=== PATIENT | male | born 1950 | race Caucasian/White ===

== ENCOUNTER 2016-04-13 12:59 | Inpatient (IN) | payer MEDICARE, BC ==
[~2016-04-13] VITALS: Ht 180.3 cm; Wt 82.1 kg
[~2016-04-13 12:59] MED LIST: ALLO300T2 PO; AUGM875T PO; CARV12.5 PO; COLC1TAB7 PO; LACT PO; LISI20 PO; NIFE20CA PO; THIA100T PO
[2016-04-13 13:04] VITALS: BP 141/97; PULSE 120; RESP 20; TEMP 99.1; O2SAT 93
[2016-04-13 13:09] VITALS: BP 141/97; PULSE 120; RESP 20; TEMP 99.1; O2SAT 93
--- NOTE | 2016-04-13 13:26 | PD ---
HPI Chief Complaint: Musculoskeletal Complaint Time Seen by Provider: 13:12 Travel History International Travel<30 days: No Contact w/Intl Traveler<30days: No Traveled to known affect area: No History of Present Illness HPI The patient is a 65-year-old male who presents to the emergency department via EMS for bilateral hip and leg pain and generalized weakness. The patient states he has a 1-2 week history of bilateral hip pain with weakness when standing, also feels like his legs are going to "give out ". The patient is had this happen several times in the past and actually has a wheelchair at home for when he has weakness. He also complains of intermittent tremors, but denies any alcohol withdrawal. He does have a history of daily alcohol use, but states he is currently not in alcohol withdrawal. The pain is located over the bilateral hips, occasional radiates into the legs, is present at rest and with activity. He denies any known fever, does complain of myalgias and generalized weakness. Symptoms are moderate without any known alleviating or exacerbating factors. PFSH Past Medical History Arthritis: Yes Cardiovascular Problems: Yes (htn) High Cholesterol: Yes Chemotherapy: No Endocrine: No Gout: Yes Headaches: Yes Hypertension: Yes Musculoskeletal: Yes Neurologic: Yes Psychiatric: No Reproductive: No Respiratory: No Radiation Therapy: No Tetanus Vaccination: Unknown Influenza Vaccination: No ?: Not Past Surgical History Surgical History: No Previous Surgery Ear Surgery: Yes Tonsillectomy: Yes Other Surgery: Yes (FINGER REMOVED) Social History Alcohol Use: Yes (daily) Tobacco Use: No Substance Use: No Allergies-Medications (Allergen,Severity, Reaction): Coded Allergies: No Known Allergies (Unverified , 11/21/15) Reported Meds & Prescriptions Reported Meds & Active Scripts Active Chlordiazepoxide (Chlordiazepoxide HCl) 25 Mg Cap 25 Mg PO QID PRN [id number] M1 875 Mg Tab 875 Mg PO BID 7 Days Thiamine HCl 100 Mg Tab 100 Mg PO DAILY 30 Days Prinivil 20 mg (Lisinopril) 20 Mg Tab 20 Mg PO DAILY 30 Days Acidophilu1 1 Tab Tab 1 Tab PO TID 30 Days Coreg 12.5 mg (Carvedilol) 12.5 Mg Tab 12.5 Mg PO Q8H 30 Days Reported Colcrys (Colchicine) 0.6 Mg Tab 0.6 Mg PO PRN Allopurinol 300 Mg Tab 300 Mg PO DAILY Nifedipine 20 Mg Cap 60 Mg PO DAILY Review of Systems Except as stated in HPI: all other systems reviewed are Neg General / Constitutional: No: Fever HENT: No: Lightheadedness Cardiovascular: No: Chest Pain or Discomfort Respiratory: No: Shortness of Breath Gastrointestinal: No: Nausea, Vomiting, Abdominal Pain Musculoskeletal: Positive: Myalgias, Weakness, Pain Skin: No Rash Neurologic: No: Paresthesia, Sensory Disturbance Physical Exam Narrative GENERAL: Awake, alert, pleasant 65-year-old male appears his stated age is in no acute respiratory distress. The patient is mildly tremulous. SKIN: Warm and dry. HEAD: Atraumatic. Normocephalic. EYES: No injection or drainage. ENT: No nasal bleeding or discharge. Slightly dry mucous membranes. NECK: Trachea midline. No JVD. CARDIOVASCULAR: Regular, tachycardic with a heart rate of 110. RESPIRATORY: No accessory muscle use. Clear to auscultation. Breath sounds equal bilaterally. GASTROINTESTINAL: Abdomen soft, non-tender, nondistended. No rebound tenderness. MUSCULOSKELETAL: Patient has mild tenderness of the hips bilateral, but there is no deformity. The patient is able flex the hips and knees bilaterally, strength with extension is 4+/5 bilateral. Plantar flexion is 5/5. Positive distal pulses. Back: No tenderness over the thoracic vertebrae. Minimal tenderness of the sacroiliac bilateral but no obvious bony deformity. NEUROLOGICAL: Awake and alert. No obvious cranial nerve deficits. Motor grossly within normal limits. Normal speech. PSYCHIATRIC: Appropriate mood and affect; insight and judgment normal. Data Data Last Documented VS Vital Signs Date Time Temp Pulse Resp B/P Pulse Ox O2 Delivery O2 Flow Rate FiO2 04/13/16 15:07 118 04/13/16 13:09 99.1 20 141/97 93 Room Air Orders Complete Blood Count With Diff (04/13/16 13:19) Creatine Kinase (Cpk) (04/13/16 13:19) Urinalysis - C+S If Indicated (04/13/16 13:19) Sodium Chlor 0.9% 1000 Ml Inj (Ns 1000 M (04/13/16 13:30) Ondansetron Inj (Zofran Inj) (04/13/16 13:30) Morphine Inj (Morphine Inj) (04/13/16 13:30) Lorazepam (Ativan) (1/6/17 13:30) Comprehensive Metabolic Panel (04/13/16 13:20) Alcohol (Ethanol) (04/13/16 13:20) Magnesium (Mg) (04/13/16 13:20) Chest, Single Ap (04/13/16 ) Influenzae A/B Antigen (04/13/16 13:21) Pelvis, Ap Only (Routine) (04/13/16 ) Lactic Acid (04/13/16 14:08) Sodium Chlor 0.9% 1000 Ml Inj (Ns 1000 M (04/13/16 14:45) Lorazepam Inj (Ativan Inj) (04/13/16 15:15) Sodium Chlor 0.9% 1000 Ml Inj (Ns 1000 M (04/13/16 15:15) Labs Laboratory Tests Test 04/13/16 04/13/16 13:30 14:16 White Blood Count 9.6 TH/MM3 Red Blood Count 4.71 MIL/MM3 Hemoglobin 14.7 GM/DL Hematocrit 43.3 % Mean Corpuscular Volume 91.9 FL Mean Corpuscular Hemoglobin 31.2 PG Mean Corpuscular Hemoglobin 33.9 % Concent Red Cell Distribution Width 14.1 % Platelet Count 108 TH/MM3 Mean Platelet Volume 7.4 FL Neutrophils (%) (Auto) 84.0 % Lymphocytes (%) (Auto) 8.8 % Monocytes (%) (Auto) 5.8 % Eosinophils (%) (Auto) 0.4 % Basophils (%) (Auto) 1.0 % Neutrophils # (Auto) 8.1 TH/MM3 Lymphocytes # (Auto) 0.8 TH/MM3 Monocytes # (Auto) 0.6 TH/MM3 Eosinophils # (Auto) 0.0 TH/MM3 Basophils # (Auto) 0.1 TH/MM3 CBC Comment DIFF FINAL Differential Comment Sodium Level 137 MEQ/L Potassium Level 3.8 MEQ/L Chloride Level 98 MEQ/L Carbon Dioxide Level 25.7 MEQ/L Anion Gap 13 MEQ/L Blood Urea Nitrogen 11 MG/DL Creatinine 1.05 MG/DL Estimat Glomerular Filtration 71 ML/MIN Rate Random Glucose 195 MG/DL Calcium Level 9.1 MG/DL Magnesium Level 0.7 MG/DL Total Bilirubin 1.7 MG/DL Aspartate Amino Transf 58 U/L (AST/SGOT) Alanine Aminotransferase 30 U/L (ALT/SGPT) Alkaline Phosphatase 183 U/L Total Creatine Kinase 32 U/L Total Protein 8.6 GM/DL Albumin 3.5 GM/DL Ethyl Alcohol Level LESS THAN 3 MG/DL Lactic Acid Level 2.8 mmol/L [facility] Medical Decision Making Medical Screen Exam Complete: Yes Emergency Medical Condition: Yes Medical Record Reviewed: Yes Interpretation(s) Laboratory Tests Test 04/13/16 04/13/16 13:30 14:16 White Blood Count 9.6 TH/MM3 Red Blood Count 4.71 MIL/MM3 Hemoglobin 14.7 GM/DL Hematocrit 43.3 % Mean Corpuscular Volume 91.9 FL Mean Corpuscular Hemoglobin 31.2 PG Mean Corpuscular Hemoglobin 33.9 % Concent Red Cell Distribution Width 14.1 % Platelet Count 108 TH/MM3 Mean Platelet Volume 7.4 FL Neutrophils (%) (Auto) 84.0 % Lymphocytes (%) (Auto) 8.8 % Monocytes (%) (Auto) 5.8 % Eosinophils (%) (Auto) 0.4 % Basophils (%) (Auto) 1.0 % Neutrophils # (Auto) 8.1 TH/MM3 Lymphocytes # (Auto) 0.8 TH/MM3 Monocytes # (Auto) 0.6 TH/MM3 Eosinophils # (Auto) 0.0 TH/MM3 Basophils # (Auto) 0.1 TH/MM3 CBC Comment DIFF FINAL Differential Comment Sodium Level 137 MEQ/L Potassium Level 3.8 MEQ/L Chloride Level 98 MEQ/L Carbon Dioxide Level 25.7 MEQ/L Anion Gap 13 MEQ/L Blood Urea Nitrogen 11 MG/DL Creatinine 1.05 MG/DL Estimat Glomerular Filtration 71 ML/MIN Rate Random Glucose 195 MG/DL Calcium Level 9.1 MG/DL Magnesium Level 0.7 MG/DL Total Bilirubin 1.7 MG/DL Aspartate Amino Transf 58 U/L (AST/SGOT) Alanine Aminotransferase 30 U/L (ALT/SGPT) Alkaline Phosphatase 183 U/L Total Creatine Kinase 32 U/L Total Protein 8.6 GM/DL Albumin 3.5 GM/DL Ethyl Alcohol Level LESS THAN 3 MG/DL Lactic Acid Level 2.8 mmol/L Differential Diagnosis Differential diagnoses includes myositis, her mental myositis, myalgias, rhabdomyolysis, acute renal failure, hypokalemia, hypocalcemia, muscle spasms, alcohol withdrawal, dehydration Narrative Course IV was established, labs are drawn and sent, and the patient was placed on cardiac telemetry monitoring and continuous pulse ox imaging monitoring. CPK, CBC, CMP were sent to lab. Chest x-ray and pelvis x-ray were ordered. Chest x- ray and pelvis x-ray are unremarkable. The patient's CPK is unremarkable and kidney function is unremarkable. Lactic acid is 2.8. The patient was reevaluated after 1 L fluid his heart rate came down 118, therefore, the patient was administered 2 more liters of IV fluids. The patient's HMO sent tachycardic, I reviewed the EMR, he is several visits for alcohol withdrawal. His last alcohol intake was yesterday. The patient has no obvious evidence of myositis or acute fractures, however, his symptoms appear to possibly be related alcohol withdrawal. Therefore, patient was administered Ativan intravenously. The patient be discharged home on Librium. Case management will be consult to help the patient find a ride home as he states he is unable to get up the stairs into his house where he is in a wheelchair normally, states the taxi cab would not help. The patient was unable to ambulate at bedside, was unable to bear weight. The patient states she's had this happen several times and his symptoms will improve after 2-3 days. I had a discussion with the patient and stated I cannot send him home if he is unable to ambulate and came within his household his wheelchair. Therefore, patient will be 23 hour observation. I did advise the patient if his symptoms do not improve he may need permanent placement. Therefore, the on-call medical service was paged as the patient does not have a primary physician. Physician Communication Physician Communication The on-call medical service was paged for 23 hour observation. Diagnosis Primary Impression: Myalgia Additional Impressions: Generalized weakness Alcohol abuse Inability to ambulate due to multiple joints Patient Instructions: General Instructions Additional Instructions: Medications as directed. Follow-up with her primary physician. Return if symptoms worsen or progress. Med/Other Pt SpecificInfo: Prescription(s) given Scripts Chlordiazepoxide 25 Mg Cap25 Mg PO QID PRN (Anxiety) #20 CAP Ref 0 Prov:Julian South MD 04/13/16 Disposition: DISCHARGE HOME Condition: Stable Julian South MD Apr 13, 2016 13:26
[2016-04-13] MEDS ORDERED: LORazepam 1 MG TAB PO ONE (13:30)
[2016-04-13] MEDS ORDERED: SODIUM CHLOR 0.9% 1000 ML INJ 1,000 ML IV ONE ×3 (13:30→15:15)
[2016-04-13] MEDS ORDERED: MORPHINE SULFATE 4 MG/ML INJ IV PUSH ONE (13:30)
[2016-04-13] MEDS ORDERED: ONDANSETRON HCL 4 MG/2 ML VIAL IV PUSH ONE (13:30)
[2016-04-13 13:58] LABS: AUTOMATED NEUTROPHIL # 8.1 TH/MM3 (1.8-7.7); BASOPHIL # 0.1 TH/MM3 (0-0.2); EOSINOPHIL % 0.4 % (0.0-4.0); HEMATOCRIT 43.3 % (39.0-51.0); HEMO FLAGS DIFF FINAL; LYMPH % 8.8 % (9.0-44.0); LYMPHOCYTE # 0.8 TH/MM3 (1.0-4.8); MEAN CELL VOLUME 91.9 FL (80.0-100.0); MEAN CORPUSCULAR HEMOGLOBIN 31.2 PG (27.0-34.0); MEAN CORPUSCULAR HGB CONC 33.9 % (32.0-36.0); MONO % 5.8 % (0.0-8.0); PLATELET COUNT 108 TH/MM3 (150-450); RED BLOOD COUNT 4.71 MIL/MM3 (4.50-5.90); RED CELL DISTRIBUTION WIDTH 14.1 % (11.6-17.2); WHITE BLOOD COUNT 9.6 TH/MM3 (4.0-11.0)
--- NOTE | 2016-04-13 14:02 | RADRPT ---
EXAM DATE/TIME: 04/13/2016 13:43 [facility] COMPARISON: CHEST SINGLE AP, April 13, 2016, 13:41. INDICATIONS : Bilateral hip pain. No injury. MEDICAL HISTORY : None. SURGICAL HISTORY : None. ENCOUNTER: Initial ACUITY: 1 day PAIN SCORE: 7/10 LOCATION: Bilateral hips. FINDINGS: The osseous structures of the pelvis are intact. There are mild degenerative changes in the hips bila terally. No acute fracture or destructive lesion is identified.CONCLUSION: 1. Mild degenerative changes in the hips. No acute fracture identified. Ashwin Coffey MD on April 13, 2016 at 14:00 Board Certified Radiologist. This report was verified electronically.
--- NOTE | 2016-04-13 14:04 | RADRPT ---
EXAM DATE/TIME: 04/13/2016 13:41 [facility] COMPARISON: CHEST SINGLE AP, November 27, 2015, 9:02. INDICATIONS : Shortness of breath. MEDICAL HISTORY : None. SURGICAL HISTORY : None. ENCOUNTER: Initial ACUITY: 1 day PAIN SCORE: 0/10 LOCATION: Bilateral chest FINDINGS: The heart is at the upper limits of normal in size. The lungs demonstrate mild chronic interstitial c hanges but are otherwise clear. The visualized bony structures are grossly intact. CONCLUSION: 1. No acute cardiopulmonary findings identified. Ashwin Coffey MD on April 13, 2016 at 14:02 Board Certified Radiologist. This report was verified electronically.
[2016-04-13 14:28] LABS: ANION GAP 13 MEQ/L (5-15)
[2016-04-13 14:31] LABS: ALKALINE PHOSPHATASE 183 U/L (45-117); ALT (GPT) 30 U/L (12-78); AST (GOT) 58 U/L (15-37); BICARBONATE 25.7 MEQ/L (21.0-32.0); BLOOD UREA NITROGEN 11 MG/DL (7-18); CHLORIDE 98 MEQ/L (98-107); GLOMERULAR FILTRATION RATE 71 ML/MIN (>89); MAGNESIUM 0.7 MG/DL (1.5-2.5); POTASSIUM 3.8 MEQ/L (3.5-5.1); SODIUM (NA) 137 MEQ/L (136-145); TOTAL BILIRUBIN ADULT 1.7 MG/DL (0.2-1.0)
[2016-04-13 15:07] VITALS: PULSE 118
[2016-04-13] MEDS ORDERED: LORazepam 2 MG/ML VIAL IV PUSH ONE (15:15)
[2016-04-13] MEDS ORDERED: CHLO25CA2 PO (15:15)
[2016-04-13] MEDS ORDERED: NALOXONE HCL 0.4 MG/ML AMP IV PRN (16:45)
[2016-04-13] MEDS ORDERED: SODIUM CHLORIDE 0.9% FLUSH 5 ML FLUSH FLUSH PRN (16:45)
--- NOTE | 2016-04-13 16:50 | HHI.HP ---
[facility] Unknown Admission Diagnosis myalgias, inability to ambulate, alcohol abuse, lactic acidosis Diagnoses: Chief Complaint: Spasms, weakness Travel History International Travel<30 Days: No Contact w/Intl Traveler <30 Da: No Traveled to Known Affected Are: No History of Present Illness The patient is a 65-year-old male with a past medical history of alcohol abuse who is presenting to the hospital with spasms in his lower extremities and weakness. The patient said that his symptoms started today and involves a sensation of his tailbone popping and having pain in his hips and knees. He says he sometimes gets these sensations when he is drinking a lot. He says this is the third episode this has occurred this year. The patient says that it is gotten so bad he can't ambulate or get out of bed or chair. He says when these episodes occur he usually tries to ride it out by watching TV on his couch. The patient also describes a numbing sensation in his left foot that he has had for a long time. He says that he has real bad neuropathy. He says his last drink was yesterday. He believes that his symptoms are slightly improving. He denies any fevers. He says generally he ambulates without a cane or a walker. He says he only has 2 steps at home that he is usually able to climb. 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 He says that he drinks too much. Review of Systems Respiratory: DENIES: Shortness of breath Gastrointestinal: COMPLAINS OF: Constipation Musculoskeletal: COMPLAINS OF: Muscle aches, Neck pain Neurologic: COMPLAINS OF: Abnormal gait, Localized weakness, Paresthesias, Tremor, Poor Balance Past Family Social History Past Medical History Alcohol abuse Gout Hypertension OA Past Surgical History Tonsillectomy Finger amputation Allergies: Coded Allergies: No Known Allergies (Unverified , 11/21/15) Active Ordered Medications Current Medications Medications (Trade) Dose Ordered Sig/Leslie Route Start Time Stop Time Status Last Admin (Zyloprim) 300 mg DAILY PO 04/14/16 09:00 (Coreg) 12.5 mg Q8H PO 04/13/16 16:45 UNV (Prinivil) 20 mg DAILY PO 04/14/16 09:00 (Procardia) 60 mg DAILY PO 04/14/16 09:00 UNV Family History HTN Social History The patient says that he drinks too much. He is vague about the specific amount. He denies smoking or illicit drug use. Physical Exam Vital Signs Vital Signs Date Time Temp Pulse Resp B/P Pulse Ox O2 Delivery O2 Flow Rate FiO2 04/13/16 15:07 118 04/13/16 13:09 99.1 120 20 141/97 93 Room Air 04/13/16 13:04 99.1 120 20 141/97 93 Physical Exam GENERAL: Tremulous male in no apparent distress. SKIN: Warm and dry. HEAD: Atraumatic. Normocephalic. EYES: No injection or drainage. ENT: No nasal bleeding or discharge. Slightly dry mucous membranes. NECK: Trachea midline. No JVD. CARDIOVASCULAR: Regular, tachycardic. RESPIRATORY: No accessory muscle use. Clear to auscultation. Breath sounds equal bilaterally. GASTROINTESTINAL: Abdomen soft, non-tender, nondistended. No rebound tenderness. MUSCULOSKELETAL: Patient has mild tenderness of the hips bilateral, but there is no deformity. No lower extremity edema. Positive distal pulses. NEUROLOGICAL: Awake and alert. No obvious cranial nerve deficits. Motor grossly within normal limits. Normal speech. Cranial nerves grossly intact. The patient is able flex the hips and knees bilaterally, strength with extension is 4+/5 bilaterally. Plantar flexion is 5/5. Upper extremity with 5 out of 5 strength. PSYCHIATRIC: Appropriate mood and affect; insight and judgment normal. Laboratory Laboratory Tests Test 04/13/16 04/13/16 13:30 14:16 White Blood Count 9.6 Red Blood Count 4.71 Hemoglobin 14.7 Hematocrit 43.3 Mean Corpuscular Volume 91.9 Mean Corpuscular Hemoglobin 31.2 Mean Corpuscular Hemoglobin 33.9 Concent Red Cell Distribution Width 14.1 Platelet Count 108 Mean Platelet Volume 7.4 Neutrophils (%) (Auto) 84.0 Lymphocytes (%) (Auto) 8.8 Monocytes (%) (Auto) 5.8 Eosinophils (%) (Auto) 0.4 Basophils (%) (Auto) 1.0 Neutrophils # (Auto) 8.1 Lymphocytes # (Auto) 0.8 Monocytes # (Auto) 0.6 Eosinophils # (Auto) 0.0 Basophils # (Auto) 0.1 CBC Comment DIFF FINAL Differential Comment Sodium Level 137 Potassium Level 3.8 Chloride Level 98 Carbon Dioxide Level 25.7 Anion Gap 13 Blood Urea Nitrogen 11 Creatinine 1.05 Estimat Glomerular Filtration 71 Rate Random Glucose 195 Calcium Level 9.1 Magnesium Level 0.7 Total Bilirubin 1.7 Aspartate Amino Transf 58 (AST/SGOT) Alanine Aminotransferase 30 (ALT/SGPT) Alkaline Phosphatase 183 Total Creatine Kinase 32 Total Protein 8.6 Albumin 3.5 Ethyl Alcohol Level LESS THAN 3 Lactic Acid Level 2.8 Date/Time Procedure Status Source Growth 04/13/16 14:30 Influenza Types A,B Antigen (TERRI) - Final Complete Nasal Aspirate NEGATIVE FOR FLU A AND B ANTIGEN.... Result Diagram: 04/13/16 1330 04/13/16 1330 Imaging Last Impressions Pelvis X-Ray 04/13/16 0000 Signed Impressions: Service Date/Time: Wednesday, April 13, 2016 13:43 - CONCLUSION: 1. Mild degenerative changes in the hips. No acute fracture identified. Ashwin Coffey MD Chest X-Ray 04/13/16 0000 Signed Impressions: Service Date/Time: Wednesday, April 13, 2016 13:41 - CONCLUSION: 1. No acute cardiopulmonary findings identified. Ashwin Coffey MD Assessment and Plan Assessment and Plan Alcohol withdrawal The patient is tachycardic, tremulous, weak and has muscle cramping in the lower extremities. He says this happens several times a year. - IV fluids. - CIWA protocol. - Monitor electrolytes and replete as needed. - Monitor on telemetry. - Multivitamin, folate and thiamine. - cessation instruction. Weakness/ spasms/ hypomagnesemia Likely secondary to alcohol abuse. - Treatment as above. - Physical therapy and case management evaluations. - mg sulfate IV x 4 bags. Repeat mag level this evening. - check phos levels. - replete potassium. HTN Exacerbated by withdrawal. - continue home meds. - clonidine as needed. Thrombocytopenia Likely secondary to chronic alcohol abuse. - Follow CBC. PPx: Lovenox. Code Status Full. Discussed Condition With Dr. South, pt. Physician Certification 2 Midnight Certification Type: Admission for Inpatient Services Order for Inpatient Services The services are ordered in accordance with Medicare regulations or non- Medicare payer requirements, as applicable. In the case of services not specified as inpatient-only, they are appropriately provided as inpatient services in accordance with the 2-midnight benchmark. Estimated LOS (days): 2 days is the estimated time the patient will need to remain in the hospital, assuming treatment plan goals are met and no additional complications. Post-Hospital Plan: Not yet determined Anmol Murray DO Apr 13, 2016 16:50
[2016-04-13] MEDS ORDERED: LORazepam 2 MG TAB PO PRN (17:00)
[2016-04-13] MEDS ORDERED: LORazepam 2 MG/ML VIAL IV PUSH PRN ×3 (17:00)
[2016-04-13] MEDS ORDERED: SENNOSIDES 8.6 MG TAB PO PRN (17:00)
[2016-04-13] MEDS ORDERED: ACETAMINOPHEN 325 MG TAB PO PRN (17:00)
[2016-04-13] MEDS ORDERED: FLUMAZENIL 1 MG/10 ML VIAL IV PUSH PRN (17:00)
[2016-04-13] MEDS ORDERED: ONDANSETRON HCL 4 MG/2 ML VIAL IVP PRN (18:00)
[2016-04-13] MEDS ORDERED: ENOXAPARIN SODIUM 40 MG/0.4 ML SYRINGE SQ SCH (18:00)
[2016-04-13] MEDS ORDERED: POTASSIUM CHLORIDE 25 MEQ EFFERVESCENT TAB PO ONE (18:00)
[2016-04-13] MEDS ORDERED: cloNIDine HCL 0.1 MG TAB PO PRN (18:00)
[2016-04-13 18:10] VITALS: BP 140/73; PULSE 78; RESP 18; TEMP 98.1; O2SAT 98
[2016-04-13] MEDS: SODIUM CHLOR 0.9% 1000 ML INJ 1,000 ML IV SCH (18:13)
[2016-04-13] MEDS: CARVEDILOL 12.5 MG TAB PO SCH (18:13)
[2016-04-13] MEDS: DOCUSATE SODIUM 100 MG CAP PO SCH (18:13)
[2016-04-13] MEDS: MAGNESIUM SULFATE 1 GM PREMIX 100 ML IV SCH (18:14)
[2016-04-13 18:55] LABS: BLOOD, URINE TRACE (NEG); COMMENT (UR) CULT NOT INDICATED; CULTURE IF INDICATED CULT NOT INDICATED; GLUCOSE,URINE NEG (NEG); HYALINE CAST, URINE 4 /lpf (RARE); KETONE, URINE TRACE mg/dL (NEG); MUCUS URINE FEW /lpf (OCC); NITRITE,URINE NEG (NEG); PH, URINE 6.5 (5.0-8.5); URINE COLOR YELLOW (YELLW/STRAW)
[2016-04-13 19:01] VITALS: BP 151/91; PULSE 116; RESP 20; TEMP 97.4; O2SAT 92
[2016-04-13] MEDS: SODIUM CHLORIDE 0.9% FLUSH 5 ML FLUSH FLUSH SCH (20:57)
[2016-04-13] MEDS: ACETAMINOPHEN 325 MG TAB PO PRN (20:57)
[2016-04-13 23:37] LABS: MAGNESIUM 0.9 MG/DL (1.5-2.5)
[2016-04-14] VITALS (9 sets, daily range): BP systolic 106–138; BP diastolic 66–78; PULSE 70–93; RESP 16–18; TEMP 95.9–98.1; O2SAT 93–97
[2016-04-14] MEDS: CARVEDILOL 12.5 MG TAB PO SCH ×3 (01:55→18:03)
[2016-04-14] MEDS: MAGNESIUM SULFATE 1 GM PREMIX 100 ML IV SCH ×3 (03:26→06:12)
[2016-04-14 05:26] LABS: AUTOMATED NEUTROPHIL # 4.8 TH/MM3 (1.8-7.7); BASOPHIL # 0.1 TH/MM3 (0-0.2); BASOPHIL % 0.8 % (0.0-2.0); EOSINOPHIL # 0.2 TH/MM3 (0-0.4); EOSINOPHIL % 2.2 % (0.0-4.0); HEMATOCRIT 38.9 % (39.0-51.0); LYMPH % 20.3 % (9.0-44.0); LYMPHOCYTE # 1.4 TH/MM3 (1.0-4.8); MEAN CELL VOLUME 92.6 FL (80.0-100.0); MEAN CORPUSCULAR HEMOGLOBIN 31.6 PG (27.0-34.0); MEAN CORPUSCULAR HGB CONC 34.2 % (32.0-36.0); MONO % 8.9 % (0.0-8.0); NEUT % 67.8 % (16.0-70.0); PLATELET COUNT 89 TH/MM3 (150-450); RED CELL DISTRIBUTION WIDTH 14.3 % (11.6-17.2); WHITE BLOOD COUNT 7.1 TH/MM3 (4.0-11.0)
[2016-04-14 05:33] LABS: HEMO FLAGS AUTO DIFF
[2016-04-14] MEDS: SODIUM CHLOR 0.9% 1000 ML INJ 1,000 ML IV SCH ×2 (06:00→13:00)
[2016-04-14 06:09] LABS: ALKALINE PHOSPHATASE 138 U/L (45-117); ALT (GPT) 21 U/L (12-78); ANION GAP 11 MEQ/L (5-15); AST (GOT) 39 U/L (15-37); BICARBONATE 25.6 MEQ/L (21.0-32.0); BLOOD UREA NITROGEN 11 MG/DL (7-18); CHLORIDE 101 MEQ/L (98-107); GLOMERULAR FILTRATION RATE 124 ML/MIN (>89); MAGNESIUM 1.6 MG/DL (1.5-2.5); POTASSIUM 3.4 MEQ/L (3.5-5.1); SODIUM (NA) 138 MEQ/L (136-145); TOTAL BILIRUBIN ADULT 1.2 MG/DL (0.2-1.0)
[2016-04-14] MEDS: DOCUSATE SODIUM 100 MG CAP PO SCH ×2 (06:12→17:57)
[2016-04-14] MEDS: THIAMINE HCL 100 MG TAB PO SCH (08:09)
[2016-04-14] MEDS: ALLOPURINOL 300 MG TAB PO SCH (08:09)
[2016-04-14] MEDS: FOLIC ACID 1 MG TAB PO SCH (08:09)
[2016-04-14] MEDS: MULTIVITAMIN TAB PO SCH (08:09)
[2016-04-14] MEDS: NIFEdipine 20 MG CAP PO SCH (08:10)
[2016-04-14] MEDS: LISINOPRIL 20 MG TAB PO SCH (08:10)
[2016-04-14] MEDS: SODIUM CHLORIDE 0.9% FLUSH 5 ML FLUSH FLUSH SCH (08:10)
[2016-04-14] MEDS ORDERED: POTASSIUM PHOSPHATE INJ 30 MMOL in SODIUM CHLOR 0.9% 250 ML INJ 250 ML IV ONE (09:15)
[2016-04-14] MEDS ORDERED: POTASSIUM CHLORIDE 25 MEQ EFFERVESCENT TAB PO ONE (09:15)
[2016-04-14] MEDS ORDERED: MAGNESIUM SULFATE 1 GM PREMIX 100 ML IV SCH (09:15)
--- NOTE | 2016-04-14 09:30 | HHI.PR ---
Subjective Remarks The patient said that he felt much better. He said that he was still overall weak. He said that he had a lot of chronic back pain. He says this was the first time he was eating anything in 2 days. He had no acute complaints. Objective Vitals Vital Signs Date Time Temp Pulse Resp B/P Pulse Ox O2 Delivery O2 Flow Rate FiO2 04/14/16 07:56 90 04/14/16 07:32 Room Air 04/14/16 04:01 97.9 85 17 106/66 95 04/14/16 00:00 97.2 93 16 132/78 94 04/13/16 19:01 97.4 116 20 151/91 92 04/13/16 18:10 98.1 78 18 140/73 98 Room Air 04/13/16 15:07 118 04/13/16 13:09 99.1 120 20 141/97 93 Room Air 04/13/16 13:04 99.1 120 20 141/97 93 I/O 04/13/16 04/13/16 04/13/16 04/14/16 04/14/16 04/14/16 07:00 15:00 23:00 07:00 15:00 23:00 Intake Total 461 ml 1169 ml Output Total 250 ml 200 ml Balance 211 ml 969 ml Intake Oral 240 ml 240 ml IV Total 221 ml 929 ml Output Urine Total 250 ml 200 ml Result Diagram: 04/14/16 0453 04/14/16 0453 Imaging Last Impressions Pelvis X-Ray 04/13/16 0000 Signed Impressions: Service Date/Time: Wednesday, April 13, 2016 13:43 - CONCLUSION: 1. Mild degenerative changes in the hips. No acute fracture identified. Ashwin Coffey MD Chest X-Ray 04/13/16 0000 Signed Impressions: Service Date/Time: Wednesday, April 13, 2016 13:41 - CONCLUSION: 1. No acute cardiopulmonary findings identified. Ashwin Coffey MD Objective Remarks GENERAL: Resting comfortably, in no apparent distress. SKIN: Warm and dry. HEAD: Atraumatic. Normocephalic. EYES: No injection or drainage. ENT: No nasal bleeding or discharge. Slightly dry mucous membranes. NECK: Trachea midline. No JVD. CARDIOVASCULAR: Regular, tachycardic. RESPIRATORY: No accessory muscle use. Clear to auscultation. Breath sounds equal bilaterally. GASTROINTESTINAL: Abdomen soft, non-tender, nondistended. No rebound tenderness. MUSCULOSKELETAL: No lower extremity edema. Positive distal pulses. NEUROLOGICAL: Awake and alert. No obvious cranial nerve deficits. Motor grossly within normal limits. Normal speech. Cranial nerves grossly intact. Lower extremity strength is 3/5 bilaterally. Upper extremity with 5 out of 5 strength. PSYCHIATRIC: Appropriate mood and affect; insight and judgment normal. Medications and IVs Current Medications Medications (Trade) Dose Ordered Sig/Leslie Route Start Time Stop Time Status Last Admin (Zyloprim) 300 mg DAILY PO 04/14/16 09:00 04/14/16 08:09 (Coreg) 12.5 mg Q8H PO 04/13/16 18:00 04/14/16 01:55 (Prinivil) 20 mg DAILY PO 04/14/16 09:00 Nifedipine 60 mg 60 mg DAILY PO 04/14/16 09:00 (NS 1000 ml Inj) 1,000 ml @ 100 mls/hr Q10H IV 04/13/16 17:00 04/14/16 06:00 (NS Flush) 2 ml UNSCH PRN FLUSH 04/13/16 16:45 (NS Flush) 2 ml BID FLUSH 04/13/16 21:00 (Tylenol) 650 mg Q4H PRN PO 04/13/16 17:00 04/13/16 20:57 (Zofran Inj) 4 mg Q6H PRN IVP 04/13/16 18:00 (Colace) 100 mg Q12H PO 04/13/16 18:00 04/14/16 06:12 (Senokot) 17.2 mg Q12H PRN PO 04/13/16 17:00 (Tylenol) 650 mg Q6H PRN PO 04/13/16 17:00 (Roxicodone) 5 mg Q4H PRN PO 04/13/16 16:45 (Narcan Inj) 0.4 mg UNSCH PRN IV 04/13/16 16:45 (Ativan) 1 mg Q4H PRN PO 04/13/16 17:00 (Ativan Inj) 1 mg Q4H PRN IV PUSH 04/13/16 17:00 (Ativan) 2 mg Q2H PRN PO 04/13/16 17:00 (Ativan Inj) 2 mg Q2H PRN IV PUSH 04/13/16 17:00 (Ativan Inj) 2 mg Q1H PRN IV PUSH 04/13/16 17:00 (Ativan Inj) 2 mg Q15M PRN IV PUSH 04/13/16 17:00 (Vitamin B1) 100 mg DAILY PO 04/14/16 09:00 04/14/16 08:09 (Catapres) 0.1 mg Q6H PRN PO 04/13/16 18:00 (Folate) 1 mg DAILY PO 04/14/16 09:00 04/14/16 08:09 Multivitamins 1 tab 1 tab DAILY PO 04/14/16 09:00 04/14/16 08:09 Magnesium Sulfate/ Dextrose 100 ml @ 100 mls/hr Q1H IV 04/14/16 09:15 04/14/16 10:14 (Potassium Phosphate Inj/NS 250 ml Inj) 260 ml @ 43.333 mls/ hr ONCE ONCE IV 04/14/16 09:15 04/14/16 15:14 A/P Assessment and Plan Alcohol withdrawal The patient was tachycardic, tremulous, weak and had muscle cramping in the lower extremities. He says this happens several times a year. Magnesium and phosphorous levels were very low. - IV fluids. - CIWA protocol. - Monitor electrolytes and replete as needed. - Monitor on telemetry. - Multivitamin, folate and thiamine. - cessation instruction. Weakness/ spasms/ hypomagnesemia/ hypophosphatemia/ hypokalemia Likely secondary to alcohol abuse and decreased PO intake. - Treatment as above. - Physical therapy and case management evaluations. - mg sulfate, K phos and KCl repletion. - encourage PO intake. HTN Exacerbated by withdrawal. Stable 04/14. - continue home meds. - clonidine as needed. Thrombocytopenia Likely secondary to chronic alcohol abuse. - Follow CBC. - d/c Lovenox. PPx: SCDs. Discharge Planning Awaiting clinical improvement. Anmol Murray DO Apr 14, 2016 09:30
[2016-04-14 09:58] LABS: PLATELET ESTIMATE SMEAR LOW (NORMAL); PLATELET MORPHOLOGY NORMAL (NORMAL); SCAN/DIFF AUTO DIFF CONFIRMED
[2016-04-14 16:24] LABS: BICARBONATE 24.4 MEQ/L (21.0-32.0); POTASSIUM 4.1 MEQ/L (3.5-5.1)
[2016-04-14] MEDS: LORazepam 1 MG TAB PO PRN (23:04)
[2016-04-15] VITALS (9 sets, daily range): BP systolic 97–144; BP diastolic 59–84; PULSE 78–94; RESP 16–18; TEMP 95.6–97.9; O2SAT 94–97
[2016-04-15] MEDS: LORazepam 1 MG TAB PO PRN ×2 (03:37→09:11)
[2016-04-15] MEDS: CARVEDILOL 12.5 MG TAB PO SCH ×3 (03:37→18:00)
[2016-04-15] MEDS: DOCUSATE SODIUM 100 MG CAP PO SCH ×2 (03:37→18:00)
[2016-04-15 06:23] LABS: BICARBONATE 22.2 MEQ/L (21.0-32.0); MAGNESIUM 1.6 MG/DL (1.5-2.5); POTASSIUM 3.8 MEQ/L (3.5-5.1)
[2016-04-15] MEDS: SODIUM CHLOR 0.9% 1000 ML INJ 1,000 ML IV SCH ×2 (09:00→19:00)
[2016-04-15] MEDS: SODIUM CHLORIDE 0.9% FLUSH 5 ML FLUSH FLUSH SCH ×2 (09:00→21:00)
[2016-04-15] MEDS: ALLOPURINOL 300 MG TAB PO SCH (09:10)
[2016-04-15] MEDS: LISINOPRIL 20 MG TAB PO SCH (09:10)
[2016-04-15] MEDS: FOLIC ACID 1 MG TAB PO SCH (09:10)
[2016-04-15] MEDS: THIAMINE HCL 100 MG TAB PO SCH (09:10)
[2016-04-15] MEDS: NIFEdipine 20 MG CAP PO SCH (09:10)
[2016-04-15] MEDS: MULTIVITAMIN TAB PO SCH (09:11)
[2016-04-15] MEDS ORDERED: POTASSIUM CHLORIDE 25 MEQ EFFERVESCENT TAB PO ONE (15:30)
[2016-04-15] MEDS ORDERED: MAGNESIUM SULFATE 1 GM PREMIX 100 ML IV ONE (15:30)
--- NOTE | 2016-04-15 15:39 | HHI.PR ---
Subjective Remarks The patient was very confused. He was trying to climb out of bed. He did not know where he was. He did know that I was a doctor. Discussed with nursing. Objective Vitals Vital Signs Date Time Temp Pulse Resp B/P Pulse Ox O2 Delivery O2 Flow Rate FiO2 04/15/16 12:00 95.9 88 18 97/59 97 04/15/16 08:00 95.8 90 18 144/84 94 04/15/16 04:00 97.9 94 16 143/80 94 04/15/16 00:00 97.4 86 18 131/83 95 04/14/16 20:37 84 04/14/16 20:00 98.1 70 18 138/77 97 04/14/16 15:48 96.2 86 18 124/68 95 I/O 04/14/16 04/14/16 04/14/16 04/15/16 04/15/16 04/15/16 07:00 15:00 23:00 07:00 15:00 23:00 Intake Total 1169 ml 1236 ml 480 ml 480 ml Output Total 200 ml 800 ml 400 ml 850 ml Balance 969 ml 436 ml 80 ml -370 ml Intake Oral 240 ml 600 ml 480 ml 480 ml IV Total 929 ml 636 ml Output Urine Total 200 ml 800 ml 400 ml 850 ml # Bowel Movements 1 Result Diagram: 04/14/16 0453 04/15/16 0439 Imaging Current Medications Medications (Trade) Dose Ordered Sig/Leslie Route Start Time Stop Time Status Last Admin (Zyloprim) 300 mg DAILY PO 04/14/16 09:00 04/15/16 09:10 (Coreg) 12.5 mg Q8H PO 04/13/16 18:00 04/15/16 09:10 (Prinivil) 20 mg DAILY PO 04/14/16 09:00 04/15/16 09:10 Nifedipine 60 mg 60 mg DAILY PO 04/14/16 09:00 04/15/16 09:10 (NS 1000 ml Inj) 1,000 ml @ 100 mls/hr Q10H IV 04/13/16 17:00 04/14/16 06:00 (NS Flush) 2 ml UNSCH PRN FLUSH 04/13/16 16:45 (NS Flush) 2 ml BID FLUSH 04/13/16 21:00 04/15/16 09:00 (Tylenol) 650 mg Q4H PRN PO 04/13/16 17:00 04/13/16 20:57 (Zofran Inj) 4 mg Q6H PRN IVP 04/13/16 18:00 (Colace) 100 mg Q12H PO 04/13/16 18:00 04/15/16 03:37 (Senokot) 17.2 mg Q12H PRN PO 04/13/16 17:00 (Tylenol) 650 mg Q6H PRN PO 04/13/16 17:00 (Roxicodone) 5 mg Q4H PRN PO 04/13/16 16:45 (Narcan Inj) 0.4 mg UNSCH PRN IV 04/13/16 16:45 (Ativan) 1 mg Q4H PRN PO 04/13/16 17:00 04/15/16 09:11 (Ativan Inj) 1 mg Q4H PRN IV PUSH 04/13/16 17:00 (Ativan) 2 mg Q2H PRN PO 04/13/16 17:00 (Ativan Inj) 2 mg Q2H PRN IV PUSH 04/13/16 17:00 04/15/16 15:05 (Ativan Inj) 2 mg Q1H PRN IV PUSH 04/13/16 17:00 (Ativan Inj) 2 mg Q15M PRN IV PUSH 04/13/16 17:00 (Vitamin B1) 100 mg DAILY PO 04/14/16 09:00 04/15/16 09:10 (Catapres) 0.1 mg Q6H PRN PO 04/13/16 18:00 (Folate) 1 mg DAILY PO 04/14/16 09:00 04/15/16 09:10 Multivitamins 1 tab 1 tab DAILY PO 04/14/16 09:00 04/15/16 09:11 Magnesium Sulfate/ Dextrose 100 ml @ 100 mls/hr ONCE ONCE IV 04/15/16 15:30 04/15/16 16:29 (Potassium Phosphate Inj/NS Inj) 155 ml @ 38.75 mls/ hr ONCE ONCE IV 04/15/16 17:00 04/15/16 20:59 Objective Remarks GENERAL: Anxious, trying to climb out of bed. SKIN: Warm and dry. HEAD: Atraumatic. Normocephalic. EYES: No injection or drainage. ENT: No nasal bleeding or discharge. Slightly dry mucous membranes. NECK: Trachea midline. No JVD. CARDIOVASCULAR: Regular, tachycardic. RESPIRATORY: No accessory muscle use. Clear to auscultation. Breath sounds equal bilaterally. GASTROINTESTINAL: Abdomen soft, non-tender, nondistended. No rebound tenderness. MUSCULOSKELETAL: No lower extremity edema. Positive distal pulses. NEUROLOGICAL: Awake and alert. Anxious. No obvious cranial nerve deficits. Motor grossly within normal limits. Normal speech. Cranial nerves grossly intact. Lower extremity strength is 3/5 bilaterally. Upper extremity with 5 out of 5 strength. PSYCHIATRIC: Anxious/ agitated. Medications and IVs Current Medications Medications (Trade) Dose Ordered Sig/Leslie Route Start Time Stop Time Status Last Admin (Zyloprim) 300 mg DAILY PO 04/14/16 09:00 04/15/16 09:10 (Coreg) 12.5 mg Q8H PO 04/13/16 18:00 04/15/16 09:10 (Prinivil) 20 mg DAILY PO 04/14/16 09:00 04/15/16 09:10 Nifedipine 60 mg 60 mg DAILY PO 04/14/16 09:00 04/15/16 09:10 (NS 1000 ml Inj) 1,000 ml @ 100 mls/hr Q10H IV 04/13/16 17:00 04/14/16 06:00 (NS Flush) 2 ml UNSCH PRN FLUSH 04/13/16 16:45 (NS Flush) 2 ml BID FLUSH 04/13/16 21:00 04/15/16 09:00 (Tylenol) 650 mg Q4H PRN PO 04/13/16 17:00 04/13/16 20:57 (Zofran Inj) 4 mg Q6H PRN IVP 04/13/16 18:00 (Colace) 100 mg Q12H PO 04/13/16 18:00 04/15/16 03:37 (Senokot) 17.2 mg Q12H PRN PO 04/13/16 17:00 (Tylenol) 650 mg Q6H PRN PO 04/13/16 17:00 (Roxicodone) 5 mg Q4H PRN PO 04/13/16 16:45 (Narcan Inj) 0.4 mg UNSCH PRN IV 04/13/16 16:45 (Ativan) 1 mg Q4H PRN PO 04/13/16 17:00 04/15/16 09:11 (Ativan Inj) 1 mg Q4H PRN IV PUSH 04/13/16 17:00 (Ativan) 2 mg Q2H PRN PO 04/13/16 17:00 (Ativan Inj) 2 mg Q2H PRN IV PUSH 04/13/16 17:00 04/15/16 15:05 (Ativan Inj) 2 mg Q1H PRN IV PUSH 04/13/16 17:00 (Ativan Inj) 2 mg Q15M PRN IV PUSH 04/13/16 17:00 (Vitamin B1) 100 mg DAILY PO 04/14/16 09:00 04/15/16 09:10 (Catapres) 0.1 mg Q6H PRN PO 04/13/16 18:00 (Folate) 1 mg DAILY PO 04/14/16 09:00 04/15/16 09:10 Multivitamins 1 tab 1 tab DAILY PO 04/14/16 09:00 04/15/16 09:11 Magnesium Sulfate/ Dextrose 100 ml @ 100 mls/hr ONCE ONCE IV 04/15/16 15:30 04/15/16 16:29 (Potassium Phosphate Inj/NS Inj) 155 ml @ 38.75 mls/ hr ONCE ONCE IV 04/15/16 17:00 04/15/16 20:59 A/P Assessment and Plan Alcohol withdrawal The patient was tachycardic, tremulous, weak and had muscle cramping in the lower extremities. He says this happens several times a year. Magnesium and phosphorous levels were very low. Withdrawal worse 04/15. CIWA score has been up to 14 per nursing. - IV fluids. - CIWA protocol. - Monitor electrolytes and replete as needed. - Monitor on telemetry. - Multivitamin, folate and thiamine. - cessation instruction. - transfer to ICU if CIWA score escalates. Weakness/ spasms/ hypomagnesemia/ hypophosphatemia/ hypokalemia Likely secondary to alcohol abuse and decreased PO intake. - Treatment as above. - Physical therapy and case management evaluations. Will d/c to SNF when stable. - mg sulfate, K phos and KCl repletion. - encourage PO intake. HTN Exacerbated by withdrawal. Stable 04/15. - continue home meds. - clonidine as needed. Thrombocytopenia Likely secondary to chronic alcohol abuse. - Follow CBC. - d/c Lovenox. PPx: SCDs. Discharge Planning Awaiting clinical improvement. Anmol Murray DO Apr 15, 2016 15:39
[2016-04-15] MEDS: LORazepam 2 MG/ML VIAL IV PUSH PRN ×3 (16:41→21:55)
[2016-04-15] MEDS ORDERED: POTASSIUM PHOSPHATE INJ 15 MMOL in SODIUM CHLORIDE 0.9% INJ 150 ML IV ONE (17:00)
[2016-04-15] MEDS: THIAMINE INJ 100 MG in SODIUM CHLORIDE 0.9% INJ 100 ML IV SCH (18:07)
--- NOTE | 2016-04-15 22:34 | PD.CONS ---
[facility] Service Critical Care Medicine Consult Requested By Dr. Murray Reason for Consult Delirium tremens Primary Care Physician Unknown History of Present Illness Date of admission 04/13/16 Date of consult 04/15/16 65-year-old white male with past medical history of alcohol abuse and alcohol withdrawal seizures, gout, hypertension, osteoarthritis who presented to [facility] on 04/13/16 with a complaint of generalized weakness, bilateral hip pain, muscle cramps, sensation of his "tailbone popping" and difficulty ambulating. He appeared to be in mild alcohol withdrawal in the emergency department and was given IVF and ativan. ED workup revealed negative x-ray pelvis, normal CPK. Social work became involved in preparing patient for discharge with librium and a cab ride, however he was unable to ambulate adequately so decision was made to admit him. He was admitted to hospitalist service and was determined to have multiple electrolyte abnormalities including hypomagnesemia, hypokalemia, hypophosphatemia which have been addressed. He was placed on CIWA protocol and withdrawal symptoms began the evening of 04/14 and he began receiving ativan po. Symptoms progressively worsened throughout the course of the day on 04/15. Over the last 5 hours he has received about 8 mg of ativan. CIWA score was >20 at 18:36 which prompted transfer to ICU and dental nurse consult. Past Family Social History Allergies: Coded Allergies: No Known Allergies (Unverified , 11/21/15) Past Medical History Gout Hypertension Alcohol abuse Osteoarthritis Past Surgical History Tonsillectomy Reported Medications Lisinopril 20 mg by mouth daily Allopurinol 300 mg by mouth daily Colchicine 0.6 mg when necessary gout Librium 25 mg by mouth 4 times a day Coreg 12.5 mg by mouth every 8 hours Nifedipine 60 mg by mouth daily Thiamine 100 g by mouth daily Family History Unable to obtain from patient due to clinical condition Social History Unable to obtain from patient due to disorientation. Review of EMR indicates that he has no history of tobacco abuse or illicit drug use. Reportedly he drinks alcohol daily but has never provided an exact quantity. Physical Exam Vital Signs Vital Signs Date Time Temp Pulse Resp B/P Pulse Ox O2 Delivery O2 Flow Rate FiO2 04/15/16 19:39 78 04/15/16 18:23 97 21 04/15/16 16:00 95.6 86 18 102/63 94 04/15/16 12:00 95.9 88 18 97/59 97 04/15/16 08:00 95.8 90 18 144/84 94 04/15/16 04:00 97.9 94 16 143/80 94 04/15/16 00:00 97.4 86 18 131/83 95 Physical Exam Afebrile Pulse 91 respirations 18 blood pressure 130/72 sats 95% on room air GENERAL: Disheveled male who is restless in bed, in vest and four point soft restraints. SKIN: Warm and dry. No diaphoresis. HEAD: Atraumatic. Normocephalic. EYES: Pupils equal and round. No scleral icterus. ENT: No nasal bleeding or discharge. Mucous membranes pink and moist. NECK: Trachea midline. No JVD. CARDIOVASCULAR: Regular rate and rhythm, sinus rhythm on the monitor. No murmurs rubs or gallops. RESPIRATORY: Tachypneic, No accessory muscle use. Clear to auscultation. Breath sounds equal bilaterally. On RA. GASTROINTESTINAL: Abdomen soft, non-tender, nondistended. Bowel sounds present MUSCULOSKELETAL: Extremities without clubbing, cyanosis, or edema. No obvious deformities. To tenderness at MTP bilaterally. No joint swelling/erythema/ tenderness. NEUROLOGICAL: Agitated, restless in bed, moving all extremities. Follows commands by squeezing hands and moving feet bilaterally. Oriented to self. Not oriented to year or place. Experiencing hallucinations and delusions. + tremor Laboratory Laboratory Tests Test 04/15/16 04:39 Sodium Level 136 Potassium Level 3.8 Chloride Level 103 Carbon Dioxide Level 22.2 Anion Gap 11 Blood Urea Nitrogen 8 Creatinine 0.62 Estimat Glomerular Filtration 131 Rate Random Glucose 117 Calcium Level 8.3 Phosphorus Level 2.3 Magnesium Level 1.6 Date/Time Procedure Status Source Growth 04/13/16 14:30 Influenza Types A,B Antigen (TERRI) - Final Complete Nasal Aspirate NEGATIVE FOR FLU A AND B ANTIGEN.... Result Diagram: 04/14/16 0453 04/15/16 0439 Assessment and Plan Assessment and Plan NEURO: Delirium tremens Alcohol dependence Difficulty ambulating Patient described muscle cramping on admission, may be secondary to electrolyte abnormalities which are being addressed. Moving all extremities . PT to see. Obtain CT brain - negative for acute abnormalities. Chronic white matter changes. Ativan 1-2 mg IV up to q15 min per CIWA scale symptom triggers. Continue thiamine 100 mg IV daily, folic acid, multivitamin. MSK: Gout Continue allopurinol 100 mg by mouth daily. Patient currently has no evidence of acute gout flare. RESP: Patient is currently protecting his airway and is on room air. He will need additional Ativan to control his current alcohol withdrawal symptoms which could result in loss of airway protection. CV: HTN Currently normotensive. On Coreg 12.5 mg by mouth every 8 hours, nifedipine 60 mg by mouth daily, lisinopril 20 g by mouth daily. If he is not alert enough to take his po meds tomorrow morning, will need to adjust his regimen. GI: GERD Protonix 40 mg IV daily FEN/RENAL: Mild hyponatremia (resolved Acute Hypomagnesemia Acute Hypophosphatemia Acute Hypokalemia Has received electrolyte replacement with K-Phos and magnesium earlier. Will recheck BMP, magnesium, phosphorus in the morning. Voiding. Will place Perla if needed for e/o obstruction or if requires sedative drip for DTs. ID: Monitor for evidence of infection HEME: Chronic thrombocytopenia, secondary to chronic alcohol abuse ENDO: Euglycemic PROPH: Lovenox has been held by hospitalist due to platelet count less than 100. SCDs for DVT prophylaxis. Protonix 40 mg IV daily for stress ulcer prophylaxis and history of GERD ACCESS: Peripheral IV providing adequate access at this time Check vitals every 4 hours. Continuous pulse oximetry. There are no ICU beds available at this time, however based on my triage, this patient appears can be managed on the floor right now. I am monitoring closely overnight with multiple bedside reassessments on the floor. Level 3 Kelly Perez MD Apr 15, 2016 22:34
[2016-04-16] VITALS (9 sets, daily range): BP systolic 104–138; BP diastolic 62–82; PULSE 86–95; RESP 17–20; TEMP 96.1–98; O2SAT 93–96
[2016-04-16] MEDS ORDERED: MAGNESIUM SULFATE 1 GM PREMIX 100 ML IV ONE (02:30)
[2016-04-16] MEDS: DOCUSATE SODIUM 100 MG CAP PO SCH ×2 (02:43→18:27)
[2016-04-16] MEDS: CARVEDILOL 12.5 MG TAB PO SCH ×3 (02:43→18:27)
--- NOTE | 2016-04-16 03:41 | RADRPT ---
EXAM DATE/TIME: 04/16/2016 03:21 [facility] COMPARISON: No previous studies available for comparison. INDICATIONS : Altered mental status. RADIATION DOSE: 41.54 CTDIvol (mGy) MEDICAL HISTORY : Hypertension. SURGICAL HISTORY : None. ENCOUNTER: Initial ACUITY: 1 day PAIN SCALE: 0/10 LOCATION: cranial TECHNIQUE: Multiple contiguous axial images were obtained of the head. Using automated exposure control and adj ustment of the mA and/or kV according to patient size, radiation dose was kept as low as reasonably a chievable to obtain optimal diagnostic quality images. FINDINGS: CEREBRUM: Periventricular areas of low attenuation. The ventricles are normal for age. No evidence of midline shift, mass lesion, hemorrhage or acute infarction. No extra-axial fluid collections are seen. POSTERIOR FOSSA: The cerebellum and brainstem are intact. The 4th ventricle is midline. The cerebellopontine angle i s unremarkable. EXTRACRANIAL: The visualized portion of the orbits is intact. SKULL: The calvaria is intact. No evidence of skull fracture. CONCLUSION: Minimal nonspecific white matter changes. No acute intracranial abnormality. Ra Velasquez MD on April 16, 2016 at 3:39 Board Certified Radiologist. This report was verified electronically.
[2016-04-16] MEDS: SODIUM CHLOR 0.9% 1000 ML INJ 1,000 ML IV SCH ×3 (05:00→21:30)
[2016-04-16 06:18] LABS: HEMATOCRIT 41.7 % (39.0-51.0); MEAN CORPUSCULAR HGB CONC 34.7 % (32.0-36.0); PLATELET COUNT 80 TH/MM3 (150-450); RED BLOOD COUNT 4.53 MIL/MM3 (4.50-5.90); RED CELL DISTRIBUTION WIDTH 13.9 % (11.6-17.2); WHITE BLOOD COUNT 9.9 TH/MM3 (4.0-11.0)
[2016-04-16 06:40] LABS: BICARBONATE 22.6 MEQ/L (21.0-32.0); MAGNESIUM 1.3 MG/DL (1.5-2.5); POTASSIUM 3.9 MEQ/L (3.5-5.1)
[2016-04-16 06:46] LABS: REVIEW FLAG FINAL
[2016-04-16] MEDS: LISINOPRIL 20 MG TAB PO SCH (10:01)
[2016-04-16] MEDS: NIFEdipine 20 MG CAP PO SCH (10:01)
[2016-04-16] MEDS: FOLIC ACID 1 MG TAB PO SCH (10:01)
[2016-04-16] MEDS: ALLOPURINOL 300 MG TAB PO SCH (10:02)
[2016-04-16] MEDS: MULTIVITAMIN TAB PO SCH (10:02)
[2016-04-16] MEDS: SODIUM CHLORIDE 0.9% FLUSH 5 ML FLUSH FLUSH SCH ×2 (10:03→21:00)
[2016-04-16] MEDS: THIAMINE INJ 100 MG in SODIUM CHLORIDE 0.9% INJ 100 ML IV SCH (10:38)
[2016-04-16] MEDS: MAGNESIUM SULFATE 1 GM PREMIX 100 ML IV SCH ×3 (14:04→16:23)
--- NOTE | 2016-04-16 14:21 | HHI.PR ---
Subjective Remarks The pt was alert and oriented. Nursing was at the bedside. The pt said he ate breakfast. He has not been out of bed yet today. Objective Vitals Vital Signs Date Time Temp Pulse Resp B/P Pulse Ox O2 Delivery O2 Flow Rate FiO2 04/16/16 12:00 96.1 88 18 104/64 93 04/16/16 09:29 94 21 04/16/16 08:02 88 04/16/16 08:00 96.5 91 18 138/82 96 04/16/16 04:21 97.3 88 20 127/82 94 04/16/16 01:00 97.1 95 18 130/62 95 04/15/16 23:13 93 04/15/16 20:45 91 18 130/72 95 04/15/16 19:39 78 04/15/16 18:23 97 21 04/15/16 16:00 95.6 86 18 102/63 94 I/O 04/15/16 04/15/16 04/15/16 04/16/16 04/16/16 04/16/16 07:00 15:00 23:00 07:00 15:00 23:00 Intake Total 480 ml 600 ml 120 ml 830 ml 932 ml Output Total 850 ml Balance -370 ml 600 ml 120 ml 830 ml 932 ml Intake Oral 480 ml 600 ml 120 ml 120 ml IV Total 710 ml 932 ml Output Urine Total 850 ml # Voids 4 1 3 # Bowel Movements 1 1 0 Result Diagram: 04/16/16 0602 04/16/16 0602 Imaging Last Impressions Head CT 04/16/16 0000 Signed Impressions: Service Date/Time: Saturday, April 16, 2016 03:21 - CONCLUSION: Minimal nonspecific white matter changes. No acute intracranial abnormality. Ra Velasquez MD Pelvis X-Ray 04/13/16 0000 Signed Impressions: Service Date/Time: Wednesday, April 13, 2016 13:43 - CONCLUSION: 1. Mild degenerative changes in the hips. No acute fracture identified. Ashwin Coffey MD Chest X-Ray 04/13/16 0000 Signed Impressions: Service Date/Time: Wednesday, April 13, 2016 13:41 - CONCLUSION: 1. No acute cardiopulmonary findings identified. Ashwin Coffey MD Objective Remarks GENERAL: No apparent distress. SKIN: Warm and dry. HEAD: Atraumatic. Normocephalic. EYES: No injection or drainage. ENT: No nasal bleeding or discharge. Slightly dry mucous membranes. NECK: Trachea midline. No JVD. CARDIOVASCULAR: Regular, tachycardic. RESPIRATORY: No accessory muscle use. Clear to auscultation. Breath sounds equal bilaterally. GASTROINTESTINAL: Abdomen soft, non-tender, nondistended. No rebound tenderness. MUSCULOSKELETAL: No lower extremity edema. Positive distal pulses. NEUROLOGICAL: Awake and alert. Confused. No obvious cranial nerve deficits. Motor grossly within normal limits. Normal speech. Cranial nerves grossly intact. Lower extremity strength is 3/5 bilaterally. Upper extremity with 5 out of 5 strength. PSYCHIATRIC: Anxious. Medications and IVs Current Medications Medications (Trade) Dose Ordered Sig/Leslie Route Start Time Stop Time Status Last Admin (Zyloprim) 300 mg DAILY PO 04/14/16 09:00 04/16/16 10:02 (Coreg) 12.5 mg Q8H PO 04/13/16 18:00 04/16/16 10:02 (Prinivil) 20 mg DAILY PO 04/14/16 09:00 04/16/16 10:01 Nifedipine 60 mg 60 mg DAILY PO 04/14/16 09:00 04/16/16 10:01 (NS 1000 ml Inj) 1,000 ml @ 100 mls/hr Q10H IV 04/13/16 17:00 04/16/16 05:00 (NS Flush) 2 ml UNSCH PRN FLUSH 04/13/16 16:45 04/15/16 16:40 (NS Flush) 2 ml BID FLUSH 04/13/16 21:00 04/16/16 10:03 (Tylenol) 650 mg Q4H PRN PO 04/13/16 17:00 04/13/16 20:57 (Zofran Inj) 4 mg Q6H PRN IVP 04/13/16 18:00 04/15/16 16:55 (Colace) 100 mg Q12H PO 04/13/16 18:00 04/16/16 02:43 (Senokot) 17.2 mg Q12H PRN PO 04/13/16 17:00 (Tylenol) 650 mg Q6H PRN PO 04/13/16 17:00 (Roxicodone) 5 mg Q4H PRN PO 04/13/16 16:45 (Narcan Inj) 0.4 mg UNSCH PRN IV 04/13/16 16:45 (Ativan) 1 mg Q4H PRN PO 04/13/16 17:00 04/15/16 09:11 (Ativan Inj) 1 mg Q4H PRN IV PUSH 04/13/16 17:00 (Ativan) 2 mg Q2H PRN PO 04/13/16 17:00 (Ativan Inj) 2 mg Q2H PRN IV PUSH 04/13/16 17:00 04/15/16 15:05 (Ativan Inj) 2 mg Q1H PRN IV PUSH 04/13/16 17:00 04/15/16 21:55 (Ativan Inj) 2 mg Q15M PRN IV PUSH 04/13/16 17:00 04/15/16 18:36 (Catapres) 0.1 mg Q6H PRN PO 04/13/16 18:00 (Folate) 1 mg DAILY PO 04/14/16 09:00 04/16/16 10:01 Multivitamins 1 tab 1 tab DAILY PO 04/14/16 09:00 04/16/16 10:02 Thiamine HCl 100 mg/Sodium Chloride 101 ml @ 101 mls/hr DAILY IV 04/15/16 17:00 04/16/16 10:38 (Magnesium Sulfate 1 Gm Premix) 100 ml @ 100 mls/hr Q1H IV 04/16/16 13:00 04/16/16 15:59 04/16/16 14:04 A/P Assessment and Plan Alcohol withdrawal The patient was tachycardic, tremulous, weak and had muscle cramping in the lower extremities. He says this happens several times a year. Magnesium and phosphorous levels were very low. Withdrawal worse 04/15. CIWA score went over 20. Pt was to be transferred to ICU but no beds available. [employer] Techn[employer] consult appreciated. Withdrawal improved 04/16. - stable to remain on floor. - CIWA protocol. - Monitor electrolytes and replete as needed. - Monitor on telemetry. - Multivitamin, folate and thiamine. - cessation instruction. Weakness/ spasms/ hypomagnesemia/ hypophosphatemia/ hypokalemia Likely secondary to alcohol abuse and decreased PO intake. - Treatment as above. - Physical therapy and case management evaluations. Will d/c to SNF when stable. Add OT 04/16. - mg sulfate, K phos and KCl repletion. - encourage PO intake. HTN Not hypertensive at this time. - continue home meds. - clonidine as needed. Thrombocytopenia Likely secondary to chronic alcohol abuse. - Follow CBC. - d/c Lovenox. PPx: SCDs. Discharge Planning Awaiting clinical improvement. Anmol Murray DO Apr 16, 2016 14:21
[2016-04-17] VITALS (9 sets, daily range): BP systolic 111–142; BP diastolic 68–88; PULSE 82–90; RESP 16–18; TEMP 96.1–98.7; O2SAT 91–94
[2016-04-17] MEDS: CARVEDILOL 12.5 MG TAB PO SCH ×3 (01:24→18:36)
[2016-04-17] MEDS ORDERED: POTASSIUM CHLORIDE 25 MEQ EFFERVESCENT TAB PO ONE (01:30)
[2016-04-17] MEDS: DOCUSATE SODIUM 100 MG CAP PO SCH ×2 (06:09→18:36)
[2016-04-17 06:31] LABS: BICARBONATE 22.4 MEQ/L (21.0-32.0); POTASSIUM 5.1 MEQ/L (3.5-5.1)
[2016-04-17] MEDS: SODIUM CHLORIDE 0.9% FLUSH 5 ML FLUSH FLUSH SCH ×2 (10:04→21:00)
[2016-04-17] MEDS: NIFEdipine 20 MG CAP PO SCH (10:05)
[2016-04-17] MEDS: LISINOPRIL 20 MG TAB PO SCH (10:05)
[2016-04-17] MEDS: FOLIC ACID 1 MG TAB PO SCH (10:05)
[2016-04-17] MEDS: MULTIVITAMIN TAB PO SCH (10:05)
[2016-04-17] MEDS: ALLOPURINOL 300 MG TAB PO SCH (10:05)
[2016-04-17] MEDS: SODIUM CHLOR 0.9% 1000 ML INJ 1,000 ML IV SCH ×2 (10:06→21:00)
[2016-04-17] MEDS: THIAMINE INJ 100 MG in SODIUM CHLORIDE 0.9% INJ 100 ML IV SCH (10:10)
--- NOTE | 2016-04-17 13:41 | HHI.PR ---
Subjective Remarks In the chair. Says he has LE weakness, he is unsteady and also c/o left knee pain. No fever or chills. No tremors. Objective Vitals Vital Signs Date Time Temp Pulse Resp B/P Pulse Ox O2 Delivery O2 Flow Rate FiO2 04/17/16 12:03 91 21 04/17/16 12:00 96.1 84 18 111/69 93 04/17/16 11:18 84 04/17/16 08:03 82 04/17/16 08:00 98.2 88 18 142/88 94 04/17/16 04:00 97.1 90 17 133/79 93 04/17/16 00:00 97.6 90 16 124/74 93 04/16/16 21:29 91 04/16/16 20:00 98.0 90 17 108/65 94 04/16/16 16:00 96.2 86 18 104/66 94 I/O 04/16/16 04/16/16 04/16/16 04/17/16 04/17/16 04/17/16 07:00 15:00 23:00 07:00 15:00 23:00 Intake Total 830 ml 1892 ml 970 ml 969 ml Output Total 300 ml Balance 830 ml 1892 ml 970 ml 669 ml Intake Oral 120 ml 960 ml 240 ml 240 ml IV Total 710 ml 932 ml 730 ml 729 ml Output Urine Total 300 ml # Voids 3 2 1 1 # Bowel Movements 0 0 0 1 Result Diagram: 04/16/16 0602 04/17/16 0532 Imaging Last Impressions Head CT 04/16/16 0000 Signed Impressions: Service Date/Time: Saturday, April 16, 2016 03:21 - CONCLUSION: Minimal nonspecific white matter changes. No acute intracranial abnormality. Ra Velasquez MD Pelvis X-Ray 04/13/16 0000 Signed Impressions: Service Date/Time: Wednesday, April 13, 2016 13:43 - CONCLUSION: 1. Mild degenerative changes in the hips. No acute fracture identified. Ashwin Coffey MD Chest X-Ray 04/13/16 0000 Signed Impressions: Service Date/Time: Wednesday, April 13, 2016 13:41 - CONCLUSION: 1. No acute cardiopulmonary findings identified. Ashwin Coffey MD Objective Remarks GENERAL: No apparent distress. SKIN: Warm and dry. HEAD: Atraumatic. Normocephalic. EYES: No injection or drainage. ENT: No nasal bleeding or discharge. Slightly dry mucous membranes. NECK: Trachea midline. No JVD. CARDIOVASCULAR: Regular, tachycardic. RESPIRATORY: No accessory muscle use. Clear to auscultation. Breath sounds equal bilaterally. GASTROINTESTINAL: Abdomen soft, non-tender, nondistended. No rebound tenderness. MUSCULOSKELETAL: No lower extremity edema. Positive distal pulses. NEUROLOGICAL: Awake and alert. Confused. No obvious cranial nerve deficits. Motor grossly within normal limits. Normal speech. Cranial nerves grossly intact. Lower extremity strength is 3/5 bilaterally. Upper extremity with 5 out of 5 strength. PSYCHIATRIC: Anxious. A/P Assessment and Plan Alcohol withdrawal The patient was tachycardic, tremulous, weak and had muscle cramping in the lower extremities. He says this happens several times a year. Magnesium and phosphorous levels were very low. Withdrawal worse 04/15. CIWA score went over 20. Pt was to be transferred to ICU but no beds available. Mass Spec consult appreciated. Withdrawal improved 04/16. - stable to remain on floor. - CIWA protocol. - Monitor electrolytes and replete as needed. - Monitor on telemetry. - Multivitamin, folate and thiamine. - cessation instruction. Weakness/ spasms/ hypomagnesemia/ hypophosphatemia/ hypokalemia Likely secondary to alcohol abuse and decreased PO intake. - Treatment as above. - Physical therapy and case management evaluations. Will d/c to SNF when stable. Add OT 04/16. - mg sulfate, K phos and KCl repletion. - encourage PO intake. - Check B12 and Vit D Left knee pain. Knee X ray. Pain meds as need HTN Not hypertensive at this time. - continue home meds. - clonidine as needed. Thrombocytopenia Likely secondary to chronic alcohol abuse. - Follow CBC. - d/c Lovenox. PPx: SCDs. Discharge Planning Awaiting clinical improvement. Jayshree Green MD Apr 17, 2016 13:41
--- NOTE | 2016-04-17 15:24 | RADRPT ---
EXAM DATE/TIME: 04/17/2016 14:21 [facility] COMPARISON: No previous studies available for comparison. INDICATIONS : Left knee pain with no known injury. MEDICAL HISTORY : None. SURGICAL HISTORY : None. ENCOUNTER: Initial ACUITY: >1 year PAIN SCORE: 6/10 LOCATION: Left knee. FINDINGS: Two view examination of the left knee demonstrates no evidence of fracture or dislocation. No signifi cant arthropathy is noted. Bony mineralization is normal. Minimal density is identified in the supra patellar region suggesting small effusion.. CONCLUSION: Small joint effusion Otherwise normal appearing left knee without evidence of acute fracture or significant arthropathy. Fernando Moctezuma MD on April 17, 2016 at 15:22 Board Certified Radiologist. This report was verified electronically.
--- NOTE | 2016-04-17 15:48 | RADRPT ---
EXAM DATE/TIME: 04/17/2016 14:27 [facility] COMPARISON: No previous studies available for comparison. INDICATIONS : Right knee pain with no known injury. MEDICAL HISTORY : None. SURGICAL HISTORY : None. ENCOUNTER: Initial ACUITY: >1 year PAIN SCORE: 6/10 LOCATION: Right knee. FINDINGS: Two view examination of the right knee demonstrates no evidence of fracture or dislocation. There is no evidence of significant arthropathy Bony mineralization is normal. Increased density is identified in the suprapatellar bursa. CONCLUSION: No evidence of acute process or significant arthropathy. Possible small joint effusion. Fernando Moctezuma MD on April 17, 2016 at 15:46 Board Certified Radiologist. This report was verified electronically.
[2016-04-17] MEDS: ACETAMINOPHEN 325 MG TAB PO PRN (22:54)
[2016-04-18] VITALS: BP 127/69; PULSE 91; RESP 16; TEMP 98.4; O2SAT 93
[2016-04-18] MEDS: CARVEDILOL 12.5 MG TAB PO SCH ×3 (02:29→17:17)
[2016-04-18 04:00] VITALS: BP 117/69; PULSE 84; RESP 16; TEMP 97.3; O2SAT 93
[2016-04-18] MEDS: SODIUM CHLOR 0.9% 1000 ML INJ 1,000 ML IV SCH ×2 (05:53→17:15)
[2016-04-18] MEDS: DOCUSATE SODIUM 100 MG CAP PO SCH ×2 (05:53→17:17)
[2016-04-18 06:54] LABS: BICARBONATE 21.3 MEQ/L (21.0-32.0); POTASSIUM 3.8 MEQ/L (3.5-5.1)
[2016-04-18 08:00] VITALS: BP 126/75; PULSE 85; RESP 17; TEMP 96.9; O2SAT 96
[2016-04-18] MEDS: SODIUM CHLORIDE 0.9% FLUSH 5 ML FLUSH FLUSH SCH ×2 (09:00→20:57)
[2016-04-18] MEDS: FOLIC ACID 1 MG TAB PO SCH (09:18)
[2016-04-18] MEDS: MULTIVITAMIN TAB PO SCH (09:18)
[2016-04-18] MEDS: ALLOPURINOL 300 MG TAB PO SCH (09:18)
[2016-04-18] MEDS: LISINOPRIL 20 MG TAB PO SCH (09:18)
[2016-04-18] MEDS: THIAMINE INJ 100 MG in SODIUM CHLORIDE 0.9% INJ 100 ML IV SCH (09:19)
[2016-04-18] MEDS: NIFEdipine 20 MG CAP PO SCH (09:19)
--- NOTE | 2016-04-18 10:39 | PD.ORT.PN ---
Subjective Subjective Remarks Patient is examined bedside. Was admitted due to muscle myalgia and magnesium levels. He has a history of alcohol abuse and also pain and decreased range of motion of bilateral knees the right being worse than the left and also some hip pain. Lab's are continuing to improve that he has difficulty putting weight on his right knee. It hurts him more when he is turning and makes a twisting motion to the knee. He denies any new injuries or falls. He denies any numbness or tingling distally on the right lower extremity. He has no upper extremity complaints Objective Vitals Vital Signs Date Time Temp Pulse Resp B/P Pulse Ox O2 Delivery O2 Flow Rate FiO2 04/18/16 08:00 96.9 85 17 126/75 96 04/18/16 04:00 97.3 84 16 117/69 93 04/18/16 00:00 98.4 91 16 127/69 93 04/17/16 20:00 98.7 89 16 124/71 93 04/17/16 16:00 96.6 87 18 115/68 94 04/17/16 12:03 91 21 04/17/16 12:00 96.1 84 18 111/69 93 04/17/16 11:18 84 I/O 04/17/16 04/17/16 04/17/16 04/18/16 04/18/16 04/18/16 07:00 15:00 23:00 07:00 15:00 23:00 Intake Total 969 ml 1200 ml 240 ml 240 ml Output Total 300 ml 400 ml 500 ml Balance 669 ml 1200 ml -160 ml -260 ml Intake Oral 240 ml 1200 ml 240 ml 240 ml IV Total 729 ml Output Urine Total 300 ml 400 ml 500 ml # Voids 1 1 # Bowel Movements 1 2 0 0 Result Diagram: 04/16/16 0602 04/18/16 0509 Imaging Last 72 hours Impressions Knee X-Ray 04/17/16 0000 Signed Impressions: Service Date/Time: Sunday, April 17, 2016 14:27 - CONCLUSION: No evidence of acute process or significant arthropathy. Possible small joint effusion. Fernando Moctezuma MD Knee X-Ray 04/17/16 0000 Signed Impressions: Service Date/Time: Sunday, April 17, 2016 14:21 - CONCLUSION: Small joint effusion Otherwise normal appearing left knee without evidence of acute fracture or significant arthropathy. Fernando Moctezuma MD Head CT 04/16/16 0000 Signed Impressions: Service Date/Time: Saturday, April 16, 2016 03:21 - CONCLUSION: Minimal nonspecific white matter changes. No acute intracranial abnormality. Ra Velasquez MD Objective Remarks Bilateral upper extremities: Full range of motion neurovascularly intact Left lower extremity: Mild tenderness with hip range of motion. Knee range of motion is from 0 to 120. Distally he has intact sensation with good capillary refills. He has strong dorsiflexion plantar flexion of the foot. Right lower extremity: Mild tenderness with hip range of motion. Examination of the knee reveals tenderness to the lateral collateral ligament and mild tenderness over the medial collateral ligament. He is stable to varus and valgus stresses but varus stress does create issues with pain over the lateral collateral ligament. He has negative anterior and posterior drawer sign. Knee range of motion is from 5 to 60. Majority of his pain is on the lateral portion of the knee. Distally he has slightly decreased sensation over the plantar surface the foot. He has intact sensation on the dorsal surface. He has strong dorsiflexion plantar flexion of foot. Assessment & Plan Assessment and Plan Lateral collateral ligament strain of right knee We'll order a hinged knee brace to help ambulate. He will be weightbearing as tolerated using a walker. Due to the arthritis that he has in his knee steroid injection may be performed but would prefer to do this in an outpatient setting. Physical therapy will continue to work with range of motion as well as gait. If continuing to have gait instability rehabilitation options may be necessary patient's x-rays and plan will be reviewed with Dr. Wilson. GILBERT FLANNERY PA-C Apr 18, 2016 10:39
--- NOTE | 2016-04-18 11:01 | HHI.PR ---
Subjective Remarks With knee pain. He is also very unsteady. X ray shows effusions, ortho consulted. Patient denies fever or chills. No cp, sob, palpitations. Objective Vitals Vital Signs Date Time Temp Pulse Resp B/P Pulse Ox O2 Delivery O2 Flow Rate FiO2 04/18/16 08:00 96.9 85 17 126/75 96 04/18/16 04:00 97.3 84 16 117/69 93 04/18/16 00:00 98.4 91 16 127/69 93 04/17/16 20:00 98.7 89 16 124/71 93 04/17/16 16:00 96.6 87 18 115/68 94 04/17/16 12:03 91 21 04/17/16 12:00 96.1 84 18 111/69 93 04/17/16 11:18 84 I/O 04/17/16 04/17/16 04/17/16 04/18/16 04/18/16 04/18/16 07:00 15:00 23:00 07:00 15:00 23:00 Intake Total 969 ml 1200 ml 240 ml 240 ml Output Total 300 ml 400 ml 500 ml Balance 669 ml 1200 ml -160 ml -260 ml Intake Oral 240 ml 1200 ml 240 ml 240 ml IV Total 729 ml Output Urine Total 300 ml 400 ml 500 ml # Voids 1 1 # Bowel Movements 1 2 0 0 Result Diagram: 04/16/16 0602 04/18/16 0509 Imaging Last Impressions Knee X-Ray 04/17/16 0000 Signed Impressions: Service Date/Time: Sunday, April 17, 2016 14:27 - CONCLUSION: No evidence of acute process or significant arthropathy. Possible small joint effusion. Fernando Moctezuma MD Head CT 04/16/16 0000 Signed Impressions: Service Date/Time: Saturday, April 16, 2016 03:21 - CONCLUSION: Minimal nonspecific white matter changes. No acute intracranial abnormality. Ra Velasquez MD Pelvis X-Ray 04/13/16 0000 Signed Impressions: Service Date/Time: Wednesday, April 13, 2016 13:43 - CONCLUSION: 1. Mild degenerative changes in the hips. No acute fracture identified. Ashwin Coffey MD Chest X-Ray 04/13/16 0000 Signed Impressions: Service Date/Time: Wednesday, April 13, 2016 13:41 - CONCLUSION: 1. No acute cardiopulmonary findings identified. Ashwin Coffey MD Objective Remarks GENERAL: No apparent distress. SKIN: Warm and dry. HEAD: Atraumatic. Normocephalic. EYES: No injection or drainage. ENT: No nasal bleeding or discharge. Slightly dry mucous membranes. NECK: Trachea midline. No JVD. CARDIOVASCULAR: Regular, tachycardic. RESPIRATORY: No accessory muscle use. Clear to auscultation. Breath sounds equal bilaterally. GASTROINTESTINAL: Abdomen soft, non-tender, nondistended. No rebound tenderness. MUSCULOSKELETAL: No lower extremity edema. Positive distal pulses. NEUROLOGICAL: Awake and alert. Confused. No obvious cranial nerve deficits. Motor grossly within normal limits. Normal speech. Cranial nerves grossly intact. Lower extremity strength is 3/5 bilaterally. Upper extremity with 5 out of 5 strength. PSYCHIATRIC: Anxious. A/P Assessment and Plan Alcohol withdrawal The patient was tachycardic, tremulous, weak and had muscle cramping in the lower extremities. He says this happens several times a year. Magnesium and phosphorous levels were very low. Withdrawal worse 04/15. CIWA score went over 20. Pt was to be transferred to ICU but no beds available. Tile Roofer consult appreciated. Withdrawal improved 04/16. - CIWA protocol. - Monitor electrolytes and replete as needed. - Monitor on telemetry. - Multivitamin, folate and thiamine. - cessation instruction. Weakness/ spasms/ hypomagnesemia/ hypophosphatemia/ hypokalemia Likely secondary to alcohol abuse and decreased PO intake. - Treatment as above. - Physical therapy and case management evaluations. Will d/c to SNF when stable. Add OT 04/16. - mg sulfate, K phos and KCl repletion as need. - encourage PO intake. - Check B12 and Vit D Bilateral knee pain. Knee X ray reviewed with effusions. Consult ortho. Pain meds as need HTN Not hypertensive at this time. - continue home meds. - clonidine as needed. Thrombocytopenia Likely secondary to chronic alcohol abuse. - Follow CBC. - d/c Lovenox. PPx: SCDs. Discharge Planning Awaiting clinical improvement. Jayshree Green MD Apr 18, 2016 11:01
[2016-04-18 13:04] VITALS: BP 96/62; PULSE 89; RESP 16; TEMP 97.7; O2SAT 94
[2016-04-18 16:00] VITALS: BP 113/65; PULSE 87; RESP 16; TEMP 99.1; O2SAT 95
[2016-04-18 20:00] VITALS: BP 108/63; PULSE 88; RESP 17; TEMP 99.1; O2SAT 93
[2016-04-19] VITALS: BP 134/74; PULSE 92; RESP 16; TEMP 98.3; O2SAT 94
[2016-04-19] MEDS: SODIUM CHLOR 0.9% 1000 ML INJ 1,000 ML IV SCH ×2 (03:00→10:07)
[2016-04-19] MEDS: CARVEDILOL 12.5 MG TAB PO SCH ×2 (03:02→10:06)
[2016-04-19] MEDS: DOCUSATE SODIUM 100 MG CAP PO SCH ×2 (03:02→10:06)
[2016-04-19 04:00] VITALS: BP 130/80; PULSE 97; RESP 16; TEMP 97.9; O2SAT 95
[2016-04-19 04:22] VITALS: PULSE 95
--- NOTE | 2016-04-19 06:47 | PD.ORT.PN ---
Subjective Subjective Remarks Resting in bed with hinge brace on knee. Continues to have discomfort with knee motion. Objective Vitals Vital Signs Date Time Temp Pulse Resp B/P Pulse Ox O2 Delivery O2 Flow Rate FiO2 04/19/16 04:22 95 04/19/16 04:00 97.9 97 16 130/80 95 04/19/16 00:00 98.3 92 16 134/74 94 04/18/16 20:00 99.1 88 17 108/63 93 04/18/16 16:00 99.1 87 16 113/65 95 04/18/16 13:04 97.7 89 16 96/62 94 04/18/16 08:00 96.9 85 17 126/75 96 I/O 04/18/16 04/18/16 04/18/16 04/19/16 04/19/16 04/19/16 07:00 15:00 23:00 07:00 15:00 23:00 Intake Total 240 ml 720 ml 240 ml 720 ml Output Total 500 ml 1200 ml 250 ml 1600 ml Balance -260 ml -480 ml -10 ml -880 ml Intake Oral 240 ml 720 ml 240 ml 720 ml Output Urine Total 500 ml 1200 ml 250 ml 1600 ml # Bowel Movements 0 1 0 Result Diagram: 04/16/16 0602 04/18/16 0509 Imaging Last 72 hours Impressions Knee X-Ray 04/17/16 0000 Signed Impressions: Service Date/Time: Sunday, April 17, 2016 14:27 - CONCLUSION: No evidence of acute process or significant arthropathy. Possible small joint effusion. Fernando Moctezuma MD Knee X-Ray 04/17/16 0000 Signed Impressions: Service Date/Time: Sunday, April 17, 2016 14:21 - CONCLUSION: Small joint effusion Otherwise normal appearing left knee without evidence of acute fracture or significant arthropathy. Fernando Moctezuma MD Head CT 04/16/16 0000 Signed Impressions: Service Date/Time: Saturday, April 16, 2016 03:21 - CONCLUSION: Minimal nonspecific white matter changes. No acute intracranial abnormality. Ra Velasquez MD Objective Remarks Bilateral upper extremities: Full range of motion neurovascularly intact Left lower extremity: Mild tenderness with hip range of motion. Knee range of motion is from 0 to 120. Distally he has intact sensation with good capillary refills. He has strong dorsiflexion plantar flexion of the foot. Right lower extremity: Mild tenderness with hip range of motion. Examination of the knee reveals tenderness to the lateral collateral ligament and mild tenderness over the medial collateral ligament. He is stable to varus and valgus stresses but varus stress does create issues with pain over the lateral collateral ligament. He has negative anterior and posterior drawer sign. Knee range of motion is from 5 to 60. Majority of his pain is on the lateral portion of the knee. Distally he has slightly decreased sensation over the plantar surface the foot. He has intact sensation on the dorsal surface. He has strong dorsiflexion plantar flexion of foot. Assessment & Plan Assessment and Plan Lateral collateral ligament strain of right knee, and osteoarthritis of knee PT weightbearing as tolerated with a hinged brace when standing. Otherwise hinged knee brace when necessary Discharge planning when stable and safe No surgical intervention at this time. We'll follow up in office and consider steroid injections at that time due to arthritis GILBERT FLANNERY PA-C Apr 19, 2016 06:47
--- NOTE | 2016-04-19 07:42 | HHI.DS ---
Discharge Summary Admission Date Apr 13, 2016 at 16:15 Discharge Date: Apr 19, 2016 Admitting Diagnosis myalgias, inability to ambulate, alcohol abuse, lactic acidosis (1) Rhabdomyolysis ICD Code: M62.82 Diagnosis: Principal (2) Leukocytosis ICD Code: D72.829 Diagnosis: Principal (3) Alcohol withdrawal delirium ICD Code: F10.231 Diagnosis: Principal (4) Renal insufficiency ICD Code: N28.9 Diagnosis: Principal (5) HTN,ETO Diagnosis: Secondary (6) Myalgia ICD Code: M79.1 Diagnosis: Principal (7) Alcohol abuse ICD Code: F10.10 Diagnosis: Secondary (8) Generalized weakness ICD Code: R53.1 Diagnosis: Secondary (9) Inability to ambulate due to multiple joints ICD Code: R26.2 Diagnosis: Principal (10) Osteoarthritis ICD Code: M19.90 Diagnosis: Principal Procedures none Brief History - From Admission The patient is a 65-year-old male with a past medical history of alcohol abuse who is presenting to the hospital with spasms in his lower extremities and weakness. The patient said that his symptoms started today and involves a sensation of his tailbone popping and having pain in his hips and knees. He says he sometimes gets these sensations when he is drinking a lot. He says this is the third episode this has occurred this year. The patient says that it is gotten so bad he can't ambulate or get out of bed or chair. He says when these episodes occur he usually tries to ride it out by watching TV on his couch. The patient also describes a numbing sensation in his left foot that he has had for a long time. He says that he has real bad neuropathy. He says his last drink was yesterday. He believes that his symptoms are slightly improving. He denies any fevers. He says generally he ambulates without a cane or a walker. He says he only has 2 steps at home that he is usually able to climb. 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 He says that he drinks too much. CBC/BMP: 04/16/16 0602 04/18/16 0509 Significant Findings Laboratory Tests Test 04/17/16 04/18/16 05:32 05:09 Sodium Level 134 MEQ/L 135 MEQ/L (136-145) (136-145) Estimat Glomerular Filtration 83 ML/MIN (>89) Rate Random Glucose 152 MG/DL 115 MG/DL (74-106) (74-106) Calcium Level 8.4 MG/DL 8.2 MG/DL (8.5-10.1) (8.5-10.1) Phosphorus Level 2.0 MG/DL (2.5-4.9) 25-Hydroxy Vitamin D Total 12.9 ng/ML (30-100) Imaging Last Impressions Knee X-Ray 04/17/16 0000 Signed Impressions: Service Date/Time: Sunday, April 17, 2016 14:27 - CONCLUSION: No evidence of acute process or significant arthropathy. Possible small joint effusion. Fernando Moctezuma MD Head CT 04/16/16 0000 Signed Impressions: Service Date/Time: Saturday, April 16, 2016 03:21 - CONCLUSION: Minimal nonspecific white matter changes. No acute intracranial abnormality. Ra Velasquez MD Pelvis X-Ray 04/13/16 0000 Signed Impressions: Service Date/Time: Wednesday, April 13, 2016 13:43 - CONCLUSION: 1. Mild degenerative changes in the hips. No acute fracture identified. Ashwin Coffey MD Chest X-Ray 04/13/16 0000 Signed Impressions: Service Date/Time: Wednesday, April 13, 2016 13:41 - CONCLUSION: 1. No acute cardiopulmonary findings identified. Ashwin Coffey MD PE at Discharge GENERAL: No apparent distress. SKIN: Warm and dry. HEAD: Atraumatic. Normocephalic. EYES: No injection or drainage. ENT: No nasal bleeding or discharge. Slightly dry mucous membranes. NECK: Trachea midline. No JVD. CARDIOVASCULAR: Regular, tachycardic. RESPIRATORY: No accessory muscle use. Clear to auscultation. Breath sounds equal bilaterally. GASTROINTESTINAL: Abdomen soft, non-tender, nondistended. No rebound tenderness. MUSCULOSKELETAL: No lower extremity edema. Positive distal pulses. NEUROLOGICAL: Awake and alert. Confused. No obvious cranial nerve deficits. Motor grossly within normal limits. Normal speech. Cranial nerves grossly intact. Lower extremity strength is 3/5 bilaterally. Upper extremity with 5 out of 5 strength. PSYCHIATRIC: Anxious. Pt update on day of discharge Improving with PT. Brace on. Less pain. No tremors. No fever or chills. Hospital Course Alcohol withdrawal The patient was tachycardic, tremulous, weak and had muscle cramping in the lower extremities. He says this happens several times a year. Magnesium and phosphorous levels were very low. Withdrawal worse 04/15. CIWA score went over 20 however improved. Withdrawal improved 04/16 and no tremors. - CIWA protocol. - Monitor electrolytes and replete as needed. - Monitor on telemetry. - Multivitamin, folate and thiamine. - cessation instruction. Weakness/ spasms/ hypomagnesemia/ hypophosphatemia/ hypokalemia Likely secondary to alcohol abuse and decreased PO intake. - Treatment as above. - Physical therapy and case management evaluations. Will d/c to SNF when stable. Add OT 04/16. - mg sulfate, K phos and KCl repletion as need. - encourage PO intake. - Check B12 and Vit D normal Bilateral knee pain. Knee X ray reviewed with effusions. Consult ortho. Pain meds as need. Lateral collateral ligament strain of right knee, and osteoarthritis of knee PT weightbearing as tolerated with a hinged brace when standing. Otherwise hinged knee brace when necessary No surgical intervention at this time. Follow up in office with ortho and consider steroid injections at that time due to arthritis per ortho. Improved with brace. HTN Not hypertensive at this time. - continue home meds. - clonidine as needed. Thrombocytopenia Likely secondary to chronic alcohol abuse. - Follow CBC. Improved, discharged to SNF to follow up with PCP and consultants as OP. Pt Condition on Discharge: Fair Discharge Disposition: Discharge to SNF Discharge Time: > 30 minutes Discharge Instructions DIET: Follow Instructions for: Heart Healthy Diet Activities you can perform: Regular-No Restrictions Follow up Referrals: Orthopedics - 2 Weeks PCP Follow-up - 3-5 Days Continued Medications: () 1 Tab Tab 1 TAB PO TID diarrhea Days 30 TAB Allopurinol (Allopurinol) 300 Mg Tab 300 MG PO DAILY TAB () 875 Mg Tab 875 MG PO BID pneumonia Days 7 TAB Carvedilol 12.5 mg (Coreg 12.5 mg) 12.5 Mg Tab 12.5 MG PO Q8H HTN Days 30 TAB Chlordiazepoxide (Chlordiazepoxide) 25 Mg Cap 25 MG PO QID PRN Anxiety #20 Ref 0 CAP Colchicine (Colcrys) 0.6 Mg Tab 0.6 MG PO PRN TAB Lisinopril 20 mg (Prinivil 20 mg) 20 Mg Tab 20 MG PO DAILY HTN Days 30 TAB Nifedipine (Nifedipine) 20 Mg Cap 60 MG PO DAILY CAP Thiamine HCl (Thiamine HCl) 100 Mg Tab 100 MG PO DAILY supplement Days 30 TAB Jayshree Green MD Apr 19, 2016 07:42
--- NOTE | 2016-04-19 07:42 | HHI.DCPOC ---
Discharge Care Plan Goals to Promote Your Health * To prevent worsening of your condition and complications * To maintain your health at the optimal level Directions to Meet Your Goals Take your medications as prescribed Follow your dietary instruction Follow activity as directed Keep your appointments as scheduled Take your immunizations and boosters as scheduled If your symptoms worsen call your PCP, if no PCP go to Urgent Care Center or Emergency Room Smoking is Dangerous to Your Health. Avoid second hand smoke Call the 24-hour hour crisis hotline for domestic abuse at Jayshree Green MD Apr 19, 2016 07:42
[2016-04-19 08:00] VITALS: BP 125/72; PULSE 85; RESP 17; TEMP 98.7; O2SAT 93
[2016-04-19] MEDS: NIFEdipine 20 MG CAP PO SCH (10:05)
[2016-04-19] MEDS: FOLIC ACID 1 MG TAB PO SCH (10:05)
[2016-04-19] MEDS: SODIUM CHLORIDE 0.9% FLUSH 5 ML FLUSH FLUSH SCH (10:06)
[2016-04-19] MEDS: MULTIVITAMIN TAB PO SCH (10:06)
[2016-04-19] MEDS: ALLOPURINOL 300 MG TAB PO SCH (10:06)
[2016-04-19] MEDS: LISINOPRIL 20 MG TAB PO SCH (10:06)
[2016-04-19] MEDS: THIAMINE INJ 100 MG in SODIUM CHLORIDE 0.9% INJ 100 ML IV SCH (10:07)
--- NOTE | 2016-04-19 10:48 | MB ---
cc: CLAYTON GUERRA MD, TODD DATE OF CONSULTATION 04/18/2016 REASON FOR CONSULTATION Bilateral knee effusions ADMISSION DIAGNOSIS Myalgias, inability to ambulate, alcohol abuse and lactic acidosis. HISTORY OF PRESENT ILLNESS Silverio is a 65-year-old male with a past history of alcohol abuse, has been admitted to the hospital due to lactic acidosis, myalgias, alcohol withdrawal and hypomagnesemia. He has had issues over the past several years with pain in bilateral knees. He states that he has had injections of steroids to his right knee twice in the past. He denies any falls or any trauma to his knees. Typically he does not ambulate with a cane or walker, periodically does have issues with pain in his right hip and bilateral knees. 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 He is examined at the bedside with pain on motion of his right knee. REVIEW OF SYSTEMS He denies any blurred vision, double vision, difficulty swallowing, shortness of breath, chest pain, cough, constipation, dysuria, chronic rashes, heat or cold intolerances, easy bruising or blood clots, depression or anxiety. He does complain of right knee pain. PAST MEDICAL HISTORY 1. Alcohol abuse 2. Gout 3. Hypertension 4. Osteoarthritis PAST SURGICAL HISTORY 1. Tonsillectomy 2. Finger amputation ALLERGIES No known allergies. CURRENT MEDICATIONS 1. Procardia 2. Prinivil 3. Coreg 4. Zyloprim FAMILY HISTORY History of hypertension. SOCIAL HISTORY Excessive alcohol intake. He denies smoking or illicit drug use. PHYSICAL EXAMINATION VITAL SIGNS: 99.1 temperature oral, pulse of 88, respiration rate 17, blood pressure is 108/63, pulse oximetry 93 to room air. GENERAL: This is a 65-year-old male who is in no apparent distress and is alert and oriented to person, place and time. SKIN: Warm and dry. HEAD: Atraumatic, normocephalic. EYES: Pupils are equal and reactive to light and accommodation with no extraocular movements. ENT: No nasal bleeding or discharge. NECK: Trachea is midline with no lymphadenopathy. CARDIOVASCULAR: Regular breathing with palpable pulses in all four extremities. RESPIRATORY: No accessory muscle use. No wheezing. MUSCULOSKELETAL: Examination of bilateral upper extremities revealed no decreased range of motion or pain with motion of the shoulder, elbow or wrist. He has intact sensation over the radial, ulnar and median nerve distributions with good capillary refills. He is able to extend his fingers and make a fist. Examination of the left lower extremity reveals no tenderness to palpation or movement of left hip. He has mild tenderness to range of motion of the knee with minimal joint effusion. Distally, he has intact sensation with good capillary refills. Strong dorsiflexion and plantar flexion of the foot. He has intact sensation distally. Examination of the right lower extremity reveals mild tenderness with forward flexion, internal, and external rotation of the hip. Examination of the knee shows mild swelling of the knee with tenderness over the lateral collateral ligament and mild tenderness over the medial collateral ligament. He has no tenderness with patella apprehension. He is stable to varus and valgus stresses. With varus stress, he does have some tenderness over the lateral collateral ligament. He has a negative anterior-posterior drawer sign. Distally, he has intact sensation with good capillary refills. He has strong dorsiflexion and plantar flexion of the foot. Range of motion of the knee is from 5 degrees short of extension to 60 degrees with pain at the end range of motion. SKIN: The skin is intact over the knee and has minimal warmth and no erythema. PSYCHIATRIC: Appropriate mood and affect. LABORATORY RESULTS Taken on 04/16/16 with a white blood cell count of 9.9 and hemoglobin of 14.5, and a hematocrit of 41.7, platelet count was 80. IMAGING STUDIES X-rays are reviewed both the right and left knee, AP and lateral views which reveal no acute fractures. He does have moderate osteoarthritis of the right knee and has worsening arthritis of the left knee especially at the patellofemoral joint. Mild joint effusion is noted. ASSESSMENT Lactic acidosis with muscle myalgias. He has strain to lateral collateral ligament of the right knee and arthritis of bilateral knees. PLAN At this point, he will continue to be weightbearing as tolerated. He will wear a hinged knee brace when ambulating to help offload weight from his lateral collateral ligament of his right knee. He will follow up in the office for possible steroid injections to help with inflammation. He will take anti-inflammatories when medically deemed safe to help with inflammation. The patient's x-rays, plan and symptoms are reviewed with Dr. Dolan and Dr. Dolan agrees with the above plan and sees the patient on 04/19/2016. Thank you for this consultation. Dictated Anmol Parsons PA-C Patient was seen and examined by the undersigned. I also reviewed the history , physical exam, radiographs, and assessment and plan. Agree with conservative nonoperative treatment. All questions were answered. A mid-level provider in my office (nurse practitioner or physician delinquent tax collection assistant) may see this patient on follow-up visits and continue to implement the objectives of this plan including: Starting or adjusting medications, injections , cast application, orthotics, brace application, physical therapy, radiological studies (including x-ray, MRI, CT, ultrasound, bone scan), vascular studies, neurologic studies, specialist consultation, and proceeding with surgical management, as appropriate. MD CELESTINA Casas/JEFF /9:12 AM /10:41 AM MTDRose
[2016-04-19 12:00] VITALS: BP 140/76; PULSE 89; RESP 18; TEMP 97.9; O2SAT 94
== END 2016-04-19 15:00 | DRG 897 ==
LOC: NEDAMB 12:59 → NEDA 16:15 → OBSVTOIN 16:15 → N06A 18:50
PROVIDERS: ADMIT Hospitalist; ATTEND Hospitalist
DX: F10.231 Alcohol dependence with withdrawal delirium (principal); E87.2 Acidosis; M62.82 Rhabdomyolysis; D69.59 Other secondary thrombocytopenia; E83.42 Hypomagnesemia; E87.1 Hypo-osmolality and hyponatremia; E83.39 Other disorders of phosphorus metabolism; I10 Essential (primary) hypertension; M10.9 Gout, unspecified; K21.9 Gastro-esophageal reflux disease without esophagitis; E87.6 Hypokalemia; G62.9 Polyneuropathy, unspecified; M17.0 Bilateral primary osteoarthritis of knee; S83.421A Sprain of lateral collateral ligament of right knee, initial encounter; G89.29 Other chronic pain; M54.9 Dorsalgia, unspecified; N28.9 Disorder of kidney and ureter, unspecified; D72.829 Elevated white blood cell count, unspecified
CPT/HCPCS: 70450; 71010; 72170; 73560; 80048; 80053; 80320; 81001; 82140; 82306; 82550; 82607; 82948; 83605; 83735; 84100; 85025; 85027; 87804; 96361; 96374; 96375; G8987-GP; G8988-GP; J1650; J2060; J2270; J2405; J3411; J3475; J7030; J7050; L1810

== ENCOUNTER 2016-05-21 17:19 | Inpatient (IN) | payer MEDICARE, BC ==
[~2016-05-21] VITALS: Ht 180.3 cm; Wt 77.3 kg
[~2016-05-21 17:19] MED LIST changes: +CHLO25CA2 PO
[2016-05-21 17:20] VITALS: BP 143/65; PULSE 108; PULSE 110; RESP 20; RESP 22; TEMP 98.8; O2SAT 95
[2016-05-21] MEDS ORDERED: LORazepam 2 MG/ML VIAL IM ONE (17:30)
[2016-05-21] MEDS ORDERED: SODIUM CHLOR 0.9% 1000 ML INJ 1,000 ML IV ONE (17:32)
--- NOTE | 2016-05-21 17:36 | PD ---
HPI Chief Complaint: Alcohol/Drug Intoxication Time Seen by Provider: 17:35 Travel History International Travel<30 days: No Contact w/Intl Traveler<30days: No Traveled to known affect area: No History of Present Illness HPI 65-year-old male in by EMS with inability to ambulate and shakes. Patient states one week history of increasing lower extremity pain, weakness, and myalgias. Patient is visibly uncontrollably shaking. He states he does drink daily but hasn't drank in 2 days. Review of his past medical history shows similar presentation approximately one month ago with the patient was admitted for alcohol withdrawal and inability to ambulate. Patient denies fever , chills, urinary symptoms, nausea, vomiting, or diarrhea. No drug allergies. PFSH Past Medical History Arthritis: Yes Cardiovascular Problems: Yes (HTN) High Cholesterol: Yes Chemotherapy: No Endocrine: No Gout: Yes Genitourinary: No Headaches: Yes Hypertension: Yes Musculoskeletal: Yes Neurologic: No Psychiatric: No Reproductive: No Respiratory: No Radiation Therapy: No Tetanus Vaccination: > 5 Years Influenza Vaccination: Yes Past Surgical History Ear Surgery: Yes Tonsillectomy: Yes Other Surgery: Yes (GOUT REMOVED FROM FINGER) Social History Alcohol Use: Yes ("2 DRINKS DAILY") Tobacco Use: No Substance Use: No Allergies-Medications (Allergen,Severity, Reaction): Coded Allergies: No Known Allergies (Unverified , 05/21/16) Reported Meds & Prescriptions Reported Meds & Active Scripts Active Chlordiazepoxide (Chlordiazepoxide HCl) 25 Mg Cap 25 Mg PO QID PRN Reported Coreg (Carvedilol) 12.5 Mg Tab 12.5 Mg PO BID Nifedipine ER 24 HR (Nifedipine) 60 Mg Tab 60 Mg PO DAILY Allopurinol 300 Mg Tab 300 Mg PO DAILY Review of Systems Except as stated in HPI: all other systems reviewed are Neg General / Constitutional: No: Fever, Chills Eyes: No: Visual changes HENT: No: Headaches Cardiovascular: No: Chest Pain or Discomfort Respiratory: No: Cough, Shortness of Breath, Wheezing Gastrointestinal: No: Nausea, Vomiting, Abdominal Pain Genitourinary: No: Dysuria Musculoskeletal: Positive: Myalgias, Arthralgias, Pain, No: Limited ROM Skin: No Rash Neurologic: No: Weakness Psychiatric: No: Depression, Suicidal Ideations, Homicidal Ideation Endocrine: No: Polydipsia Hematologic/Lymphatic: No: Easy Bruising Physical Exam Narrative GENERAL: Patient is in mild to moderate distress. Patient is visibly tremulous. SKIN: Warm and moderate diaphoresis. Normal color. Normal turgor. HEAD: Atraumatic. Normocephalic. Nontender EYES: Pupils equal and round. No scleral icterus. No injection or drainage. ENT: No nasal bleeding or discharge. Mucous membranes pink and moist. Pharynx is clear. Airway is patent. NECK: Trachea midline. No JVD. Supple and nontender. CARDIOVASCULAR: Regular rate and rhythm. Patient is tachycardic with a rate of 114. RESPIRATORY: No accessory muscle use. Clear to auscultation. Breath sounds equal bilaterally. GASTROINTESTINAL: Abdomen soft, non-tender, nondistended. Hepatic and splenic margins not palpable. MUSCULOSKELETAL: Extremities without clubbing, cyanosis, or edema. No obvious deformities. Patient has generalized muscle tenderness in the soft tissues throughout. NEUROLOGICAL: Awake and alert. No obvious cranial nerve deficits. Motor grossly within normal limits. Five out of 5 muscle strength in the arms and legs. Normal speech. PSYCHIATRIC: Appropriate mood and affect; insight and judgment normal. Data Data Last Documented VS Vital Signs Date Time Temp Pulse Resp B/P Pulse Ox O2 Delivery O2 Flow Rate FiO2 05/21/16 18:15 99 18 126/71 95 Nasal Cannula 2 05/21/16 17:20 98.8 Orders Lorazepam Inj (Ativan Inj) (05/21/16 17:30) Electrocardiogram (05/21/16 17:32) Complete Blood Count With Diff (05/21/16 17:32) Comprehensive Metabolic Panel (05/21/16 17:32) Prothrombin Time / Inr (Pt) (05/21/16 17:32) Act Partial Throm Time (Ptt) (05/21/16 17:32) Urinalysis - C+S If Indicated (05/21/16 17:32) Iv Access Insert/Monitor (05/21/16 17:32) Ecg Monitoring (05/21/16 17:32) Oximetry (05/21/16 17:32) Sodium Chloride 0.9% Flush (Ns Flush) (05/21/16 17:45) Sodium Chlor 0.9% 1000 Ml Inj (Ns 1000 M (05/21/16 17:32) Drug Screen, Random Urine (2/13/17 17:32) Alcohol (Ethanol) (05/21/16 17:32) Magnesium (Mg) (05/21/16 17:32) Phosphorus (Po4) (05/21/16 17:32) Ckmb (Isoenzyme) Profile (05/21/16 17:32) Lorazepam Inj (Ativan Inj) (05/21/16 18:15) Chest, Single Ap (05/21/16 ) Magnesium Sulfate 1 Gm Premix (Magnesium (05/21/16 19:15) Potassium Phosphate Inj (Potassium Phosp (05/21/16 19:15) Labs Laboratory Tests Test 05/21/16 17:45 White Blood Count 10.8 TH/MM3 Red Blood Count 3.98 MIL/MM3 Hemoglobin 12.1 GM/DL Hematocrit 36.2 % Mean Corpuscular Volume 90.9 FL Mean Corpuscular Hemoglobin 30.3 PG Mean Corpuscular Hemoglobin 33.4 % Concent Red Cell Distribution Width 15.9 % Platelet Count 128 TH/MM3 Mean Platelet Volume 8.0 FL Neutrophils (%) (Auto) 75.3 % Lymphocytes (%) (Auto) 13.4 % Monocytes (%) (Auto) 9.4 % Eosinophils (%) (Auto) 1.5 % Basophils (%) (Auto) 0.4 % Neutrophils # (Auto) 8.1 TH/MM3 Lymphocytes # (Auto) 1.4 TH/MM3 Monocytes # (Auto) 1.0 TH/MM3 Eosinophils # (Auto) 0.2 TH/MM3 Basophils # (Auto) 0.0 TH/MM3 CBC Comment DIFF FINAL Differential Comment Prothrombin Time 12.0 SEC Prothromb Time International 1.1 RATIO Ratio Activated Partial 27.2 SEC Thromboplast Time Sodium Level 133 MEQ/L Potassium Level 3.8 MEQ/L Chloride Level 97 MEQ/L Carbon Dioxide Level 22.3 MEQ/L Anion Gap 14 MEQ/L Blood Urea Nitrogen 15 MG/DL Creatinine 1.03 MG/DL Estimat Glomerular Filtration 73 ML/MIN Rate Random Glucose 154 MG/DL Calcium Level 9.5 MG/DL Phosphorus Level 2.3 MG/DL Magnesium Level 1.1 MG/DL Total Bilirubin 1.2 MG/DL Aspartate Amino Transf 28 U/L (AST/SGOT) Alanine Aminotransferase 14 U/L (ALT/SGPT) Alkaline Phosphatase 178 U/L Total Creatine Kinase 46 U/L Total Protein 7.6 GM/DL Albumin 3.1 GM/DL Ethyl Alcohol Level LESS THAN 3 MG/DL MDM Medical Decision Making Medical Screen Exam Complete: Yes Emergency Medical Condition: Yes Differential Diagnosis Myalgias. Inability to ambulate. Electrolyte imbalance. EtOH withdrawal. Narrative Course Patient is felt to be medically stable at time of exam. Patient is given 2 mg lorazepam IM. Labs ordered including CBC, CMP, urinalysis, PT PTT and INR, EtOH, magnesium and phosphorus as well. EKG was ordered but unable to be obtained due to the patient's tremulous muscles. IV was obtained patient was given 1 mg of lorazepam IM. Patient was given 1 liter normal saline IV bolus as well. CBC shows mild anemia with hemoglobin of 12.1. CMP shows a sodium 133, chloride of 97, phosphorus of 2.3, magnesium is 1.1 glucose is slightly elevated 154. Coags show PT of 12.0 otherwise normal. Serum alcohol is less than 3. Patient is discussed with Dr. Merida who sees the patient as well. It is felt the patient should be admitted as he is unable to ambulate, and qualifies under the [facility] protocol. Patient was started on magnesium sulfate 1 g IV, as well as potassium phosphate 15 mM IV. Call was placed to the hospitalist. Patient was discussed with Dr. Young, who agreed to admit the patient. Diagnosis Primary Impression: Myalgia Additional Impressions: Alcohol abuse Inability to ambulate due to multiple joints Admitting Information Admitting Physician Requests: Observation Condition: Stable Kam Cote May 21, 2016 17:36
[2016-05-21] MEDS ORDERED: SODIUM CHLORIDE 0.9% FLUSH 5 ML FLUSH IVF PRN (17:45)
[2016-05-21] MEDS ORDERED: CARV12.5 PO (17:48)
[2016-05-21] MEDS ORDERED: ALLO300T2 PO (17:48)
[2016-05-21] MEDS ORDERED: NIFE60TA58 PO (17:48)
[2016-05-21 18:11] LABS: AUTOMATED NEUTROPHIL # 8.1 TH/MM3 (1.8-7.7); BASOPHIL % 0.4 % (0.0-2.0); EOSINOPHIL # 0.2 TH/MM3 (0-0.4); EOSINOPHIL % 1.5 % (0.0-4.0); HEMATOCRIT 36.2 % (39.0-51.0); HEMO FLAGS DIFF FINAL; LYMPH % 13.4 % (9.0-44.0); LYMPHOCYTE # 1.4 TH/MM3 (1.0-4.8); MEAN CELL VOLUME 90.9 FL (80.0-100.0); MEAN CORPUSCULAR HEMOGLOBIN 30.3 PG (27.0-34.0); MEAN CORPUSCULAR HGB CONC 33.4 % (32.0-36.0); MONO % 9.4 % (0.0-8.0); NEUT % 75.3 % (16.0-70.0); PLATELET COUNT 128 TH/MM3 (150-450); RED BLOOD COUNT 3.98 MIL/MM3 (4.50-5.90); RED CELL DISTRIBUTION WIDTH 15.9 % (11.6-17.2); WHITE BLOOD COUNT 10.8 TH/MM3 (4.0-11.0)
[2016-05-21 18:15] VITALS: BP 126/71; PULSE 99; RESP 18; O2SAT 95
[2016-05-21] MEDS ORDERED: LORazepam 2 MG/ML VIAL IV PUSH ONE (18:15)
[2016-05-21 18:22] LABS: APTT (PATIENT) 27.2 SEC (24.3-30.1); INTERNATIONAL NORMALIZED RATIO 1.1 RATIO
[2016-05-21 18:38] LABS: ANION GAP 14 MEQ/L (5-15); AST (GOT) 28 U/L (15-37); BICARBONATE 22.3 MEQ/L (21.0-32.0); BLOOD UREA NITROGEN 15 MG/DL (7-18); CHLORIDE 97 MEQ/L (98-107); GLOMERULAR FILTRATION RATE 73 ML/MIN (>89); MAGNESIUM 1.1 MG/DL (1.5-2.5); POTASSIUM 3.8 MEQ/L (3.5-5.1); SODIUM (NA) 133 MEQ/L (136-145)
[2016-05-21 18:40] LABS: ALKALINE PHOSPHATASE 178 U/L (45-117); ALT (GPT) 14 U/L (12-78); TOTAL BILIRUBIN ADULT 1.2 MG/DL (0.2-1.0)
[2016-05-21 18:54] LABS: CREATINE KINASE 46 U/L (39-308)
[2016-05-21] MEDS ORDERED: MAGNESIUM SULFATE 1 GM PREMIX 100 ML IV ONE (19:15)
[2016-05-21] MEDS ORDERED: POTASSIUM PHOSPHATE INJ 15 MMOL in SODIUM CHLORIDE 0.9% INJ 150 ML IV ONE (19:15)
[2016-05-21 19:33] VITALS: BP 122/69; PULSE 85; RESP 22; O2SAT 98
[2016-05-21] MEDS ORDERED: SODIUM CHLORIDE 0.9% FLUSH 5 ML FLUSH FLUSH PRN (19:45)
[2016-05-21] MEDS ORDERED: LORazepam 2 MG/ML VIAL IV PUSH PRN (19:45)
[2016-05-21] MEDS ORDERED: NALOXONE HCL 0.4 MG/ML AMP IV PRN (19:45)
--- NOTE | 2016-05-21 19:56 | RADRPT ---
EXAM DATE/TIME: 05/21/2016 19:25 [place] COMPARISON: CHEST SINGLE AP, April 13, 2016, 13:41. INDICATIONS : Shortness of breath. MEDICAL HISTORY : None. SURGICAL HISTORY : None. ENCOUNTER: Initial ACUITY: 1 day PAIN SCORE: 0/10 LOCATION: Bilateral chest FINDINGS: A single view of the chest demonstrates the lungs to be symmetrically aerated without evidence of mas s, infiltrate or effusion. The cardiomediastinal contours are unremarkable. Osseous structures are intact. CONCLUSION: No acute disease. Roque Morris MD on May 21, 2016 at 19:54 Board Certified Radiologist. This report was verified electronically.
[2016-05-21] MEDS ORDERED: THIAMINE INJ 100 MG in SODIUM CHLORIDE 0.9% INJ 100 ML IV ONE (21:00)
[2016-05-21] MEDS: SODIUM CHLORIDE 0.9% FLUSH 5 ML FLUSH FLUSH SCH (21:00)
--- NOTE | 2016-05-21 21:08 | HHI.HP ---
[facility] Service [facility] Hospitalists Primary Care Physician Unknown Admission Diagnosis ETOH withdrawl/unable to ambulate Diagnoses: Chief Complaint: inability to ambulate, weakness Travel History International Travel<30 Days: No Contact w/Intl Traveler <30 Da: No Traveled to Known Affected Are: No History of Present Illness History taken from patient Patient states his feet became week, cold and stiff and it slowly increased up his calfs and then into his hips. The pain is causing him to have increase weakness and inability to walk. He states this is much worse than his last admission. He denies any dizziness, fever, sob or syncopal episodes. He does complain of palpitations at times. Patient states he drinks 2-3 drinks a day, and states last drink was 2 days ago. He denies any alcohol withdrawals at anytime. He denies any blue coloring in legs or fingers when it is cold outside. Last admission was Apr, 2016: He is suppose to follow up with Dr. Dolan for outpatient steroid injections and possible MRI. He states he has not follow up yet. Review of Systems Constitutional: DENIES: Fever, Chills, Dizziness Respiratory: DENIES: Cough, Sputum production, Shortness of breath Cardiovascular: COMPLAINS OF: Palpitations, DENIES: Chest pain, Lower Extremity Edema Gastrointestinal: DENIES: Diarrhea, Nausea, Vomiting Genitourinary: DENIES: Hematuria, Dysuria Musculoskeletal: COMPLAINS OF: Muscle aches, Stiffness, Back pain, DENIES: Neck pain Integumentary: DENIES: Rash Hematologic/lymphatic: DENIES: Lymphadenopathy Immunologic/allergic: DENIES: Urticaria Neurologic: COMPLAINS OF: Localized weakness, Tremor, DENIES: Headache Past Family Social History Past Medical History HTN Past Surgical History Tonsillectomy Finger amputation Reported Medications Reported Meds & Active Scripts Active Chlordiazepoxide (Chlordiazepoxide HCl) 25 Mg Cap 25 Mg PO QID PRN Reported Coreg (Carvedilol) 12.5 Mg Tab 12.5 Mg PO BID Nifedipine ER 24 HR (Nifedipine) 60 Mg Tab 60 Mg PO DAILY Allopurinol 300 Mg Tab 300 Mg PO DAILY Allergies: Coded Allergies: No Known Allergies (Unverified , 05/21/16) Active Ordered Medications Current Medications Medications (Trade) Dose Ordered Sig/Leslie Route Start Time Stop Time Status Last Admin IV Flush 2 ml 2 ml UNSCH PRN IVF 05/21/16 17:45 (Potassium Phosphate Inj/NS Inj) 155 ml @ 38.75 mls/ hr ONCE ONCE IV 05/21/16 19:15 05/21/16 23:14 05/21/16 20:49 (NS Flush) 2 ml UNSCH PRN FLUSH 05/21/16 19:45 (NS Flush) 2 ml BID FLUSH 05/21/16 21:00 Naloxone HCl 0.4 mg 0.4 mg UNSCH PRN IV 05/21/16 19:45 (Thiamine Inj/NS Inj) 101 ml @ 101 mls/hr ONCE ONCE IV 05/21/16 21:00 05/21/16 21:59 (Vitamin B1) 100 mg DAILY PO 05/22/16 09:00 (Ativan Inj) 1 mg Q2H PRN IV PUSH 05/21/16 19:45 (Librium) 25 mg TID PO 05/22/16 09:00 Family History Family history significant for HTN. Brother: colon, throat, and stomach cancer Social History Tobacco use: denies Alcohol use: 2-3 drinks a day Illcit drugs: denies Physical Exam Vital Signs Vital Signs Date Time Temp Pulse Resp B/P Pulse Ox O2 Delivery O2 Flow Rate FiO2 05/21/16 19:33 85 22 122/69 98 Nasal Cannula 2 05/21/16 18:15 99 18 126/71 95 Nasal Cannula 2 05/21/16 17:30 96 Nasal Cannula 2 05/21/16 17:20 98.8 110 22 143/65 95 05/21/16 17:20 108 20 95 Room Air 05/21/16 17:20 108 20 143/65 95 Room Air Physical Exam GENERAL: This is a well-nourished, well-developed patient, in no apparent distress. SKIN: No rashes, ecchymoses or lesions. Cool and dry. HEAD: Atraumatic. Normocephalic. EYES: Pupils equal round and reactive. Extraocular motions intact. ENT: Nose without bleeding, purulent drainage or septal hematoma. Airway patent. NECK: Trachea midline. No JVD CARDIOVASCULAR: Regular rate and rhythm without murmurs, gallops, or rubs. RESPIRATORY: Clear to auscultation. Breath sounds equal bilaterally. No wheezes , rales, or rhonchi. GASTROINTESTINAL: Abdomen soft, non-tender, nondistended. No guarding. MUSCULOSKELETAL: Extremities without clubbing, cyanosis, or edema. Bilateral lower extremity pain and weakness. No calf tenderness. NEUROLOGICAL: Awake and alert. Motor and sensory grossly within normal limits. Normal speech. Laboratory Laboratory Tests Test 05/21/16 17:45 White Blood Count 10.8 Red Blood Count 3.98 Hemoglobin 12.1 Hematocrit 36.2 Mean Corpuscular Volume 90.9 Mean Corpuscular Hemoglobin 30.3 Mean Corpuscular Hemoglobin 33.4 Concent Red Cell Distribution Width 15.9 Platelet Count 128 Mean Platelet Volume 8.0 Neutrophils (%) (Auto) 75.3 Lymphocytes (%) (Auto) 13.4 Monocytes (%) (Auto) 9.4 Eosinophils (%) (Auto) 1.5 Basophils (%) (Auto) 0.4 Neutrophils # (Auto) 8.1 Lymphocytes # (Auto) 1.4 Monocytes # (Auto) 1.0 Eosinophils # (Auto) 0.2 Basophils # (Auto) 0.0 CBC Comment DIFF FINAL Differential Comment Prothrombin Time 12.0 Prothromb Time International 1.1 Ratio Activated Partial 27.2 Thromboplast Time Sodium Level 133 Potassium Level 3.8 Chloride Level 97 Carbon Dioxide Level 22.3 Anion Gap 14 Blood Urea Nitrogen 15 Creatinine 1.03 Estimat Glomerular Filtration 73 Rate Random Glucose 154 Calcium Level 9.5 Phosphorus Level 2.3 Magnesium Level 1.1 Total Bilirubin 1.2 Aspartate Amino Transf 28 (AST/SGOT) Alanine Aminotransferase 14 (ALT/SGPT) Alkaline Phosphatase 178 Total Creatine Kinase 46 Total Protein 7.6 Albumin 3.1 Ethyl Alcohol Level LESS THAN 3 Result Diagram: 05/21/16 1745 05/21/16 1745 Imaging Last Impressions Chest X-Ray 05/21/16 0000 Signed Impressions: Service Date/Time: Saturday, May 21, 2016 19:25 - CONCLUSION: No acute disease. Roque Morris MD Assessment and Plan Problem List: (1) Inability to ambulate due to multiple joints ICD Code: R26.2 Status: Acute (2) Hypomagnesemia ICD Code: E83.42 Status: Acute (3) Hypophosphatemia ICD Code: E83.39 Status: Acute (4) HTN (hypertension) ICD Code: I10 Status: Acute (5) Alcohol abuse ICD Code: F10.10 Status: Chronic Assessment and Plan 65 y/o male with a history of HTN presented with: Inability to ambulate in multiple joints -PT eval, then evaluate for orthopedic consult Hypomagnesemia/hypophosphatemia Labs: mg 1.1, phos 2.3 -1 gm of mag given in ED -Potassium phospate 15mmol given -Mg and phos lab in AM HTN, chronic -Reorder home medications -Monitor vitals Alcohol abuse per records. However doubt that patient is abusing. He states he only drinks about 1 or 2 drinks a day. -Encouraged to quit -Thiamine, Ativan PRN mainly for anxiety. I do believe the patient's tremors are mostly from anxiety and pain. DVT prophylaxis: SCDs Written by Selene ROSALES, acting as scribe for Dr. Young on 05/21/16 at 2134. The documentation accurately reflects the work performed [id number] and decisions made by me and the physician Dr Young on 05/21/16. The documentation accurately reflects the work performed [id number] by me on at 2134 Additional documentation at 0541 on 05/22/16 Repeat labs: Mg 1.4, K 3.3 -1 gm Mg IV given, and K 20meq PO x 1 Addendum 7:38 AM. Give another KCl 40 mEq by mouth one dose now. Start on magnesium oxide 40 mEq by mouth every 12 hours. Discussed Condition With Patient and ED Physician Physician Certification 2 Midnight Certification Type: Admission for Inpatient Services Order for Inpatient Services The services are ordered in accordance with Medicare regulations or non- Medicare payer requirements, as applicable. In the case of services not specified as inpatient-only, they are appropriately provided as inpatient services in accordance with the 2-midnight benchmark. Estimated LOS (days): 3 days is the estimated time the patient will need to remain in the hospital, assuming treatment plan goals are met and no additional complications. Post-Hospital Plan: Not yet determined Selene Quezada May 21, 2016 21:08 Lisa Young MD May 22, 2016 07:39
[2016-05-21 22:00] LABS: BLOOD, URINE NEG (NEG); GLUCOSE,URINE NEG (NEG); KETONE, URINE NEG (NEG); NITRITE,URINE NEG (NEG); PH, URINE 7.5 (5.0-8.5); URINE COLOR LIGHT-YELLOW (YELLW/STRAW)
[2016-05-21 22:01] LABS: COMMENT (UR) CULT NOT INDICATED; CULTURE IF INDICATED CULT NOT INDICATED
[2016-05-21 22:07] LABS: AMPHETAMINE, URINE NEG (NEG); BARBITURATES, URINE NEG (NEG); COCAINE, URINE NEG (NEG)
[2016-05-21 23:27] VITALS: BP 117/67; PULSE 78; RESP 20
[2016-05-22] VITALS (7 sets, daily range): BP systolic 120–128; BP diastolic 67–75; PULSE 85–105; RESP 17–21; TEMP 97.1–98.6; O2SAT 95–98
[2016-05-22] MEDS ORDERED: LORazepam 2 MG/ML VIAL IV PUSH PRN
[2016-05-22 04:25] LABS: AUTOMATED NEUTROPHIL # 5.6 TH/MM3 (1.8-7.7); BASOPHIL # 0.1 TH/MM3 (0-0.2); BASOPHIL % 0.9 % (0.0-2.0); EOSINOPHIL # 0.3 TH/MM3 (0-0.4); EOSINOPHIL % 3.2 % (0.0-4.0); HEMATOCRIT 34.7 % (39.0-51.0); HEMO FLAGS DIFF FINAL; LYMPH % 17.4 % (9.0-44.0); LYMPHOCYTE # 1.4 TH/MM3 (1.0-4.8); MEAN CELL VOLUME 89.8 FL (80.0-100.0); MEAN CORPUSCULAR HEMOGLOBIN 31.2 PG (27.0-34.0); MEAN CORPUSCULAR HGB CONC 34.7 % (32.0-36.0); MONO % 11.1 % (0.0-8.0); NEUT % 67.4 % (16.0-70.0); PLATELET COUNT 109 TH/MM3 (150-450); RED BLOOD COUNT 3.86 MIL/MM3 (4.50-5.90); WHITE BLOOD COUNT 8.2 TH/MM3 (4.0-11.0)
[2016-05-22 04:48] LABS: ALT (GPT) 15 U/L (12-78); ANION GAP 10 MEQ/L (5-15); AST (GOT) 25 U/L (15-37); BICARBONATE 25.7 MEQ/L (21.0-32.0); BLOOD UREA NITROGEN 11 MG/DL (7-18); CHLORIDE 102 MEQ/L (98-107); GLOMERULAR FILTRATION RATE 131 ML/MIN (>89); MAGNESIUM 1.4 MG/DL (1.5-2.5); POTASSIUM 3.3 MEQ/L (3.5-5.1); SODIUM (NA) 138 MEQ/L (136-145)
[2016-05-22 04:51] LABS: ALKALINE PHOSPHATASE 165 U/L (45-117); TOTAL BILIRUBIN ADULT 1.1 MG/DL (0.2-1.0)
[2016-05-22] MEDS ORDERED: MAGNESIUM SULFATE 1 GM PREMIX 100 ML IV ONE (05:45)
[2016-05-22] MEDS ORDERED: POTASSIUM CHLORIDE 20 MEQ CONTROLLED RELEASE TAB PO ONE ×3 (05:45→12:15)
[2016-05-22] MEDS ORDERED: chlordiazePOXIDE 25 MG CAP PO SCH (09:00)
[2016-05-22] MEDS: SODIUM CHLORIDE 0.9% FLUSH 5 ML FLUSH FLUSH SCH ×2 (09:00→21:07)
[2016-05-22] MEDS: THIAMINE HCL 100 MG TAB PO SCH (09:50)
[2016-05-22] MEDS: MAGNESIUM OXIDE 400 MG TAB PO SCH ×2 (09:50→21:06)
--- NOTE | 2016-05-22 12:08 | HHI.PR ---
Subjective Remarks resting comfortably with no distress. has some weakness of both lower extremities. no other complaints. Objective Vitals Vital Signs Date Time Temp Pulse Resp B/P Pulse Ox O2 Delivery O2 Flow Rate FiO2 05/22/16 11:27 98.0 92 17 122/67 96 05/22/16 07:39 97 05/22/16 07:37 97.1 100 18 120/68 95 05/22/16 01:59 85 18 128/73 97 05/21/16 23:27 78 20 117/67 05/21/16 23:27 97 Nasal Cannula 2 05/21/16 19:33 85 22 122/69 98 Nasal Cannula 2 05/21/16 18:15 99 18 126/71 95 Nasal Cannula 2 05/21/16 17:30 96 Nasal Cannula 2 05/21/16 17:20 98.8 110 22 143/65 95 05/21/16 17:20 108 20 95 Room Air 05/21/16 17:20 108 20 143/65 95 Room Air Result Diagram: 05/22/16 0410 05/22/16 0410 Imaging Last Impressions Chest X-Ray 05/21/16 0000 Signed Impressions: Service Date/Time: Saturday, May 21, 2016 19:25 - CONCLUSION: No acute disease. Roque Morris MD Objective Remarks GENERAL: This is a well-nourished, well-developed patient, in no apparent distress. CARDIOVASCULAR: Regular rate and regular rhythm without murmurs, gallops, or rubs. RESPIRATORY: Clear to auscultation. Breath sounds equal bilaterally. No wheezes , rales, or rhonchi. GASTROINTESTINAL: Abdomen soft, non-tender, nondistended. Normal, active bowel sounds MUSCULOSKELETAL: Extremities without clubbing, cyanosis, or edema. NEURO: Alert & Oriented x4 to person, place, time, situation. Moves all ext x4 Procedures none Medications and IVs Current Medications Lorazepam (Ativan Inj) 2 mg ONCE ONCE IM Last administered on 05/21/16t 17:46 ; Start 05/21/16 at 17:30; Stop 05/21/16 at 17:31; Status DC IV Flush 2 ml 2 ml UNSCH PRN IVF FLUSH AFTER USING IV ACCESS; Start 05/21/16 at 17:45; Stop 05/21/16 at 23:19; Status DC Sodium Chloride (NS 1000 ml Inj) 1,000 ml @ 1,000 mls/hr Q1H ONCE IV Last administered on 05/21/16 17:46; Start 05/21/16 at 17:32; Stop 05/21/16 at 18:31 ; Status DC Lorazepam 1 mg 1 mg ONCE ONCE IV PUSH Last administered on 05/21/16 18:14; Start 05/21/16 at 18:15; Stop 05/21/16 at 18:16; Status DC Magnesium Sulfate/ Dextrose 100 ml @ 100 mls/hr ONCE ONCE IV Last administered on 05/21/16 19:30; Start 05/21/16 at 19:15; Stop 05/21/16 at 20:14 ; Status DC Potassium Phosphate/Sodium Chloride (Potassium Phosphate Inj/NS Inj) 155 ml @ 38.75 mls/ hr ONCE ONCE IV Last administered on 05/21/16 20:49; Start at 19:15; Stop 05/21/16 at 23:14; Status DC IV Flush (NS Flush) 2 ml UNSCH PRN FLUSH FLUSH AFTER USING IV ACCESS; Start at 19:45 IV Flush (NS Flush) 2 ml BID FLUSH ; Start 05/21/16 at 21:00 Naloxone HCl 0.4 mg 0.4 mg UNSCH PRN IV SEE LABEL COMMENTS; Start 05/21/16 at 19:45 Thiamine HCl/ Sodium Chloride (Thiamine Inj/NS Inj) 101 ml @ 101 mls/hr ONCE ONCE IV Last administered on 05/22/16 01:29; Start 05/21/16 at 21:00; Stop at 21:59; Status DC Thiamine HCl (Vitamin B1) 100 mg DAILY PO Last administered on 05/22/16 09:50 ; Start 05/22/16 at 09:00 Lorazepam (Ativan Inj) 1 mg Q2H PRN IV PUSH withdrawal symptoms; Start at 19:45; Stop 05/21/16 at 23:14; Status DC Chlordiazepoxide (Librium) 25 mg TID PO ; Start 05/22/16 at 09:00; Stop at 09:00; Status DC Lorazepam 1 mg 1 mg Q4HR PRN IV PUSH tremors/ anxiety; Start 05/22/16 at 00:00 Magnesium Sulfate/ Dextrose (Magnesium Sulfate 1 Gm Premix) 100 ml @ 100 mls/ hr ONCE ONCE IV Last administered on 05/22/16 06:02; Start 05/22/16 at 05:45 ; Stop 05/22/16 at 06:44; Status DC Potassium Chloride (KCl) 20 meq ONCE ONCE PO Last administered on 05/22/16 06 :02; Start 05/22/16 at 05:45; Stop 05/22/16 at 05:46; Status DC Potassium Chloride (KCl) 40 meq ONCE ONCE PO Last administered on 05/22/16 09 :50; Start 05/22/16 at 07:45; Stop 05/22/16 at 08:13; Status DC Magnesium Oxide (Mag-Ox) 400 mg Q12HR PO Last administered on 05/22/16 09:50; Start 05/22/16 at 09:00 A/P Assessment and Plan A/P Inability to ambulate in multiple joints -consult PT Hypomagnesemia/hypophosphatemia- replaced HTN, chronic -Resume home medications . -Monitor vitals Alcohol abuse per records. However doubt that patient is abusing. He states he only drinks about 1 or 2 drinks a day. -Encouraged to quit -Thiamine, Ativan PRN mainly for anxiety. DVT prophylaxis: Garcia Nguyễn MD May 22, 2016 12:08
[2016-05-22] MEDS: CARVEDILOL 12.5 MG TAB PO SCH (21:06)
[2016-05-23] VITALS (8 sets, daily range): BP systolic 112–137; BP diastolic 62–79; PULSE 87–101; RESP 17–20; TEMP 97.6–98; O2SAT 92–98
[2016-05-23] MEDS: ALLOPURINOL 300 MG TAB PO SCH (09:39)
[2016-05-23] MEDS: CARVEDILOL 12.5 MG TAB PO SCH ×2 (09:39→21:19)
[2016-05-23] MEDS: THIAMINE HCL 100 MG TAB PO SCH (09:39)
[2016-05-23] MEDS: MAGNESIUM OXIDE 400 MG TAB PO SCH ×2 (09:39→21:19)
[2016-05-23] MEDS: SODIUM CHLORIDE 0.9% FLUSH 5 ML FLUSH FLUSH SCH ×2 (09:39→21:00)
--- NOTE | 2016-05-23 12:42 | HHI.PR ---
Subjective Remarks resting comfortably with no distress. denies pain. no other new complaints. Objective Vitals Vital Signs Date Time Temp Pulse Resp B/P Pulse Ox O2 Delivery O2 Flow Rate FiO2 05/23/16 11:27 97.6 88 17 112/73 96 05/23/16 08:38 96 21 05/23/16 07:39 97.7 101 18 126/76 98 05/23/16 05:23 96 05/23/16 00:00 97.9 87 18 121/62 97 05/22/16 20:01 97.8 104 21 127/74 98 05/22/16 15:26 98.6 105 19 120/75 95 05/22/16 14:48 98 I/O 05/22/16 05/22/16 05/22/16 05/23/16 05/23/16 05/23/16 07:00 15:00 23:00 07:00 15:00 23:00 Intake Total 240 ml Output Total 320 ml Balance -320 ml 240 ml Intake Oral 240 ml Output Urine Total 320 ml # Voids 2 1 2 # Bowel Movements 1 1 3 Result Diagram: 05/22/16 0410 05/22/16 0410 Imaging Last Impressions Chest X-Ray 05/21/16 0000 Signed Impressions: Service Date/Time: Saturday, May 21, 2016 19:25 - CONCLUSION: No acute disease. Roque Morris MD Objective Remarks GENERAL: This is a well-nourished, well-developed patient, in no apparent distress. CARDIOVASCULAR: Regular rate and regular rhythm without murmurs, gallops, or rubs. RESPIRATORY: Clear to auscultation. Breath sounds equal bilaterally. No wheezes , rales, or rhonchi. GASTROINTESTINAL: Abdomen soft, non-tender, nondistended. Normal, active bowel sounds MUSCULOSKELETAL: Extremities without clubbing, cyanosis, or edema. NEURO: Alert & Oriented x4 to person, place, time, situation. Moves all ext x4 Procedures none Medications and IVs Current Medications Lorazepam (Ativan Inj) 2 mg ONCE ONCE IM Last administered on 05/21/16t 17:46 ; Start 05/21/16 at 17:30; Stop 05/21/16 at 17:31; Status DC IV Flush 2 ml 2 ml UNSCH PRN IVF FLUSH AFTER USING IV ACCESS; Start 05/21/16 at 17:45; Stop 05/21/16 at 23:19; Status DC Sodium Chloride (NS 1000 ml Inj) 1,000 ml @ 1,000 mls/hr Q1H ONCE IV Last administered on 05/21/16 17:46; Start 05/21/16 at 17:32; Stop 05/21/16 at 18:31 ; Status DC Lorazepam 1 mg 1 mg ONCE ONCE IV PUSH Last administered on 05/21/16 18:14; Start 05/21/16 at 18:15; Stop 05/21/16 at 18:16; Status DC Magnesium Sulfate/ Dextrose 100 ml @ 100 mls/hr ONCE ONCE IV Last administered on 05/21/16 19:30; Start 05/21/16 at 19:15; Stop 05/21/16 at 20:14 ; Status DC Potassium Phosphate/Sodium Chloride (Potassium Phosphate Inj/NS Inj) 155 ml @ 38.75 mls/ hr ONCE ONCE IV Last administered on 05/21/16 20:49; Start at 19:15; Stop 05/21/16 at 23:14; Status DC IV Flush (NS Flush) 2 ml UNSCH PRN FLUSH FLUSH AFTER USING IV ACCESS; Start at 19:45 IV Flush (NS Flush) 2 ml BID FLUSH Last administered on 05/23/16 09:39; Start 05/21/16 at 21:00 Naloxone HCl 0.4 mg 0.4 mg UNSCH PRN IV SEE LABEL COMMENTS; Start 05/21/16 at 19:45 Thiamine HCl/ Sodium Chloride (Thiamine Inj/NS Inj) 101 ml @ 101 mls/hr ONCE ONCE IV Last administered on 05/22/16 01:29; Start 05/21/16 at 21:00; Stop at 21:59; Status DC Thiamine HCl (Vitamin B1) 100 mg DAILY PO Last administered on 05/23/16 09:39 ; Start 05/22/16 at 09:00 Lorazepam (Ativan Inj) 1 mg Q2H PRN IV PUSH withdrawal symptoms; Start at 19:45; Stop 05/21/16 at 23:14; Status DC Chlordiazepoxide (Librium) 25 mg TID PO ; Start 05/22/16 at 09:00; Stop at 09:00; Status DC Lorazepam 1 mg 1 mg Q4HR PRN IV PUSH tremors/ anxiety; Start 05/22/16 at 00:00 Magnesium Sulfate/ Dextrose (Magnesium Sulfate 1 Gm Premix) 100 ml @ 100 mls/ hr ONCE ONCE IV Last administered on 05/22/16 06:02; Start 05/22/16 at 05:45 ; Stop 05/22/16 at 06:44; Status DC Potassium Chloride (KCl) 20 meq ONCE ONCE PO Last administered on 05/22/16 06 :02; Start 05/22/16 at 05:45; Stop 05/22/16 at 05:46; Status DC Potassium Chloride (KCl) 40 meq ONCE ONCE PO Last administered on 05/22/16 09 :50; Start 05/22/16 at 07:45; Stop 05/22/16 at 08:13; Status DC Magnesium Oxide (Mag-Ox) 400 mg Q12HR PO Last administered on 05/23/16 09:39; Start 05/22/16 at 09:00 Potassium Chloride (KCl) 20 meq ONCE ONCE PO Last administered on 05/22/16 13 :21; Start 05/22/16 at 12:15; Stop 05/22/16 at 12:27; Status DC Allopurinol (Zyloprim) 300 mg DAILY PO Last administered on 05/23/16 09:39; Start 05/23/16 at 09:00 Carvedilol (Coreg) 12.5 mg BID PO Last administered on 05/23/16 09:39; Start 05/22/16 at 21:00 A/P Assessment and Plan A/P Inability to ambulate in multiple joints -consulted PT Hypomagnesemia/hypophosphatemia- replaced HTN, chronic -Resume home medications . -Monitor vitals Alcohol abuse per records. However doubt that patient is abusing. He states he only drinks about 1 or 2 drinks a day. -Encouraged to quit -Thiamine, Ativan PRN mainly for anxiety. DVT prophylaxis: SCDs Discharge Planning will consult case management for dc planning to rehab. f/u with pcp upon discharge. d/w the patient. Garcia Baker MD May 23, 2016 12:42
--- NOTE | 2016-05-23 12:45 | HHI.DCPOC ---
Discharge Care Plan Diagnosis: (1) Generalized weakness Your Health Problems Are: Difficulty with ADL Goals to Promote Your Health * To prevent worsening of your condition and complications * To maintain your health at the optimal level Directions to Meet Your Goals Take your medications as prescribed Follow your dietary instruction Follow activity as directed Keep your appointments as scheduled Take your immunizations and boosters as scheduled If your symptoms worsen call your PCP, if no PCP go to Urgent Care Center or Emergency Room Smoking is Dangerous to Your Health. Avoid second hand smoke Call the 24-hour hour crisis hotline for domestic abuse at Garcia Baker MD May 23, 2016 12:45
--- NOTE | 2016-05-23 12:46 | HHI.DS ---
Discharge Summary Admission Date May 21, 2016 at 19:28 Discharge Date: May 23, 2016 Admitting Diagnosis ETOH withdrawl/unable to ambulate (1) Hypomagnesemia ICD Code: E83.42 Diagnosis: Secondary (2) Hypophosphatemia ICD Code: E83.39 Diagnosis: Secondary (3) HTN (hypertension) ICD Code: I10 Diagnosis: Secondary (4) Alcohol abuse ICD Code: F10.10 Diagnosis: Secondary (5) Generalized weakness ICD Code: R53.1 Diagnosis: Principal Procedures none Brief History - From Admission History taken from patient Patient states his feet became week, cold and stiff and it slowly increased up his calfs and then into his hips. The pain is causing him to have increase weakness and inability to walk. He states this is much worse than his last admission. He denies any dizziness, fever, sob or syncopal episodes. He does complain of palpitations at times. Patient states he drinks 2-3 drinks a day, and states last drink was 2 days ago. He denies any alcohol withdrawals at anytime. He denies any blue coloring in legs or fingers when it is cold outside. Last admission was Apr, 2016: He is suppose to follow up with Dr. Dolan for outpatient steroid injections and possible MRI. He states he has not follow up yet. CBC/BMP: 05/22/16 0410 05/22/16 0410 Significant Findings Laboratory Tests Test 05/21/16 05/21/16 05/22/16 17:45 21:20 04:10 Red Blood Count 3.98 MIL/MM3 3.86 MIL/MM3 (4.50-5.90) (4.50-5.90) Hemoglobin 12.1 GM/DL 12.0 GM/DL (13.0-17.0) (13.0-17.0) Hematocrit 36.2 % 34.7 % (39.0-51.0) (39.0-51.0) Platelet Count 128 TH/MM3 109 TH/MM3 (150-450) (150-450) Neutrophils (%) (Auto) 75.3 % (16.0-70.0) Monocytes (%) (Auto) 9.4 % (0.0-8.0) 11.1 % (0.0-8.0) Neutrophils # (Auto) 8.1 TH/MM3 (1.8-7.7) Monocytes # (Auto) 1.0 TH/MM3 (0-0.9) Prothrombin Time 12.0 SEC (9.8-11.6) Sodium Level 133 MEQ/L (136-145) Chloride Level 97 MEQ/L (98-107) Estimat Glomerular Filtration 73 ML/MIN (>89) Rate Random Glucose 154 MG/DL 113 MG/DL (74-106) (74-106) Phosphorus Level 2.3 MG/DL (2.5-4.9) Magnesium Level 1.1 MG/DL 1.4 MG/DL (1.5-2.5) (1.5-2.5) Total Bilirubin 1.2 MG/DL 1.1 MG/DL (0.2-1.0) (0.2-1.0) Alkaline Phosphatase 178 U/L 165 U/L (45-117) (45-117) Albumin 3.1 GM/DL 2.8 GM/DL (3.4-5.0) (3.4-5.0) Urine Benzodiazepines Screen POS (NEG) Potassium Level 3.3 MEQ/L (3.5-5.1) PE at Discharge GENERAL: This is a well-nourished, well-developed patient, in no apparent distress. CARDIOVASCULAR: Regular rate and regular rhythm without murmurs, gallops, or rubs. RESPIRATORY: Clear to auscultation. Breath sounds equal bilaterally. No wheezes , rales, or rhonchi. GASTROINTESTINAL: Abdomen soft, non-tender, nondistended. Normal, active bowel sounds MUSCULOSKELETAL: Extremities without clubbing, cyanosis, or edema. NEURO: Alert & Oriented x4 to person, place, time, situation. Moves all ext x4 Hospital Course Inability to ambulate in multiple joints -consulted PT Hypomagnesemia/hypophosphatemia- replaced HTN, chronic -Resume home medications . -Monitor vitals Alcohol abuse per records. However doubt that patient is abusing. He states he only drinks about 1 or 2 drinks a day. -Encouraged to quit -Thiamine, Ativan PRN mainly for anxiety. DVT prophylaxis: SCDs Pt Condition on Discharge: Fair Discharge Disposition: Discharge to SNF Discharge Time: <= 30 minutes Discharge Instructions DIET: Follow Instructions for: Heart Healthy Diet Activities you can perform: Regular-No Restrictions Follow up Referrals: PCP Follow-up Continued Medications: Allopurinol (Allopurinol) 300 Mg Tab 300 MG PO DAILY Gout #30 Ref 0 TAB Carvedilol (Coreg) 12.5 Mg Tab 12.5 MG PO BID #60 Ref 0 TAB Discontinued Medications: Chlordiazepoxide (Chlordiazepoxide) 25 Mg Cap 25 MG PO QID PRN Anxiety #20 Ref 0 CAP Nifedipine ER 24 HR (Nifedipine ER 24 HR) 60 Mg Tab 60 MG PO DAILY #30 Ref 0 TAB Garcia Baker MD May 23, 2016 12:46
[2016-05-24 00:10] VITALS: BP 131/72; PULSE 91; RESP 20; TEMP 98.5; O2SAT 95
[2016-05-24 04:10] VITALS: BP 131/77; PULSE 91; RESP 20; TEMP 97.6; O2SAT 97
[2016-05-24 04:29] VITALS: PULSE 88
[2016-05-24 07:28] VITALS: BP 155/88; PULSE 89; RESP 16; TEMP 97.9; O2SAT 94
[2016-05-24 07:43] VITALS: PULSE 88
--- NOTE | 2016-05-24 08:05 | HHI.PR ---
Subjective Remarks overall feeling fine. no new complaints. Objective Vitals Vital Signs Date Time Temp Pulse Resp B/P Pulse Ox O2 Delivery O2 Flow Rate FiO2 05/24/16 07:43 88 05/24/16 07:28 97.9 89 16 155/88 94 05/24/16 04:29 88 05/24/16 04:10 97.6 91 20 131/77 97 05/24/16 00:10 98.5 91 20 131/72 95 05/23/16 20:25 98.0 99 20 137/79 95 05/23/16 18:30 99 05/23/16 16:16 97.6 97 18 118/72 92 05/23/16 11:27 97.6 88 17 112/73 96 05/23/16 08:38 96 21 I/O 05/23/16 05/23/16 05/23/16 05/24/16 05/24/16 05/24/16 07:00 15:00 23:00 07:00 15:00 23:00 Intake Total 240 ml Output Total 500 ml Balance 240 ml -500 ml Intake Oral 240 ml Output Urine Total 500 ml # Voids 2 # Bowel Movements 3 Result Diagram: 05/22/16 0410 05/22/16 0410 Imaging Last Impressions Chest X-Ray 05/21/16 0000 Signed Impressions: Service Date/Time: Saturday, May 21, 2016 19:25 - CONCLUSION: No acute disease. Roque Morris MD Objective Remarks GENERAL: This is a well-nourished, well-developed patient, in no apparent distress. CARDIOVASCULAR: Regular rate and regular rhythm without murmurs, gallops, or rubs. RESPIRATORY: Clear to auscultation. Breath sounds equal bilaterally. No wheezes , rales, or rhonchi. GASTROINTESTINAL: Abdomen soft, non-tender, nondistended. Normal, active bowel sounds MUSCULOSKELETAL: Extremities without clubbing, cyanosis, or edema. NEURO: Alert & Oriented x4 to person, place, time, situation. Moves all ext x4 Procedures none Medications and IVs Current Medications Lorazepam (Ativan Inj) 2 mg ONCE ONCE IM Last administered on 05/21/16t 17:46 ; Start 05/21/16 at 17:30; Stop 05/21/16 at 17:31; Status DC IV Flush 2 ml 2 ml UNSCH PRN IVF FLUSH AFTER USING IV ACCESS; Start 05/21/16 at 17:45; Stop 05/21/16 at 23:19; Status DC Sodium Chloride (NS 1000 ml Inj) 1,000 ml @ 1,000 mls/hr Q1H ONCE IV Last administered on 05/21/16 17:46; Start 05/21/16 at 17:32; Stop 05/21/16 at 18:31 ; Status DC Lorazepam 1 mg 1 mg ONCE ONCE IV PUSH Last administered on 05/21/16 18:14; Start 05/21/16 at 18:15; Stop 05/21/16 at 18:16; Status DC Magnesium Sulfate/ Dextrose 100 ml @ 100 mls/hr ONCE ONCE IV Last administered on 05/21/16 19:30; Start 05/21/16 at 19:15; Stop 05/21/16 at 20:14 ; Status DC Potassium Phosphate/Sodium Chloride (Potassium Phosphate Inj/NS Inj) 155 ml @ 38.75 mls/ hr ONCE ONCE IV Last administered on 05/21/16 20:49; Start at 19:15; Stop 05/21/16 at 23:14; Status DC IV Flush (NS Flush) 2 ml UNSCH PRN FLUSH FLUSH AFTER USING IV ACCESS; Start at 19:45 IV Flush (NS Flush) 2 ml BID FLUSH Last administered on 05/23/16 21:00; Start 05/21/16 at 21:00 Naloxone HCl 0.4 mg 0.4 mg UNSCH PRN IV SEE LABEL COMMENTS; Start 05/21/16 at 19:45 Thiamine HCl/ Sodium Chloride (Thiamine Inj/NS Inj) 101 ml @ 101 mls/hr ONCE ONCE IV Last administered on 05/22/16 01:29; Start 05/21/16 at 21:00; Stop at 21:59; Status DC Thiamine HCl (Vitamin B1) 100 mg DAILY PO Last administered on 05/23/16 09:39 ; Start 05/22/16 at 09:00 Lorazepam (Ativan Inj) 1 mg Q2H PRN IV PUSH withdrawal symptoms; Start at 19:45; Stop 05/21/16 at 23:14; Status DC Chlordiazepoxide (Librium) 25 mg TID PO ; Start 05/22/16 at 09:00; Stop at 09:00; Status DC Lorazepam 1 mg 1 mg Q4HR PRN IV PUSH tremors/ anxiety; Start 05/22/16 at 00:00 Magnesium Sulfate/ Dextrose (Magnesium Sulfate 1 Gm Premix) 100 ml @ 100 mls/ hr ONCE ONCE IV Last administered on 05/22/16 06:02; Start 05/22/16 at 05:45 ; Stop 05/22/16 at 06:44; Status DC Potassium Chloride (KCl) 20 meq ONCE ONCE PO Last administered on 05/22/16 06 :02; Start 05/22/16 at 05:45; Stop 05/22/16 at 05:46; Status DC Potassium Chloride (KCl) 40 meq ONCE ONCE PO Last administered on 05/22/16 09 :50; Start 05/22/16 at 07:45; Stop 05/22/16 at 08:13; Status DC Magnesium Oxide (Mag-Ox) 400 mg Q12HR PO Last administered on 05/23/16 21:19; Start 05/22/16 at 09:00 Potassium Chloride (KCl) 20 meq ONCE ONCE PO Last administered on 05/22/16 13 :21; Start 05/22/16 at 12:15; Stop 05/22/16 at 12:27; Status DC Allopurinol (Zyloprim) 300 mg DAILY PO Last administered on 05/23/16 09:39; Start 05/23/16 at 09:00 Carvedilol (Coreg) 12.5 mg BID PO Last administered on 05/23/16 21:19; Start 05/22/16 at 21:00 A/P Assessment and Plan A/P Inability to ambulate in multiple joints -consulted PT Hypomagnesemia/hypophosphatemia- replaced HTN, chronic -Resume home medications . -Monitor vitals Alcohol abuse per records. However doubt that patient is abusing. He states he only drinks about 1 or 2 drinks a day. -Encouraged to quit -Thiamine, Ativan PRN mainly for anxiety. DVT prophylaxis: SCDs Discharge Planning patient is ok for discharge. awaiting case management - for possible dc to rehab vs home with [facility]. d/w the RN and the patient. Garcia Baker MD May 24, 2016 08:05
[2016-05-24] MEDS: MAGNESIUM OXIDE 400 MG TAB PO SCH (08:49)
[2016-05-24] MEDS: SODIUM CHLORIDE 0.9% FLUSH 5 ML FLUSH FLUSH SCH (08:49)
[2016-05-24] MEDS: ALLOPURINOL 300 MG TAB PO SCH (08:49)
[2016-05-24] MEDS: THIAMINE HCL 100 MG TAB PO SCH (08:49)
[2016-05-24] MEDS: CARVEDILOL 12.5 MG TAB PO SCH (08:50)
[2016-05-24 11:28] VITALS: BP 122/75; PULSE 82; RESP 16; TEMP 97.6; O2SAT 94
--- NOTE | 2016-05-24 13:13 | HHI.FF ---
Face to Face Verification Diagnosis: (1) Generalized weakness Physical Therapy Order: Evaluate and Treat I have seen patient Silverio Aguilar on 05/24/16. My clinical findings support the need for the requested home health care services because: Ltd mobility - disease progression I certify that my clinical findings support that this patient is homebound because: Unsteady gait/balance Garcia Baker MD May 24, 2016 13:13
== END 2016-05-24 15:21 | disposition home or self-care (01) | DRG 642 ==
LOC: NEPA 17:19 → OBSVTOIN 19:28 → NEDA 19:28 → NEPFCDU 23:19
PROVIDERS: ADMIT Internal Medicine; ATTEND Internal Medicine
DX: E83.39 Other disorders of phosphorus metabolism (principal); E83.42 Hypomagnesemia; I10 Essential (primary) hypertension; F41.9 Anxiety disorder, unspecified; R53.1 Weakness; M79.606 Pain in leg, unspecified; M10.9 Gout, unspecified; F10.10 Alcohol abuse, uncomplicated; Z89.029 Acquired absence of unspecified finger(s)
CPT/HCPCS: 71010; 80053; 80307; 80320; 81001; 82550; 83735; 84100; 85025; 85610; 85730; 86850; 86900; 86901; 96361; 96372; 96374; J2060; J3411; J3475; J7030

== ENCOUNTER 2016-08-05 08:54 | Inpatient (IN) | payer MEDICARE, BC ==
[~2016-08-05] VITALS: Ht 180.3 cm; Wt 77.7 kg
[2016-08-05] VITALS (9 sets, daily range): BP systolic 149–185; BP diastolic 85–120; PULSE 108–129; RESP 18–22; TEMP 96–98.3; O2SAT 95–98
[~2016-08-05 08:54] MED LIST changes: -AUGM875T PO; -CHLO25CA2 PO; -COLC1TAB7 PO; -LACT PO; -LISI20 PO; -NIFE20CA PO; -THIA100T PO
[2016-08-05] MEDS ORDERED: RLS (09:05)
[2016-08-05] MEDS ORDERED: SODIUM CHLOR 0.9% 1000 ML INJ 1,000 ML IV ONE (09:45)
[2016-08-05] MEDS ORDERED: LORazepam 2 MG/ML VIAL IV PUSH ONE ×2 (09:45→11:30)
[2016-08-05 10:02] LABS: BASOPHIL # 0.1 TH/MM3 (0-0.2); BASOPHIL % 0.7 % (0.0-2.0); EOSINOPHIL # 0.1 TH/MM3 (0-0.4); EOSINOPHIL % 0.9 % (0.0-4.0); HEMATOCRIT 39.2 % (39.0-51.0); HEMO FLAGS DIFF FINAL; LYMPH % 9.2 % (9.0-44.0); MEAN CELL VOLUME 92.4 FL (80.0-100.0); MEAN CORPUSCULAR HEMOGLOBIN 31.7 PG (27.0-34.0); MEAN CORPUSCULAR HGB CONC 34.3 % (32.0-36.0); MONO % 4.4 % (0.0-8.0); NEUT % 84.8 % (16.0-70.0); PLATELET COUNT 155 TH/MM3 (150-450); RED BLOOD COUNT 4.24 MIL/MM3 (4.50-5.90); RED CELL DISTRIBUTION WIDTH 16.3 % (11.6-17.2); WHITE BLOOD COUNT 10.6 TH/MM3 (4.0-11.0)
[2016-08-05 10:11] LABS: APTT (PATIENT) 25.4 SEC (24.3-30.1); PROTHROMBIN TIME - PATIENT 10.7 SEC (9.8-11.6)
[2016-08-05 10:29] LABS: ANION GAP 14 MEQ/L (5-15)
[2016-08-05 10:34] LABS: ALKALINE PHOSPHATASE 197 U/L (45-117); ALT (GPT) 32 U/L (12-78); AST (GOT) 56 U/L (15-37); BICARBONATE 22.6 MEQ/L (21.0-32.0); BLOOD UREA NITROGEN 23 MG/DL (7-18); CHLORIDE 102 MEQ/L (98-107); GLOMERULAR FILTRATION RATE 55 ML/MIN (>89); POTASSIUM 4.2 MEQ/L (3.5-5.1); SODIUM (NA) 139 MEQ/L (136-145); TOTAL BILIRUBIN ADULT 0.8 MG/DL (0.2-1.0)
[2016-08-05 10:39] LABS: CREATINE KINASE 56 U/L (39-308)
--- NOTE | 2016-08-05 11:35 | RADRPT ---
EXAM DATE/TIME: 08/05/2016 10:44 [place] COMPARISON: No previous studies available for comparison. INDICATIONS : Chest pain. MEDICAL HISTORY : None. SURGICAL HISTORY : None. ENCOUNTER: Initial ACUITY: 1 week PAIN SCORE: 4/10 LOCATION: Chest, midline. FINDINGS: PA and lateral views of the chest. The lungs are clear. Cardiomediastinal silhouette within normal li mits. No evidence of pleural effusion or pneumothorax. CONCLUSION: No acute cardiopulmonary disease identified. rUban Jett MD on August 05, 2016 at 11:33 Board Certified Radiologist. This report was verified electronically.
--- NOTE | 2016-08-05 12:01 | PD ---
HPI Chief Complaint: General Weakness Time Seen by Provider: 09:24 Travel History International Travel<30 days: No Contact w/Intl Traveler<30days: No Traveled to known affect area: No History of Present Illness HPI Patient is a 65 year old male who comes in complaining of pain all over. He is also experiencing tremors in his extremities. He is a chronic alcoholic and says he has not had a drink in a few days. He has been admitted before for alcohol withdrawal. He denies any headache, fever, chest pain or SOB. PFSH Past Medical History Arthritis: Yes Blood Disorders: No Heart Rhythm Problems: No Cancer: No Cardiovascular Problems: Yes (HTN) High Cholesterol: Yes Chemotherapy: No Chest Pain: No Congestive Heart Failure: No Endocrine: No Gout: Yes Genitourinary: No Headaches: Yes Hypertension: Yes Immune Disorder: No Musculoskeletal: Yes Neurologic: No Psychiatric: No Reproductive: No Respiratory: No Radiation Therapy: No Past Surgical History Ear Surgery: Yes Tonsillectomy: Yes Other Surgery: Yes (GOUT REMOVED FROM FINGER) Social History Alcohol Use: Yes (2-3 a day, sometimes more) Tobacco Use: No Substance Use: No Allergies-Medications (Allergen,Severity, Reaction): Coded Allergies: No Known Allergies (Unverified , 08/05/16) Reported Meds & Prescriptions Reported Meds & Active Scripts Active Reported Nifedipine ER 24 HR (Nifedipine) 60 Mg Tab 60 Mg PO DAILY Coreg (Carvedilol) 12.5 Mg Tab 12.5 Mg PO BID With Meals Allopurinol 300 Mg Tab 300 Mg PO DAILY Review of Systems Except as stated in HPI: all other systems reviewed are Neg General / Constitutional: No: Fever, Chills Eyes: No: Blurred Vision HENT: No: Headaches Cardiovascular: No: Chest Pain or Discomfort Respiratory: No: Shortness of Breath Gastrointestinal: No: Nausea, Vomiting Musculoskeletal: Positive: Myalgias Skin: No Rash, No Change in Pigmentation Neurologic: No: Weakness, Dizziness Physical Exam Narrative GENERAL: Awake and alert, in mild distress. Tremulous SKIN: Focused skin assessment warm/dry. HEAD: Atraumatic. Normocephalic. EYES: Pupils equal and round. No scleral icterus. EOMI ENT: Tongue fasciculations NECK: Trachea midline. No JVD. CARDIOVASCULAR: Tachycardia. No murmur appreciated. RESPIRATORY: No accessory muscle use. Clear to auscultation. Breath sounds equal bilaterally. GASTROINTESTINAL: Abdomen soft, non-tender, nondistended. MUSCULOSKELETAL: No obvious deformities. No clubbing. No cyanosis. No edema. NEUROLOGICAL: Awake and alert. No obvious cranial nerve deficits. Motor grossly within normal limits. Normal speech. PSYCHIATRIC: Appropriate mood and affect; insight and judgment normal. Data Data Last Documented VS Vital Signs Date Time Temp Pulse Resp B/P Pulse Ox O2 Delivery O2 Flow Rate FiO2 08/05/16 10:23 108 18 151/96 95 Nasal Cannula 2 08/05/16 09:05 98.3 Orders Complete Blood Count With Diff (08/05/16 09:36) Comprehensive Metabolic Panel (08/05/16 09:36) Alcohol (Ethanol) (08/05/16 09:36) Troponin I (08/05/16 09:36) Creatine Kinase (Cpk) (08/05/16 09:36) Act Partial Throm Time (Ptt) (08/05/16 09:36) Prothrombin Time / Inr (Pt) (08/05/16 09:36) Chest, Pa & Lat (08/05/16 ) Sodium Chlor 0.9% 1000 Ml Inj (Ns 1000 M (08/05/16 09:45) Lorazepam Inj (Ativan Inj) (08/05/16 09:45) Lorazepam Inj (Ativan Inj) (08/05/16 11:30) Admit Order (Ed Use Only) (08/05/16 ) Labs Laboratory Tests Test 08/05/16 09:42 White Blood Count 10.6 TH/MM3 Red Blood Count 4.24 MIL/MM3 Hemoglobin 13.4 GM/DL Hematocrit 39.2 % Mean Corpuscular Volume 92.4 FL Mean Corpuscular Hemoglobin 31.7 PG Mean Corpuscular Hemoglobin 34.3 % Concent Red Cell Distribution Width 16.3 % Platelet Count 155 TH/MM3 Mean Platelet Volume 8.2 FL Neutrophils (%) (Auto) 84.8 % Lymphocytes (%) (Auto) 9.2 % Monocytes (%) (Auto) 4.4 % Eosinophils (%) (Auto) 0.9 % Basophils (%) (Auto) 0.7 % Neutrophils # (Auto) 9.0 TH/MM3 Lymphocytes # (Auto) 1.0 TH/MM3 Monocytes # (Auto) 0.5 TH/MM3 Eosinophils # (Auto) 0.1 TH/MM3 Basophils # (Auto) 0.1 TH/MM3 CBC Comment DIFF FINAL Differential Comment Prothrombin Time 10.7 SEC Prothromb Time International 1.0 RATIO Ratio Activated Partial 25.4 SEC Thromboplast Time Sodium Level 139 MEQ/L Potassium Level 4.2 MEQ/L Chloride Level 102 MEQ/L Carbon Dioxide Level 22.6 MEQ/L Anion Gap 14 MEQ/L Blood Urea Nitrogen 23 MG/DL Creatinine 1.31 MG/DL Estimat Glomerular Filtration 55 ML/MIN Rate Random Glucose 185 MG/DL Calcium Level 9.3 MG/DL Phosphorus Level 3.3 MG/DL Magnesium Level 1.4 MG/DL Total Bilirubin 0.8 MG/DL Aspartate Amino Transf 56 U/L (AST/SGOT) Alanine Aminotransferase 32 U/L (ALT/SGPT) Alkaline Phosphatase 197 U/L Total Creatine Kinase 56 U/L Troponin I LESS THAN 0.02 NG/ML Total Protein 8.5 GM/DL Albumin 3.7 GM/DL Lipase 168 U/L Ethyl Alcohol Level LESS THAN 3 MG/DL MDM Medical Decision Making Medical Screen Exam Complete: Yes Emergency Medical Condition: Yes Medical Record Reviewed: Yes Differential Diagnosis alcohol withdrawal vs electrolyte abnormalities vs dehydration Narrative Course Patient is a 65 year old male who comes in complaining of pain all over and tremors. Exam shows patient to be tremulous and tachycardic. IV established, labs sent. Connected to the dry kiln feeder. Labs show alcohol level is negative. Patient given IVF and Ativan. He originally received 2mg Ativan by EMS. He received 4 more mg Ativan here. Labs show no acute findings. Admitted for alcohol withdrawal. Diagnosis Primary Impression: Alcohol withdrawal Qualified Code: F10.230 - Alcohol withdrawal, uncomplicated Admitting Information Admitting Physician Requests: Admit Condition: Stable Marialuisa Singleton MD Aug 05, 2016 12:01
[2016-08-05] MEDS: THIAMINE HCL 100 MG TAB PO SCH (12:15)
[2016-08-05] MEDS ORDERED: SODIUM CHLORIDE 0.9% FLUSH 10 ML FLUSH IV FLUSH PRN (12:15)
[2016-08-05] MEDS ORDERED: LORazepam 2 MG TAB PO PRN (12:15)
[2016-08-05] MEDS: FOLIC ACID 1 MG TAB PO SCH (12:15)
[2016-08-05] MEDS: MULTIVITAMINS/MINERALS THERAPEUTIC TAB PO SCH (12:15)
[2016-08-05] MEDS ORDERED: LORazepam 2 MG/ML VIAL IV PUSH PRN ×2 (12:15)
[2016-08-05] MEDS ORDERED: HALOPERIDOL LACTATE 5 MG/ML AMP IM PRN (12:15)
[2016-08-05] MEDS ORDERED: ONDANSETRON HCL 4 MG/2 ML VIAL IV PRN (12:15)
[2016-08-05] MEDS ORDERED: FLUMAZENIL 0.5 MG/5 ML VIAL IV PUSH PRN (12:15)
[2016-08-05] MEDS ORDERED: cloNIDine HCL 0.1 MG TAB PO PRN (12:15)
--- NOTE | 2016-08-05 12:21 | HHI.HP ---
[facility] Service Family Medicine Primary Care Physician No Primary Care Physician Admission Diagnosis Alcohol withdrawal Diagnoses: International Travel<30 Days: No Contact w/Intl Traveler<30days: No Known Affected Area: No History of Present Illness Patient is a 65 year old male with a history of HTN, EtOH abuse, gout, who presents to ED via EVAC due to inability to ambulate. He states his legs were numb and he couldn't get then to move. He also notes a chest pain between his nipples, occurring when he was lying down last night, frequency "every now and then", resolved at this time. He endorses shortness of breath with ambulation. He denies coughing but does "a lot of sneezing." No fevers or chills at home. He endorses tremulousness, onset was last night. Endorses diaphoresis. Drinks alcohol regularly, vodka twice daily, 2 oz daily. Drinks beer occassional. He has history of EtOH abuse, last use 2 days ago. Quits alcohol use "all the time." No rehab history per report. Last self- attempt to quit one month ago, was off for 30 days. (Meli Alcantar MD R1) Review of Systems Constitutional: DENIES: Fever, Weight loss, Chills, Change in appetite Eyes: DENIES: Blurred vision, Diplopia, Vision loss Ears, nose, mouth, throat: DENIES: Tinnitus, Hearing loss, Vertigo, Running Nose Respiratory: COMPLAINS OF: Cough (occasional), DENIES: Wheezing, Hemoptysis, Shortness of breath Cardiovascular: COMPLAINS OF: Chest pain, DENIES: Palpitations, Syncope Gastrointestinal: DENIES: Abdominal pain, Black stools, Bloody stools, Constipation, Diarrhea, Nausea, Vomiting, Difficulty Swallowing Genitourinary: DENIES: Urgency, Hematuria, Dysuria Musculoskeletal: DENIES: Joint pain, Back pain, Neck pain Integumentary: DENIES: Pruritus, Rash Hematologic/lymphatic: COMPLAINS OF: Bruising (arm) Neurologic: COMPLAINS OF: Paresthesias (end), Tremor, DENIES: Headache, Localized weakness, Seizures Psychiatric: DENIES: Anxiety, Mood changes, Depression, Suicidal Ideation, Homicidal Ideation (Meli Alcantar MD R1) Past Family Social History Past Medical History HTN Gout Past Surgical History Tonsillectomy Finger sx - table saw Reported Medications Reported Meds & Active Scripts Active Reported [Rls] Coreg (Carvedilol) 12.5 Mg Tab 12.5 Mg PO DAILY Allopurinol 300 Mg Tab 300 Mg PO DAILY (Meli Alcantar MD R1) Allergies: Coded Allergies: No Known Allergies (Unverified , 08/05/16) Family History Mother: heart failure, age 70s Father: lots of medical problems, 80s Siblings: GI cancer in brother, age 70s Children: no children Social History Alcohol: vodka, avg 2oz daily Cigarette: quit 1989 Illicit: denies Lives: [place], lives alone (Meli Alcantar MD R1) Physical Exam Vital Signs Vital Signs Date Time Temp Pulse Resp B/P Pulse Ox O2 Delivery O2 Flow Rate FiO2 08/05/16 12:05 119 18 176/85 97 Nasal Cannula 2 08/05/16 10:23 108 18 151/96 95 Nasal Cannula 2 08/05/16 09:05 98.3 129 22 149/85 95 Physical Exam GENERAL: This is a well-nourished, well-developed male, tremulous and not keeping still SKIN: No rashes, ecchymoses or lesions. Cool and dry. HEAD: Atraumatic. Normocephalic. No temporal or scalp tenderness. EYES: Pupils equal round and reactive. Extraocular motions intact. No scleral icterus. No injection or drainage. ENT: Nose without bleeding or purulent drainage. Throat without erythema, tonsillar hypertrophy or exudate. Uvula midline. Airway patent. NECK: Trachea midline. No JVD or lymphadenopathy. Supple, nontender, no meningeal signs. CARDIOVASCULAR: Tachycardic. Regular rate and rhythm without murmurs, gallops, or rubs. RESPIRATORY: Clear to auscultation. Breath sounds equal bilaterally. No wheezes , rales, or rhonchi. GASTROINTESTINAL: Abdomen soft, non-tender, nondistended. No hepato-splenomegaly , or palpable masses. No guarding. MUSCULOSKELETAL: Extremities without clubbing, cyanosis, or edema. No joint tenderness, effusion, or edema noted. No calf tenderness. Negative Homans sign bilaterally. NEUROLOGICAL: Tremors in all 4 extremities. Awake and alert. Cranial nerves II through XII intact. Motor and sensory grossly within normal limits. Four out of 5 muscle strength in all muscle groups. Normal speech. Laboratory Laboratory Tests Test 08/05/16 09:42 White Blood Count 10.6 Red Blood Count 4.24 Hemoglobin 13.4 Hematocrit 39.2 Mean Corpuscular Volume 92.4 Mean Corpuscular Hemoglobin 31.7 Mean Corpuscular Hemoglobin 34.3 Concent Red Cell Distribution Width 16.3 Platelet Count 155 Mean Platelet Volume 8.2 Neutrophils (%) (Auto) 84.8 Lymphocytes (%) (Auto) 9.2 Monocytes (%) (Auto) 4.4 Eosinophils (%) (Auto) 0.9 Basophils (%) (Auto) 0.7 Neutrophils # (Auto) 9.0 Lymphocytes # (Auto) 1.0 Monocytes # (Auto) 0.5 Eosinophils # (Auto) 0.1 Basophils # (Auto) 0.1 CBC Comment DIFF FINAL Differential Comment Prothrombin Time 10.7 Prothromb Time International 1.0 Ratio Activated Partial 25.4 Thromboplast Time Sodium Level 139 Potassium Level 4.2 Chloride Level 102 Carbon Dioxide Level 22.6 Anion Gap 14 Blood Urea Nitrogen 23 Creatinine 1.31 Estimat Glomerular Filtration 55 Rate Random Glucose 185 Calcium Level 9.3 Total Bilirubin 0.8 Aspartate Amino Transf 56 (AST/SGOT) Alanine Aminotransferase 32 (ALT/SGPT) Alkaline Phosphatase 197 Total Creatine Kinase 56 Troponin I LESS THAN 0.02 Total Protein 8.5 Albumin 3.7 Ethyl Alcohol Level LESS THAN 3 (Meli Alcantar MD R1) Result Diagram: 08/05/16 0942 08/05/16 0942 Imaging Last Impressions Chest X-Ray 08/05/16 0000 Signed Impressions: Service Date/Time: Friday, August 05, 2016 10:44 - CONCLUSION: No acute cardiopulmonary disease identified. Urban Jett MD (Meli Alcantar MD R1) Assessment and Plan Assessment and Plan 65 year old male history of hypertension, gout, EtOH abuse who presents in acute alcohol withdrawal. Code Status Full code Discussed Condition With Seen and discussed with Dr. Kovacs (Meli Alcantar MD R1) Attending Attestation Patient seen and examined. Case reviewed and discussed with the resident team. Agree with plan of care as discussed with me and documented in the resident note. pt seen on admission (Ivone Torres MD) Problem List: (1) Alcohol withdrawal Status: Acute Plan: Long history of alcohol abuse. Last reported use two days ago. S/p 6 mg ativan in ED, still tremulous. Admit patient for supervised alcohol withdrawal [facility] Protocol Thiamine, folate Seizure and fall precautions IVF at 100cc/hr Check lipase (2) Chest pain Status: Acute Plan: Patient reports nonspecific chest pain symptoms, waking him up from sleep , does not offer specific timing. Does not sound cardiac in nature. CXR unremarkable. Troponin in ED negative. Will obtain EKG. (3) Alcohol abuse Status: Chronic Plan: Denies interest in quitting EtOH Case mgmt Counseled (4) Hypertension Status: Chronic Plan: Continue home Coreg and Procardia Clonidine when necessary (5) Renal insufficiency Status: Resolved Plan: IV fluids as above, monitor BMP (6) Gout Status: Acute Plan: Continue home dose allopurinol (7) Fluids/Electrolytes/Nutrition/Prophylaxis Status: Acute Plan: Fluids: d5NS @ 100ml/hr due to CHAPIN Electrolytes: monitor and replete as needed Nutrition: heart-healthy diet DVT Prophylaxis: Heparin 5000U subQ q8hr GI Prophylaxis: not indicated (Meli Alcantar MD R1) Problem Qualifiers (1) Alcohol withdrawal: Qualified Code: F10.230 - Alcohol withdrawal, uncomplicated (2) Chest pain: Qualified Code: R07.9 - Chest pain, unspecified type (3) Hypertension: Qualified Code: I10 - Essential hypertension (4) Gout: Qualified Code: M1A.0410 - Chronic gout of right hand, unspecified cause Meli Alcantar MD R1 Aug 05, 2016 12:21 Ivone Torres MD August 06, 2016 12:16
[2016-08-05] MEDS ORDERED: NIFE60TA58 PO (12:23)
[2016-08-05] MEDS: DEXT 5%-NACL 0.9% 1000 ML INJ 1,000 ML IV SCH ×2 (12:45→22:45)
[2016-08-05] MEDS: NIFEdipine 60 MG SUSTAINED RELEASE TAB PO SCH (14:00)
[2016-08-05] MEDS: HEPARIN SODIUM - SQ 10,000 UNITS/ML VIAL SQ SCH ×2 (14:00→21:28)
[2016-08-05 15:31] LABS: MAGNESIUM 1.4 MG/DL (1.5-2.5)
[2016-08-05 15:54] LABS: BLOOD, URINE NEG (NEG); GLUCOSE,URINE NEG (NEG); KETONE, URINE NEG (NEG); NITRITE,URINE NEG (NEG); URINE COLOR LIGHT-YELLOW (YELLW/STRAW)
[2016-08-05 15:55] LABS: COMMENT (UR) CULT NOT INDICATED; CULTURE IF INDICATED CULT NOT INDICATED
[2016-08-05] MEDS: LORazepam 1 MG TAB PO PRN (17:00)
[2016-08-05] MEDS ORDERED: MAGNESIUM CHLORIDE 64 MG TAB PO SCH (18:00)
[2016-08-05] MEDS ORDERED: IBUPROFEN 400 MG TAB PO PRN (18:00)
[2016-08-05] MEDS: MAGNESIUM SULFATE 1 GM PREMIX 100 ML IV SCH ×2 (19:00→21:28)
[2016-08-05] MEDS: ENALAPRILAT 1.25 MG/ML VIAL IV PUSH PRN (19:06)
[2016-08-05] MEDS: SODIUM CHLORIDE 0.9% FLUSH 10 ML FLUSH IV FLUSH SCH (19:58)
[2016-08-05] MEDS: CARVEDILOL 12.5 MG TAB PO SCH (21:27)
[2016-08-06] VITALS (7 sets, daily range): BP systolic 113–132; BP diastolic 68–79; PULSE 80–88; RESP 16–19; TEMP 95.8–97.6; O2SAT 94–98
[2016-08-06] MEDS: HEPARIN SODIUM - SQ 10,000 UNITS/ML VIAL SQ SCH ×3 (06:37→21:41)
[2016-08-06] MEDS: DEXT 5%-NACL 0.9% 1000 ML INJ 1,000 ML IV SCH (06:41)
[2016-08-06 07:34] LABS: AUTOMATED NEUTROPHIL # 7.7 TH/MM3 (1.8-7.7); BASOPHIL # 0.1 TH/MM3 (0-0.2); BASOPHIL % 0.6 % (0.0-2.0); EOSINOPHIL # 0.2 TH/MM3 (0-0.4); EOSINOPHIL % 2.2 % (0.0-4.0); HEMATOCRIT 40.8 % (39.0-51.0); LYMPH % 14.4 % (9.0-44.0); LYMPHOCYTE # 1.5 TH/MM3 (1.0-4.8); MEAN CELL VOLUME 93.1 FL (80.0-100.0); MEAN CORPUSCULAR HEMOGLOBIN 31.4 PG (27.0-34.0); MEAN CORPUSCULAR HGB CONC 33.7 % (32.0-36.0); MONO % 6.6 % (0.0-8.0); NEUT % 76.2 % (16.0-70.0); PLATELET COUNT 132 TH/MM3 (150-450); RED BLOOD COUNT 4.39 MIL/MM3 (4.50-5.90); RED CELL DISTRIBUTION WIDTH 16.3 % (11.6-17.2); WHITE BLOOD COUNT 10.1 TH/MM3 (4.0-11.0)
[2016-08-06 07:40] LABS: PROTHROMBIN TIME - PATIENT 11.4 SEC (9.8-11.6)
[2016-08-06 08:09] LABS: HEMO FLAGS AUTO DIFF
[2016-08-06 08:11] LABS: ALKALINE PHOSPHATASE 161 U/L (45-117); ALT (GPT) 27 U/L (12-78); ANION GAP 14 MEQ/L (5-15); AST (GOT) 44 U/L (15-37); BICARBONATE 24.8 MEQ/L (21.0-32.0); BLOOD UREA NITROGEN 14 MG/DL (7-18); CHLORIDE 98 MEQ/L (98-107); GLOMERULAR FILTRATION RATE 110 ML/MIN (>89); PLATELET ESTIMATE SMEAR LOW (NORMAL); PLATELET MORPHOLOGY NORMAL (NORMAL); SCAN/DIFF AUTO DIFF CONFIRMED; SODIUM (NA) 137 MEQ/L (136-145); TOTAL BILIRUBIN ADULT 1.4 MG/DL (0.2-1.0)
[2016-08-06 08:26] LABS: POTASSIUM 2.9 MEQ/L (3.5-5.1)
[2016-08-06] MEDS: FOLIC ACID 1 MG TAB PO SCH (08:34)
[2016-08-06] MEDS: ALLOPURINOL 300 MG TAB PO SCH (08:35)
[2016-08-06] MEDS: NIFEdipine 60 MG SUSTAINED RELEASE TAB PO SCH (08:35)
[2016-08-06] MEDS: CARVEDILOL 12.5 MG TAB PO SCH ×2 (08:36→21:32)
[2016-08-06] MEDS: MULTIVITAMINS/MINERALS THERAPEUTIC TAB PO SCH (08:36)
[2016-08-06] MEDS ORDERED: POTASSIUM CHLORIDE 20 MEQ CONTROLLED RELEASE TAB PO ONE (08:45)
[2016-08-06] MEDS: THIAMINE HCL 100 MG TAB PO SCH (08:55)
[2016-08-06] MEDS: POTASSIUM CHLORIDE INJ 10 MEQ in DEXT 5%-NACL 0.9% 1000 ML INJ 1,000 ML IV SCH (09:01)
[2016-08-06] MEDS: SODIUM CHLORIDE 0.9% FLUSH 10 ML FLUSH IV FLUSH SCH ×2 (09:01→21:00)
--- NOTE | 2016-08-06 11:34 | HHI.HP ---
[facility] Service Family Medicine Primary Care Physician No Primary Care Physician Admission Diagnosis Alcohol withdrawal Diagnoses: (1) Alcohol withdrawal Diagnosis: Principal (2) Chest pain Diagnosis: Principal (3) Alcohol abuse Diagnosis: Principal (4) Hypertension Diagnosis: Principal (5) Renal insufficiency Diagnosis: Principal (6) Gout Diagnosis: Principal (7) Fluids/Electrolytes/Nutrition/Prophylaxis Diagnosis: Principal International Travel<30 Days: No Contact w/Intl Traveler<30days: No Known Affected Area: No History of Present Illness Mr Aguilar is a 65 year old male with a history of HTN, EtOH abuse, gout, who presented to ED via EVAC due to inability to ambulate. He states his legs were numb and he couldn't get then to move after he went in some cold water and they "cramped up". He also notes a chest pain between his nipples, occurring when he was lying down last night, frequency "every now and then", resolved at this time. He endorses shortness of breath with ambulation. He denies coughing but does "a lot of sneezing." No fevers or chills at home. He endorses tremulousness , onset was last night. Endorses diaphoresis. Drinks alcohol regularly, vodka twice daily, 2 oz daily. Drinks beer occasional. He has history of EtOH abuse, last use 2 days ago. Quits alcohol use "all the time." No rehab history per report. Last self- attempt to quit one month ago, was off for 30 days. Declines any assistance to quit and wishes to control his own alcohol use despite being warned that alcohol is adversely effecting his health. Review of Systems ROS Limitations: Clinical Condition, Poor Historian Other Constitutional: DENIES: Fever, Weight loss, Chills, Change in appetite Eyes: DENIES: Blurred vision, Diplopia, Vision loss Ears, nose, mouth, throat: DENIES: Tinnitus, Hearing loss, Vertigo, Running Nose Respiratory: COMPLAINS OF: Cough (occasional), DENIES: Wheezing, Hemoptysis, Shortness of breath Cardiovascular: COMPLAINS OF: Chest pain, DENIES: Palpitations, Syncope Gastrointestinal: DENIES: Abdominal pain, Black stools, Bloody stools, Constipation, Diarrhea, Nausea, Vomiting, Difficulty Swallowing Genitourinary: DENIES: Urgency, Hematuria, Dysuria Musculoskeletal: DENIES: Joint pain, Back pain, Neck pain Integumentary: DENIES: Pruritus, Rash Hematologic/lymphatic: COMPLAINS OF: Bruising (arm) Neurologic: COMPLAINS OF: Paresthesias (end), Tremor, DENIES: Headache, Localized weakness, Seizures Psychiatric: DENIES: Anxiety, Mood changes, Depression, Suicidal Ideation, Homicidal Ideation Past Family Social History Past Medical History HTN Gout 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 Past Surgical History Tonsillectomy Finger sx - table saw Allergies: Coded Allergies: No Known Allergies (Unverified , 08/05/16) Family History Mother: heart failure, age 70s Father: lots of medical problems, 80s Siblings: GI cancer in brother, age 70s Children: no children Social History Alcohol: vodka, avg 2oz daily Cigarette: quit 1989 Illicit: denies Lives: [place], lives alone Physical Exam Vital Signs Vital Signs Date Time Temp Pulse Resp B/P Pulse Ox O2 Delivery O2 Flow Rate FiO2 08/06/16 08:00 97.5 87 18 132/76 94 08/06/16 04:00 96.8 86 17 129/79 95 08/06/16 00:00 97.1 80 18 122/75 98 08/05/16 20:00 96.0 115 19 166/88 98 08/05/16 17:18 112 18 165/98 96 Room Air 08/05/16 17:01 118 18 180/120 95 Room Air 08/05/16 16:19 112 18 171/93 95 Room Air 08/05/16 14:13 119 154/102 08/05/16 14:09 119 18 185/95 95 Room Air 08/05/16 12:05 119 18 176/85 97 Nasal Cannula 2 Physical Exam GENERAL: This is a well-nourished, well-developed male, tremulous and not keeping still initially but better today with less shaking SKIN: No rashes, ecchymoses or lesions. Cool and dry. HEAD: Atraumatic. Normocephalic. No temporal or scalp tenderness. EYES: Pupils equal round and reactive. Extraocular motions intact. No scleral icterus. No injection or drainage. ENT: Nose without bleeding or purulent drainage. Airway patent. NECK: Trachea midline. No JVD or lymphadenopathy. Supple, nontender, no meningeal signs. CARDIOVASCULAR: Regular rate and rhythm without murmurs, gallops, or rubs. RESPIRATORY: Clear to auscultation. Breath sounds equal bilaterally. No wheezes , rales, or rhonchi. GASTROINTESTINAL: Abdomen soft, non-tender, nondistended. No hepato-splenomegaly , or palpable masses. No guarding. MUSCULOSKELETAL: Extremities without clubbing, cyanosis, or edema. No joint tenderness, effusion, or edema noted. No calf tenderness. Negative Homans sign bilaterally. NEUROLOGICAL: Tremors in all 4 extremities. Awake and alert. Cranial nerves II through XII intact. Motor and sensory grossly within normal limits. Four out of 5 muscle strength in all muscle groups. Normal speech. Laboratory Laboratory Tests Test 08/05/16 08/06/16 15:22 06:15 Urine Color LIGHT-YELLOW Urine Turbidity CLEAR Urine pH 7.0 Urine Specific [place] 1.009 Urine Protein 30 Urine Glucose (UA) NEG Urine Ketones NEG Urine Occult Blood NEG Urine Nitrite NEG Urine Bilirubin NEG Urine Urobilinogen LESS THAN 2.0 Urine Leukocyte Esterase NEG Urine RBC LESS THAN 1 Urine WBC LESS THAN 1 Microscopic Urinalysis Comment CULT NOT INDICATED White Blood Count 10.1 Red Blood Count 4.39 Hemoglobin 13.8 Hematocrit 40.8 Mean Corpuscular Volume 93.1 Mean Corpuscular Hemoglobin 31.4 Mean Corpuscular Hemoglobin 33.7 Concent Red Cell Distribution Width 16.3 Platelet Count 132 Mean Platelet Volume 8.9 Neutrophils (%) (Auto) 76.2 Lymphocytes (%) (Auto) 14.4 Monocytes (%) (Auto) 6.6 Eosinophils (%) (Auto) 2.2 Basophils (%) (Auto) 0.6 Neutrophils # (Auto) 7.7 Lymphocytes # (Auto) 1.5 Monocytes # (Auto) 0.7 Eosinophils # (Auto) 0.2 Basophils # (Auto) 0.1 CBC Comment AUTO DIFF Differential Comment AUTO DIFF CONFIRMED Platelet Estimate LOW Platelet Morphology Comment NORMAL Prothrombin Time 11.4 Prothromb Time International 1.0 Ratio Sodium Level 137 Potassium Level 2.9 Chloride Level 98 Carbon Dioxide Level 24.8 Anion Gap 14 Blood Urea Nitrogen 14 Creatinine 0.72 Estimat Glomerular Filtration 110 Rate Random Glucose 119 Calcium Level 9.2 Magnesium Level 2.0 Total Bilirubin 1.4 Aspartate Amino Transf 44 (AST/SGOT) Alanine Aminotransferase 27 (ALT/SGPT) Alkaline Phosphatase 161 Total Protein 7.9 Albumin 3.4 Result Diagram: 08/06/16 0615 08/06/16 0615 Imaging Last Impressions Chest X-Ray 08/05/16 0000 Signed Impressions: Service Date/Time: Friday, August 05, 2016 10:44 - CONCLUSION: No acute cardiopulmonary disease identified. Urban Jett MD Assessment and Plan Assessment and Plan 65 year old male history of hypertension, gout, EtOH abuse who presented in acute alcohol withdrawal. Problem List: (1) Alcohol withdrawal Status: Acute Plan: Long history of alcohol abuse. Last reported use two days ago. S/p 6 mg ativan in ED, still tremulous. received 2 more mg with good result Admitted patient for supervised alcohol withdrawal [facility] Protocol Thiamine, folate Seizure and fall precautions IVF at 100cc/hr Checked lipase (2) Chest pain Status: Acute Plan: Patient reports nonspecific chest pain symptoms, waking him up from sleep , does not offer specific timing. Does not sound cardiac in nature. CXR unremarkable. Troponin in ED negative. Will obtain EKG repeat as first EKG worthless with artifact from pts excessive tremulousness. he does not have typical angina and can get a better history as he improves (3) Alcohol abuse Status: Chronic Plan: Denies interest in quitting EtOH Case mgmt Counseled (4) Hypertension Status: Chronic Plan: Continue home Coreg and Procardia Clonidine when necessary (5) Renal insufficiency Status: Resolved Plan: IV fluids as above, monitor BMP (6) Gout Status: Acute Plan: Continue home dose allopurinol (7) Fluids/Electrolytes/Nutrition/Prophylaxis Status: Acute Plan: Fluids: d5NS @ 100ml/hr due to CHAPIN, better today Electrolytes: monitor and replete as needed, gave magnesium and now K today Nutrition: heart-healthy diet DVT Prophylaxis: Heparin 5000U subQ q8hr GI Prophylaxis: not indicated platelets a little low, probably from alcohol can see if this improves when pt abstains Problem Qualifiers (1) Alcohol withdrawal: Qualified Code: F10.230 - Alcohol withdrawal, uncomplicated (2) Chest pain: Qualified Code: R07.9 - Chest pain, unspecified type (3) Hypertension: Qualified Code: I10 - Essential hypertension (4) Gout: Qualified Code: M1A.0410 - Chronic gout of right hand, unspecified cause Ivone Torres MD August 06, 2016 11:34
--- NOTE | 2016-08-06 16:29 | EKG ---
Date Performed: 08/06/2016 Time Performed: 13:29:30 PTAGE: 65 years EKG: Sinus rhythm LOW QRS VOLTAGE IN PRECORDIAL LEADS ABNORMAL ECG PREVIOUS TRACING : 08/05/2016 14.04, comparison not possible due to extensive artefact on previ ous tracing. DOCTOR: Brady Carver Interpretating Date/Time 08/06/2016 16:28:53
--- NOTE | 2016-08-06 23:06 | EKG ---
Date Performed: 08/05/2016 Time Performed: 14:04:37 PTAGE: 65 years EKG: Baseline artifact makes the rhythm very difficult to interpret. The rhythm does appear to b e regular. PREVIOUS TRACING : 11/21/2015 11.24 DOCTOR: Tarun Lizama Interpretating Date/Time 08/06/2016 23:05:10
[2016-08-07] VITALS (8 sets, daily range): BP systolic 117–136; BP diastolic 67–82; PULSE 82–95; RESP 16–17; TEMP 95.6–97.1; O2SAT 94–97
[2016-08-07] MEDS: POTASSIUM CHLORIDE INJ 10 MEQ in DEXT 5%-NACL 0.9% 1000 ML INJ 1,000 ML IV SCH (01:12)
[2016-08-07] MEDS: HEPARIN SODIUM - SQ 10,000 UNITS/ML VIAL SQ SCH ×3 (05:12→22:07)
[2016-08-07 07:45] LABS: HEMATOCRIT 39.2 % (39.0-51.0); MEAN CELL VOLUME 94.1 FL (80.0-100.0); MEAN CORPUSCULAR HGB CONC 32.9 % (32.0-36.0); PLATELET COUNT 98 TH/MM3 (150-450); RED BLOOD COUNT 4.16 MIL/MM3 (4.50-5.90); RED CELL DISTRIBUTION WIDTH 15.9 % (11.6-17.2); WHITE BLOOD COUNT 8.4 TH/MM3 (4.0-11.0)
[2016-08-07 07:51] LABS: REVIEW FLAG FINAL
[2016-08-07] MEDS: NIFEdipine 60 MG SUSTAINED RELEASE TAB PO SCH (08:38)
[2016-08-07] MEDS: ALLOPURINOL 300 MG TAB PO SCH (08:38)
[2016-08-07] MEDS: SODIUM CHLORIDE 0.9% FLUSH 10 ML FLUSH IV FLUSH SCH ×2 (08:39→19:45)
[2016-08-07] MEDS: CARVEDILOL 12.5 MG TAB PO SCH ×2 (08:39→19:45)
[2016-08-07] MEDS: MULTIVITAMINS/MINERALS THERAPEUTIC TAB PO SCH (08:39)
[2016-08-07] MEDS: FOLIC ACID 1 MG TAB PO SCH (08:39)
[2016-08-07] MEDS: THIAMINE HCL 100 MG TAB PO SCH (08:39)
[2016-08-07 08:58] LABS: ALKALINE PHOSPHATASE 153 U/L (45-117); ALT (GPT) 29 U/L (12-78); ANION GAP 13 MEQ/L (5-15); AST (GOT) 49 U/L (15-37); BICARBONATE 22.9 MEQ/L (21.0-32.0); BLOOD UREA NITROGEN 17 MG/DL (7-18); CHLORIDE 102 MEQ/L (98-107); GLOMERULAR FILTRATION RATE 93 ML/MIN (>89); MAGNESIUM 1.7 MG/DL (1.5-2.5); POTASSIUM 3.3 MEQ/L (3.5-5.1); SODIUM (NA) 138 MEQ/L (136-145)
--- NOTE | 2016-08-07 09:08 | HHI.FPPN ---
Subjective Remarks Patient seen and examined this morning. Afebrile vital signs stable. Patient reports desire to go home today. Has not required Ativan for over 24 hours. He declines any feelings of shaking or tremors. Discussing going to a rehabilitation facility for increasing his strength and he currently is declining, wishing to go home and do exercises at home. He has no complaints at this time. Endorses: None Denies: Fever, chills, nausea, vomiting, shortness of breath, chest pain, headache, abdominal pain, calf pain (Manish Kovacs MD R2) Objective Vitals Vital Signs Date Time Temp Pulse Resp B/P Pulse Ox O2 Delivery O2 Flow Rate FiO2 08/07/16 07:44 96.2 82 17 133/81 96 08/07/16 04:00 96.5 83 16 118/68 94 08/07/16 01:23 Room Air 08/07/16 00:00 97.1 83 17 117/67 94 08/06/16 23:13 83 08/06/16 22:40 18 08/06/16 20:00 96.0 87 18 113/68 96 08/06/16 16:00 97.6 88 16 118/75 96 08/06/16 12:00 95.8 84 19 132/74 95 I/O 08/06/16 08/06/16 08/06/16 08/07/16 08/07/16 08/07/16 07:00 15:00 23:00 07:00 15:00 23:00 Intake Total 742 ml 720 ml 1031 ml 686 ml Output Total 240 ml 975 ml 200 ml Balance 502 ml -255 ml 1031 ml 486 ml Intake Oral 240 ml 720 ml 360 ml 120 ml IV Total 502 ml 671 ml 566 ml Output Urine Total 240 ml 975 ml 200 ml # Voids 3 4 # Bowel Movements 0 1 0 0 (Manish Kovacs MD R2) Result Diagram: 08/07/1630 08/07/16 0630 Imaging Last Impressions Chest X-Ray 08/05/16 0000 Signed Impressions: Service Date/Time: Friday, August 05, 2016 10:44 - CONCLUSION: No acute cardiopulmonary disease identified. Urban Jett MD Objective Remarks GENERAL: Well-nourished, well-developed patient. No acute distress. No tremors noted SKIN: Warm and dry. No rash. EYES: No scleral icterus. No injection or drainage. PERRLA. EOMI. HENT: Normocephalic. Atraumatic. MMM. NECK: No visible JVD or lymphadenopathy. CARDIOVASCULAR: Regular rate and rhythm RESPIRATORY: Clear to auscultation bilaterally GASTROINTESTINAL: Abdomen nondistended. MUSCULOSKELETAL: Strength grossly WNL. BACK: Without obvious deformity. NEURO/PSYCH: Afocal. Awake, alert, and oriented x3. Medications and IVs Current Medications Medications (Trade) Dose Ordered Sig/Leslie Route Start Time Stop Time Status Last Admin (NS Flush) 2 ml UNSCH PRN IV FLUSH 08/05/16 12:15 (NS Flush) 2 ml BID IV FLUSH 08/05/16 21:00 08/07/16 08:39 (Folate) 1 mg DAILY PO 08/05/16 12:15 08/10/16 12:14 08/07/16 08:39 (Vitamin B1) 100 mg DAILY PO 08/05/16 12:15 08/07/16 08:39 (Theragran M Tab) 1 tab DAILY PO 08/05/16 12:15 08/10/16 12:14 08/07/16 08:39 (Zofran Inj) 4 mg Q6H PRN IV 08/05/16 12:15 (Catapres) 0.1 mg Q6H PRN PO 08/05/16 12:15 08/05/16 17:00 (Romazicon Inj) 0.2 mg Q1M PRN IV PUSH 08/05/16 12:15 (Ativan) 1 mg Q4H PRN PO 08/05/16 12:15 08/05/16 17:00 (Ativan Inj) 1 mg Q4H PRN IV PUSH 08/05/16 12:15 (Ativan) 2 mg Q2H PRN PO 08/05/16 12:15 (Ativan Inj) 2 mg Q2H PRN IV PUSH 08/05/16 12:15 (Ativan Inj) 2 mg Q1H PRN IV PUSH 08/05/16 12:15 (Ativan Inj) 2 mg Q15M PRN IV PUSH 08/05/16 12:15 (Haldol Inj) 2 mg Q15M PRN IM 08/05/16 12:15 (Heparin Inj) 5,000 units Q8HR SQ 08/05/16 14:00 08/07/16 05:12 (Zyloprim) 300 mg DAILY PO 08/06/16 09:00 08/07/16 08:38 (Coreg) 12.5 mg BID PO 08/05/16 21:00 08/07/16 08:39 (Procardia Xl) 60 mg DAILY PO 08/05/16 14:00 08/07/16 08:38 (Motrin) 400 mg Q6H PRN PO 08/05/16 18:00 08/06/16 21:40 Enalaprilat 1.25 mg 1.25 mg Q6H PRN IV PUSH 08/05/16 18:15 08/05/16 19:06 (KCl Inj/D5W-NS 1000 ml Inj) 1,005 ml @ 100 mls/hr Q10H3M IV 08/06/16 09:00 08/07/16 01:12 (Manish Kovacs MD R2) A/P Assessment and Plan 65 year old male history of hypertension, gout, EtOH abuse who presented in acute alcohol withdrawal. Discharge Planning Anticipate discharge home today following PT recommendations (Manish Kovacs MD R2) Attending Attestation Patient seen and examined. Case reviewed and discussed with the resident team. Agree with plan of care as discussed with me and documented in the resident note. (Ivone Torres MD) Problem List: (1) Alcohol withdrawal Status: Acute Plan: Long history of alcohol abuse. Last reported use two days ago. S/p 6 mg ativan in ED, still tremulous. received 2 more mg with good result Admitted patient for supervised alcohol withdrawal [facility] Protocol Rally pack Seizure and fall precautions DC IV fluids today AST/ALT is stable (2) Chest pain Status: Resolved Plan: Patient no longer complaining of chest pain. - Troponin less than 0.02 - EKG within normal limits - Telemetry stable (3) Alcohol abuse Status: Chronic Plan: Denies interest in quitting EtOH Case mgmt Counseled (4) Hypertension Status: Chronic Plan: Continue home Coreg and Procardia Clonidine when necessary (5) Gout Status: Chronic Plan: Continue home dose allopurinol (6) Fluids/Electrolytes/Nutrition/Prophylaxis Status: Acute Plan: Fluids: Plan to DC fluids as he is tolerating by mouth Electrolytes: monitor and replete as needed, gave magnesium and now K Nutrition: heart-healthy diet DVT Prophylaxis: Heparin 5000U subQ q8hr GI Prophylaxis: not indicated platelets a little low, probably from alcohol can see if this improves when pt abstains (Manish Kovacs MD R2) Problem Qualifiers (1) Alcohol withdrawal: Qualified Code: F10.230 - Alcohol withdrawal, uncomplicated (2) Chest pain: Qualified Code: R07.9 - Chest pain, unspecified type (3) Hypertension: Qualified Code: I10 - Essential hypertension (4) Gout: Qualified Code: M1A.0410 - Chronic gout of right hand, unspecified cause Manish Kovacs MD R2 August 07, 2016 09:08 Ivone Torres MD August 10, 2016 13:30
[2016-08-07] MEDS ORDERED: POTASSIUM CHLORIDE 10 MEQ CONTROLLED RELEASE TAB PO ONE (09:15)
--- NOTE | 2016-08-07 09:24 | HHI.DCPOC ---
Discharge Care Plan Diagnosis: (1) Alcohol withdrawal (2) Hypertension (3) Renal insufficiency (4) Gout Goals to Promote Your Health * To prevent worsening of your condition and complications * To maintain your health at the optimal level Do not drink alcohol Directions to Meet Your Goals Take your medications as prescribed Follow your dietary instruction Follow activity as directed Keep your appointments as scheduled Take your immunizations and boosters as scheduled If your symptoms worsen call your PCP, if no PCP go to Urgent Care Center or Emergency Room Smoking is Dangerous to Your Health. Avoid second hand smoke Call the 24-hour hour crisis hotline for domestic abuse at Manish Kovacs MD R2 August 07, 2016 09:24
[2016-08-08 01:15] VITALS: BP 129/65; PULSE 93; RESP 17; TEMP 96.5; O2SAT 95
[2016-08-08] MEDS: LORazepam 2 MG/ML VIAL IV PUSH PRN ×4 (04:35→23:09)
[2016-08-08] MEDS: HEPARIN SODIUM - SQ 10,000 UNITS/ML VIAL SQ SCH (04:36)
[2016-08-08] MEDS: NIFEdipine 60 MG SUSTAINED RELEASE TAB PO SCH (08:09)
[2016-08-08] MEDS: THIAMINE HCL 100 MG TAB PO SCH (08:09)
[2016-08-08] MEDS: FOLIC ACID 1 MG TAB PO SCH (08:09)
[2016-08-08] MEDS: ALLOPURINOL 300 MG TAB PO SCH (08:09)
[2016-08-08] MEDS: MULTIVITAMINS/MINERALS THERAPEUTIC TAB PO SCH (08:09)
[2016-08-08] MEDS: CARVEDILOL 12.5 MG TAB PO SCH ×2 (08:09→21:00)
[2016-08-08] MEDS: SODIUM CHLORIDE 0.9% FLUSH 10 ML FLUSH IV FLUSH SCH ×2 (08:10→21:00)
[2016-08-08 08:20] VITALS: BP 143/81; PULSE 93; RESP 18; TEMP 97.7; O2SAT 97
--- NOTE | 2016-08-08 09:07 | HHI.FPPN ---
Subjective Remarks Patient was seen and examined this morning. Currently, patient is agitated but states he is tired. He denies fevers, chills, nausea, vomiting, palpitations, shortness of breath, chest pain. He is voiding with bedside commode without difficulty and has had 5 bowel movements in the last 24 hours reportedly unremarkable in consistency. He denies having anxiety as well. Eating without difficulty. (Meli Alcantar MD R1) Objective Vitals Vital Signs Date Time Temp Pulse Resp B/P Pulse Ox O2 Delivery O2 Flow Rate FiO2 08/08/16 08:20 97.7 93 18 143/81 97 08/08/16 01:15 96.5 93 17 129/65 95 08/07/16 22:27 84 08/07/16 21:58 Room Air 08/07/16 21:00 96.8 84 17 131/75 97 08/07/16 17:56 95 08/07/16 15:31 95.6 85 17 128/80 94 08/07/16 11:42 96.3 85 17 136/82 95 I/O 08/07/16 08/07/16 08/07/16 08/08/16 08/08/16 08/08/16 07:00 15:00 23:00 07:00 15:00 23:00 Intake Total 686 ml 500 ml 480 ml 240 ml Output Total 200 ml 300 ml 400 ml Balance 486 ml 200 ml 80 ml 240 ml Intake Oral 120 ml 500 ml 480 ml 240 ml IV Total 566 ml Output Urine Total 200 ml 300 ml 400 ml # Voids 1 # Bowel Movements 0 2 2 1 (Meli Alcantar MD R1) Result Diagram: 08/07/16 0630 08/07/16 0630 Imaging Last Impressions Chest X-Ray 08/05/16 0000 Signed Impressions: Service Date/Time: Friday, August 05, 2016 10:44 - CONCLUSION: No acute cardiopulmonary disease identified. Urban Jett MD Objective Remarks GENERAL: Well-nourished, well-developed patient. No acute distress. No tremors noted SKIN: Warm and dry. No rash. EYES: No scleral icterus. No injection or drainage. PERRLA. EOMI. HENT: Normocephalic. Atraumatic. MMM. NECK: No visible JVD or lymphadenopathy. CARDIOVASCULAR: Regular rate and rhythm RESPIRATORY: Clear to auscultation bilaterally GASTROINTESTINAL: Abdomen nondistended. MUSCULOSKELETAL: Strength grossly WNL. BACK: Without obvious deformity. NEURO/PSYCH: Afocal. Awake, alert, and oriented x3. Medications and IVs Inpatient Medications Allopurinol (Zyloprim) 300 mg DAILY PO Last administered on 08/08/16 08:09; Start 08/06/16 at 09:00 Carvedilol (Coreg) 12.5 mg BID PO Last administered on 08/08/16 08:09; Start at 21:00 Clonidine (Catapres) 0.1 mg Q6H PRN PO SEE LABEL COMMENTS Last administered on 08/05/16 17:00; Start 08/05/16 at 12:15 Dextrose/Sodium Chloride (D5W-NS 1000 ml Inj) 1,000 ml @ 100 mls/hr Q10H IV Last administered on 08/06/16 06:41; Start 08/05/16 at 12:45; Stop 08/06/16 at 08 :46; Status DC Enalaprilat 1.25 mg 1.25 mg Q6H PRN IV PUSH SBP>180, DBP>100, HR>65 Last administered on 08/05/16 19:06; Start 08/05/16 at 18:15 Flumazenil (Romazicon Inj) 0.2 mg Q1M PRN IV PUSH SEE LABEL COMMENTS; Start at 12:15 Folic Acid (Folate) 1 mg DAILY PO Last administered on 08/08/16 08:09; Start at 12:15; Stop 08/10/16 at 12:14 Haloperidol Lactate (Haldol Inj) 2 mg Q15M PRN IM SEE LABEL COMMENTS; Start at 12:15 Heparin Sodium (Porcine) 5000 units 5,000 units Q8HR SQ Last administered on 04:36; Start 08/05/16 at 14:00 Ibuprofen (Motrin) 400 mg Q6H PRN PO PAIN SCALE 1 TO 10 Last administered on 21:40; Start 08/05/16 at 18:00 Lorazepam (Ativan Inj) 2 mg Q15M PRN IV PUSH CIWA > 20; Start 08/05/16 at 12:15 Lorazepam (Ativan) 2 mg Q2H PRN PO CIWA 11-14; Start 08/05/16 at 12:15 Magnesium Chloride (Slow-Mag Dr) 128 mg DAILY PO ; Start 08/05/16 at 18:00; Stop 08/05/16 at 18:37; Status DC Magnesium Sulfate/ Dextrose 100 ml @ 100 mls/hr Q1H IV Last administered on 21:28; Start 08/05/16 at 19:00; Stop 08/05/16 at 20:59; Status DC Multivitamins/ Minerals Therapeutic (Theragran M Tab) 1 tab DAILY PO Last administered on 08/08/16 08:09; Start 08/05/16 at 12:15; Stop 08/10/16 at 12:14 Nifedipine (Procardia Xl) 60 mg DAILY PO Last administered on 08/08/16 08:09; Start 08/05/16 at 14:00 Ondansetron HCl (Zofran Inj) 4 mg Q6H PRN IV NAUSEA OR VOMITING; Start at 12:15 Potassium Chloride/Dextrose/ Sodium Chloride (KCl Inj/D5W-NS 1000 ml Inj) 1,005 ml @ 100 mls/hr Q10H3M IV Last administered on 08/07/16 01:12; Start 08/06/16 at 09:00; Stop 08/07/16 at 09:05; Status DC Potassium Chloride (KCl) 10 meq ONCE ONCE PO Last administered on 08/07/16 10: 14; Start 08/07/16 at 09:15; Stop 08/07/16 at 09:16; Status DC Sodium Chloride (NS 1000 ml Inj) 1,000 ml @ 999 mls/hr BOLUS ONCE IV Last administered on 08/05/16 09:42; Start 08/05/16 at 09:45; Stop 08/05/16 at 10:45 ; Status DC Sodium Chloride (NS Flush) 2 ml BID IV FLUSH Last administered on 08/08/16 08: 10; Start 08/05/16 at 21:00 Thiamine HCl (Vitamin B1) 100 mg DAILY PO Last administered on 08/08/16 08:09; Start 08/05/16 at 12:15 (Meli Alcantar MD R1) Urinary Catheter: No (Meli Alcantar MD R1) Vascular Central Line Catheter: No (Meli Alcantar MD R1) A/P Assessment and Plan 65 year old male history of hypertension, gout, EtOH abuse who presented in acute alcohol withdrawal. Discharge Planning Anticipate discharge home tomorrow. He will be going to SNF given significant deconditioning and per PT recommendations. He is not stable for discharge today given continues to require Ativan for agitation (Meli Alcantar MD R1) Attending Attestation Patient seen and examined. Case reviewed and discussed with the resident team. Agree with plan of care as discussed with me and documented in the resident note. (Ivone Torres MD) Problem List: (1) Thrombocytopenia Status: Chronic Plan: Patient had a platelet count of 98K/mm3 on 08/07. This has been downtrending. We'll order repeat this morning along with electrolyte studies. (2) Alcohol withdrawal Status: Acute Plan: Continue CIWA protocol to include Ativan and Haldol. Consider Librium taper Hospital course: Long history of alcohol abuse. Last reported use two days prior to admission (). S/p 6-8 mg ativan in ED, still tremulous. Admitted patient for supervised alcohol withdrawal CIWA Protocol Rally pack Seizure and fall precautions DC IV fluids 08/07 AST/ALT is notable for mild elevation of AST, approximately 2/1 ratio, ALP is mildly elevated but all numbers are stable (3) Alcohol abuse Status: Chronic Plan: Denies interest in quitting EtOH but has been counseled Case mgmt consulted (4) Chest pain Status: Resolved Plan: Patient no longer complaining of chest pain. - Troponin less than 0.02 - EKG within normal limits - Telemetry stable (5) Hypertension Status: Chronic Plan: Continue home Coreg and Procardia Clonidine when necessary (6) Gout Status: Chronic Plan: Continue home dose allopurinol (7) Fluids/Electrolytes/Nutrition/Prophylaxis Status: Acute Plan: Fluids: By mouth hydration Electrolytes: monitor and replete as needed Nutrition: heart-healthy diet DVT Prophylaxis: Heparin 5000U subQ q8hr GI Prophylaxis: not indicated (Meli Alcantar MD R1) Problem Qualifiers (1) Alcohol withdrawal: Qualified Code: F10.230 - Alcohol withdrawal, uncomplicated (2) Chest pain: Qualified Code: R07.9 - Chest pain, unspecified type (3) Hypertension: Qualified Code: I10 - Essential hypertension (4) Gout: Qualified Code: M1A.0410 - Chronic gout of right hand, unspecified cause Meli Alcantar MD R1 August 08, 2016 09:07 Ivone Torres MD August 10, 2016 13:30
[2016-08-08] MEDS: LORazepam 1 MG TAB PO PRN (09:18)
[2016-08-08 10:44] LABS: AUTOMATED NEUTROPHIL # 8.4 TH/MM3 (1.8-7.7); BASOPHIL % 0.3 % (0.0-2.0); EOSINOPHIL # 0.3 TH/MM3 (0-0.4); EOSINOPHIL % 2.8 % (0.0-4.0); HEMATOCRIT 41.6 % (39.0-51.0); HEMO FLAGS DIFF FINAL; LYMPH % 12.8 % (9.0-44.0); LYMPHOCYTE # 1.4 TH/MM3 (1.0-4.8); MEAN CELL VOLUME 93.3 FL (80.0-100.0); MEAN CORPUSCULAR HGB CONC 33.2 % (32.0-36.0); MONO % 8.7 % (0.0-8.0); NEUT % 75.4 % (16.0-70.0); PLATELET COUNT 103 TH/MM3 (150-450); RED BLOOD COUNT 4.46 MIL/MM3 (4.50-5.90); RED CELL DISTRIBUTION WIDTH 15.9 % (11.6-17.2); WHITE BLOOD COUNT 11.2 TH/MM3 (4.0-11.0)
[2016-08-08 11:17] LABS: ALKALINE PHOSPHATASE 184 U/L (45-117); ALT (GPT) 46 U/L (12-78); ANION GAP 9 MEQ/L (5-15); AST (GOT) 69 U/L (15-37); BICARBONATE 23.8 MEQ/L (21.0-32.0); BLOOD UREA NITROGEN 11 MG/DL (7-18); CHLORIDE 102 MEQ/L (98-107); GLOMERULAR FILTRATION RATE 90 ML/MIN (>89); MAGNESIUM 1.5 MG/DL (1.5-2.5); SODIUM (NA) 135 MEQ/L (136-145)
[2016-08-08 12:35] VITALS: BP 139/78; PULSE 110; RESP 18; TEMP 97.9; O2SAT 96
[2016-08-08 12:40] LABS: BLOOD, URINE NEG (NEG); GLUCOSE,URINE NEG (NEG); KETONE, URINE NEG (NEG); NITRITE,URINE NEG (NEG); URINE COLOR YELLOW (YELLW/STRAW)
[2016-08-08 12:44] LABS: COMMENT (UR) CULT NOT INDICATED; CULTURE IF INDICATED CULT NOT INDICATED
--- NOTE | 2016-08-08 16:40 | RADRPT ---
EXAM DATE/TIME: 08/08/2016 10:29 [facility] COMPARISON: US KIDNEY/RENAL/BLADDER, November 21, 2015, 15:36. EXTERNAL COMPARISON : [facility], US ABDOMEN COMPLETE, June 07, 2016 INDICATIONS : Abnormal labs. MEDICAL HISTORY : Hypercholesterolemia. Hypertension. ETOH abuse. Tremors. Headaches. Arthritis. Gout. Parestheia. SURGICAL HISTORY : Tonsillectomy. Right hand surgery. ENCOUNTER: Initial ACUITY: 1 day PAIN SCORE: 0/10 LOCATION: Bilateral upper quadrant MEASUREMENTS: LIVER: 14.7 cm length COMMON DUCT: 5 mm RIGHT KIDNEY: 10.9 x 5.2 x 4.9 cm SPLEEN: 13.1 cm length FINDINGS: LIVER: The liver is heterogeneous and is mild lobulation and contour. No mass or ductal dilatation. Hepatope elisha flow within the portal vein. COMMON DUCT: No intraluminal mass or stone visualized. GALLBLADDER: Several small gallstones are seen layering within the gallbladder. No gallbladder wall thickening or pericholecystic fluid. PANCREAS: The visualized portions are within normal limits. RIGHT KIDNEY: There is a hypoechoic structure involving the lateral portion of the upper pole measuring 2.4 x 1.9 x 1.9 cm. This has internal echoes. No significant posterior acoustical enhancement. No hydronephrosis . Left kidney: There is a hypoechoic structure involving the lateral portion of the upper pole measuring 2.0 x 1.7 x 1.6 cm. There are internal echoes. Mild posterior acoustical enhancement. The kidney is otherwise un remarkable. SPLEEN: Splenomegaly. No discrete lesion. CONCLUSION: 1. Changes involving the liver suggesting cirrhosis. Hepatopedal flow within the portal vein. 2. Splenomegaly. 3. Bilateral renal lesions involving the upper poles not consistent with simple cyst. Further anatomi chandler evaluation suggested utilizing MRI with and without gadolinium. 4. Cholelithiasis without sonographic evidence to suggest acute cholecystitis. Og Owens Jr., MD on August 08, 2016 at 15:49 Board Certified Radiologist. This report was verified electronically.
[2016-08-08 17:04] VITALS: BP 158/83; PULSE 110; RESP 20; O2SAT 96
[2016-08-08] MEDS ORDERED: LORazepam 2 MG/ML VIAL IV PUSH ONE (17:45)
[2016-08-08] MEDS ORDERED: HALOPERIDOL LACTATE 5 MG/ML AMP IM ONE (17:45)
--- NOTE | 2016-08-08 19:01 | HHI.FPPN ---
Addendum to progress note ADDENDUM Reason for addendum: Additonal documentation Additional information S: Paged by charge nurse regarding pt's worsening agitation. The nurse states that late this afternoon, pt's mental status deteriorated. He was stable throughout the day and then became more disoriented and fidgety. He scored CIWA scores of 40 twice. Also experiencing hallucinations and disorientation. On arrival, pt in 4 point restraints with mittens. Pt not oriented to person, place or time. He was requesting water and being removed from the restraints. O: Vitals reviewed: HR 110, BP 158/83, RR 20 Gen: Lying in bed, mildly agitated CV: Tachycardic Lungs: CTAB Neuro: Alert, not oriented. A/P: 65 y/o male w/ hx of HTN, alcohol abuse admitted for alcohol withdrawals. Pt with worsening agitation/withdrawals and CIWA score of 40 twice. -Due to deteriorating mental status and increased CIWA score, will transfer to ICU for closer monitoring -Case discussed with Dr. Mcnair, consult placed -Recommended Ativan 4mg up to 3x and Haldol 5mg once -Continue CIWA protocol, may need Precedex -Restraints as needed -Monitor vitals and respiratory status Iván Vega MD R1 August 08, 2016 19:01
--- NOTE | 2016-08-08 19:35 | PD.CONS ---
HPI Service Critical Care Medicine Consult Requested By Primary Care Physician No Primary Care Physician History of Present Illness 65 year old male with a history of HTN, EtOH abuse, gout, who presents to ED via EVAC due to inability to ambulate. He states his legs were numb and he couldn't get them to move. He also complained of a chest pain between his nipples, occurring when he was lying down last night, frequency "every now and then", resolved at this time. He endorses shortness of breath with ambulation. He denies coughing but does "a lot of sneezing." No fevers or chills at home. He endorses tremulousness, onset was last night. Patient was originally admitted to family medicine service for observation however tonight his agitation and confusion significantly worsened highly suspicious of severe alcohol withdrawal and DTs. Patient is transferred to ICU for high level of care. Review of Systems ROS Unable to obtain patient is confused and agitated Past Family Social History Allergies: Coded Allergies: No Known Allergies (Unverified , 08/05/16) Past Medical History Hypertension Alcohol abuse Gout Past Surgical History Unable to obtain Reported Medications Reported Meds & Active Scripts Active Reported Nifedipine ER 24 HR (Nifedipine) 60 Mg Tab 60 Mg PO DAILY Coreg (Carvedilol) 12.5 Mg Tab 12.5 Mg PO BID With Meals Allopurinol 300 Mg Tab 300 Mg PO DAILY Active Ordered Medications Current Medications Medications (Trade) Dose Ordered Sig/Leslie Route PRN Reason Start Time Stop Time Status Last Admin Dose Admin Sodium Chloride (NS Flush) 2 ml UNSCH PRN IV FLUSH FLUSH AFTER USING IV ACCESS 08/05/16 12:15 08/08/16 04:36 Sodium Chloride (NS Flush) 2 ml BID IV FLUSH 08/05/16 21:00 08/08/16 08:10 Folic Acid (Folate) 1 mg DAILY PO 08/05/16 12:15 08/10/16 12:14 08/08/16 08:09 Thiamine HCl (Vitamin B1) 100 mg DAILY PO 08/05/16 12:15 08/08/16 08:09 Multivitamins/ Minerals Therapeutic (Theragran M Tab) 1 tab DAILY PO 08/05/16 12:15 08/10/16 12:14 08/08/16 08:09 Ondansetron HCl (Zofran Inj) 4 mg Q6H PRN IV NAUSEA OR VOMITING 08/05/16 12:15 Clonidine (Catapres) 0.1 mg Q6H PRN PO SEE LABEL COMMENTS 08/05/16 12:15 08/05/16 17:00 Flumazenil (Romazicon Inj) 0.2 mg Q1M PRN IV PUSH SEE LABEL COMMENTS 08/05/16 12:15 Lorazepam (Ativan) 1 mg Q4H PRN PO CIWA 8 - 10 08/05/16 12:15 08/08/16 09:18 Lorazepam (Ativan Inj) 1 mg Q4H PRN IV PUSH CIWA 8 - 10 08/05/16 12:15 08/08/16 15:34 Lorazepam (Ativan) 2 mg Q2H PRN PO CIWA 11-14 08/05/16 12:15 08/08/16 11:33 Lorazepam (Ativan Inj) 2 mg Q2H PRN IV PUSH CIWA 11-14 08/05/16 12:15 08/08/16 06:10 Lorazepam (Ativan Inj) 2 mg Q1H PRN IV PUSH CIWA 15-20 08/05/16 12:15 08/08/16 17:20 Lorazepam (Ativan Inj) 2 mg Q15M PRN IV PUSH CIWA > 20 08/05/16 12:15 Haloperidol Lactate (Haldol Inj) 2 mg Q15M PRN IM SEE LABEL COMMENTS 08/05/16 12:15 Heparin Sodium (Porcine) (Heparin Inj) 5,000 units Q8HR SQ 08/05/16 14:00 Hold 08/08/16 04:36 Allopurinol (Zyloprim) 300 mg DAILY PO 08/06/16 09:00 08/08/16 08:09 Carvedilol (Coreg) 12.5 mg BID PO 08/05/16 21:00 08/08/16 08:09 Nifedipine (Procardia Xl) 60 mg DAILY PO 08/05/16 14:00 08/08/16 08:09 Ibuprofen (Motrin) 400 mg Q6H PRN PO PAIN SCALE 1 TO 10 08/05/16 18:00 08/06/16 21:40 Enalaprilat (Vasotec Inj) 1.25 mg Q6H PRN IV PUSH SBP>180, DBP>100, HR>65 08/05/16 18:15 08/05/16 19:06 Family History Noncontributory Social History Drinks daily mostly vodka Physical Exam Vital Signs Vital Signs Date Time Temp Pulse Resp B/P Pulse Ox O2 Delivery O2 Flow Rate FiO2 08/08/16 17:04 110 20 158/83 96 08/08/16 12:35 97.9 110 18 139/78 96 08/08/16 08:20 97.7 93 18 143/81 97 08/08/16 01:15 96.5 93 17 129/65 95 08/07/16 22:27 84 08/07/16 21:58 Room Air 08/07/16 21:00 96.8 84 17 131/75 97 Physical Exam GENERAL: Well-nourished, well-developed patient. SKIN: Warm and dry. HEAD: Normocephalic. EYES: No scleral icterus. No injection or drainage. NECK: Supple, trachea midline. No JVD or lymphadenopathy. CARDIOVASCULAR: Regular rate and rhythm without murmurs, gallops, or rubs. RESPIRATORY: Breath sounds equal bilaterally. No accessory muscle use. GASTROINTESTINAL: Abdomen soft, non-tender, nondistended. MUSCULOSKELETAL: No cyanosis, or edema. BACK: Nontender without obvious deformity. No CVA tenderness. EXTREMITIES: No clubbing cyanosis or edema Laboratory Laboratory Tests Test 08/08/16 08/08/16 10:30 11:15 White Blood Count 11.2 Red Blood Count 4.46 Hemoglobin 13.8 Hematocrit 41.6 Mean Corpuscular Volume 93.3 Mean Corpuscular Hemoglobin 31.0 Mean Corpuscular Hemoglobin 33.2 Concent Red Cell Distribution Width 15.9 Platelet Count 103 Mean Platelet Volume 8.4 Neutrophils (%) (Auto) 75.4 Lymphocytes (%) (Auto) 12.8 Monocytes (%) (Auto) 8.7 Eosinophils (%) (Auto) 2.8 Basophils (%) (Auto) 0.3 Neutrophils # (Auto) 8.4 Lymphocytes # (Auto) 1.4 Monocytes # (Auto) 1.0 Eosinophils # (Auto) 0.3 Basophils # (Auto) 0.0 CBC Comment DIFF FINAL Differential Comment Sodium Level 135 Potassium Level Chloride Level 102 Carbon Dioxide Level 23.8 Anion Gap 9 Blood Urea Nitrogen 11 Creatinine 0.86 Estimat Glomerular Filtration 90 Rate Random Glucose 130 Calcium Level 9.4 Phosphorus Level 3.7 Magnesium Level 1.5 Total Bilirubin 1.0 Aspartate Amino Transf 69 (AST/SGOT) Alanine Aminotransferase 46 (ALT/SGPT) Alkaline Phosphatase 184 Total Protein 8.3 Albumin 3.3 Urine Color YELLOW Urine Turbidity CLEAR Urine pH 7.0 Urine Specific Terril 1.009 Urine Protein 30 Urine Glucose (UA) NEG Urine Ketones NEG Urine Occult Blood NEG Urine Nitrite NEG Urine Bilirubin NEG Urine Urobilinogen LESS THAN 2.0 Urine Leukocyte Esterase NEG Urine RBC LESS THAN 1 Urine WBC LESS THAN 1 Microscopic Urinalysis Comment CULT NOT INDICATED Result Diagram: 08/08/16 1030 08/08/16 1030 Imaging Last 24 hours Impressions Liver Ultrasound 08/08/16 0000 Signed Impressions: Service Date/Time: Monday, August 08, 2016 10:29 - CONCLUSION: 1. Changes involving the liver suggesting cirrhosis. Hepatopedal flow within the portal vein. 2. Splenomegaly. 3. Bilateral renal lesions involving the upper poles not consistent with simple cyst. Further anatomical evaluation suggested utilizing MRI with and without gadolinium. 4. Cholelithiasis without sonographic evidence to suggest acute cholecystitis. Og Owens Jr., MD Assessment and Plan Assessment and Plan Altered mental status - Alcohol withdrawal - Librium taper - CIWA protocol - Thiamine folate and multivitamins IV Thrombocytopenia - Due to liver cirrhosis - And chronic alcoholism - Monitor trend and for signs of bleeding Hypertension - Continue home Coreg and Procardia - Clonidine when necessary Gout - Continue home dose allopurinol DVT GI prophylaxis - Teds SCDs early aggressive mobilization - Pepcid Critical Care: The total critical care time was 35 minutes. Time to perform other separately billable procedures was not included in the critical care time. Rodri Sy MD August 08, 2016 19:35
[2016-08-08 20:00] VITALS: BP 139/74; PULSE 90; RESP 22; TEMP 98.7; O2SAT 100
[2016-08-08] MEDS ORDERED: chlordiazePOXIDE 25 MG CAP PO SCH (21:00)
[2016-08-08] MEDS: chlordiazePOXIDE 25 MG CAP PO SCH (21:00)
[2016-08-08] MEDS: MULTIVITAMIN INJ 10 ML, THIAMINE INJ 100 MG, FOLIC ACID INJ 1 MG in DEXT 5%-NACL 0.45% ... IV SCH (23:00)
[2016-08-09] VITALS (11 sets, daily range): BP systolic 122–158; BP diastolic 67–86; PULSE 72–100; RESP 18–27; TEMP 96.1–98.6; O2SAT 95–98
[2016-08-09] MEDS: LORazepam 2 MG/ML VIAL IV PUSH PRN (03:00)
[2016-08-09] MEDS: ENALAPRILAT 1.25 MG/ML VIAL IV PUSH PRN (03:30)
[2016-08-09 06:48] LABS: AUTOMATED NEUTROPHIL # 10.4 TH/MM3 (1.8-7.7); BASOPHIL # 0.1 TH/MM3 (0-0.2); BASOPHIL % 0.4 % (0.0-2.0); EOSINOPHIL # 0.3 TH/MM3 (0-0.4); EOSINOPHIL % 2.3 % (0.0-4.0); HEMATOCRIT 41.8 % (39.0-51.0); HEMO FLAGS DIFF FINAL; LYMPH % 10.6 % (9.0-44.0); LYMPHOCYTE # 1.4 TH/MM3 (1.0-4.8); MEAN CELL VOLUME 92.8 FL (80.0-100.0); MEAN CORPUSCULAR HEMOGLOBIN 31.4 PG (27.0-34.0); MEAN CORPUSCULAR HGB CONC 33.8 % (32.0-36.0); MONO % 8.4 % (0.0-8.0); NEUT % 78.3 % (16.0-70.0); PLATELET COUNT 119 TH/MM3 (150-450); WHITE BLOOD COUNT 13.3 TH/MM3 (4.0-11.0)
[2016-08-09 07:25] LABS: ALKALINE PHOSPHATASE 191 U/L (45-117); ALT (GPT) 44 U/L (12-78); ANION GAP 11 MEQ/L (5-15); AST (GOT) 49 U/L (15-37); BICARBONATE 22.5 MEQ/L (21.0-32.0); BLOOD UREA NITROGEN 13 MG/DL (7-18); CHLORIDE 101 MEQ/L (98-107); GLOMERULAR FILTRATION RATE 100 ML/MIN (>89); MAGNESIUM 1.5 MG/DL (1.5-2.5); POTASSIUM 3.4 MEQ/L (3.5-5.1); SODIUM (NA) 134 MEQ/L (136-145); TOTAL BILIRUBIN ADULT 1.2 MG/DL (0.2-1.0)
[2016-08-09] MEDS: ALLOPURINOL 300 MG TAB PO SCH (08:21)
[2016-08-09] MEDS: NIFEdipine 60 MG SUSTAINED RELEASE TAB PO SCH (08:21)
[2016-08-09] MEDS: MULTIVITAMINS/MINERALS THERAPEUTIC TAB PO SCH (08:21)
[2016-08-09] MEDS: CARVEDILOL 12.5 MG TAB PO SCH ×2 (08:21→21:11)
[2016-08-09] MEDS: THIAMINE HCL 100 MG TAB PO SCH (08:21)
[2016-08-09] MEDS: chlordiazePOXIDE 25 MG CAP PO SCH ×3 (08:21→21:11)
[2016-08-09] MEDS: FOLIC ACID 1 MG TAB PO SCH (08:21)
[2016-08-09] MEDS: SODIUM CHLORIDE 0.9% FLUSH 10 ML FLUSH IV FLUSH SCH ×2 (08:22→21:11)
--- NOTE | 2016-08-09 08:23 | HHI.FPPN ---
Subjective Remarks Patient seen and examined this morning. Afebrile vital signs stable. He reports that he is feeling better today and agrees that he was having some serious confusion yesterday. Said that he thought he was getting in an altercation with the [employer]. He reports that he was very sad because he just broke up with his girlfriend. Today he knows his name, close to the date, and is aware where he is. He wishes to be taken off of the restraints and I agreed to this. Endorses: None Denies: Fever, chills, nausea, vomiting, shortness of breath, chest pain, headache, abdominal pain, calf pain (Manish Kovacs MD R2) Objective Vitals Vital Signs Date Time Temp Pulse Resp B/P Pulse Ox O2 Delivery O2 Flow Rate FiO2 08/09/16 04:00 93 18 156/78 98 08/09/16 00:00 98.6 100 27 147/83 97 08/08/16 20:00 98.7 90 22 139/74 100 08/08/16 17:04 110 20 158/83 96 08/08/16 12:35 97.9 110 18 139/78 96 08/08/16 08:20 97.7 93 18 143/81 97 I/O 08/08/16 08/08/16 08/08/16 08/09/16 08/09/16 08/09/16 06:59 14:59 22:59 06:59 14:59 22:59 Intake Total 240 ml 660 ml 0 ml 400 ml Output Total 300 ml 0 ml Balance 240 ml 660 ml -300 ml 400 ml Intake Oral 240 ml 660 ml 0 ml 0 ml IV Total 0 ml 400 ml Output Urine Total 300 ml Stool Total 0 ml 0 ml # Voids 1 2 3 # Bowel Movements 1 1 (Manish Kovacs MD R2) Result Diagram: 08/09/16 0623 08/09/16 0623 Imaging Last Impressions Liver Ultrasound 08/08/16 0000 Signed Impressions: Service Date/Time: Monday, August 08, 2016 10:29 - CONCLUSION: 1. Changes involving the liver suggesting cirrhosis. Hepatopedal flow within the portal vein. 2. Splenomegaly. 3. Bilateral renal lesions involving the upper poles not consistent with simple cyst. Further anatomical evaluation suggested utilizing MRI with and without gadolinium. 4. Cholelithiasis without sonographic evidence to suggest acute cholecystitis. Og Owens Jr., MD Chest X-Ray 08/05/16 0000 Signed Impressions: Service Date/Time: Friday, August 05, 2016 10:44 - CONCLUSION: No acute cardiopulmonary disease identified. Urban Jett MD Objective Remarks GENERAL: Well-nourished, well-developed patient. No acute distress. No tremors noted SKIN: Warm and dry. No rash. EYES: No scleral icterus. No injection or drainage. PERRLA. EOMI. HENT: Normocephalic. Atraumatic. MMM. NECK: No visible JVD or lymphadenopathy. CARDIOVASCULAR: Regular rate and rhythm RESPIRATORY: Clear to auscultation bilaterally GASTROINTESTINAL: Abdomen nondistended. MUSCULOSKELETAL: Strength grossly WNL. BACK: Without obvious deformity. NEURO/PSYCH: Afocal. Awake, alert, and oriented to name and place but not time. Medications and IVs Current Medications Medications (Trade) Dose Ordered Sig/Leslie Route Start Time Stop Time Status Last Admin (NS Flush) 2 ml UNSCH PRN IV FLUSH 08/05/16 12:15 08/08/16 04:36 (NS Flush) 2 ml BID IV FLUSH 08/05/16 21:00 08/08/16 21:00 (Folate) 1 mg DAILY PO 08/05/16 12:15 08/10/16 12:14 08/08/16 08:09 (Vitamin B1) 100 mg DAILY PO 08/05/16 12:15 08/08/16 08:09 (Theragran M Tab) 1 tab DAILY PO 08/05/16 12:15 08/10/16 12:14 08/08/16 08:09 (Zofran Inj) 4 mg Q6H PRN IV 08/05/16 12:15 (Catapres) 0.1 mg Q6H PRN PO 08/05/16 12:15 08/05/16 17:00 (Romazicon Inj) 0.2 mg Q1M PRN IV PUSH 08/05/16 12:15 (Ativan) 1 mg Q4H PRN PO 08/05/16 12:15 08/08/16 09:18 (Ativan Inj) 1 mg Q4H PRN IV PUSH 08/05/16 12:15 08/08/16 15:34 (Ativan) 2 mg Q2H PRN PO 08/05/16 12:15 08/08/16 11:33 (Ativan Inj) 2 mg Q2H PRN IV PUSH 08/05/16 12:15 08/09/16 03:00 (Ativan Inj) 2 mg Q1H PRN IV PUSH 08/05/16 12:15 08/08/16 17:20 (Ativan Inj) 2 mg Q15M PRN IV PUSH 08/05/16 12:15 (Haldol Inj) 2 mg Q15M PRN IM 08/05/16 12:15 (Heparin Inj) 5,000 units Q8HR SQ 08/05/16 14:00 Hold 08/08/16 04:36 (Zyloprim) 300 mg DAILY PO 08/06/16 09:00 08/08/16 08:09 (Coreg) 12.5 mg BID PO 08/05/16 21:00 08/08/16 08:09 (Procardia Xl) 60 mg DAILY PO 08/05/16 14:00 08/08/16 08:09 (Motrin) 400 mg Q6H PRN PO 08/05/16 18:00 08/06/16 21:40 (Vasotec Inj) 1.25 mg Q6H PRN IV PUSH 08/05/16 18:15 08/09/16 03:30 (Librium) 50 mg TID PO 08/08/16 21:00 08/09/16 13:01 Chlordiazepoxide 25 mg 25 mg TID PO 08/09/16 21:00 08/11/16 13:01 (Mvi-12 Inj/ Thiamine Inj/ Folvite Inj/D5W-1/ 2 NS 500 ml Inj) 511.2 ml @ 125 mls/hr Q24H IV 08/08/16 23:00 08/08/16 23:00 (Librium) 10 mg TID PO 08/11/16 21:00 08/13/16 13:01 (Librium) 5 mg TID PO 08/13/16 21:00 08/14/16 13:01 (Librium) 5 mg BID PO 08/14/16 21:00 08/15/16 09:01 (Manish Kovacs MD R2) A/P Assessment and Plan 65 year old male history of hypertension, gout, EtOH abuse who presented in acute alcohol withdrawal. Discharge Planning Worsening alcohol withdrawal postponing discharge at this time. (Manish Kovacs MD R2) Attending Attestation Patient seen and examined. Case reviewed and discussed with the resident team. Agree with plan of care as discussed with me and documented in the resident note. (Ivone Torres MD) Problem List: (1) Thrombocytopenia Status: Chronic Plan: Patient had a platelet count of 98K/mm3 on 08/07. This has been slowly trending up today is 119. (2) Alcohol withdrawal Status: Acute Plan: Worsening alcohol withdrawal, patient was transferred to the ICU last night. -Continue CIWA protocol -Started Librium taper -IV rally pack Hospital course: Long history of alcohol abuse. Last reported use two days prior to admission (). S/p 6-8 mg ativan in ED, still tremulous. Admitted patient for supervised alcohol withdrawal CIWA Protocol Librium taper Rally pack Seizure and fall precautions AST/ALT is notable for mild elevation of AST, approximately 2/1 ratio, ALP is mildly elevated but all numbers are stable (3) Alcohol abuse Status: Chronic Plan: Denies interest in quitting EtOH but has been counseled Case mgmt consulted (4) Chest pain Status: Resolved Plan: Patient no longer complaining of chest pain. - Troponin less than 0.02 - EKG within normal limits - Telemetry stable (5) Hypertension Status: Chronic Plan: Continue home Coreg and Procardia Clonidine when necessary (6) Gout Status: Chronic Plan: Continue home dose allopurinol (7) Fluids/Electrolytes/Nutrition/Prophylaxis Status: Acute Plan: Fluids: D5-NS+KCL at 125 MLS per hour Electrolytes: monitor and replete as needed Nutrition: heart-healthy diet DVT Prophylaxis: Heparin 5000U subQ q8hr GI Prophylaxis: not indicated (Manish Kovacs MD R2) Problem Qualifiers (1) Alcohol withdrawal: Qualified Code: F10.230 - Alcohol withdrawal, uncomplicated (2) Chest pain: Qualified Code: R07.9 - Chest pain, unspecified type (3) Hypertension: Qualified Code: I10 - Essential hypertension (4) Gout: Qualified Code: M1A.0410 - Chronic gout of right hand, unspecified cause Manish Kovacs MD R2 August 09, 2016 08:23 Ivone Torres MD August 10, 2016 13:31
[2016-08-09] MEDS ORDERED: POTASSIUM CHLORIDE INJ 20 MEQ in DEXT 5%-NACL 0.9% 1000 ML INJ 1,000 ML IV SCH (08:30)
--- NOTE | 2016-08-09 09:10 | HHI.CCPN ---
Subjective Remarks/Hospital Course 65 year old male with a history of HTN, EtOH abuse, gout, who presents to ED via EVAC due to inability to ambulate. He states his legs were numb and he couldn't get them to move. He also complained of a chest pain between his nipples, occurring when he was lying down last night, frequency "every now and then", resolved at this time. He endorses shortness of breath with ambulation. He denies coughing but does "a lot of sneezing." No fevers or chills at home. He endorses tremulousness, onset was last night. Patient was originally admitted to family medicine service for observation however tonight his agitation and confusion significantly worsened highly suspicious of severe alcohol withdrawal and DTs. Patient is transferred to ICU for high level of care. 08/09: Calm, oriented X 3, good sense of humor. No confabulation or tremors. Objective Vital Signs Date Time Temp Pulse Resp B/P Pulse Ox O2 Delivery O2 Flow Rate FiO2 08/09/16 04:00 93 18 156/78 98 08/09/16 00:00 98.6 08/07/16 21:58 Room Air 08/05/16 12:05 2 Intake and Output 08/08/16 08/08/16 08/09/16 08:00 16:00 00:00 Intake Total 240 ml 660 ml 0 ml Output Total 300 ml Balance 240 ml 660 ml -300 ml Result Diagram: 08/09/16 0623 08/09/16 0623 Imaging Last 24 hours Impressions Liver Ultrasound 08/08/16 0000 Signed Impressions: Service Date/Time: Monday, August 08, 2016 10:29 - CONCLUSION: 1. Changes involving the liver suggesting cirrhosis. Hepatopedal flow within the portal vein. 2. Splenomegaly. 3. Bilateral renal lesions involving the upper poles not consistent with simple cyst. Further anatomical evaluation suggested utilizing MRI with and without gadolinium. 4. Cholelithiasis without sonographic evidence to suggest acute cholecystitis. Og Owens Jr., MD Objective Remarks GENERAL: Well-nourished, well-developed patient. SKIN: Warm and dry. HEAD: Normocephalic. NECK: Supple, trachea midline. Airway patent. CARDIOVASCULAR: Regular rate and rhythm without murmurs, gallops, or rubs. No JVD. RESPIRATORY: Breath sounds equal bilaterally. No accessory muscle use. GASTROINTESTINAL: Abdomen soft, non-tender, nondistended. BS active. MUSCULOSKELETAL: No cyanosis, or edema. BACK: Nontender without obvious deformity. No CVA tenderness. EXTREMITIES: No clubbing cyanosis or edema, warm, well perfused. NEURO: O X 3, alert. Moves 4 limbs to command. A/P Assessment and Plan Altered mental status - Alcohol withdrawal - Librium taper - CIWA protocol - Thiamine folate and multivitamins IV Thrombocytopenia - Due to liver cirrhosis - And chronic alcoholism - Monitor trend and for signs of bleeding Hypertension - Continue home Coreg and Procardia - Clonidine when necessary Gout - Continue home dose allopurinol DVT GI prophylaxis - Teds SCDs early aggressive mobilization - Pepcid Overall impression: Withdrawal well controlled. Transfer to floor. Romario Haskins MD August 09, 2016 09:10
[2016-08-09] MEDS: D5-NS + KCL 20 MEQ INJ 1,000 ML IV SCH ×3 (09:17→23:05)
[2016-08-09] MEDS: LORazepam 1 MG TAB PO PRN (21:12)
[2016-08-09] MEDS: MULTIVITAMIN INJ 10 ML, THIAMINE INJ 100 MG, FOLIC ACID INJ 1 MG in DEXT 5%-NACL 0.45% ... IV SCH (23:05)
[2016-08-10] VITALS (8 sets, daily range): BP systolic 108–155; BP diastolic 50–82; PULSE 89–93; RESP 16–20; TEMP 96.8–98.8; O2SAT 95–97
[2016-08-10 07:02] LABS: AUTOMATED NEUTROPHIL # 9.8 TH/MM3 (1.8-7.7); BASOPHIL # 0.1 TH/MM3 (0-0.2); BASOPHIL % 0.4 % (0.0-2.0); EOSINOPHIL # 0.3 TH/MM3 (0-0.4); EOSINOPHIL % 2.1 % (0.0-4.0); HEMATOCRIT 40.5 % (39.0-51.0); HEMO FLAGS DIFF FINAL; LYMPH % 8.7 % (9.0-44.0); LYMPHOCYTE # 1.1 TH/MM3 (1.0-4.8); MEAN CELL VOLUME 93.7 FL (80.0-100.0); MEAN CORPUSCULAR HEMOGLOBIN 30.8 PG (27.0-34.0); MEAN CORPUSCULAR HGB CONC 32.9 % (32.0-36.0); MONO % 11.9 % (0.0-8.0); NEUT % 76.9 % (16.0-70.0); PLATELET COUNT 109 TH/MM3 (150-450); RED BLOOD COUNT 4.33 MIL/MM3 (4.50-5.90); RED CELL DISTRIBUTION WIDTH 15.9 % (11.6-17.2); WHITE BLOOD COUNT 12.8 TH/MM3 (4.0-11.0)
[2016-08-10 07:18] LABS: ALT (GPT) 40 U/L (12-78); ANION GAP 8 MEQ/L (5-15); AST (GOT) 44 U/L (15-37); BICARBONATE 23.3 MEQ/L (21.0-32.0); BLOOD UREA NITROGEN 19 MG/DL (7-18); CHLORIDE 104 MEQ/L (98-107); GLOMERULAR FILTRATION RATE 99 ML/MIN (>89); POTASSIUM 3.9 MEQ/L (3.5-5.1); SODIUM (NA) 135 MEQ/L (136-145)
[2016-08-10 07:21] LABS: ALKALINE PHOSPHATASE 164 U/L (45-117); TOTAL BILIRUBIN ADULT 0.9 MG/DL (0.2-1.0)
[2016-08-10] MEDS: SODIUM CHLORIDE 0.9% FLUSH 10 ML FLUSH IV FLUSH SCH ×2 (09:00→19:52)
[2016-08-10] MEDS: FOLIC ACID 1 MG TAB PO SCH (11:30)
[2016-08-10] MEDS: CARVEDILOL 12.5 MG TAB PO SCH ×2 (11:30→19:52)
[2016-08-10] MEDS: THIAMINE HCL 100 MG TAB PO SCH (11:30)
[2016-08-10] MEDS: ALLOPURINOL 300 MG TAB PO SCH (11:30)
[2016-08-10] MEDS: NIFEdipine 60 MG SUSTAINED RELEASE TAB PO SCH (11:30)
[2016-08-10] MEDS: MULTIVITAMINS/MINERALS THERAPEUTIC TAB PO SCH (11:30)
[2016-08-10] MEDS: chlordiazePOXIDE 25 MG CAP PO SCH ×2 (11:31→17:25)
--- NOTE | 2016-08-10 11:31 | HHI.FPPN ---
Subjective Remarks Pt seen and examined this morning. AFVSS. No acute events overnight. A&O x 3. Denies feeling anxious or tremulous. Only complaint is dry cough and runny nose ; states he thinks he is coming down with a cold. Feels ready to be discharged to rehab when placement available. When asked if he is going to stop drinking he states, "I already stopped." (Rossy Solomon MD) Objective Vitals Vital Signs Date Time Temp Pulse Resp B/P Pulse Ox O2 Delivery O2 Flow Rate FiO2 08/10/16 08:01 97.7 90 20 110/68 95 08/10/16 03:09 97.1 89 17 155/80 96 08/09/16 23:38 96.1 90 18 134/71 96 08/09/16 22:30 90 08/09/16 20:40 97.3 94 18 158/80 96 08/09/16 20:00 98.6 90 21 128/67 95 08/09/16 19:00 95 Room Air 08/09/16 16:00 98.4 96 24 122/74 95 08/09/16 15:00 72 08/09/16 12:00 98.1 85 22 128/77 98 I/O 08/09/16 08/09/16 08/09/16 08/10/16 08/10/16 08/10/16 07:00 15:00 23:00 07:00 15:00 23:00 Intake Total 400 ml 400 ml 900 ml 729 ml Output Total 0 ml 800 ml 400 ml Balance 400 ml -400 ml 500 ml 729 ml Intake Oral 0 ml 0 ml 900 ml 240 ml IV Total 400 ml 400 ml 489 ml Output Urine Total 800 ml 400 ml Stool Total 0 ml 0 ml # Voids 3 2 2 1 # Bowel Movements 0 0 (Rossy Solomon MD) Result Diagram: 08/10/1662308/10/16623 Objective Remarks GENERAL: Disheveled appearing male laying comfortably in bed in [facility]. SKIN: Warm and dry without rash. HEENT: Pupils equal and round. No scleral icterus. HEART: RRR no m/r/g. LUNGS: CTAB w/o wheezes or crackles. ABDOMEN: Soft, NT, ND. EXTREMITIES: No LE edema. NEURO: Awake and alert. A&O x 3. (Rossy Solomon MD) A/P Assessment and Plan 65 year old male history of HTN and EtOH abuse admitted on 08/05/16 for alcohol withdrawal. Patient being managed with CIWA protocol and now on Librium. Discharge Planning Alcohol withdrawal under control and patient medically stable for discharge. Case management consulted to assist with D/C needs as PT recommending rehab. ( Rossy Solomon MD) Attending Attestation Patient seen and examined. Case reviewed and discussed with the resident team. Agree with plan of care as discussed with me and documented in the resident note. (Ivone Torres MD) Problem List: (1) Alcohol withdrawal Status: Acute Plan: Symptoms improving and patient out of the unit. - Continue CIWA protocol - Librium taper - Rally pack - PT recommending rehab (2) URI (upper respiratory infection) Status: Acute Plan: White count mildly elevated but patient afebrile and lungs clear on exam. - Supportive care - Robitussin and [place] PRN (3) Thrombocytopenia Status: Chronic Plan: Likely secondary to chronic alcohol abuse. No signs of acute bleeding. Monitor periodically. 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 Counseled on cessation and patient reports " I already stopped drinking." - Librium taper and plans for EtOH withdrawal as above (5) Hypertension Status: Chronic Plan: Stable. Continue home Coreg and Procardia. - Clonidine PRN (6) Gout Status: Chronic Plan: Continue home allopurinol. (7) Fluids/Electrolytes/Nutrition/Prophylaxis Status: Acute Plan: - Fluids: Tolerating PO - Electrolytes: WNL. Monitor and replete as needed - Nutrition: Heart healthy diet - DVT prophylaxis: Heparin 5000 units SQ Q8 dw Dr. Torres and Dr. Svetlana Alcantar (Rossy Solomon MD) Problem Qualifiers (1) Alcohol withdrawal: Qualified Code: F10.230 - Alcohol withdrawal, uncomplicated (2) Hypertension: Qualified Code: I10 - Essential hypertension (3) Gout: Qualified Code: M1A.0410 - Chronic gout of right hand, unspecified cause Rossy Solomon MD August 10, 2016 11:31 Ivone Torres MD August 10, 2016 13:32
[2016-08-10] MEDS: guaiFENesin/DEXTROMETHORPHAN 200 MG/20 MG/10 ML CUP PO PRN ×3 (11:40→23:42)
[2016-08-10] MEDS: MENTHOL LOZENGE BUCCAL PRN ×2 (11:40→23:42)
[2016-08-11 04:15] VITALS: BP 118/63; PULSE 91; RESP 18; TEMP 98.8; O2SAT 94
[2016-08-11 05:59] LABS: BASOPHIL # 0.1 TH/MM3 (0-0.2); BASOPHIL % 0.5 % (0.0-2.0); EOSINOPHIL # 0.4 TH/MM3 (0-0.4); EOSINOPHIL % 3.2 % (0.0-4.0); HEMO FLAGS DIFF FINAL; LYMPH % 15.6 % (9.0-44.0); LYMPHOCYTE # 1.7 TH/MM3 (1.0-4.8); MEAN CELL VOLUME 92.5 FL (80.0-100.0); MEAN CORPUSCULAR HEMOGLOBIN 31.9 PG (27.0-34.0); MEAN CORPUSCULAR HGB CONC 34.5 % (32.0-36.0); MONO % 17.3 % (0.0-8.0); NEUT % 63.4 % (16.0-70.0); PLATELET COUNT 119 TH/MM3 (150-450); RED BLOOD COUNT 3.89 MIL/MM3 (4.50-5.90); RED CELL DISTRIBUTION WIDTH 15.8 % (11.6-17.2)
[2016-08-11 06:09] LABS: BICARBONATE 23.2 MEQ/L (21.0-32.0); POTASSIUM 3.6 MEQ/L (3.5-5.1)
[2016-08-11 08:00] VITALS: BP 125/73; PULSE 87; RESP 18; TEMP 97.3; O2SAT 95
[2016-08-11] MEDS: ALLOPURINOL 300 MG TAB PO SCH (09:27)
[2016-08-11] MEDS: chlordiazePOXIDE 25 MG CAP PO SCH ×2 (09:27→14:03)
[2016-08-11] MEDS: THIAMINE HCL 100 MG TAB PO SCH (09:27)
[2016-08-11] MEDS: NIFEdipine 60 MG SUSTAINED RELEASE TAB PO SCH (09:27)
[2016-08-11] MEDS: SODIUM CHLORIDE 0.9% FLUSH 10 ML FLUSH IV FLUSH SCH ×2 (09:27→21:26)
[2016-08-11] MEDS: CARVEDILOL 12.5 MG TAB PO SCH ×2 (09:27→21:25)
[2016-08-11] MEDS: guaiFENesin/DEXTROMETHORPHAN 200 MG/20 MG/10 ML CUP PO PRN (10:04)
[2016-08-11] MEDS ORDERED: MAGNESIUM HYDROXIDE SUSP 30 ML CUP PO PRN (10:45)
[2016-08-11] MEDS ORDERED: BISACODYL 10 MG SUPP RECTAL PRN (10:45)
--- NOTE | 2016-08-11 10:46 | HHI.FPPN ---
Subjective Remarks Mr Aguilar feels well today and is ready to go to a SNF for rehab. Evidently, he owes one SNF money. Hopefully, he can go to some SNF soon. He is not having active signs of withdrawal. he has been in the hospital for about a week and should be over all withdrawal sxs at this point. He is answering questions appropriately, not restrained and not tremulous or having problems now. He is too weak to go home and is a fall risk. Objective Vitals Vital Signs Date Time Temp Pulse Resp B/P Pulse Ox O2 Delivery O2 Flow Rate FiO2 08/11/16 08:00 97.3 87 18 125/73 95 08/11/16 04:15 98.8 91 18 118/63 94 08/10/16 23:40 98.8 89 17 109/50 95 08/10/16 20:30 93 08/10/16 19:30 98.6 92 18 126/70 95 08/10/16 16:50 96.8 93 16 108/65 97 08/10/16 16:00 97 Room Air 08/10/16 16:00 93 08/10/16 12:10 97.5 92 20 139/82 97 I/O 08/10/16 08/10/16 08/10/16 08/11/16 08/11/16 08/11/16 07:00 15:00 23:00 07:00 15:00 23:00 Intake Total 729 ml 480 ml 120 ml 120 ml Output Total 400 ml 300 ml 350 ml Balance 729 ml 80 ml -180 ml -230 ml Intake Oral 240 ml 480 ml 120 ml 120 ml IV Total 489 ml Output Urine Total 400 ml 300 ml 350 ml # Voids 1 # Bowel Movements 0 0 0 0 Result Diagram: 08/11/1652508/11/16525 Objective Remarks GENERAL: talkative gentleman lying comfortably in bed in NAD. SKIN: Warm and dry without rash. HEENT: Pupils equal and round. No scleral icterus. HEART: RRR no m/r/g. LUNGS: CTAB w/o wheezes or crackles. ABDOMEN: Soft, NT, ND. EXTREMITIES: No LE edema. NEURO: Awake and alert. A&O x 3. no tremulousness Urinary Catheter: No Vascular Central Line Catheter: No A/P Assessment and Plan 65 year old male history of HTN and EtOH abuse admitted on 08/05/16 for alcohol withdrawal. Patient being managed with CIWA protocol and now on Librium. He is doing very well and enough time has passed that he is out of acute withdrawal now. Discharge Planning Alcohol withdrawal under control and patient medically stable for discharge. Case management consulted to assist with D/C needs as PT recommending rehab. Problem List: (1) Alcohol withdrawal Status: Acute Plan: Symptoms improving and patient out of the unit. - Continue CIWA protocol - Librium taper - Rally pack - PT recommending rehab (2) URI (upper respiratory infection) Status: Acute Plan: White count mildly elevated but patient afebrile and lungs clear on exam. - Supportive care - Robitussin and [place] PRN (3) Thrombocytopenia Status: Chronic Plan: Likely secondary to chronic alcohol abuse. No signs of acute bleeding. Monitor periodically. 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 Counseled on cessation and patient reports " I already stopped drinking." - Librium taper and plans for EtOH withdrawal as above (5) Hypertension Status: Chronic Plan: Stable. Continue home Coreg and Procardia. - Clonidine PRN (6) Gout Status: Chronic Plan: Continue home allopurinol. (7) Fluids/Electrolytes/Nutrition/Prophylaxis Status: Acute Plan: - Fluids: Tolerating PO - Electrolytes: WNL. Monitor and replete as needed - Nutrition: Heart healthy diet - DVT prophylaxis: Heparin 5000 units SQ Q8 Problem Qualifiers (1) Alcohol withdrawal: Qualified Code: F10.230 - Alcohol withdrawal, uncomplicated (2) URI (upper respiratory infection): Qualified Code: J06.9 - Viral upper respiratory tract infection (3) Hypertension: Qualified Code: I10 - Essential hypertension (4) Gout: Qualified Code: M1A.0410 - Chronic gout of right hand, unspecified cause Ivone Torres MD August 11, 2016 10:46
[2016-08-11 10:51] VITALS: PULSE 90
[2016-08-11] MEDS ORDERED: MAGNESIUM HYDROXIDE SUSP 30 ML CUP PO ONE (11:00)
[2016-08-11 12:00] VITALS: BP 126/74; PULSE 89; RESP 18; TEMP 96.4; O2SAT 96
[2016-08-11] MEDS ORDERED: ALLO300T2 PO (13:57)
[2016-08-11] MEDS ORDERED: CARV12.5 PO (13:57)
[2016-08-11] MEDS ORDERED: NIFE60TA58 PO (13:57)
[2016-08-11] MEDS ORDERED: HALLLOZ2 BUCCAL (13:57)
[2016-08-11 16:00] VITALS: PULSE 87; TEMP 97.5
[2016-08-11 20:35] VITALS: BP 146/77; PULSE 88; RESP 16; TEMP 97.2; O2SAT 96
[2016-08-12 00:30] VITALS: BP 121/65; PULSE 88; RESP 16; TEMP 99.1; O2SAT 95
[2016-08-12 04:20] VITALS: BP 111/62; PULSE 91; RESP 16; TEMP 98.4; O2SAT 93
[2016-08-12 08:00] VITALS: BP 122/66; PULSE 89; RESP 17; TEMP 97.7; O2SAT 95
[2016-08-12] MEDS: ALLOPURINOL 300 MG TAB PO SCH (08:22)
[2016-08-12] MEDS: CARVEDILOL 12.5 MG TAB PO SCH ×2 (08:22→20:45)
[2016-08-12] MEDS: THIAMINE HCL 100 MG TAB PO SCH (08:22)
[2016-08-12] MEDS: NIFEdipine 60 MG SUSTAINED RELEASE TAB PO SCH (08:22)
[2016-08-12] MEDS: guaiFENesin/DEXTROMETHORPHAN 200 MG/20 MG/10 ML CUP PO PRN (08:23)
[2016-08-12] MEDS: SODIUM CHLORIDE 0.9% FLUSH 10 ML FLUSH IV FLUSH SCH ×2 (08:28→20:46)
--- NOTE | 2016-08-12 10:37 | HHI.FPPN ---
Subjective Remarks Patient seen and examined this morning. Afebrile vital signs stable. He is reporting desire to go home today, explained to him that we do not feel it is safe for him to be at home as he is having extreme difficulty with walking. He has been evaluated by physical therapy with recommendations to go to custodial facility, however he's been unable to be accepted as he owes money to the custodial facility. He reports that his house is well-equipped for him to do his own physical therapy. And he is in touch with his own home health nurse. He is willing to stay in the hospital be evaluated one more time by physical therapy for possible discharged with home health. He declines any hallucinations or altered mental status. He declines any tremors. Endorses: Generalized weakness Denies: Fever, chills, nausea, vomiting, shortness of breath, chest pain, headache, abdominal pain, calf pain (Manish Kovacs MD R2) Objective Vitals Vital Signs Date Time Temp Pulse Resp B/P Pulse Ox O2 Delivery O2 Flow Rate FiO2 08/12/16 08:00 97.7 89 17 122/66 95 08/12/16 04:20 98.4 91 16 111/62 93 08/12/16 00:30 99.1 88 16 121/65 95 08/11/16 20:35 97.2 88 16 146/77 96 08/11/16 16:00 97.5 87 08/11/16 12:00 96.4 89 18 126/74 96 08/11/16 10:51 90 I/O 08/11/16 08/11/16 08/11/16 08/12/16 08/12/16 08/12/16 07:00 15:00 23:00 07:00 15:00 23:00 Intake Total 120 ml 960 ml 480 ml 480 ml Output Total 350 ml 250 ml 300 ml 400 ml Balance -230 ml 710 ml 180 ml 80 ml Intake Oral 120 ml 960 ml 480 ml 480 ml Output Urine Total 350 ml 250 ml 300 ml 400 ml # Voids 4 # Bowel Movements 0 2 0 0 (Manish Kovacs MD R2) Result Diagram: 08/11/16 0526 08/11/16 0526 Imaging Last Impressions Liver Ultrasound 08/08/16 0000 Signed Impressions: Service Date/Time: Monday, August 08, 2016 10:29 - CONCLUSION: 1. Changes involving the liver suggesting cirrhosis. Hepatopedal flow within the portal vein. 2. Splenomegaly. 3. Bilateral renal lesions involving the upper poles not consistent with simple cyst. Further anatomical evaluation suggested utilizing MRI with and without gadolinium. 4. Cholelithiasis without sonographic evidence to suggest acute cholecystitis. Og Owens Jr., MD Chest X-Ray 08/05/16 0000 Signed Impressions: Service Date/Time: Friday, August 05, 2016 10:44 - CONCLUSION: No acute cardiopulmonary disease identified. Urban Jett MD Objective Remarks GENERAL: talkative gentleman lying comfortably in bed in NAD. SKIN: Warm and dry without rash. HEENT: Pupils equal and round. No scleral icterus. HEART: RRR no m/r/g. LUNGS: CTAB w/o wheezes or crackles. ABDOMEN: Soft, NT, ND. EXTREMITIES: No LE edema. NEURO: Awake and alert. A&O x 3. no tremulousness Medications and IVs Current Medications Medications (Trade) Dose Ordered Sig/Leslie Route Start Time Stop Time Status Last Admin (NS Flush) 2 ml UNSCH PRN IV FLUSH 08/05/16 12:15 08/08/16 04:36 (NS Flush) 2 ml BID IV FLUSH 08/05/16 21:00 08/11/16 21:26 (Vitamin B1) 100 mg DAILY PO 08/05/16 12:15 08/12/16 08:22 (Zofran Inj) 4 mg Q6H PRN IV 08/05/16 12:15 (Catapres) 0.1 mg Q6H PRN PO 08/05/16 12:15 08/05/16 17:00 (Romazicon Inj) 0.2 mg Q1M PRN IV PUSH 08/05/16 12:15 (Ativan) 1 mg Q4H PRN PO 08/05/16 12:15 08/09/16 21:12 (Ativan Inj) 1 mg Q4H PRN IV PUSH 08/05/16 12:15 08/08/16 15:34 (Ativan) 2 mg Q2H PRN PO 08/05/16 12:15 08/08/16 11:33 (Ativan Inj) 2 mg Q2H PRN IV PUSH 08/05/16 12:15 08/09/16 03:00 (Ativan Inj) 2 mg Q1H PRN IV PUSH 08/05/16 12:15 08/08/16 17:20 (Ativan Inj) 2 mg Q15M PRN IV PUSH 08/05/16 12:15 (Haldol Inj) 2 mg Q15M PRN IM 08/05/16 12:15 (Heparin Inj) 5,000 units Q8HR SQ 08/05/16 14:00 Hold 08/08/16 04:36 (Zyloprim) 300 mg DAILY PO 08/06/16 09:00 08/12/16 08:22 (Coreg) 12.5 mg BID PO 08/05/16 21:00 08/12/16 08:22 (Procardia Xl) 60 mg DAILY PO 08/05/16 14:00 08/12/16 08:22 (Motrin) 400 mg Q6H PRN PO 08/05/16 18:00 08/06/16 21:40 (Vasotec Inj) 1.25 mg Q6H PRN IV PUSH 08/05/16 18:15 08/09/16 03:30 (Librium) 10 mg TID PO 08/11/16 21:00 08/13/16 13:01 08/12/16 08:22 (Librium) 5 mg TID PO 08/13/16 21:00 08/14/16 13:01 (Librium) 5 mg BID PO 08/14/16 21:00 08/15/16 09:01 ([place] Ari) 1 lozenge UNSCH PRN BUCCAL 08/10/16 11:30 08/10/16 23:42 (Robitussin Dm 200-20 Mg/10 ml Liq) 10 ml Q6H PRN PO 08/10/16 11:30 08/12/16 08:23 (Dulcolax Supp) 10 mg DAILY PRN RECTAL 08/11/16 10:45 (Milk Of Magnesia Liq) 30 ml Q6H PRN PO 08/11/16 10:45 (Manish Kovacs MD R2) A/P Assessment and Plan 65 year old male history of HTN and EtOH abuse admitted on 08/05/16 for alcohol withdrawal. Patient being managed with CIWA protocol and now on Librium. He is doing very well and enough time has passed that he is out of acute withdrawal now. Discharge Planning Alcohol withdrawal under control and patient medically stable for discharge. Case management consulted to assist with D/C needs as PT recommending rehab. ( Manish Kovacs MD R2) Attending Attestation Patient seen and examined. Case reviewed and discussed with the resident team. Agree with plan of care as discussed with me and documented in the resident note. (Ivone Torres MD) Problem List: (1) Alcohol withdrawal Status: Acute Plan: Symptoms improving and patient out of the unit. - Continue CIWA protocol - Librium taper - Rally pack - PT recommending rehab (2) URI (upper respiratory infection) Status: Acute Plan: White count mildly elevated but patient afebrile and lungs clear on exam. - Supportive care - Robitussin and [place] PRN (3) Thrombocytopenia Status: Chronic Plan: Likely secondary to chronic alcohol abuse. No signs of acute bleeding. Monitor periodically. 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 Counseled on cessation and patient reports " I already stopped drinking." - Librium taper and plans for EtOH withdrawal as above (5) Hypertension Status: Chronic Plan: Stable. Continue home Coreg and Procardia. - Clonidine PRN (6) Gout Status: Chronic Plan: Continue home allopurinol. (7) Fluids/Electrolytes/Nutrition/Prophylaxis Status: Acute Plan: - Fluids: Tolerating PO - Electrolytes: WNL. Monitor and replete as needed - Nutrition: Heart healthy diet - DVT prophylaxis: Heparin 5000 units SQ Q8 (Manish Kovacs MD R2) Problem Qualifiers (1) Alcohol withdrawal: Qualified Code: F10.230 - Alcohol withdrawal, uncomplicated (2) URI (upper respiratory infection): Qualified Code: J06.9 - Viral upper respiratory tract infection (3) Hypertension: Qualified Code: I10 - Essential hypertension (4) Gout: Qualified Code: M1A.0410 - Chronic gout of right hand, unspecified cause Manish Kovacs MD R2 August 12, 2016 10:37 Ivone Torres MD August 14, 2016 12:44
[2016-08-12 12:00] VITALS: BP 118/63; PULSE 89; RESP 18; TEMP 96.1; O2SAT 95
[2016-08-12 16:00] VITALS: BP 119/69; PULSE 86; RESP 16; TEMP 99.4; O2SAT 96
[2016-08-12 20:15] VITALS: BP 128/65; PULSE 84; RESP 17; TEMP 96.7; O2SAT 96
[2016-08-13 00:15] VITALS: BP 108/59; PULSE 85; RESP 17; TEMP 98.1; O2SAT 93
[2016-08-13 05:47] LABS: MEAN CELL VOLUME 91.3 FL (80.0-100.0); PLATELET COUNT 174 TH/MM3 (150-450); RED BLOOD COUNT 3.94 MIL/MM3 (4.50-5.90); RED CELL DISTRIBUTION WIDTH 15.4 % (11.6-17.2); REVIEW FLAG FINAL; WHITE BLOOD COUNT 11.5 TH/MM3 (4.0-11.0)
[2016-08-13 06:20] LABS: POTASSIUM 3.9 MEQ/L (3.5-5.1)
[2016-08-13 08:00] VITALS: BP 107/64; PULSE 87; RESP 18; TEMP 96.8; O2SAT 96
[2016-08-13] MEDS: NIFEdipine 60 MG SUSTAINED RELEASE TAB PO SCH (08:12)
[2016-08-13] MEDS: CARVEDILOL 12.5 MG TAB PO SCH (08:13)
[2016-08-13] MEDS: ALLOPURINOL 300 MG TAB PO SCH (08:13)
[2016-08-13] MEDS: SODIUM CHLORIDE 0.9% FLUSH 10 ML FLUSH IV FLUSH SCH (08:14)
[2016-08-13] MEDS: THIAMINE HCL 100 MG TAB PO SCH (08:14)
--- NOTE | 2016-08-13 08:47 | HHI.FPPN ---
Subjective Remarks Patient was seen and examined this morning. He states he wants to go home today , stating that home health could come in. He notes his lower extremities are weak because of pain only. He understands that PT has recommended rehabilitation due to him not being safe for discharge. He has no complaints otherwise. He is voiding without difficulty. (Meli Alcantar MD R1) Objective Vitals Vital Signs Date Time Temp Pulse Resp B/P Pulse Ox O2 Delivery O2 Flow Rate FiO2 08/13/16 08:00 96.8 87 18 107/64 96 08/13/16 00:15 98.1 85 17 108/59 93 08/12/16 20:15 96.7 84 17 128/65 96 08/12/16 16:00 99.4 86 16 119/69 96 08/12/16 12:00 96.1 89 18 118/63 95 I/O 08/12/16 08/12/16 08/12/16 08/13/16 08/13/16 08/13/16 07:00 15:00 23:00 07:00 15:00 23:00 Intake Total 480 ml 240 ml 840 ml 240 ml Output Total 400 ml 250 ml 500 ml Balance 80 ml -10 ml 840 ml -260 ml Intake Oral 480 ml 240 ml 840 ml 240 ml Output Urine Total 400 ml 250 ml 500 ml # Voids 1 3 # Bowel Movements 0 1 0 0 (Meli Alcantar MD R1) Result Diagram: 08/13/16 0532 08/13/16 0532 Imaging Last Impressions Liver Ultrasound 08/08/16 0000 Signed Impressions: Service Date/Time: Monday, August 08, 2016 10:29 - CONCLUSION: 1. Changes involving the liver suggesting cirrhosis. Hepatopedal flow within the portal vein. 2. Splenomegaly. 3. Bilateral renal lesions involving the upper poles not consistent with simple cyst. Further anatomical evaluation suggested utilizing MRI with and without gadolinium. 4. Cholelithiasis without sonographic evidence to suggest acute cholecystitis. Og Owens Jr., MD Chest X-Ray 08/05/16 0000 Signed Impressions: Service Date/Time: Friday, August 05, 2016 10:44 - CONCLUSION: No acute cardiopulmonary disease identified. Urban Jett MD Objective Remarks GENERAL: Patient is a white male, sitting in a wheelchair scooting around without difficulty. SKIN: Warm and dry. No rash. HEAD: Atraumatic. Normocephalic. EYES: Pupils equal and round. No scleral icterus. No injection or drainage. ENT: No nasal bleeding or discharge. Mucous membranes pink and moist. NECK: Trachea midline. No JVD. CARDIOVASCULAR: Regular rate and rhythm. No murmurs. RESPIRATORY: No accessory muscle use. Clear to auscultation. Breath sounds equal bilaterally. GASTROINTESTINAL: Abdomen soft, non-tender, nondistended. Hepatic and splenic margins not palpable. MUSCULOSKELETAL: Extremities without clubbing, cyanosis, or edema. No obvious deformities. NEUROLOGICAL: Awake and alert. No obvious cranial nerve deficits. He stands from wheelchair and is very weak but not dizzy. No tremulousness. Normal speech. PSYCHIATRIC: Appropriate mood and affect; insight and judgment normal. Medications and IVs Inpatient Medications Allopurinol (Zyloprim) 300 mg DAILY PO Last administered on 08/13/16 08:13; Start 08/06/16 at 09:00 Bisacodyl (Dulcolax Supp) 10 mg DAILY PRN RECTAL CONSTIPATION; Start 08/11/16 at 10:45 Carvedilol (Coreg) 12.5 mg BID PO Last administered on 08/12/16 20:45; Start at 21:00 Chlordiazepoxide (Librium) 5 mg TID PO ; Start 08/13/16 at 21:00; Stop 08/14/16 at 13:01 Chlordiazepoxide 5 mg 5 mg BID PO ; Start 08/14/16 at 21:00; Stop 08/15/16 at 09: 01 Chlordiazepoxide 25 mg 25 mg TID PO Last administered on 08/11/16 14:03; Start 08/09/16 at 21:00; Stop 08/11/16 at 13:01; Status DC Clonidine (Catapres) 0.1 mg Q6H PRN PO SEE LABEL COMMENTS Last administered on 08/05/16 17:00; Start 08/05/16 at 12:15 Dextrose/Sodium Chloride (D5W-NS 1000 ml Inj) 1,000 ml @ 100 mls/hr Q10H IV Last administered on 08/06/16 06:41; Start 08/05/16 at 12:45; Stop 08/06/16 at 08 :46; Status DC Enalaprilat 1.25 mg 1.25 mg Q6H PRN IV PUSH SBP>180, DBP>100, HR>65 Last administered on 08/09/16 03:30; Start 08/05/16 at 18:15 Flumazenil (Romazicon Inj) 0.2 mg Q1M PRN IV PUSH SEE LABEL COMMENTS; Start at 12:15 Folic Acid (Folate) 1 mg DAILY PO Last administered on 08/10/16 11:30; Start at 12:15; Stop 08/10/16 at 12:14; Status DC Guaifenesin/ Dextromethorphan (Robitussin Dm 200-20 Mg/10 ml Liq) 10 ml Q6H PRN PO COUGH Last administered on 08/12/16 08:23; Start 08/10/16 at 11:30 Haloperidol Lactate (Haldol Inj) 5 mg ONCE ONCE IM Last administered on 19:01; Start 08/08/16 at 17:45; Stop 08/08/16 at 17:58; Status DC Heparin Sodium (Porcine) 5000 units 5,000 units Q8HR SQ Last administered on 04:36; Start 08/05/16 at 14:00; Status Hold Ibuprofen (Motrin) 400 mg Q6H PRN PO PAIN SCALE 1 TO 10 Last administered on 21:40; Start 08/05/16 at 18:00 Lorazepam (Ativan Inj) 2 mg ONCE ONCE IV PUSH ; Start 08/08/16 at 17:45; Stop at 17:58; Status DC Lorazepam (Ativan) 2 mg Q2H PRN PO WA 11-14 Last administered on 08/08/16 11: 33; Start 08/05/16 at 12:15 Magnesium Hydroxide (Milk Of Magnesia Liq) 30 ml Q6H PRN PO CONSTIPATION; Start 08/11/16 at 10:45 Magnesium Chloride (Slow-Mag Dr) 128 mg DAILY PO ; Start 08/05/16 at 18:00; Stop 08/05/16 at 18:37; Status DC Magnesium Sulfate/ Dextrose 100 ml @ 100 mls/hr Q1H IV Last administered on 21:28; Start 08/05/16 at 19:00; Stop 08/05/16 at 20:59; Status DC Menthol ([place] Ari) 1 lozenge UNSCH PRN BUCCAL COUGH/SORE THROAT Last administered on 08/10/16 23:42; Start 08/10/16 at 11:30 Multivitamins/ Minerals Therapeutic (Theragran M Tab) 1 tab DAILY PO Last administered on 08/10/16 11:30; Start 08/05/16 at 12:15; Stop 08/10/16 at 12:14; Status DC Multivitamins/ Thiamine HCl/ Folic Acid/ Dextrose/Sodium Chloride (Mvi-12 Inj/ Thiamine Inj/ Folvite Inj/D5W-1/ 2 NS 500 ml Inj) 511.2 ml @ 125 mls/hr Q24H IV Last administered on 08/09/16 23:05; Start 08/08/16 at 23:00; Stop 08/10/16 at 11:16; Status DC Nifedipine (Procardia Xl) 60 mg DAILY PO Last administered on 08/12/16 08:22; Start 08/05/16 at 14:00 Ondansetron HCl (Zofran Inj) 4 mg Q6H PRN IV NAUSEA OR VOMITING; Start at 12:15 Potassium Chloride 20 meq/ Dextrose/Sodium Chloride 1,010 ml @ 125 mls/hr Q8H5M IV ; Start 08/09/16 at 08:30; Stop 08/09/16 at 08:39; Status DC Potassium Chloride/Dextrose/ Sod Cl (D5-NS + KCl 20 Meq Inj) 1,000 ml @ 125 mls /hr Q8H IV Last administered on 08/09/16 23:05; Start 08/09/16 at 08:39; Stop at 11:17; Status DC Potassium Chloride/Dextrose/ Sodium Chloride (KCl Inj/D5W-NS 1000 ml Inj) 1,005 ml @ 100 mls/hr Q10H3M IV Last administered on 08/07/16 01:12; Start 08/06/16 at 09:00; Stop 08/07/16 at 09:05; Status DC Potassium Chloride (KCl) 10 meq ONCE ONCE PO Last administered on 08/07/16 10: 14; Start 08/07/16 at 09:15; Stop 08/07/16 at 09:16; Status DC Sodium Chloride (NS 1000 ml Inj) 1,000 ml @ 999 mls/hr BOLUS ONCE IV Last administered on 08/05/16 09:42; Start 08/05/16 at 09:45; Stop 08/05/16 at 10:45 ; Status DC Sodium Chloride (NS Flush) 2 ml BID IV FLUSH Last administered on 08/11/16 21: 26; Start 08/05/16 at 21:00 Thiamine HCl (Vitamin B1) 100 mg DAILY PO Last administered on 08/13/16 08:14; Start 08/05/16 at 12:15 (Meli Alcantar MD R1) Urinary Catheter: No (Meli Alcantar MD R1) Vascular Central Line Catheter: No (Meli Alcantar MD R1) A/P Assessment and Plan 65 year old male history of HTN and EtOH abuse admitted on 08/05/16 for alcohol withdrawal. Patient being managed with CIWA protocol and now on Librium. He is doing very well and enough time has passed that he is out of acute withdrawal now. Discharge Planning Patient is to be discharged to SNF. Case management is consulted to assist with D/C needs as PT recommending rehab. Alcohol withdrawal under control and patient medically stable for discharge. (Meli Alcantar MD R1) Attending Attestation Patient seen and examined. Case reviewed and discussed with the resident team. Agree with plan of care as discussed with me and documented in the resident note. spoke at length with pt and explained that he could fall and break a bone or injure himself seriously at home. he has answers for everything. "I will get a lifeline.My neighbor will check on me. I have 3 wheelchairs and grab bars. I have been weaker than this in the past when I went home." He was observed transferring himself from bed to wheelchair and toilet and back. He has the capacity to decide for himself what he wants to do and is choosing what his physicians do not recommend but is able to make choices for himself at this time. (Ivone Torres MD) Problem List: (1) Alcohol withdrawal Status: Acute Plan: Symptoms improving. He is currently on Librium 10 mg in the morning and 5 mg at night. - Continue CIWA protocol - Librium taper - Rally pack - PT recommending rehab (2) URI (upper respiratory infection) Status: Acute Plan: White count stable, mildly elevated but patient afebrile and lungs clear on exam. - Supportive care - Robitussin and [place] PRN (3) Thrombocytopenia Status: Chronic Plan: Likely secondary to chronic alcohol abuse. No signs of acute bleeding. Monitor periodically. 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 Counseled on cessation and patient reports " I already stopped drinking." - Librium taper and plans for EtOH withdrawal as above (5) Hypertension Status: Chronic Plan: Stable. Patient is hypotensive but asymptomatic this morning. Holding home meds today, spoke with RN Continue home Coreg and Procardia. - Clonidine PRN (6) Gout Status: Chronic Plan: Continue home allopurinol. (7) Fluids/Electrolytes/Nutrition/Prophylaxis Status: Acute Plan: - Fluids: Tolerating PO - Electrolytes: WNL. Monitor and replete as needed - Nutrition: Heart healthy diet - DVT prophylaxis: Heparin 5000 units SQ Q8 (Meli Alcantar MD R1) Problem Qualifiers (1) Alcohol withdrawal: Qualified Code: F10.230 - Alcohol withdrawal, uncomplicated (2) URI (upper respiratory infection): Qualified Code: J06.9 - Viral upper respiratory tract infection (3) Hypertension: Qualified Code: I10 - Essential hypertension (4) Gout: Qualified Code: M1A.0410 - Chronic gout of right hand, unspecified cause Meli Alcantar MD R1 August 13, 2016 08:47 Ivone Torres MD August 14, 2016 12:45
[2016-08-13] MEDS ORDERED: CHLO5CAP3 PO (09:45)
--- NOTE | 2016-08-13 11:27 | PD.AMA ---
Against Medical Advice Note Discharge Disposition: Against Medical Advice Pt Condition on Discharge: Stable AMA Statement Patient Silverio Aguilar has decided to leave the hospital against medical advice. This patient has the capacity to refuse care and understands the risks of leaving, including permanent disability and/or , and has had an opportunity to ask questions about his condition. The patient has been informed that he may return for care at any time, and follow up has been arranged/ advised. However, the patient will not be taken back on Family Medicine service in the event of re-admission. Meli Alcantar MD R1 August 13, 2016 11:27
--- NOTE | 2016-08-13 11:33 | HHI.DS ---
Discharge Summary Admission Date Aug 05, 2016 at 12:01 Discharge Date: August 13, 2016 Admitting Diagnosis Alcohol withdrawal (1) Alcohol withdrawal Diagnosis: Principal Plan: Symptoms improving. He is currently on Librium 10 mg in the morning and 5 mg at night. - Continue CIWA protocol - Librium taper - Rally pack - PT recommending rehab (2) URI (upper respiratory infection) Diagnosis: Secondary Plan: White count stable, mildly elevated but patient afebrile and lungs clear on exam. - Supportive care - Robitussin and [place] PRN (3) Thrombocytopenia Diagnosis: Secondary Plan: Likely secondary to chronic alcohol abuse. No signs of acute bleeding. Monitor periodically. (4) Alcohol abuse Diagnosis: Secondary Plan: Patient with elevated AST, thrombocytopenia, and liver U/S suggestive of cirrhosis from chronic alcoholism. Counseled on cessation and patient reports " I already stopped drinking." - Librium taper and plans for EtOH withdrawal as above (5) Hypertension Diagnosis: Secondary Plan: Stable. Patient is hypotensive but asymptomatic this morning. Holding home meds today, spoke with RN Continue home Coreg and Procardia. - Clonidine PRN (6) Gout Diagnosis: Secondary Plan: Continue home allopurinol. Consultants Critical care Brief History Mr Aguilar is a 65 year old male with a history of HTN, EtOH abuse, gout, who presented to ED via [facility] due to inability to ambulate. He states his legs were numb and he couldn't get then to move after he went in some cold water and they "cramped up". He also notes a chest pain between his nipples, occurring when he was lying down last night, frequency "every now and then", resolved at this time. He endorses shortness of breath with ambulation. He denies coughing but does "a lot of sneezing." No fevers or chills at home. He endorses tremulousness , onset was last night. Endorses diaphoresis. Drinks alcohol regularly, vodka twice daily, 2 oz daily. Drinks beer occasional. He has history of EtOH abuse, last use 2 days ago. Quits alcohol use "all the time." No rehab history per report. Last self- attempt to quit one month ago, was off for 30 days. Declines any assistance to quit and wishes to control his own alcohol use despite being warned that alcohol is adversely effecting his health. CBC/BMP: 08/13/16 0532 08/13/16 0532 Significant Findings Laboratory Tests Test 08/11/16 08/13/16 05:26 05:32 Red Blood Count 3.89 MIL/MM3 3.94 MIL/MM3 (4.50-5.90) (4.50-5.90) Hemoglobin 12.4 GM/DL 12.6 GM/DL (13.0-17.0) (13.0-17.0) Hematocrit 36.0 % 36.0 % (39.0-51.0) (39.0-51.0) Platelet Count 119 TH/MM3 (150-450) Monocytes (%) (Auto) 17.3 % (0.0-8.0) Monocytes # (Auto) 1.9 TH/MM3 (0-0.9) Sodium Level 133 MEQ/L 134 MEQ/L (136-145) (136-145) Blood Urea Nitrogen 22 MG/DL (7-18) 24 MG/DL (7-18) Random Glucose 111 MG/DL 118 MG/DL (74-106) (74-106) White Blood Count 11.5 TH/MM3 (4.0-11.0) PE at Discharge GENERAL: Patient is a white male, sitting in a wheelchair scooting around without difficulty. SKIN: Warm and dry. No rash. HEAD: Atraumatic. Normocephalic. EYES: Pupils equal and round. No scleral icterus. No injection or drainage. ENT: No nasal bleeding or discharge. Mucous membranes pink and moist. NECK: Trachea midline. No JVD. CARDIOVASCULAR: Regular rate and rhythm. No murmurs. RESPIRATORY: No accessory muscle use. Clear to auscultation. Breath sounds equal bilaterally. GASTROINTESTINAL: Abdomen soft, non-tender, nondistended. Hepatic and splenic margins not palpable. MUSCULOSKELETAL: Extremities without clubbing, cyanosis, or edema. No obvious deformities. NEUROLOGICAL: Awake and alert. No obvious cranial nerve deficits. He stands from wheelchair and is very weak but not dizzy. No tremulousness. Normal speech. PSYCHIATRIC: Appropriate mood and affect; insight and judgment normal. Hospital Course Patient was admitted for acute alcohol withdrawal. He was started on CIWA protocol with multivitamins at admission. Due to severity of withdrawal symptoms , he was admitted to [facility] [place] [facility] and critical care was consulted. On day 3 of stay, Librium was initiated due to persistent withdrawal symptoms not well managed on Ativan and Haldol. The symptoms included delirium and possible hallucinations. It was determined the patient would be best suited for SNF by PT and clinical assessment due to debility and weakness likely related to chronic alcohol abuse. He became progressively more stable during his hospital stay and was determined to be medically stable for discharge on oxygen at day 6 of stay. However, patient was not able to be sent to a receiving SNF due to outstanding fees at SNF where he was admitted previously. Patient is initially agreeable to SNF placement, however, on day 8 of stay he decided he wanted to go home, possibly with home health. While case management and medical team or coordinating discharge plans for patient, he decided he wanted to leave AMA and did this on the morning of 08/13. He was discharged in stable condition. Pt Condition on Discharge: Stable Discharge Disposition: Discharge to SNF Discharge Instructions DIET: Follow Instructions for: Heart Healthy Diet Activities you can perform: Regular-No Restrictions Other Activity Instructions: PT evaluation and treatment per SNF Meli Alcantar MD R1 August 13, 2016 11:33
== END 2016-08-13 10:33 | disposition left against medical advice (07) | DRG 894 ==
LOC: NEPE 08:54 → NEDA 12:01 → N06A 17:41 → N03A 08-08 18:48 → N06B 08-09 21:33
PROVIDERS: ADMIT Family Medicine; ATTEND Family Medicine
DX: F10.230 Alcohol dependence with withdrawal, uncomplicated (principal); F10.231 Alcohol dependence with withdrawal delirium; D69.59 Other secondary thrombocytopenia; R53.1 Weakness; I10 Essential (primary) hypertension; R07.9 Chest pain, unspecified; J06.9 Acute upper respiratory infection, unspecified; K70.30 Alcoholic cirrhosis of liver without ascites; M1A.9XX1 Chronic gout, unspecified, with tophus (tophi); Z87.891 Personal history of nicotine dependence
CPT/HCPCS: 71020; 76705; 80048; 80053; 80307; 81001; 82140; 82550; 82948; 83690; 83735; 84100; 84132; 84484; 85025; 85027; 85610; 85730; 93005; 96374; 96376; J1630; J1644; J2060; J3411; J3475; J3480; J7030; J7042

== ENCOUNTER 2016-09-29 12:42 | Inpatient (IN) | payer MEDICARE, BC ==
[2016-09-29] VITALS (10 sets, daily range): BP systolic 102–134; BP diastolic 57–76; PULSE 84–100; RESP 18–22; TEMP 98.2–98.3; O2SAT 92–96
[~2016-09-29] VITALS: Ht 177.8 cm; Wt 81.9 kg
[~2016-09-29 12:42] MED LIST changes: +HALLLOZ2 BUCCAL; +NIFE60TA58 PO
[2016-09-29] MEDS ORDERED: SODIUM CHLOR 0.9% 1000 ML INJ 1,000 ML IV SCH (12:59)
[2016-09-29] MEDS ORDERED: SODIUM CHLOR 0.9% 1000 ML INJ 1,000 ML IV ONE ×2 (13:00→15:00)
[2016-09-29] MEDS ORDERED: HYDROmorphone HCL PF 1 MG/ML VIAL IVS ONE (13:00)
[2016-09-29] MEDS ORDERED: ONDANSETRON HCL 4 MG/2 ML VIAL IVP ONE (13:00)
[2016-09-29] MEDS ORDERED: SODIUM CHLORIDE 0.9% FLUSH 10 ML FLUSH IV FLUSH PRN ×2 (13:00→15:00)
[2016-09-29] MEDS ORDERED: LORazepam 2 MG/ML VIAL IV PUSH ONE (13:00)
--- NOTE | 2016-09-29 13:15 | PD ---
HPI Chief Complaint: Pain: Acute or Chronic Time Seen by Provider: 12:44 Travel History International Travel<30 days: No Contact w/Intl Traveler<30days: No Traveled to known affect area: No History of Present Illness HPI Patient 65 years old. He arrives by EMS due to chronic severe back and knee pain. He states that if he, for example, leaves the fan on at night and the breeze blows upon is exposed knees spasming results on it becomes painful. Last night he left the fan on precipitating episode of leg pain. He took Aleve at 2 AM, about 10 hours prior to ER arrival which did allow him several hours of sleep and some pain relief. Evidently his pain was so severe he couldn't walk and he therefore called EMS to bring him to the ER were he offered the history is noted. Similar episodes have occurred previously. Pain is in the knees and the low back and he notes MR studies have been performed diagnosing arthritis and tendinosis. He's had no traumatic injury. No fever. No anesthesia of the perineal perianal discretion. No overflow urinary incontinence. No fecal incontinence. PFSH Past Medical History Arthritis: Yes Blood Disorders: No Heart Rhythm Problems: No Cancer: No Cardiovascular Problems: Yes (HTN) High Cholesterol: Yes Chemotherapy: No Chest Pain: No Congestive Heart Failure: No Endocrine: No Gastrointestinal Disorders: No Gout: Yes Genitourinary: No Headaches: Yes Hypertension: Yes Immune Disorder: No Implanted Vascular Access Dvce: No Musculoskeletal: Yes Neurologic: No Psychiatric: No Reproductive: No Respiratory: No Radiation Therapy: No ?: Not Past Surgical History Ear Surgery: Yes Tonsillectomy: Yes Other Surgery: Yes (GOUT REMOVED FROM FINGER) Social History Alcohol Use: Yes (2-3 a day, sometimes more) Tobacco Use: No Substance Use: No Allergies-Medications (Allergen,Severity, Reaction): Coded Allergies: No Known Allergies (Unverified , 09/29/16) Reported Meds & Prescriptions Reported Meds & Active Scripts Active [place] Cough Drops Sugar F (Menthol (Mouth-Throat)) 5.8 Mg Ari 1 Lozenge BUCCAL UNSCH PRN Nifedipine ER 24 HR (Nifedipine) 60 Mg Tab 60 Mg PO DAILY Coreg (Carvedilol) 12.5 Mg Tab 12.5 Mg PO BID With Meals Allopurinol 300 Mg Tab 300 Mg PO DAILY Review of Systems Except as stated in HPI: all other systems reviewed are Neg Physical Exam Narrative GENERAL: 65 yo M, WNWD, speaking full sentences SKIN: Warm and dry. Minimal diaphoresis. HEAD: Atraumatic. Normocephalic. EYES: Pupils equal and round. No scleral icterus. No injection or drainage. ENT: No nasal bleeding or discharge. Mucous membranes pink and moist. NECK: Trachea midline. No JVD. CARDIOVASCULAR: Regular rate and rhythm. RESPIRATORY: No accessory muscle use. Clear to auscultation. Breath sounds equal bilaterally. GASTROINTESTINAL: Abdomen soft, non-tender, nondistended. Hepatic and splenic margins not palpable. MUSCULOSKELETAL: The patient is flexing and extending the knees bilaterally. He is flexing and extending at the hips bilaterally. There is no focal tenderness about the knees or midline back. There is no focal spinal tenderness. NEUROLOGICAL: Awake and alert. No obvious cranial nerve deficits. Motor grossly within normal limits. Five out of 5 muscle strength in the arms and legs. Normal speech. PSYCHIATRIC: Appropriate mood and affect; insight and judgment normal. Data Data Last Documented VS Vital Signs Date Time Temp Pulse Resp B/P Pulse Ox O2 Delivery O2 Flow Rate FiO2 09/29/16 14:31 88 20 102/60 94 09/29/16 13:48 Room Air 09/29/16 13:02 98.2 Vital signs reviewed Orders Iv Access Insert/Monitor (09/29/16 12:59) Ecg Monitoring (09/29/16 12:59) Oximetry (09/29/16 12:59) Ondansetron Inj (Zofran Inj) (09/29/16 13:00) Sodium Chlor 0.9% 1000 Ml Inj (Ns 1000 M (09/29/16 12:59) Sodium Chloride 0.9% Flush (Ns Flush) (09/29/16 13:00) Hydromorphone Pf Inj (Dilaudid Pf Inj) (09/29/16 13:00) Lorazepam Inj (Ativan Inj) (09/29/16 13:00) Complete Blood Count With Diff (09/29/16 12:59) Comprehensive Metabolic Panel (09/29/16 12:59) Drug Screen, Random Urine (09/29/16 12:59) Alcohol (Ethanol) (09/29/16 12:59) Sodium Chlor 0.9% 1000 Ml Inj (Ns 1000 M (09/29/16 13:00) Urinalysis - C+S If Indicated (09/29/16 14:33) Chest, Single Ap (09/29/16 ) Allopurinol (Zyloprim) (09/30/16 09:00) Carvedilol (Coreg) (09/29/16 21:00) Nifedipine Sr (Procardia Xl) (09/30/16 09:00) Creatine Kinase (Cpk) (09/29/16 14:53) Sodium Chlor 0.9% 1000 Ml Inj (Ns 1000 M (09/29/16 15:00) Place In Observation (09/29/16 ) Vital Signs (Adult) Q4H (09/29/16 14:52) Activity Oob Ad Kelli (09/29/16 14:52) Compensation And Benefits Manager / Telemetry .CONTINUOUS (09/29/16 14:52) Intake + Output SAMINA.QSHIFT (09/29/16 14:52) Notify Dr: Other (09/29/16 14:52) Diet Heart Healthy (09/29/16 Dinner) Sodium Chlor 0.9% 1000 Ml Inj (Ns 1000 M (09/29/16 14:52) Sodium Chloride 0.9% Flush (Ns Flush) (09/29/16 15:00) Sodium Chloride 0.9% Flush (Ns Flush) (09/29/16 21:00) Acetaminophen (Tylenol) (09/29/16 15:00) Ondansetron Inj (Zofran Inj) (09/29/16 15:00) Complete Blood Count With Diff (09/30/16 06:00) Troponin I (09/29/16 14:52) Troponin I (09/29/16 20:52) Hepatic Functional Panel (09/30/16 15:05) Pt Request For Service (09/29/16 14:52) Case Management Consult (09/29/16 14:52) Heparin Inj (Heparin Inj) (09/29/16 15:00) Naloxone Inj (Narcan Inj) (09/29/16 15:00) Docusate Sodium-Senna (Sasha-Colace) (09/29/16 21:00) Magnesium Hydroxide Liq (Milk Of Magnesi (09/29/16 15:00) Sennosides (Senokot) (09/29/16 15:00) Bisacodyl Supp (Dulcolax Supp) (09/29/16 15:00) Lactulose Liq (Lactulose Liq) (09/29/16 15:00) Lipase (09/29/16 15:05) Prothrombin Time / Inr (Pt) (09/29/16 15:05) Admit Order (Ed Use Only) (09/29/16 15:09) Labs Laboratory Tests Test 09/29/16 09/29/16 09/29/16 13:10 13:45 14:45 White Blood Count 16.3 TH/MM3 Red Blood Count 4.43 MIL/MM3 Hemoglobin 13.8 GM/DL Hematocrit 40.1 % Mean Corpuscular Volume 90.6 FL Mean Corpuscular Hemoglobin 31.1 PG Mean Corpuscular Hemoglobin 34.4 % Concent Red Cell Distribution Width 14.8 % Platelet Count 157 TH/MM3 Mean Platelet Volume 8.2 FL Neutrophils (%) (Auto) 81.5 % Lymphocytes (%) (Auto) 9.8 % Monocytes (%) (Auto) 6.8 % Eosinophils (%) (Auto) 1.3 % Basophils (%) (Auto) 0.6 % Neutrophils # (Auto) 13.3 TH/MM3 Lymphocytes # (Auto) 1.6 TH/MM3 Monocytes # (Auto) 1.1 TH/MM3 Eosinophils # (Auto) 0.2 TH/MM3 Basophils # (Auto) 0.1 TH/MM3 CBC Comment DIFF FINAL Differential Comment Sodium Level 136 MEQ/L Potassium Level 3.5 MEQ/L Chloride Level 96 MEQ/L Carbon Dioxide Level 27.5 MEQ/L Anion Gap 13 MEQ/L Blood Urea Nitrogen 33 MG/DL Creatinine 1.72 MG/DL Estimat Glomerular Filtration 40 ML/MIN Rate Random Glucose 162 MG/DL Calcium Level 9.3 MG/DL Total Bilirubin 2.2 MG/DL Aspartate Amino Transf 44 U/L (AST/SGOT) Alanine Aminotransferase 28 U/L (ALT/SGPT) Alkaline Phosphatase 219 U/L Total Protein 8.1 GM/DL Albumin 3.5 GM/DL Ethyl Alcohol Level LESS THAN 3 MG/DL Urine Opiates Screen NEG Urine Barbiturates Screen NEG Urine Amphetamines Screen NEG Urine Benzodiazepines Screen POS Urine Cocaine Screen NEG Urine Cannabinoids Screen NEG Urine Color DARK-BROWN Urine Turbidity CLEAR Urine pH 6.0 Urine Specific [place] 1.025 Urine Protein 300 mg/dL Urine Glucose (UA) NEG mg/dL Urine Ketones NEG mg/dL Urine Occult Blood NEG Urine Nitrite NEG Urine Bilirubin NEG Urine Urobilinogen 4.0 MG/DL Urine Leukocyte Esterase NEG Urine RBC 1 /hpf Urine WBC 2 /hpf Urine Hyaline Casts 1 /lpf Urine Mucus FEW /lpf Microscopic Urinalysis Comment CULT NOT INDICATED MDM Medical Decision Making Medical Screen Exam Complete: Yes Emergency Medical Condition: Yes Medical Record Reviewed: Yes Differential Diagnosis Chronic pain and acute on chronic pain alcohol withdrawal syndrome, alcoholism Narrative Course CBC & BMP Diagram 09/29/16 13:10 T bili 2.2 AST 44 U drug negative EtOH < 3 UA: No UTI CXR: NACPD Pt has CHAPIN. Admission for IVF and repeat bloodwork. 2L NS added. CPK ordered. d/ w Dr Mercado for [facility]. Diagnosis Primary Impression: CHAPIN (acute kidney injury) Additional Impressions: Acute exacerbation of chronic low back pain Leg pain Qualified Code: M79.604 - Pain in both lower extremities Inability to ambulate due to multiple joints Admitting Information Admitting Physician Requests: Admit Ashwin Smith MD Sep 29, 2016 13:15
[2016-09-29 13:41] LABS: AUTOMATED NEUTROPHIL # 13.3 TH/MM3 (1.8-7.7); BASOPHIL # 0.1 TH/MM3 (0-0.2); BASOPHIL % 0.6 % (0.0-2.0); EOSINOPHIL # 0.2 TH/MM3 (0-0.4); EOSINOPHIL % 1.3 % (0.0-4.0); HEMATOCRIT 40.1 % (39.0-51.0); HEMO FLAGS DIFF FINAL; LYMPH % 9.8 % (9.0-44.0); LYMPHOCYTE # 1.6 TH/MM3 (1.0-4.8); MEAN CELL VOLUME 90.6 FL (80.0-100.0); MEAN CORPUSCULAR HEMOGLOBIN 31.1 PG (27.0-34.0); MEAN CORPUSCULAR HGB CONC 34.4 % (32.0-36.0); MONO % 6.8 % (0.0-8.0); NEUT % 81.5 % (16.0-70.0); PLATELET COUNT 157 TH/MM3 (150-450); RED BLOOD COUNT 4.43 MIL/MM3 (4.50-5.90); RED CELL DISTRIBUTION WIDTH 14.8 % (11.6-17.2); WHITE BLOOD COUNT 16.3 TH/MM3 (4.0-11.0)
[2016-09-29 14:00] LABS: ALT (GPT) 28 U/L (12-78); ANION GAP 13 MEQ/L (5-15); AST (GOT) 44 U/L (15-37); BICARBONATE 27.5 MEQ/L (21.0-32.0); BLOOD UREA NITROGEN 33 MG/DL (7-18); CHLORIDE 96 MEQ/L (98-107); GLOMERULAR FILTRATION RATE 40 ML/MIN (>89); POTASSIUM 3.5 MEQ/L (3.5-5.1); SODIUM (NA) 136 MEQ/L (136-145)
[2016-09-29 14:03] LABS: ALKALINE PHOSPHATASE 219 U/L (45-117); TOTAL BILIRUBIN ADULT 2.2 MG/DL (0.2-1.0)
[2016-09-29 14:11] LABS: AMPHETAMINE, URINE NEG (NEG); BARBITURATES, URINE NEG (NEG); COCAINE, URINE NEG (NEG)
--- NOTE | 2016-09-29 14:59 | HHI.HP ---
bilateral hip pain and not able to walk. HPI Service [facility] Primary Care Physician No Primary Care Physician Admission Diagnosis Diagnoses: Chief Complaint: Bilateral hip pain and not able to walk Travel History International Travel<30 Days: No Contact w/Intl Traveler <30 Da: No Traveled to Known Affected Are: No History of Present Illness Patient 65 years old. He arrives by EMS due to chronic severe back and knee pain. He states that if he, for example, leaves the fan on at night and the breeze blows upon is exposed knees spasming results on it becomes painful. Last night he left the fan on precipitating episode of leg pain. He took Aleve at 2 AM, about 10 hours prior to ER arrival which did allow him several hours of sleep and some pain relief. Evidently his pain was so severe he couldn't walk and he therefore called EMS to bring him to the ER were he offered the history is noted. Similar episodes have occurred previously. Pain is in the knees and the low back and he notes MR studies have been performed diagnosing arthritis and tendinosis. He's had no traumatic injury. No fever. No anesthesia of the perineal perianal discretion. No overflow urinary incontinence. No fecal incontinence. seen in Emergency room, stable has tremors. facial erythema. Review of Systems Musculoskeletal: COMPLAINS OF: Joint pain Neurologic: COMPLAINS OF: Tremor Psychiatric: COMPLAINS OF: Anxiety, Agitation Except as stated in HPI: all other systems reviewed are Neg Past Family Social History Past Medical History OA Hypertension Hyperlipidemia Gout Past Surgical History No Surgical Procedures Reported Medications Reported Meds & Active Scripts Active [place] Cough Drops Sugar F (Menthol (Mouth-Throat)) 5.8 Mg Ari 1 Lozenge BUCCAL UNSCH PRN Nifedipine ER 24 HR (Nifedipine) 60 Mg Tab 60 Mg PO DAILY Coreg (Carvedilol) 12.5 Mg Tab 12.5 Mg PO BID With Meals Allopurinol 300 Mg Tab 300 Mg PO DAILY Allergies: Coded Allergies: No Known Allergies (Unverified , 09/29/16) Active Ordered Medications Current Medications Medications (Trade) Dose Ordered Sig/Leslie Route Start Time Stop Time Status Last Admin (NS Flush) 2 ml UNSCH PRN IV FLUSH 09/29/16 13:00 Family History Brother with Cancer but he does not know which one. Social History Lives alone and has Daily alcohol abuse. Physical Exam Vital Signs Vital Signs Date Time Temp Pulse Resp B/P Pulse Ox O2 Delivery O2 Flow Rate FiO2 09/29/16 14:31 88 20 102/60 94 09/29/16 13:48 88 20 102/57 96 Room Air 09/29/16 13:39 87 22 106/60 09/29/16 13:25 92 113/61 09/29/16 13:02 98.2 100 20 117/67 96 Room Air 09/29/16 13:02 98.2 100 20 117/67 96 Room Air 09/29/16 13:02 100 20 09/29/16 12:57 98.2 100 20 117/67 96 Physical Exam GENERAL: Mild distress secondary to probable alcohol withdrawal. SKIN: Warm and dry. Minimal diaphoresis. HEAD: Atraumatic. Normocephalic. EYES: Pupils equal and round. No scleral icterus. No injection or drainage. ENT: No nasal bleeding or discharge. Mucous membranes pink and moist. NECK: Trachea midline. No JVD. CARDIOVASCULAR: Regular rate and rhythm. RESPIRATORY: No accessory muscle use. Clear to auscultation. Breath sounds equal bilaterally. GASTROINTESTINAL: Abdomen soft, non-tender, nondistended. Hepatic and splenic margins not palpable. MUSCULOSKELETAL: The patient is flexing and extending the knees bilaterally. He is flexing and extending at the hips bilaterally. There is no focal tenderness about the knees or midline back. There is no focal spinal tenderness. NEUROLOGICAL: Awake and alert. No obvious cranial nerve deficits. Motor grossly within normal limits. Five out of 5 muscle strength in the arms and legs. Normal speech. PSYCHIATRIC: Appropriate mood and affect; insight and judgment normal. Laboratory Laboratory Tests Test 09/29/16 09/29/16 13:10 13:45 White Blood Count 16.3 Red Blood Count 4.43 Hemoglobin 13.8 Hematocrit 40.1 Mean Corpuscular Volume 90.6 Mean Corpuscular Hemoglobin 31.1 Mean Corpuscular Hemoglobin 34.4 Concent Red Cell Distribution Width 14.8 Platelet Count 157 Mean Platelet Volume 8.2 Neutrophils (%) (Auto) 81.5 Lymphocytes (%) (Auto) 9.8 Monocytes (%) (Auto) 6.8 Eosinophils (%) (Auto) 1.3 Basophils (%) (Auto) 0.6 Neutrophils # (Auto) 13.3 Lymphocytes # (Auto) 1.6 Monocytes # (Auto) 1.1 Eosinophils # (Auto) 0.2 Basophils # (Auto) 0.1 CBC Comment DIFF FINAL Differential Comment Sodium Level 136 Potassium Level 3.5 Chloride Level 96 Carbon Dioxide Level 27.5 Anion Gap 13 Blood Urea Nitrogen 33 Creatinine 1.72 Estimat Glomerular Filtration 40 Rate Random Glucose 162 Calcium Level 9.3 Total Bilirubin 2.2 Aspartate Amino Transf 44 (AST/SGOT) Alanine Aminotransferase 28 (ALT/SGPT) Alkaline Phosphatase 219 Total Protein 8.1 Albumin 3.5 Ethyl Alcohol Level LESS THAN 3 Urine Opiates Screen NEG Urine Barbiturates Screen NEG Urine Amphetamines Screen NEG Urine Benzodiazepines Screen POS Urine Cocaine Screen NEG Urine Cannabinoids Screen NEG Result Diagram: 09/29/16 1310 09/29/16 1310 Imaging Last Impressions Chest X-Ray 09/29/16 0000 Signed Impressions: Service Date/Time: Saturday, September 29, 2016 14:54 - CONCLUSION: No acute disease. Roque Morris MD Assessment and Plan Assessment and Plan 1. Alcohol withdrawal, giving him CIWA protocol, asked for ammonia level, Librium, if develops Encephalopathy may need to go to Intensive Care to continue his management at this time stable 2. OA by history 3. Hypertension to continue Home medicines and follow 4. Hyperlipidemia by history 5. Gout by history on hold Allopurinol due to acute Kidney Injury 6. Acute Kidney Injury given IV fluids and following electrolytes DVT prophylaxis with Heparin. Discussed with ER specialist Doctor Ashwin Smith. Code Status Full code. Dave Hollingsworth MD Sep 29, 2016 14:59
[2016-09-29] MEDS ORDERED: ONDANSETRON HCL 4 MG/2 ML VIAL IVP PRN (15:00)
[2016-09-29] MEDS ORDERED: NALOXONE HCL 0.4 MG/ML AMP IV PRN (15:00)
[2016-09-29] MEDS ORDERED: LACTULOSE SYRUP 20 GM/30 ML CUP PO PRN (15:00)
[2016-09-29] MEDS ORDERED: MAGNESIUM HYDROXIDE SUSP 30 ML CUP PO PRN (15:00)
[2016-09-29] MEDS ORDERED: BISACODYL 10 MG SUPP RECTAL PRN (15:00)
[2016-09-29] MEDS ORDERED: ACETAMINOPHEN 325 MG TAB PO PRN (15:00)
[2016-09-29] MEDS ORDERED: SENNOSIDES 8.6 MG TAB PO PRN (15:00)
[2016-09-29 15:15] LABS: BLOOD, URINE NEG (NEG); GLUCOSE,URINE NEG (NEG); HYALINE CAST, URINE 1 /lpf (RARE); KETONE, URINE NEG (NEG); MUCUS URINE FEW /lpf (OCC); NITRITE,URINE NEG (NEG)
[2016-09-29 15:18] LABS: URINE COLOR DARK-BROWN (YELLW/STRAW)
--- NOTE | 2016-09-29 15:19 | RADRPT ---
EXAM DATE/TIME: 09/29/2016 14:54 [facility] COMPARISON: CHEST SINGLE AP, May 21, 2016, 19:25. INDICATIONS : Fever. MEDICAL HISTORY : None. SURGICAL HISTORY : None. ENCOUNTER: Initial ACUITY: 1 day PAIN SCORE: 0/10 LOCATION: chest FINDINGS: A single view of the chest demonstrates the lungs to be symmetrically aerated without evidence of mas s, infiltrate or effusion. The cardiomediastinal contours are unremarkable. Osseous structures are intact. CONCLUSION: No acute disease. Roque Morris MD on September 29, 2016 at 15:17 Board Certified Radiologist. This report was verified electronically.
[2016-09-29 15:20] LABS: COMMENT (UR) CULT NOT INDICATED; CULTURE IF INDICATED CULT NOT INDICATED
[2016-09-29 16:15] LABS: CREATINE KINASE 101 U/L (39-308)
[2016-09-29] MEDS: HEPARIN SODIUM - SQ 10,000 UNITS/ML VIAL SQ SCH (16:29)
[2016-09-29] MEDS: SODIUM CHLOR 0.9% 1000 ML INJ 1,000 ML IV SCH ×2 (16:30→23:28)
[2016-09-29 16:39] LABS: INTERNATIONAL NORMALIZED RATIO 1.1 RATIO
[2016-09-29] MEDS ORDERED: LORazepam 1 MG TAB PO PRN (16:45)
[2016-09-29] MEDS ORDERED: LORazepam 2 MG/ML VIAL IV PUSH PRN ×3 (16:45)
[2016-09-29] MEDS ORDERED: FLUMAZENIL 0.5 MG/5 ML VIAL IV PUSH PRN (16:45)
[2016-09-29] MEDS ORDERED: chlordiazePOXIDE 25 MG CAP PO PRN (18:00)
[2016-09-29] MEDS: THIAMINE INJ 100 MG in SODIUM CHLORIDE 0.9% INJ 100 ML IV SCH (18:00)
[2016-09-29] MEDS: LACTULOSE SYRUP 20 GM/30 ML CUP PO SCH (18:00)
--- NOTE | 2016-09-29 18:49 | RADRPT ---
EXAM DATE/TIME: 09/29/2016 18:21 [facility] COMPARISON: No previous studies available for comparison. INDICATIONS : Left hip pain. No prior trauma. MEDICAL HISTORY : None. SURGICAL HISTORY : None. ENCOUNTER: Initial ACUITY: 2 weeks PAIN SCORE: 5/10 LOCATION: Left hip. FINDINGS: Mild degenerative changes are noted involving the hip joints bilaterally. There is no acute fracture or dislocation of the left hip. CONCLUSION: 1. Mild degenerative changes involving the hip joints bilaterally. 2. No acute fracture or dislocation. Skyler Gonzalez MD on September 29, 2016 at 18:37 Board Certified Radiologist. This report was verified electronically.
[2016-09-29] MEDS: MULTIVITAMIN INJ 10 ML, FOLIC ACID INJ 1 MG in SODIUM CHLORID 0.9% 500 ML INJ 500 ML IV SCH (20:35)
[2016-09-29] MEDS: DOCUSATE SODIUM 50 MG/SENNA 8.6 MG TAB PO SCH (20:36)
[2016-09-29] MEDS: CARVEDILOL 12.5 MG TAB PO SCH (20:36)
[2016-09-29] MEDS: SODIUM CHLORIDE 0.9% FLUSH 10 ML FLUSH IV FLUSH SCH (20:37)
[2016-09-29] MEDS: PANTOPRAZOLE SOD 40 MG DELAYED RELEASE TAB PO SCH (20:48)
[2016-09-30] VITALS (8 sets, daily range): BP systolic 117–143; BP diastolic 60–90; PULSE 67–111; RESP 18–20; TEMP 97.6–98.8; O2SAT 92–99
[2016-09-30] MEDS: HEPARIN SODIUM - SQ 10,000 UNITS/ML VIAL SQ SCH ×2 (03:17→15:50)
[2016-09-30] MEDS: SODIUM CHLOR 0.9% 1000 ML INJ 1,000 ML IV SCH ×3 (04:51→19:22)
[2016-09-30 07:50] LABS: BASOPHIL # 0.1 TH/MM3 (0-0.2); BASOPHIL % 0.8 % (0.0-2.0); EOSINOPHIL # 0.3 TH/MM3 (0-0.4); EOSINOPHIL % 2.7 % (0.0-4.0); HEMATOCRIT 37.2 % (39.0-51.0); HEMO FLAGS DIFF FINAL; LYMPHOCYTE # 1.8 TH/MM3 (1.0-4.8); MEAN CELL VOLUME 91.4 FL (80.0-100.0); MEAN CORPUSCULAR HEMOGLOBIN 31.5 PG (27.0-34.0); MEAN CORPUSCULAR HGB CONC 34.5 % (32.0-36.0); MONO % 7.8 % (0.0-8.0); NEUT % 72.7 % (16.0-70.0); PLATELET COUNT 108 TH/MM3 (150-450); RED BLOOD COUNT 4.07 MIL/MM3 (4.50-5.90); RED CELL DISTRIBUTION WIDTH 14.6 % (11.6-17.2); WHITE BLOOD COUNT 11.1 TH/MM3 (4.0-11.0)
[2016-09-30] MEDS: SODIUM CHLORIDE 0.9% FLUSH 10 ML FLUSH IV FLUSH SCH ×2 (09:00→20:35)
[2016-09-30] MEDS: DOCUSATE SODIUM 50 MG/SENNA 8.6 MG TAB PO SCH ×2 (09:55→20:35)
[2016-09-30] MEDS: CARVEDILOL 12.5 MG TAB PO SCH ×2 (09:56→20:30)
[2016-09-30] MEDS: ALLOPURINOL 300 MG TAB PO SCH (09:56)
[2016-09-30] MEDS: LACTULOSE SYRUP 20 GM/30 ML CUP PO SCH ×3 (09:56→17:58)
[2016-09-30] MEDS: PANTOPRAZOLE SOD 40 MG DELAYED RELEASE TAB PO SCH (09:56)
[2016-09-30] MEDS: NIFEdipine 60 MG SUSTAINED RELEASE TAB PO SCH (09:56)
[2016-09-30] MEDS ORDERED: INFLUENZA VIRUS VACCINE (QUADRIVALENT) 0.5 ML SYR IM ONE (10:00)
[2016-09-30] MEDS ORDERED: PNEUMOCOCCAL POLYVALENT INJ 25 MCG/0.5 ML SYR IM ONE (10:00)
[2016-09-30] MEDS ORDERED: GLUCAGON 1 MG/ML VIAL OTHER PRN (11:45)
[2016-09-30] MEDS ORDERED: DEXTROSE 50% IN WATER 50 ML VIAL(D50) IV PRN (11:45)
--- NOTE | 2016-09-30 11:46 | HHI.PR ---
Subjective Remarks Follow up for alcohol withdrawal, knee pain, low back pain. The patient reports continue knee and low back pain, consistent with his chronic pain. He also complains of left hip pain. He is currently awake, alert, oriented to person, place, and time. Denies any tremors. He is tolerating oral intake. Discussed discharge today, PT recommending rehab, patient is agreeable to rehab. Objective Vitals Vital Signs Date Time Temp Pulse Resp B/P Pulse Ox O2 Delivery O2 Flow Rate FiO2 09/30/16 08:13 98.8 92 18 138/90 96 09/30/16 03:42 98.2 90 18 127/67 92 09/29/16 23:33 98.2 91 19 118/61 93 09/29/16 22:07 84 09/29/16 19:55 98.3 99 19 134/76 94 09/29/16 18:17 93 18 125/75 Nasal Cannula 2 09/29/16 14:31 88 20 102/60 94 09/29/16 13:48 88 20 102/57 96 Room Air 09/29/16 13:39 87 22 106/60 09/29/16 13:25 92 113/61 09/29/16 13:02 98.2 100 20 117/67 96 Room Air 09/29/16 13:02 98.2 100 20 117/67 96 Room Air 09/29/16 13:02 100 20 09/29/16 12:57 98.2 100 20 117/67 96 I/O 09/29/16 09/29/16 09/29/16 09/30/16 09/30/16 09/30/16 07:00 15:00 23:00 07:00 15:00 23:00 Intake Total 980 ml Output Total 550 ml 2050 ml Balance 430 ml -2050 ml Intake Oral 480 ml IV Total 500 ml Output Urine Total 550 ml 2050 ml # Voids 1 Result Diagram: 09/30/16 0735 09/29/16 1310 Imaging Last Impressions Hip and Pelvis X-Ray 09/29/16 0000 Signed Impressions: Service Date/Time: Thursday, September 29, 2016 18:21 - CONCLUSION: 1. Mild degenerative changes involving the hip joints bilaterally. 2. No acute fracture or dislocation. Skyler Gonzalez MD Chest X-Ray 09/29/16 0000 Signed Impressions: Service Date/Time: Thursday, September 29, 2016 14:54 - CONCLUSION: No acute disease. Roque Morris MD Objective Remarks GENERAL: Well-nourished, well-developed male patient in NAD. SKIN: Warm and dry. No rash. HEENT: Normocephalic. Atraumatic.Pupils equal and round.Mucous membranes pink and moist. NECK: Supple. Trachea midline. CARDIOVASCULAR: Regular rate and rhythm. S1, S2 noted. No murmur appreciated. RESPIRATORY: No accessory muscle use. Clear to auscultation. Breath sounds equal bilaterally. GASTROINTESTINAL: Abdomen soft, non-tender, nondistended. Normoactive bowel sounds x4. MUSCULOSKELETAL: No obvious deformities. Extremities without clubbing, cyanosis , or edema. NEUROLOGICAL: Awake and alert. No obvious cranial nerve deficits. Motor grossly within normal limits. 5/5 muscle strength in bilateral upper and lower extremities. Normal speech. No tremor. PSYCHIATRIC: Appropriate mood and affect; insight and judgment normal. Medications and IVs Current Medications Medications (Trade) Dose Ordered Sig/Leslie Route Start Time Stop Time Status Last Admin (Zyloprim) 300 mg DAILY PO 09/30/16 09:00 09/30/16 09:56 (Coreg) 12.5 mg BID PO 09/29/16 21:00 09/30/16 09:56 Nifedipine 60 mg 60 mg DAILY PO 09/30/16 09:00 09/30/16 09:56 (NS 1000 ml Inj) 1,000 ml @ 150 mls/hr Q6H40M IV 09/29/16 14:52 09/30/16 04:51 (NS Flush) 2 ml UNSCH PRN IV FLUSH 09/29/16 15:00 (NS Flush) 2 ml BID IV FLUSH 09/29/16 21:00 09/29/16 20:37 (Tylenol) 650 mg Q4H PRN PO 09/29/16 15:00 (Zofran Inj) 4 mg Q6H PRN IVP 09/29/16 15:00 (Heparin Inj) 5,000 units Q12H SQ 09/29/16 15:00 09/30/16 03:17 (Narcan Inj) 0.4 mg UNSCH PRN IV 09/29/16 15:00 (Sasha-Colace) 1 tab BID PO 09/29/16 21:00 09/30/16 09:55 (Milk Of Magnesia Liq) 30 ml Q12H PRN PO 09/29/16 15:00 (Senokot) 17.2 mg Q12H PRN PO 09/29/16 15:00 (Dulcolax Supp) 10 mg DAILY PRN RECTAL 09/29/16 15:00 Lactulose 30 ml 30 ml DAILY PRN PO 09/29/16 15:00 Multivitamins 10 ml/Folic Acid 1 mg/Sodium Chloride 510.2 ml @ 125 mls/hr Q24H IV 09/29/16 20:00 10/04/16 19:59 09/29/16 20:35 (Thiamine Inj/NS Inj) 101 ml @ 100 mls/hr Q24H IV 09/29/16 18:00 10/02/16 17:59 09/29/16 18:00 (Vitamin B1) 100 mg DAILY PO 10/03/16 09:00 (Protonix) 40 mg DAILY PO 09/29/16 16:45 09/30/16 09:56 (Romazicon Inj) 0.2 mg Q1M PRN IV PUSH 09/29/16 16:45 (Ativan) 1 mg Q4H PRN PO 09/29/16 16:45 09/30/16 09:56 (Ativan Inj) 1 mg Q4H PRN IV PUSH 09/29/16 16:45 (Ativan) 2 mg Q2H PRN PO 09/29/16 16:45 (Ativan Inj) 2 mg Q2H PRN IV PUSH 09/29/16 16:45 (Ativan Inj) 2 mg Q1H PRN IV PUSH 09/29/16 16:45 (Ativan Inj) 2 mg Q15M PRN IV PUSH 09/29/16 16:45 ([place]andler 7.5-325 Mg) 1 tab Q4H PRN PO 09/29/16 16:45 (Lactulose Liq) 30 ml TID PO 09/29/16 18:00 09/30/16 09:56 (Librium) 25 mg TID PRN PO 09/29/16 18:00 A/P Assessment and Plan 65-year-old male with history of osteoarthritis, chronic pain, hypertension, hyperlipidemia, gout, and alcohol abuse, presents with generalized pain and weakness. Alcohol withdrawal: Patient initially admitted for alcohol withdrawal, tremors, and disorientation. Started on CIWA protocol, thiamine/folate/multivitamin. Seizure precautions. The patient is now AAOx4. No tremor. Resolved. Generalized pain and weakness: Suspect multifactorial secondary to dehydration, chronic deconditioning and osteoarthritis. Patient complains of knee, hip, and low back pain. Hip/pelvis x-ray shows mild degenerative changes involving bilateral hips, and no acute fracture. No recent fall or injury. Chandler prn pain. Physical therapy consulted, recommending rehabilitation. Patient was supposed to go to rehab on previous hospitalization however went home instead, failed outpatient treatment. Consult case management for SNF placement. Hypertension: chronic, continue patient's Coreg and Nifedipine. Monitor BP, adjust antihypertensives as needed. CHAPIN: Cr 1.72, previously 0.82 on 08/13/16. Suspect secondary to dehydration, patient admits to recent poor oral intake. Give IVF. Repeat BMP pending. Elevated Blood Glucose: random glucose consistently elevated on all previous admissions. Currently BG 162. Suspect type 2 DM. Check HgbA1c. Monitor Accu- cheks and cover with low dose SSI for now pending HgbA1c. Leukocytosis: suspect secondary to dehydration, no clear source of infection, patient is afebrile. CXR images reviewed, no acute findings. UA negative. Given IVF. CBC improving with WBC 11.1K today. Resolved. Elevated LFTs with hx of Cirrhosis: Liver U/S 08/08/16 showed cirrhosis, splenomegaly, cholelithiasis without acute cholecystitis. No abdominal complaints. Avoid hepatotoxins. DVT Prophylaxis: heparin Discharge Planning Await BMP. Can likely medically clear once CHAPIN improves. Patient needs placement. Case management consulted. Swati Hampton PA-C Sep 30, 2016 11:46 am
[2016-09-30 13:44] LABS: HEMOGLOBIN A1a 1.2 %; HEMOGLOBIN A1b 0.8 %; HEMOGLOBIN Ao 84.9 %; HEMOGLOBIN P3 3.7 %
[2016-09-30] MEDS: INSULIN ASPART SUPPLEMENTAL SCALE SQ SCH ×2 (16:00→21:00)
[2016-09-30 16:14] LABS: ALKALINE PHOSPHATASE 215 U/L (45-117); ALT (GPT) 22 U/L (12-78); ANION GAP 10 MEQ/L (5-15); AST (GOT) 35 U/L (15-37); BICARBONATE 25.3 MEQ/L (21.0-32.0); BLOOD UREA NITROGEN 16 MG/DL (7-18); CHLORIDE 102 MEQ/L (98-107); GLOMERULAR FILTRATION RATE 86 ML/MIN (>89); POTASSIUM 3.2 MEQ/L (3.5-5.1); SODIUM (NA) 137 MEQ/L (136-145); TOTAL BILIRUBIN ADULT 1.7 MG/DL (0.2-1.0)
[2016-09-30] MEDS: THIAMINE INJ 100 MG in SODIUM CHLORIDE 0.9% INJ 100 ML IV SCH (17:57)
[2016-09-30] MEDS: LORazepam 2 MG TAB PO PRN ×2 (18:27→20:30)
[2016-09-30] MEDS ORDERED: POTASSIUM CHLORIDE 20 MEQ CONTROLLED RELEASE TAB PO ONE (18:45)
[2016-09-30] MEDS: MULTIVITAMIN INJ 10 ML, FOLIC ACID INJ 1 MG in SODIUM CHLORID 0.9% 500 ML INJ 500 ML IV SCH (20:30)
[2016-09-30] MEDS: LORazepam 2 MG/ML VIAL IV PUSH PRN (23:18)
[2016-10-01] VITALS (8 sets, daily range): BP systolic 117–149; BP diastolic 58–88; PULSE 66–89; RESP 18–21; TEMP 96–97.6; O2SAT 95–98
[2016-10-01] MEDS: SODIUM CHLOR 0.9% 1000 ML INJ 1,000 ML IV SCH ×3 (01:16→12:25)
[2016-10-01] MEDS: LORazepam 2 MG/ML VIAL IV PUSH PRN ×6 (01:38→16:44)
[2016-10-01] MEDS: HEPARIN SODIUM - SQ 10,000 UNITS/ML VIAL SQ SCH ×2 (03:00→16:06)
[2016-10-01] MEDS: INSULIN ASPART SUPPLEMENTAL SCALE SQ SCH ×4 (06:35→20:40)
[2016-10-01 07:42] LABS: AUTOMATED NEUTROPHIL # 8.3 TH/MM3 (1.8-7.7); BASOPHIL # 0.1 TH/MM3 (0-0.2); BASOPHIL % 0.7 % (0.0-2.0); EOSINOPHIL # 0.2 TH/MM3 (0-0.4); EOSINOPHIL % 1.4 % (0.0-4.0); HEMATOCRIT 37.7 % (39.0-51.0); HEMO FLAGS DIFF FINAL; LYMPH % 12.7 % (9.0-44.0); LYMPHOCYTE # 1.4 TH/MM3 (1.0-4.8); MEAN CELL VOLUME 93.5 FL (80.0-100.0); MEAN CORPUSCULAR HGB CONC 34.2 % (32.0-36.0); NEUT % 77.2 % (16.0-70.0); PLATELET COUNT 114 TH/MM3 (150-450); RED BLOOD COUNT 4.03 MIL/MM3 (4.50-5.90); RED CELL DISTRIBUTION WIDTH 14.8 % (11.6-17.2); WHITE BLOOD COUNT 10.8 TH/MM3 (4.0-11.0)
[2016-10-01 08:07] LABS: BICARBONATE 18.5 MEQ/L (21.0-32.0); POTASSIUM 3.5 MEQ/L (3.5-5.1)
[2016-10-01] MEDS: SODIUM CHLORIDE 0.9% FLUSH 10 ML FLUSH IV FLUSH SCH ×2 (09:00→20:39)
[2016-10-01] MEDS: DOCUSATE SODIUM 50 MG/SENNA 8.6 MG TAB PO SCH ×2 (09:00→20:38)
[2016-10-01] MEDS: LACTULOSE SYRUP 20 GM/30 ML CUP PO SCH ×3 (09:00→18:00)
[2016-10-01] MEDS: ALLOPURINOL 300 MG TAB PO SCH (09:09)
[2016-10-01] MEDS: PANTOPRAZOLE SOD 40 MG DELAYED RELEASE TAB PO SCH (09:09)
[2016-10-01] MEDS: NIFEdipine 60 MG SUSTAINED RELEASE TAB PO SCH (09:09)
[2016-10-01] MEDS: CARVEDILOL 12.5 MG TAB PO SCH ×2 (09:09→20:38)
[2016-10-01] MEDS ORDERED: cloNIDine HCL 0.1 MG TAB PO PRN (10:00)
--- NOTE | 2016-10-01 10:13 | HHI.PR ---
Subjective Remarks Follow-up for alcohol withdrawal. Discussed with RN, she reports the patient decompensated yesterday evening and began being increasingly confused, disoriented, and having hallucinations. He was placed in 2-point restraints overnight due to this. Currently the patient is awake and alert, but remains confused. He states that he is currently in [place]. He is oriented to self. He states he drinks as much alcohol as possible. He denies any hallucinations, but states he has been hearing 3 different voices. He is not really able to provide any other history currently. The patient had no acute complaints or concerns at this time. Objective Vitals Vital Signs Date Time Temp Pulse Resp B/P Pulse Ox O2 Delivery O2 Flow Rate FiO2 10/01/16 07:25 97.5 86 20 130/65 98 10/01/16 05:15 96.0 85 20 121/67 95 10/01/16 00:07 66 09/30/16 23:12 98.1 96 20 126/76 99 09/30/16 20:37 97.6 09/30/16 19:13 111 20 143/76 96 09/30/16 16:18 98.6 68 20 119/63 96 09/30/16 12:08 97.8 67 20 142/80 96 09/30/16 12:05 81 I/O 09/30/16 09/30/16 09/30/16 10/01/16 10/01/16 10/01/16 07:00 15:00 23:00 07:00 15:00 23:00 Intake Total 1000 ml 1400 ml Output Total 2050 ml 200 ml 1 ml Balance -2050 ml 800 ml 1399 ml IV Total 1000 ml 1400 ml Output Urine Total 2050 ml 200 ml Stool Total 1 ml # Voids 1 1 # Bowel Movements 1 4 Result Diagram: 10/01/16 0642 10/01/16 0642 Imaging Last Impressions Hip and Pelvis X-Ray 09/29/16 0000 Signed Impressions: Service Date/Time: Thursday, September 29, 2016 18:21 - CONCLUSION: 1. Mild degenerative changes involving the hip joints bilaterally. 2. No acute fracture or dislocation. Skyler Gonzalez MD Chest X-Ray 09/29/16 0000 Signed Impressions: Service Date/Time: Thursday, September 29, 2016 14:54 - CONCLUSION: No acute disease. Roque Morris MD Objective Remarks GENERAL: Well-developed well-nourished. In no acute distress. Confused in 2- point restraints. Oriented to self. SKIN: Warm and dry. No lesions noted. HEENT: Normocephalic. Pupils equal and round. Mucous membranes pink and moist. CARDIOVASCULAR: Regular rate and rhythm. No murmur appreciated. RESPIRATORY: No accessory muscle use. Clear to auscultation. Breath sounds equal bilaterally. GASTROINTESTINAL: Abdomen soft, non-tender, nondistended. Bowel sounds x4. MUSCULOSKELETAL: No obvious deformities. No clubbing or cyanosis. No edema. NEUROLOGICAL: Awake and alert. No focal neurological deficits. Moves upper and lower extremities spontaneously. Normal speech. PSYCHIATRIC: Confused mood and affect; insight and judgment impaired. Reports auditory hallucinations. A/P Assessment and Plan 65-year-old male with history of osteoarthritis, chronic pain, hypertension, hyperlipidemia, gout, and alcohol abuse, presents with generalized pain and weakness. Alcohol withdrawal with delirium tremens: Patient initially admitted for alcohol withdrawal, tremors, and disorientation. Continue on CIWA protocol, thiamine/folate/multivitamin. Seizure precautions. The patient is currently confused with auditory hallucinations. Continue restraints for now with disorientation. Monitor. Generalized pain and weakness: Suspect multifactorial secondary to dehydration, chronic deconditioning and osteoarthritis. Patient complains of knee, hip, and low back pain. Hip/pelvis x-ray shows mild degenerative changes involving bilateral hips, and no acute fracture. No recent fall or injury. [place] prn pain. Physical therapy consulted, recommending rehabilitation. Patient was supposed to go to rehab on previous hospitalization however went home instead, failed outpatient treatment. Consulted case management for SNF placement. Hypertension: chronic, continue patient's Coreg and Nifedipine. Clonidine as needed. Monitor BP, adjust antihypertensives as needed. CHAPIN: Cr 1.72, previously 0.82 on 08/13/16. Suspect secondary to dehydration, patient admits to recent poor oral intake. Given IVF. Creatinine improved to normal limits. Resolved. Elevated Blood Glucose: Hemoglobin A1c 6.0. Likely borderline DM. Diabetic diet education when patient is more alert. Monitor Accu-cheks and cover with low dose SSI. Leukocytosis: suspect secondary to dehydration, no clear source of infection, patient is afebrile. CXR with no acute findings. UA negative. Given IVF. WBCs trended down to normal limits. Resolved. Elevated LFTs with hx of Cirrhosis: Liver U/S 08/08/16 showed cirrhosis, splenomegaly, cholelithiasis without acute cholecystitis. No abdominal complaints. Avoid hepatotoxins. Severe hypomagnesemia: Magnesium level 1. Replace by IV. Follow-up and labs. DVT Prophylaxis: heparin Discharge Planning Admit to inpatient with DTs. Will likely need SNF at [place]. Continue PT. Emmanuel Jeong Oct 01, 2016 10:13
[2016-10-01] MEDS: MAGNESIUM SULFATE 1 GM PREMIX 100 ML IV SCH ×4 (14:15→17:51)
[2016-10-01] MEDS: THIAMINE INJ 100 MG in SODIUM CHLORIDE 0.9% INJ 100 ML IV SCH (19:25)
[2016-10-01] MEDS: MULTIVITAMIN INJ 10 ML, FOLIC ACID INJ 1 MG in SODIUM CHLORID 0.9% 500 ML INJ 500 ML IV SCH (20:35)
[2016-10-02] VITALS: BP 104/60; PULSE 81; RESP 20; TEMP 97; O2SAT 96
[2016-10-02] MEDS: SODIUM CHLOR 0.9% 1000 ML INJ 1,000 ML IV SCH ×2 (01:57→17:16)
[2016-10-02] MEDS: INSULIN ASPART SUPPLEMENTAL SCALE SQ SCH ×4 (01:58→21:00)
[2016-10-02] MEDS: HEPARIN SODIUM - SQ 10,000 UNITS/ML VIAL SQ SCH ×2 (01:58→15:13)
[2016-10-02 04:00] VITALS: BP 106/64; PULSE 77; RESP 20; TEMP 97; O2SAT 98
[2016-10-02 08:03] VITALS: BP 126/70; PULSE 80; RESP 20; TEMP 96.3; O2SAT 98
[2016-10-02] MEDS: PANTOPRAZOLE SOD 40 MG DELAYED RELEASE TAB PO SCH (08:49)
[2016-10-02] MEDS: NIFEdipine 60 MG SUSTAINED RELEASE TAB PO SCH (08:50)
[2016-10-02] MEDS: DOCUSATE SODIUM 50 MG/SENNA 8.6 MG TAB PO SCH ×2 (08:50→22:32)
[2016-10-02] MEDS: LACTULOSE SYRUP 20 GM/30 ML CUP PO SCH ×3 (08:51→18:00)
[2016-10-02] MEDS: SODIUM CHLORIDE 0.9% FLUSH 10 ML FLUSH IV FLUSH SCH ×2 (08:51→22:31)
[2016-10-02] MEDS: ALLOPURINOL 300 MG TAB PO SCH (08:51)
[2016-10-02] MEDS: CARVEDILOL 12.5 MG TAB PO SCH ×2 (08:51→22:32)
--- NOTE | 2016-10-02 10:17 | HHI.PR ---
Subjective Remarks Follow-up for alcohol withdrawal. Discussed with RN, the patient remained with auditory hallucinations and confusion last night. The patient has also been lethargic from [facility] protocol. Today the patient is sleeping upon arrival but awakens to loud voice. Today he is oriented to person, place, time, president. Regarding alcohol, he states he does not drink every day. He does report chronic lower extremity weakness, but states that will get better in "2 days" once he is in a "stable environment", regarding SNF placement. He does admit to having auditory hallucinations last night, but none today. Objective Vitals Vital Signs Date Time Temp Pulse Resp B/P Pulse Ox O2 Delivery O2 Flow Rate FiO2 10/02/16 08:03 96.3 80 20 126/70 98 10/02/16 04:00 97.0 77 20 106/64 98 10/02/16 00:00 97.0 81 20 104/60 96 10/01/16 21:30 84 10/01/16 19:46 97.1 84 18 117/58 97 10/01/16 15:44 96.3 87 18 149/67 98 10/01/16 11:37 97.6 89 21 127/88 98 10/01/16 10:53 86 I/O 10/01/16 10/01/16 10/01/16 10/02/16 10/02/16 10/02/16 07:00 15:00 23:00 07:00 15:00 23:00 Intake Total 1400 ml 240 ml 2154 ml Output Total 1 ml Balance 1399 ml 240 ml 2154 ml Intake Oral 240 ml IV Total 1400 ml 2154 ml Stool Total 1 ml # Voids 1 2 0 0 # Bowel Movements 1 0 Result Diagram: 10/01/16 0642 10/01/16 0642 Imaging Last Impressions Hip and Pelvis X-Ray 09/29/16 0000 Signed Impressions: Service Date/Time: Thursday, September 29, 2016 18:21 - CONCLUSION: 1. Mild degenerative changes involving the hip joints bilaterally. 2. No acute fracture or dislocation. Skyler Gonzalez MD Chest X-Ray 09/29/16 0000 Signed Impressions: Service Date/Time: Thursday, September 29, 2016 14:54 - CONCLUSION: No acute disease. Roque Morris MD Objective Remarks GENERAL: Well-developed well-nourished. In no acute distress. Oriented 3. SKIN: Warm and dry. No lesions noted. HEENT: Normocephalic. Pupils equal and round. Mucous membranes pink and moist. CARDIOVASCULAR: Regular rate and rhythm. No murmur appreciated. RESPIRATORY: No accessory muscle use. Clear to auscultation. Breath sounds equal bilaterally. GASTROINTESTINAL: Abdomen soft, non-tender, nondistended. Bowel sounds x4. MUSCULOSKELETAL: No obvious deformities. No clubbing or cyanosis. No edema. NEUROLOGICAL: Somnolent, but awakens to loud voice. Moves upper and lower extremities spontaneously. Normal speech. Strength 4/5 in upper extremities and 3/5 in lower extremities. PSYCHIATRIC: Appropriate mood and affect; insight and judgment impaired. Reports recent auditory hallucinations. A/P Assessment and Plan 65-year-old male with history of osteoarthritis, chronic pain, hypertension, hyperlipidemia, gout, and alcohol abuse, presents with generalized pain and weakness. Alcohol withdrawal with delirium tremens: Patient initially admitted for alcohol withdrawal, tremors, and disorientation. The patient initially improved , but became confused again with auditory hallucinations. Improving. Continue on CIWA protocol, thiamine/folate/multivitamin. Seizure precautions. Discussed with RN, mentation improving, trial of removing restraints. Monitor. Lower extremity weakness: Suspect multifactorial secondary to dehydration, chronic deconditioning and osteoarthritis. Patient complains of knee, hip, and low back pain. Hip/pelvis x-ray shows mild degenerative changes involving bilateral hips, and no acute fracture. No recent fall or injury. [place] prn pain. Physical therapy consulted, recommending rehabilitation. Patient was supposed to go to rehab on previous hospitalization however went home instead, failed outpatient treatment. Consulted case management for SNF placement. Hypertension: chronic, continue patient's Coreg and Nifedipine. Clonidine as needed. Monitor BP, adjust antihypertensives as needed. CHAPIN: Cr 1.72, previously 0.82 on 08/13/16. Suspect secondary to dehydration, patient admits to recent poor oral intake. Given IVF. Creatinine improved to normal limits. Resolved. Elevated Blood Glucose: Hemoglobin A1c 6.0. Likely borderline DM. Diabetic diet education when patient is more alert. Monitor Accu-cheks and cover with low dose SSI. Leukocytosis: suspect secondary to dehydration, no clear source of infection, patient is afebrile. CXR with no acute findings. UA negative. Given IVF. WBCs trended down to normal limits. Resolved. Elevated LFTs with hx of Cirrhosis: Liver U/S 08/08/16 showed cirrhosis, splenomegaly, cholelithiasis without acute cholecystitis. No abdominal complaints. Avoid hepatotoxins. Severe hypomagnesemia: Magnesium level 1. Replaced by IV. Repeat labs pending , replace electrolytes as indicated. DVT Prophylaxis: heparin Discharge Planning Will likely need SNF at [place]. Continue PT. Emmanuel Jeong Oct 02, 2016 10:17
[2016-10-02 11:00] LABS: MAGNESIUM 2.2 MG/DL (1.5-2.5); POTASSIUM 3.2 MEQ/L (3.5-5.1)
[2016-10-02] MEDS ORDERED: POTASSIUM CHLORIDE 10 MEQ CONTROLLED RELEASE TAB PO ONE (11:15)
[2016-10-02 12:13] VITALS: BP 125/70; PULSE 83; RESP 20; TEMP 95.8; O2SAT 99
[2016-10-02] MEDS: ACETAMINOPHEN/HYDROcodone 325 MG/7.5 MG TAB PO PRN (15:19)
[2016-10-02 16:07] VITALS: BP 131/69; PULSE 84; RESP 20; TEMP 96.1; O2SAT 97
[2016-10-02 20:00] VITALS: BP 126/72; PULSE 88; RESP 20; TEMP 98; O2SAT 96
[2016-10-02] MEDS: MULTIVITAMIN INJ 10 ML, FOLIC ACID INJ 1 MG in SODIUM CHLORID 0.9% 500 ML INJ 500 ML IV SCH (22:39)
[2016-10-03] VITALS (8 sets, daily range): BP systolic 124–146; BP diastolic 69–81; PULSE 81–93; RESP 16–20; TEMP 96.9–97.9; O2SAT 94–97
[2016-10-03] MEDS: HEPARIN SODIUM - SQ 10,000 UNITS/ML VIAL SQ SCH ×2 (04:00→17:05)
[2016-10-03] MEDS: INSULIN ASPART SUPPLEMENTAL SCALE SQ SCH ×4 (06:30→20:51)
[2016-10-03] MEDS: SODIUM CHLOR 0.9% 1000 ML INJ 1,000 ML IV SCH ×2 (06:32→19:56)
[2016-10-03] MEDS: LACTULOSE SYRUP 20 GM/30 ML CUP PO SCH ×3 (09:00→17:20)
[2016-10-03] MEDS: DOCUSATE SODIUM 50 MG/SENNA 8.6 MG TAB PO SCH ×2 (09:00→20:48)
[2016-10-03] MEDS: CARVEDILOL 12.5 MG TAB PO SCH ×2 (09:28→20:48)
[2016-10-03] MEDS: PANTOPRAZOLE SOD 40 MG DELAYED RELEASE TAB PO SCH (09:28)
[2016-10-03] MEDS: ALLOPURINOL 300 MG TAB PO SCH (09:29)
[2016-10-03] MEDS: THIAMINE HCL 100 MG TAB PO SCH (09:29)
[2016-10-03] MEDS: SODIUM CHLORIDE 0.9% FLUSH 10 ML FLUSH IV FLUSH SCH ×2 (09:30→20:47)
[2016-10-03] MEDS: NIFEdipine 60 MG SUSTAINED RELEASE TAB PO SCH (09:30)
--- NOTE | 2016-10-03 10:08 | HHI.PR ---
Subjective Remarks Follow up for alcohol withdrawal, weakness. The patient is seen sitting upright in bed, eating breakfast. He complains of right shoulder pain, says he can't move his right arm, although he was currently holding his bowl of cereal in the right hand, lifted up to his face. He further explains that he cannot lift the right arm above shoulder height secondary to "stiffness" and pain. He locates the pain to the right anterior shoulder. He states he's had this pain since he was restrained on previous admission. Otherwise, the patient denies any other medical complaints. He reports his tremors have improved. He denies any auditory or visual hallucinations. He has not yet attempted ambulation today. Objective Vitals Vital Signs Date Time Temp Pulse Resp B/P Pulse Ox O2 Delivery O2 Flow Rate FiO2 10/03/16 08:03 97.3 89 16 146/81 96 10/03/16 04:00 97.0 88 20 124/69 95 10/03/16 00:00 96.9 93 20 139/71 95 10/02/16 20:00 98.0 88 20 126/72 96 10/02/16 16:07 96.1 84 20 131/69 97 10/02/16 12:13 95.8 83 20 125/70 99 I/O 10/02/16 10/02/16 10/02/16 10/03/16 10/03/16 10/03/16 07:00 15:00 23:00 07:00 15:00 23:00 Intake Total 240 ml 1040 ml Output Total 600 ml Balance 240 ml 440 ml Intake Oral 240 ml 240 ml IV Total 800 ml Output Urine Total 600 ml # Voids 0 1 # Bowel Movements 2 Result Diagram: 10/01/16 0642 10/02/16 0900 Imaging Last Impressions Hip and Pelvis X-Ray 09/29/16 0000 Signed Impressions: Service Date/Time: Thursday, September 29, 2016 18:21 - CONCLUSION: 1. Mild degenerative changes involving the hip joints bilaterally. 2. No acute fracture or dislocation. Skyler Gonzalez MD Chest X-Ray 09/29/16 0000 Signed Impressions: Service Date/Time: Thursday, September 29, 2016 14:54 - CONCLUSION: No acute disease. Roque Morris MD Objective Remarks GENERAL: Well-nourished, well-developed male patient in NAD. SKIN: Warm and dry. No rash. HEENT: Normocephalic. Atraumatic.Pupils equal and round.Mucous membranes pink and moist. NECK: Supple. Trachea midline. CARDIOVASCULAR: Regular rate and rhythm. S1, S2 noted. No murmur appreciated. RESPIRATORY: No accessory muscle use. Clear to auscultation. Breath sounds equal bilaterally. GASTROINTESTINAL: Abdomen soft, non-tender, nondistended. Normoactive bowel sounds x4. MUSCULOSKELETAL: No obvious deformities. Extremities without clubbing, cyanosis , or edema. Right anterior shoulder with pinpoint tenderness at the proximal bicep insertion site. Limited active ROM, unable to abduct RUE above shoulder height. Right shoulder pain upon resistance to elbow flexion. NEUROLOGICAL: Awake and alert. No obvious cranial nerve deficits. Motor grossly within normal limits. 5/5 muscle strength in bilateral upper and lower extremities. Normal speech. No tremor. PSYCHIATRIC: Appropriate mood and affect; insight and judgment normal. Medications and IVs Current Medications Medications (Trade) Dose Ordered Sig/[facility] Route Start Time Stop Time Status Last Admin (Zyloprim) 300 mg DAILY PO 09/30/16 09:00 10/03/16 09:29 (Coreg) 12.5 mg BID PO 09/29/16 21:00 10/03/16 09:28 Nifedipine 60 mg 60 mg DAILY PO 09/30/16 09:00 10/03/16 09:30 (NS 1000 ml Inj) 1,000 ml @ 75 mls/hr [id number] IV 09/29/16 14:52 10/03/16 06:32 (NS Flush) 2 ml UNSCH PRN IV FLUSH 09/29/16 15:00 (NS Flush) 2 ml BID IV FLUSH 09/29/16 21:00 10/03/16 09:30 (Tylenol) 650 mg Q4H PRN PO 09/29/16 15:00 (Zofran Inj) 4 mg Q6H PRN IVP 09/29/16 15:00 (Heparin Inj) 5,000 units Q12H SQ 09/29/16 15:00 10/03/16 04:00 (Narcan Inj) 0.4 mg UNSCH PRN IV 09/29/16 15:00 (Sasha-Colace) 1 tab BID PO 09/29/16 21:00 10/02/16 22:32 (Milk Of Magnesia Liq) 30 ml Q12H PRN PO 09/29/16 15:00 (Senokot) 17.2 mg Q12H PRN PO 09/29/16 15:00 (Dulcolax Supp) 10 mg DAILY PRN RECTAL 09/29/16 15:00 Lactulose 30 ml 30 ml DAILY PRN PO 09/29/16 15:00 (Mvi-12 Inj/ Folvite Inj/NS 500 ml Inj) 510.2 ml @ 125 mls/hr Q24H IV 09/29/16 20:00 10/04/16 19:59 10/02/16 22:39 (Vitamin B1) 100 mg DAILY PO 10/03/16 09:00 10/03/16 09:29 (Protonix) 40 mg DAILY PO 09/29/16 16:45 10/03/16 09:28 (Romazicon Inj) 0.2 mg Q1M PRN IV PUSH 09/29/16 16:45 (Ativan) 1 mg Q4H PRN PO 09/29/16 16:45 09/30/16 09:56 (Ativan Inj) 1 mg Q4H PRN IV PUSH 09/29/16 16:45 10/01/16 20:58 (Ativan) 2 mg Q2H PRN PO 09/29/16 16:45 09/30/16 20:30 (Ativan Inj) 2 mg Q2H PRN IV PUSH 09/29/16 16:45 10/01/16 16:44 (Ativan Inj) 2 mg Q1H PRN IV PUSH 09/29/16 16:45 (Ativan Inj) 2 mg Q15M PRN IV PUSH 09/29/16 16:45 ([place] 7.5-325 Mg) 1 tab Q4H PRN PO 09/29/16 16:45 10/02/16 15:19 (Lactulose Liq) 30 ml TID PO 09/29/16 18:00 10/02/16 08:51 (Librium) 25 mg TID PRN PO 09/29/16 18:00 (D50w (Vial) Inj) 50 ml UNSCH PRN IV 09/30/16 11:45 (Glucagon Inj) 1 mg UNSCH PRN OTHER 09/30/16 11:45 (Catapres) 0.1 mg Q6H PRN PO 10/01/16 10:00 A/P Assessment and Plan 65-year-old male with history of osteoarthritis, chronic pain, hypertension, hyperlipidemia, gout, and alcohol abuse, presents with generalized pain and weakness. Alcohol withdrawal with delirium tremens: Patient initially admitted for alcohol withdrawal, tremors, and disorientation. The patient initially improved , but became confused again with auditory hallucinations. Improving. Continue on CIWA protocol, thiamine/folate/multivitamin. Seizure precautions. Discussed with RN, mentation improved, removed restraints. Monitor. Lower extremity weakness: Suspect multifactorial secondary to dehydration, chronic deconditioning and osteoarthritis. Patient complains of knee, hip, and low back pain. Hip/pelvis x-ray shows mild degenerative changes involving bilateral hips, and no acute fracture. No recent fall or injury. [place] prn pain. Physical therapy consulted, recommending rehabilitation. Patient was supposed to go to rehab on previous hospitalization however went home instead, failed outpatient treatment. Consulted case management for SNF placement. Hypertension: chronic, continue patient's Coreg and Nifedipine. Clonidine as needed. Monitor BP, adjust antihypertensives as needed. CHAPIN: Cr 1.72, previously 0.82 on 08/13/16. Suspect secondary to dehydration, patient admits to recent poor oral intake. Given IVF. Creatinine improved to normal limits. Resolved. Elevated Blood Glucose: Hemoglobin A1c 6.0. Likely borderline DM. Diabetic diet education when patient is more alert. Monitor Accu-cheks and cover with low dose SSI. Leukocytosis: suspect secondary to dehydration, no clear source of infection, patient is afebrile. CXR with no acute findings. UA negative. Given IVF. WBCs trended down to normal limits. Resolved. Elevated LFTs with hx of Cirrhosis: Liver U/S 08/08/16 showed cirrhosis, splenomegaly, cholelithiasis without acute cholecystitis. No abdominal complaints. Avoid hepatotoxins. Severe hypomagnesemia and mild hypokalemia: Magnesium level 1, K 3.3. Replaced by IV Mag and po KCl. Repeat labs show improvement with Mag 2.2, replace electrolytes as indicated. Monitor BMP. Right Shoulder Pain: suspect bicep tendonitis vs arthritis of the shoulder joint. Check right shoulder xray. PT. DVT Prophylaxis: heparin Discharge Planning Patient needs placement. Case management assisting. Swati Hampton PA-C Oct 03, 2016 10:08 am
--- NOTE | 2016-10-03 12:58 | RADRPT ---
EXAM DATE/TIME: 10/03/2016 12:38 [place] COMPARISON: No previous studies available for comparison. INDICATIONS : Patient states once released from his restraints his right shoulder started to hurt. MEDICAL HISTORY : None. SURGICAL HISTORY : None. ENCOUNTER: Subsequent ACUITY: 3 days PAIN SCORE: 4/10 LOCATION: Right Shoulder. FINDINGS: Multiple view examination of the right shoulder demonstrates no evidence of fracture or dislocation. The glenohumeral and acromioclavicular joints are maintained. There is normal range of motion betwe en internal and external rotation. Bony mineralization is normal. CONCLUSION: Unremarkable examination of the right shoulder. Roque Durham MD on October 03, 2016 at 12:55 Board Certified Radiologist. This report was verified electronically.
[2016-10-03] MEDS: MULTIVITAMIN INJ 10 ML, FOLIC ACID INJ 1 MG in SODIUM CHLORID 0.9% 500 ML INJ 500 ML IV SCH (20:46)
[2016-10-04 00:52] VITALS: BP_SYST 126; BP_SYST 152; BP_DIAS 71; BP_DIAS 86; PULSE 68; PULSE 90; RESP 16; RESP 18; TEMP 97.3; TEMP 97.9; O2SAT 99
[2016-10-04] MEDS: HEPARIN SODIUM - SQ 10,000 UNITS/ML VIAL SQ SCH ×2 (03:53→15:28)
[2016-10-04] MEDS: ACETAMINOPHEN/HYDROcodone 325 MG/7.5 MG TAB PO PRN (04:05)
[2016-10-04 04:07] VITALS: BP 134/71; PULSE 92; RESP 16; TEMP 97.6; O2SAT 96
[2016-10-04] MEDS: INSULIN ASPART SUPPLEMENTAL SCALE SQ SCH ×3 (06:42→16:00)
[2016-10-04 07:00] VITALS: PULSE 83
[2016-10-04 08:14] VITALS: BP 126/73; PULSE 84; RESP 18; TEMP 97.3; O2SAT 95
[2016-10-04 09:02] LABS: HEMATOCRIT 34.7 % (39.0-51.0); MEAN CELL VOLUME 92.9 FL (80.0-100.0); MEAN CORPUSCULAR HEMOGLOBIN 31.2 PG (27.0-34.0); MEAN CORPUSCULAR HGB CONC 33.6 % (32.0-36.0); PLATELET COUNT 131 TH/MM3 (150-450); RED BLOOD COUNT 3.73 MIL/MM3 (4.50-5.90); RED CELL DISTRIBUTION WIDTH 14.6 % (11.6-17.2); REVIEW FLAG FINAL; WHITE BLOOD COUNT 9.2 TH/MM3 (4.0-11.0)
[2016-10-04 09:17] LABS: BICARBONATE 21.4 MEQ/L (21.0-32.0); POTASSIUM 3.2 MEQ/L (3.5-5.1)
[2016-10-04] MEDS: THIAMINE HCL 100 MG TAB PO SCH (09:20)
[2016-10-04] MEDS: ALLOPURINOL 300 MG TAB PO SCH (09:20)
[2016-10-04] MEDS: NIFEdipine 60 MG SUSTAINED RELEASE TAB PO SCH (09:20)
[2016-10-04] MEDS: PANTOPRAZOLE SOD 40 MG DELAYED RELEASE TAB PO SCH (09:20)
[2016-10-04] MEDS: CARVEDILOL 12.5 MG TAB PO SCH (09:20)
[2016-10-04] MEDS: DOCUSATE SODIUM 50 MG/SENNA 8.6 MG TAB PO SCH (09:21)
[2016-10-04] MEDS: SODIUM CHLORIDE 0.9% FLUSH 10 ML FLUSH IV FLUSH SCH (09:21)
[2016-10-04] MEDS: LACTULOSE SYRUP 20 GM/30 ML CUP PO SCH ×3 (09:21→17:40)
[2016-10-04] MEDS: SODIUM CHLOR 0.9% 1000 ML INJ 1,000 ML IV SCH (09:22)
--- NOTE | 2016-10-04 11:57 | HHI.PR ---
Subjective Remarks Follow-up alcohol abuse, weakness and right shoulder pain. Denies hallucination. Complains of right shoulder pain with decreased range of motion. Discussed with RN Objective Vitals Vital Signs Date Time Temp Pulse Resp B/P Pulse Ox O2 Delivery O2 Flow Rate FiO2 10/04/16 08:14 97.3 84 18 126/73 95 10/04/16 07:00 83 10/04/16 04:07 97.6 92 16 134/71 96 10/04/16 00:52 97.9 90 16 126/71 99 10/03/16 23:00 88 10/03/16 20:22 97.9 90 16 133/79 94 10/03/16 16:00 97.6 90 17 129/72 96 10/03/16 12:07 96.9 88 16 128/70 97 I/O 10/03/16 10/03/16 10/03/16 10/04/16 10/04/16 10/04/16 07:00 15:00 23:00 07:00 15:00 23:00 Intake Total 480 ml 800 ml Output Total 225 ml 450 ml 700 ml Balance 255 ml -450 ml 100 ml Intake Oral 480 ml IV Total 800 ml Output Urine Total 225 ml 450 ml 700 ml # Bowel Movements 1 1 1 Result Diagram: 10/04/16 0754 10/04/16 0754 Imaging Last Impressions Shoulder X-Ray 10/03/16 0000 Signed Impressions: Service Date/Time: Monday, October 03, 2016 12:38 - CONCLUSION: Unremarkable examination of the right shoulder. Roque Durham MD Hip and Pelvis X-Ray 09/29/16 0000 Signed Impressions: Service Date/Time: Thursday, September 29, 2016 18:21 - CONCLUSION: 1. Mild degenerative changes involving the hip joints bilaterally. 2. No acute fracture or dislocation. Skyler Gonzalez MD Chest X-Ray 09/29/16 0000 Signed Impressions: Service Date/Time: Thursday, September 29, 2016 14:54 - CONCLUSION: No acute disease. Roque Morris MD Objective Remarks GENERAL: Well-nourished, well-developed male patient in NAD. SKIN: Warm and dry. No rash. Right thumb with open wound(tophus) HEENT: Normocephalic. Atraumatic.Pupils equal and round.Mucous membranes pink and moist. NECK: Supple. Trachea midline. CARDIOVASCULAR: Regular rate and rhythm. S1, S2 noted. No murmur appreciated. RESPIRATORY: No accessory muscle use. Clear to auscultation. Breath sounds equal bilaterally. GASTROINTESTINAL: Abdomen soft, non-tender, nondistended. Normoactive bowel sounds x4. MUSCULOSKELETAL: No obvious deformities. Extremities without clubbing, cyanosis , or edema. Right anterior shoulder with pinpoint tenderness at the proximal bicep insertion site. Limited active ROM, unable to abduct RUE above shoulder height. Right shoulder pain upon resistance to elbow flexion. NEUROLOGICAL: Awake and alert. No obvious cranial nerve deficits. Motor grossly within normal limits. 5/5 muscle strength in bilateral upper and lower extremities. Normal speech. No tremor. PSYCHIATRIC: Appropriate mood and affect; insight and judgment normal. Procedures none A/P Problem List: (1) Inability to ambulate due to multiple joints ICD Code: R26.2 Status: Acute (2) Generalized weakness ICD Code: R53.1 Status: Acute Assessment and Plan 65-year-old male with history of osteoarthritis, chronic pain, hypertension, hyperlipidemia, gout, and alcohol abuse, presents with generalized pain and weakness. Alcohol withdrawal with delirium tremens: Patient initially admitted for alcohol withdrawal, tremors, and disorientation. The patient initially improved , but became confused again with auditory hallucinations. Improving. Continue on CIWA protocol, thiamine/folate/multivitamin. Seizure precautions. Discussed with RN, mentation improved, removed restraints. Monitor. Lower extremity weakness: Suspect multifactorial secondary to dehydration, chronic deconditioning and osteoarthritis. Patient complains of knee, hip, and low back pain. Hip/pelvis x-ray shows mild degenerative changes involving bilateral hips, and no acute fracture. No recent fall or injury. [place] prn pain. Physical therapy consulted, recommending rehabilitation. Patient was supposed to go to rehab on previous hospitalization however went home instead, failed outpatient treatment. Consulted case management for SNF placement. Hypertension: chronic, continue patient's Coreg and Nifedipine. Clonidine as needed. Monitor BP, adjust antihypertensives as needed. CHAPIN: Cr 1.72, previously 0.82 on 08/13/16. Suspect secondary to dehydration, patient admits to recent poor oral intake. Given IVF. Creatinine improved to normal limits. Resolved. Elevated Blood Glucose: Hemoglobin A1c 6.0. Likely borderline DM. Diabetic diet education. Discontinue Accu-Cheks Leukocytosis: suspect secondary to dehydration, no clear source of infection, patient is afebrile. CXR with no acute findings. UA negative. Given IVF. WBCs trended down to normal limits. Resolved. Elevated LFTs with hx of Cirrhosis: Liver U/S 08/08/16 showed cirrhosis, splenomegaly, cholelithiasis without acute cholecystitis. No abdominal complaints. Avoid hepatotoxins. Severe hypomagnesemia and mild hypokalemia: Magnesium level 1, K 3.3. Replaced by IV Mag and po KCl. Repeat labs show improvement with Mag 2.2, replace electrolytes as indicated. Monitor BMP. Right Shoulder Pain: suspect bicep tendonitis vs arthritis of the shoulder joint vs rotator cuff injury. Unremarkable shoulder xray. Check CT. PT. DVT Prophylaxis: heparin Discharge Planning Rehabilitation when arranged Don Baer MD Oct 04, 2016 11:57
[2016-10-04] MEDS ORDERED: POTASSIUM CHLORIDE 10 MEQ CONTROLLED RELEASE TAB PO ONE (12:00)
[2016-10-04 12:30] VITALS: BP 125/70; PULSE 82; RESP 18; TEMP 97.4; O2SAT 97
[2016-10-04] MEDS ORDERED: HYDR-3580 PO (13:38)
[2016-10-04] MEDS ORDERED: GNP100TA3 PO (13:38)
--- NOTE | 2016-10-04 13:39 | HHI.DCPOC ---
Discharge Care Plan Diagnosis: (1) Alcohol withdrawal delirium (2) Generalized weakness (3) Inability to ambulate due to multiple joints Your Health Problems Are: Difficulty with ADL Exercise Tolerance Goals to Promote Your Health * To prevent worsening of your condition and complications * To maintain your health at the optimal level Directions to Meet Your Goals Take your medications as prescribed Follow your dietary instruction Follow activity as directed Keep your appointments as scheduled Take your immunizations and boosters as scheduled If your symptoms worsen call your PCP, if no PCP go to Urgent Care Center or Emergency Room Smoking is Dangerous to Your Health. Avoid second hand smoke Call the 24-hour hour crisis hotline for domestic abuse at Don Baer MD Oct 04, 2016 13:39
[2016-10-04] MEDS ORDERED: LACT10SO PO (13:44)
--- NOTE | 2016-10-04 13:47 | HHI.DS ---
Discharge Summary Admission Date Oct 01, 2016 at 10:07 Discharge Date: Oct 04, 2016 Admitting Diagnosis Weakness (1) Inability to ambulate due to multiple joints ICD Code: R26.2 Diagnosis: Principal (2) Generalized weakness ICD Code: R53.1 Diagnosis: Principal Procedures none Brief History - From Admission Patient 65 years old. He arrives by EMS due to chronic severe back and knee pain. He states that if he, for example, leaves the fan on at night and the breeze blows upon is exposed knees spasming results on it becomes painful. Last night he left the fan on precipitating episode of leg pain. He took Aleve at 2 AM, about 10 hours prior to ER arrival which did allow him several hours of sleep and some pain relief. Evidently his pain was so severe he couldn't walk and he therefore called EMS to bring him to the ER were he offered the history is noted. Similar episodes have occurred previously. Pain is in the knees and the low back and he notes MR studies have been performed diagnosing arthritis and tendinosis. He's had no traumatic injury. No fever. No anesthesia of the perineal perianal discretion. No overflow urinary incontinence. No fecal incontinence. seen in Emergency room, stable has tremors. facial erythema. CBC/BMP: 10/04/16 0754 10/04/16 0754 Significant Findings Laboratory Tests Test 10/02/16 10/04/16 09:00 07:54 Potassium Level 3.2 MEQ/L 3.2 MEQ/L (3.5-5.1) (3.5-5.1) Carbon Dioxide Level 19.0 MEQ/L (21.0-32.0) Calcium Level 8.3 MG/DL (8.5-10.1) Red Blood Count 3.73 MIL/MM3 (4.50-5.90) Hemoglobin 11.7 GM/DL (13.0-17.0) Hematocrit 34.7 % (39.0-51.0) Platelet Count 131 TH/MM3 (150-450) Imaging Last Impressions Shoulder X-Ray 10/03/16 0000 Signed Impressions: Service Date/Time: Monday, October 03, 2016 12:38 - CONCLUSION: Unremarkable examination of the right shoulder. Roque Durham MD Hip and Pelvis X-Ray 09/29/16 0000 Signed Impressions: Service Date/Time: Thursday, September 29, 2016 18:21 - CONCLUSION: 1. Mild degenerative changes involving the hip joints bilaterally. 2. No acute fracture or dislocation. Skyler Gonzalez MD Chest X-Ray 09/29/16 0000 Signed Impressions: Service Date/Time: Thursday, September 29, 2016 14:54 - CONCLUSION: No acute disease. Roque Morris MD PE at Discharge GENERAL: Well-nourished, well-developed male patient in [facility]. SKIN: Warm and dry. No rash. Right thumb with open wound(tophus) HEENT: Normocephalic. Atraumatic.Pupils equal and round.Mucous membranes pink and moist. NECK: Supple. Trachea midline. CARDIOVASCULAR: Regular rate and rhythm. S1, S2 noted. No murmur appreciated. RESPIRATORY: No accessory muscle use. Clear to auscultation. Breath sounds equal bilaterally. GASTROINTESTINAL: Abdomen soft, non-tender, nondistended. Normoactive bowel sounds x4. MUSCULOSKELETAL: No obvious deformities. Extremities without clubbing, cyanosis , or edema. Right anterior shoulder with pinpoint tenderness at the proximal bicep insertion site. Limited active ROM, unable to abduct RUE above shoulder height. Right shoulder pain upon resistance to elbow flexion. NEUROLOGICAL: Awake and alert. No obvious cranial nerve deficits. Motor grossly within normal limits. 5/5 muscle strength in bilateral upper and lower extremities. Normal speech. No tremor. PSYCHIATRIC: Appropriate mood and affect; insight and judgment normal. Hospital Course 65-year-old male with history of osteoarthritis, chronic pain, hypertension, hyperlipidemia, gout, and alcohol abuse, presents with generalized pain and weakness. Alcohol withdrawal with delirium tremens: Patient initially admitted for alcohol withdrawal, tremors, and disorientation. The patient initially improved , but became confused again with auditory hallucinations. Improving. Continue on CIWA protocol, thiamine/folate/multivitamin. Seizure precautions. Discussed with RN, mentation improved, removed restraints. Monitor. Lower extremity weakness: Suspect multifactorial secondary to dehydration, chronic deconditioning and osteoarthritis. Patient complains of knee, hip, and low back pain. Hip/pelvis x-ray shows mild degenerative changes involving bilateral hips, and no acute fracture. No recent fall or injury. [place] prn pain. Physical therapy consulted, recommending rehabilitation. Patient was supposed to go to rehab on previous hospitalization however went home instead, failed outpatient treatment. Consulted case management for SNF placement. Hypertension: chronic, continue patient's Coreg and Nifedipine. Clonidine as needed. Monitor BP, adjust antihypertensives as needed. [place]AP[place]: Cr 1.72, previously 0.82 on 08/13/16. Suspect secondary to dehydration, patient admits to recent poor oral intake. Given IVF. Creatinine improved to normal limits. Resolved. Elevated Blood Glucose: Hemoglobin A1c 6.0. Likely borderline DM. Diabetic diet education. Discontinue Accu-Cheks Leukocytosis: suspect secondary to dehydration, no clear source of infection, patient is afebrile. CXR with no acute findings. UA negative. Given IVF. WBCs trended down to normal limits. Resolved. Elevated LFTs with hx of Cirrhosis: Liver U/S 08/08/16 showed cirrhosis, splenomegaly, cholelithiasis without acute cholecystitis. No abdominal complaints. Avoid hepatotoxins. Severe hypomagnesemia and mild hypokalemia: Magnesium level 1, K 3.3. Replaced by IV Mag and po KCl. Repeat labs show improvement with Mag 2.2, replace electrolytes as indicated. Monitor BMP. Right Shoulder Pain: suspect bicep tendonitis vs arthritis of the shoulder joint vs rotator cuff injury. Unremarkable shoulder xray. Check CT. PT. DVT Prophylaxis: heparin Pt Condition on Discharge: Stable Discharge Disposition: Discharge to SNF Discharge Time: > 30 minutes Discharge Instructions DIET: Follow Instructions for: Heart Healthy Diet Activities you can perform: Regular-No Restrictions Activities to Avoid: Driving Follow up Referrals: PCP Follow-up - 1 Week New Medications: Lactulose Liq (Lactulose Liq) 10 Gm/15 Ml Soln 30 ML PO TID ammonia #1000 Ref 0 ML Magnesium Oxide (Magnesium Oxide) 400 Mg Tab 400 MG PO DAILY Nutritional Supplement #2 Ref 0 TAB Hydrocodone-Acetaminophen (Hydrocodone-Acetaminophen) 7.5-325 mg Tab 1 TAB PO Q6HR PRN PAIN SCALE 1 TO 10 #12 TAB Thiamine HCl (Gnp Vitamin B-1) 100 Mg Tab 100 MG PO DAILY Alcohol Detox #30 TAB Continued Medications: Allopurinol (Allopurinol) 300 Mg Tab 300 MG PO DAILY Gout #30 Ref 0 TAB Carvedilol (Coreg) 12.5 Mg Tab 12.5 MG PO BID With Meals #60 Ref 0 TAB Menthol (Mouth-Throat) ([place] Cough Drops Sugar F) 5.8 Mg Ari 1 LOZENGE BUCCAL UNSCH PRN COUGH/SORE THROAT #30 LOZENGE Nifedipine ER 24 HR (Nifedipine ER 24 HR) 60 Mg Tab 60 MG PO DAILY #30 Ref 0 TAB Additional Information I spent 35 minutes [id number] with the patient or on the webber discussing the patient's disposition, prognosis, and plan of care with patient's caregivers. Over half the time spent was devoted to counseling the patient regarding placement in coordinating care with caregivers and case management. Don Baer MD Oct 04, 2016 13:47
--- NOTE | 2016-10-04 15:31 | RADRPT ---
EXAM DATE/TIME: 10/04/2016 14:24 [place] COMPARISON: No previous studies available for comparison. INDICATIONS : Right shoulder pain. RADIATION DOSE: 12.20 CTDIvol (mGy) MEDICAL HISTORY : Hypertension. SURGICAL HISTORY : None. ENCOUNTER: Initial ACUITY: 1 day PAIN SCALE: 5/10 LOCATION: Right shoulder TECHNIQUE: Volumetric scanning of the shoulder was performed. Using automated exposure control and adjustment o f the mA and/or kV according to patient size, radiation dose was kept as low as reasonably achievable to obtain optimal diagnostic quality images. DICOM format image data is available electronically f or review and comparison. FINDINGS: BONES: No evidence of fracture. Alignment is within normal limits. JOINTS: Mild arthropathy with joint space narrowing and mild subchondral sclerosis is noted. SOFT TISSUES: Muscles, tendons, and neurovascular structures are grossly unremarkable. The integrity of the rotato r cuff tendons cannot be reliably evaluated on CT without intra-articular contrast. No evidence of m ass, organized fluid collection, or foreign body. CONCLUSION: Mild arthropathy. No evidence of acute fracture or dislocation. No significant periarticular calcific process. Fernando Moctezuma MD on October 04, 2016 at 15:26 Board Certified Radiologist. This report was verified electronically.
[2016-10-04] MEDS ORDERED: MAGN400T2 PO (15:59)
[2016-10-04] MEDS ORDERED: MAGNESIUM OXIDE 400 MG TAB PO ONE (16:00)
[2016-10-04 16:08] VITALS: BP 135/73; PULSE 86; RESP 18; TEMP 97.5; O2SAT 97
[2016-10-05] MEDS ORDERED: NEOMYCIN/POLYMYXIN/BACITRACIN OINT 15 GM TUBE TOPICAL SCH (09:00)
== END 2016-10-04 18:34 | DRG 897 ==
LOC: NEPE 12:42 → NEDA 15:11 → NEPHCDU 19:36 → OBSVTOIN 10-01 10:07 → N05A 10-01 21:23
PROVIDERS: ADMIT Internal Medicine; ATTEND Internal Medicine
DX: F10.231 Alcohol dependence with withdrawal delirium (principal); N17.9 Acute kidney failure, unspecified; K74.60 Unspecified cirrhosis of liver; E83.42 Hypomagnesemia; E86.0 Dehydration; M10.9 Gout, unspecified; G89.29 Other chronic pain; M19.90 Unspecified osteoarthritis, unspecified site; M54.5 Low back pain; E78.5 Hyperlipidemia, unspecified; I10 Essential (primary) hypertension; R73.03 Prediabetes; D72.829 Elevated white blood cell count, unspecified; E87.6 Hypokalemia; M25.511 Pain in right shoulder; M25.562 Pain in left knee; M25.561 Pain in right knee; Z78.1 Physical restraint status; Z23 Encounter for immunization
CPT/HCPCS: 71010; 73030; 73200; 73502; 80048; 80053; 80307; 81001; 82140; 82248; 82550; 82948; 83036; 83690; 83735; 84484; 85025; 85027; 85610; 90732; G8987-GP; G8988-GP; J1170; J1644; J2060; J2405; J3411; J3475; J7030; J7040

== ENCOUNTER 2017-03-12 10:53 | Emergency (ER) | payer MEDICARE, BC ==
[~2017-03-12] VITALS: Ht 180.3 cm; Wt 77.3 kg
[~2017-03-12 10:53] MED LIST changes: +HYDR-3580 PO; +LACT10SO PO; +MAGN400T2 PO; +THIA100 PO
[2017-03-12 11:06] VITALS: BP 207/142; PULSE 130; RESP 22; TEMP 97.8; O2SAT 96
[2017-03-12] MEDS ORDERED: CARV12.52 PO (11:06)
[2017-03-12] MEDS ORDERED: NIFE30TA61 PO (11:06)
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
[2017-03-12] MEDS ORDERED: SODIUM CHLOR 0.9% 1000 ML INJ 1,000 ML IV ONE (11:15)
[2017-03-12] MEDS ORDERED: LORazepam 2 MG/ML VIAL IV PUSH ONE ×2 (11:15→12:00)
[2017-03-12] MEDS ORDERED: cloNIDine HCL 0.1 MG TAB PO ONE (11:15)
[2017-03-12] MEDS ORDERED: THIAMINE INJ 100 MG in SODIUM CHLORIDE 0.9% INJ 100 ML IV ONE (11:15)
[2017-03-12 11:20] LABS: AUTOMATED NEUTROPHIL # 9.7 TH/MM3 (1.8-7.7); BASOPHIL # 0.3 TH/MM3 (0-0.2); BASOPHIL % 2.9 % (0.0-2.0); EOSINOPHIL # 0.1 TH/MM3 (0-0.4); EOSINOPHIL % 0.5 % (0.0-4.0); HEMATOCRIT 41.8 % (39.0-51.0); HEMO FLAGS DIFF FINAL; LYMPH % 9.2 % (9.0-44.0); LYMPHOCYTE # 1.1 TH/MM3 (1.0-4.8); MEAN CELL VOLUME 90.3 FL (80.0-100.0); MEAN CORPUSCULAR HEMOGLOBIN 30.9 PG (27.0-34.0); MEAN CORPUSCULAR HGB CONC 34.2 % (32.0-36.0); MONO % 6.7 % (0.0-8.0); NEUT % 80.7 % (16.0-70.0); PLATELET COUNT 153 TH/MM3 (150-450); RED BLOOD COUNT 4.63 MIL/MM3 (4.50-5.90); RED CELL DISTRIBUTION WIDTH 13.6 % (11.6-17.2)
[2017-03-12 11:30] LABS: CHLORIDE 100 MEQ/L (98-107); POTASSIUM 4.4 MEQ/L (3.5-5.1); SODIUM (NA) 135 MEQ/L (136-145)
[2017-03-12 11:34] LABS: ANION GAP 12 MEQ/L (5-15); APTT (PATIENT) 22.5 SEC (24.3-30.1); BLOOD UREA NITROGEN 15 MG/DL (7-18); INTERNATIONAL NORMALIZED RATIO 1.1 RATIO; MAGNESIUM 1.2 MG/DL (1.5-2.5); PROTHROMBIN TIME - PATIENT 10.7 SEC (9.8-11.6)
[2017-03-12 11:37] LABS: ALT (GPT) 35 U/L (12-78); AST (GOT) 67 U/L (15-37); GLOMERULAR FILTRATION RATE 61 ML/MIN (>89)
[2017-03-12 11:38] LABS: TOTAL BILIRUBIN ADULT 1.4 MG/DL (0.2-1.0)
[2017-03-12 11:40] LABS: ALKALINE PHOSPHATASE 162 U/L (45-117)
[2017-03-12] MEDS ORDERED: MAGNESIUM OXIDE 400 MG TAB PO ONE (11:45)
[2017-03-12] MEDS ORDERED: MAGNESIUM SULFATE 1 GM PREMIX 100 ML IV ONE (11:45)
[2017-03-12 11:47] LABS: ALCOHOL LESS THAN 3 MG/DL (0-5)
[2017-03-12 12:00] LABS: BLOOD, URINE SMALL (NEG); GLUCOSE,URINE NEG (NEG); KETONE, URINE NEG (NEG); NITRITE,URINE NEG (NEG)
[2017-03-12 12:02] LABS: METHOD OF COLLECTION CLEAN CATCH; URINE COLOR YELLOW (YELLW/STRAW)
[2017-03-12 12:04] VITALS: BP 174/96; PULSE 107; RESP 18; TEMP 98.3; O2SAT 96
[2017-03-12 12:08] LABS: COMMENT (UR) CULT NOT INDICATED; CULTURE IF INDICATED CULT NOT INDICATED; WBC, URINE 0-2 /hpf (0-5)
[2017-03-12] MEDS ORDERED: chlordiazePOXIDE 25 MG CAP PO STA (12:34)
[2017-03-12] MEDS ORDERED: CARVEDILOL 12.5 MG TAB PO ONE (12:45)
[2017-03-12 13:06] VITALS: BP 180/90; PULSE 107; RESP 18; O2SAT 97
[2017-03-12 14:03] VITALS: BP 141/90; PULSE 90; O2SAT 95
[2017-03-12] MEDS ORDERED: MAGN400T2 PO (14:18)
[2017-03-12] MEDS ORDERED: CHLO25CA9 PO (14:18)
--- NOTE | 2017-03-12 22:07 | EKG ---
Date Performed: 03/12/2017 Time Performed: 11:53:56 PTAGE: 66 years EKG: Sinus rhythm ARTIFACT ABNORMAL RHYTHM ECG PREVIOUS TRACING : 08/06/2016 13.29 Compared to prior tracing no significant change DOCTOR: Marielos Chi Interpretating Date/Time 03/12/2017 22:06:08
== END 2017-03-12 15:57 | disposition home or self-care (01) ==
LOC: PHED 10:53
DX: E83.42 Hypomagnesemia (principal); I10 Essential (primary) hypertension; M10.9 Gout, unspecified; R00.0 Tachycardia, unspecified; F10.231 Alcohol dependence with withdrawal delirium; Y90.0 Blood alcohol level of less than 20 mg/100 ml; Z79.899 Other long term (current) drug therapy
CPT/HCPCS: 80053; 80307; 81001; 82140; 83735; 85025; 85610; 85730; 93005; 96365; 96367; 96375; 96376; 99284; J2060; J3411; J3475; J7030

== ENCOUNTER 2017-04-10 14:47 | Observation (INO) | payer MEDICARE, BC ==
[~2017-04-10] VITALS: Ht 180.3 cm; Wt 82.8 kg
[~2017-04-10 14:47] MED LIST changes: -CARV12.5 PO; +CARV12.52 PO; +CHLO25CA9 PO; -HALLLOZ2 BUCCAL; -HYDR-3580 PO; -LACT10SO PO; +NIFE30TA61 PO; -NIFE60TA58 PO; -THIA100 PO
[2017-04-10 14:54] VITALS: BP 157/94; PULSE 132; RESP 18; TEMP 99.5; O2SAT 95
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
[2017-04-10] MEDS ORDERED: SODIUM CHLOR 0.9% 1000 ML INJ 1,000 ML IV ONE (15:15)
[2017-04-10] MEDS ORDERED: LORazepam 2 MG/ML VIAL IV PUSH ONE (15:15)
[2017-04-10] MEDS ORDERED: THIAMINE INJ 100 MG in SODIUM CHLORIDE 0.9% INJ 100 ML IV ONE (15:15)
[2017-04-10 15:17] LABS: BASOPHIL # 0.1 TH/MM3 (0-0.2); BASOPHIL % 0.6 % (0.0-2.0); EOSINOPHIL # 0.2 TH/MM3 (0-0.4); EOSINOPHIL % 1.5 % (0.0-4.0); HEMATOCRIT 45.5 % (39.0-51.0); HEMOGLOBIN 15.2 GM/DL (13.0-17.0); LYMPH % 13.8 % (9.0-44.0); LYMPHOCYTE # 1.6 TH/MM3 (1.0-4.8); MEAN CELL VOLUME 94.9 FL (80.0-100.0); MEAN CORPUSCULAR HEMOGLOBIN 31.7 PG (27.0-34.0); MEAN CORPUSCULAR HGB CONC 33.4 % (32.0-36.0); MEAN PLATELET VOLUME 7.4 FL (7.0-11.0); MONO % 8.2 % (0.0-8.0); NEUT % 75.9 % (16.0-70.0); PLATELET COUNT 113 TH/MM3 (150-450); RED BLOOD COUNT 4.79 MIL/MM3 (4.50-5.90); RED CELL DISTRIBUTION WIDTH 14.6 % (11.6-17.2); WHITE BLOOD COUNT 11.9 TH/MM3 (4.0-11.0)
[2017-04-10 15:25] LABS: CHLORIDE 94 MEQ/L (98-107); SODIUM (NA) 133 MEQ/L (136-145)
[2017-04-10 15:28] VITALS: PULSE 111; RESP 16; O2SAT 97
[2017-04-10 15:28] LABS: CALCIUM 9.3 MG/DL (8.5-10.1); INTERNATIONAL NORMALIZED RATIO 1.1 RATIO; PROTHROMBIN TIME - PATIENT 11.5 SEC (9.8-11.6)
[2017-04-10 15:29] LABS: ALBUMIN 3.4 GM/DL (3.4-5.0); BICARBONATE 22.6 MEQ/L (21.0-32.0); BLOOD UREA NITROGEN 28 MG/DL (7-18); GLUCOSE,RANDOM 156 MG/DL (74-106); MAGNESIUM 0.9 MG/DL (1.5-2.5)
[2017-04-10 15:32] LABS: ALT (GPT) 54 U/L (12-78); AST (GOT) 132 U/L (15-37); GLOMERULAR FILTRATION RATE 38 ML/MIN (>89)
[2017-04-10 15:33] LABS: TOTAL BILIRUBIN ADULT 2.5 MG/DL (0.2-1.0); TOTAL PROTEIN 8.2 GM/DL (6.4-8.2)
[2017-04-10 15:35] LABS: ALKALINE PHOSPHATASE 165 U/L (45-117)
[2017-04-10 15:37] LABS: TROPONIN I LESS THAN 0.02 NG/ML (0.02-0.05)
[2017-04-10 15:45] VITALS: BP 188/93; PULSE 119; PULSE 129; RESP 18; TEMP 98.8; O2SAT 93
[2017-04-10] MEDS ORDERED: POTASSIUM CHLORIDE 20 MEQ CONTROLLED RELEASE TAB PO ONE (15:45)
[2017-04-10] MEDS ORDERED: MAGNESIUM OXIDE 400 MG TAB PO ONE (15:45)
[2017-04-10] MEDS ORDERED: MAGNESIUM SULFATE 1 GM PREMIX 100 ML IV ONE ×2 (15:45→17:15)
[2017-04-10 16:52] VITALS: BP 174/94; PULSE 114; RESP 18; TEMP 98.7; O2SAT 98
[2017-04-10] MEDS ORDERED: SODIUM CHLORIDE 0.9% FLUSH 10 ML FLUSH IV FLUSH PRN (17:00)
[2017-04-10] MEDS ORDERED: NALOXONE HCL 0.4 MG/ML AMP IV PUSH PRN (17:00)
[2017-04-10] MEDS ORDERED: MAGNESIUM HYDROXIDE SUSP 30 ML CUP PO PRN (17:00)
[2017-04-10] MEDS ORDERED: ACETAMINOPHEN 325 MG TAB PO PRN (17:00)
[2017-04-10] MEDS ORDERED: ONDANSETRON HCL 4 MG/2 ML VIAL IVP PRN (17:00)
[2017-04-10] MEDS ORDERED: LORazepam 2 MG TAB PO PRN (17:15)
[2017-04-10] MEDS ORDERED: FLUMAZENIL 0.5 MG/5 ML VIAL IV PUSH PRN (17:15)
[2017-04-10] MEDS ORDERED: LORazepam 1 MG TAB PO PRN (17:15)
[2017-04-10] MEDS ORDERED: LORazepam 2 MG/ML VIAL IV PUSH PRN ×4 (17:15)
--- NOTE | 2017-04-10 17:16 | HHI.HP ---
[facility] Primary Care Physician No Primary Care Physician Admission Diagnosis HYPOMAGNESEMIA, ALCOHOL WITHDRAWL Diagnoses: Chief Complaint: Weakness Travel History International Travel<30 Days: No Contact w/Intl Traveler <30 Da: No Traveled to Known Affected Are: No History of Present Illness This patient is a 66-year-old gentleman with a history of all dependency. He comes to the hospital with increased weakness over the last several days. He has chronic weakness and has had chronic myalgias. He reports "restless legs". He says leg pain gets worse when the cold weather happens and it has been in the 40s and 50s here in the city. There is no trauma or recent fall. He drinks liquor considerable amount daily. He has come to the hospital for further evaluation due to inability to walk due to worsening leg issues. His ammonia is 48, his creatinine is 1.8 and the patient has multiple electrolyte imbalances. For these reasons the patient is admitted to the hospital Review of Systems Constitutional: DENIES: Diaphoretic episodes, Fatigue, Fever, Weight gain, Weight loss, Chills, Dizziness, Change in appetite, Night Sweats Endocrine: DENIES: Heat/cold intolerance, Polydipsia, Polyuria, Polyphagia Eyes: DENIES: Blurred vision, Diplopia, Eye inflammation, Eye pain, Vision loss , Photosensitivity, Double Vision Ears, nose, mouth, throat: DENIES: Tinnitus, Hearing loss, Vertigo, Nasal discharge, Oral lesions, Throat pain, Hoarseness, Ear Pain, Running Nose, Epistaxis, Sinus Pain, Toothache, Odynophagia Cardiovascular: DENIES: Chest pain, Palpitations, Syncope, Dyspnea on Exertion , PND, Lower Extremity Edema, Orthopnea, Claudication Gastrointestinal: DENIES: Abdominal pain, Black stools, Bloody stools, Constipation, Diarrhea, Nausea, Vomiting, Difficulty Swallowing, Anorexia Genitourinary: DENIES: Sexual dysfunction, Urinary frequency, Urinary incontinence, Urgency, Hematuria, Dysuria, Nocturia, Penile Discharge, Testicular Pain, Testicular Swelling Musculoskeletal: DENIES: Joint pain, Muscle aches, Stiffness, Joint Swelling, Back pain, Neck pain Integumentary: DENIES: Abnormal pigmentation, Nail changes, Pruritus, Rash Hematologic/lymphatic: DENIES: Bruising, Lymphadenopathy Immunologic/allergic: DENIES: Eczema, Urticaria Neurologic: COMPLAINS OF: Abnormal gait, Tremor, Poor Balance, DENIES: Headache , Localized weakness, Paresthesias, Seizures, Speech Problems Psychiatric: DENIES: Anxiety, Confusion, Mood changes, Depression, Hallucinations, Agitation, Suicidal Ideation, Homicidal Ideation, Delusions Except as stated in HPI: all other systems reviewed are Neg Past Family Social History Past Medical History Hypertension Gout Past Surgical History Home or throat surgery for gout Reported Medications Reviewed in the EMR, nothing new Allergies: Coded Allergies: No Known Allergies (Unverified Allergy, Unknown, 04/10/17) Active Ordered Medications Reviewed in the EMR Family History Unknown to patient Social History No tobacco, drinks vodka several times a day, lives alone Physical Exam Vital Signs Vital Signs Date Time Temp Pulse Resp B/P (MAP) Pulse Ox O2 Delivery O2 Flow Rate FiO2 04/10/17 16:52 98.7 114 18 174/94 (120) 98 Room Air 04/10/17 15:45 98.8 119 18 188/93 (124) 93 Room Air 04/10/17 15:28 111 16 97 Room Air 04/10/17 15:01 (115) 04/10/17 14:54 99.5 132 18 157/94 (115) 95 Room Air Physical Exam GENERAL: This is a well-nourished, disheveled and tremulous male well-developed patient, in no apparent distress. SKIN: No rashes, ecchymoses or lesions. Cool and dry. HEAD: Atraumatic. Normocephalic. No temporal or scalp tenderness. EYES: Pupils equal round and reactive. Extraocular motions intact. No scleral icterus. No injection or drainage. ENT: Nose without bleeding, purulent drainage or septal hematoma. Throat without erythema, tonsillar hypertrophy or exudate. Uvula midline. Airway patent. NECK: Trachea midline. No JVD or lymphadenopathy. Supple, nontender, no meningeal signs. CARDIOVASCULAR: Sinus tachycardia without murmurs, gallops, or rubs. RESPIRATORY: Clear to auscultation. Breath sounds equal bilaterally. No wheezes , rales, or rhonchi. GASTROINTESTINAL: Abdomen soft, non-tender, nondistended. No hepato-splenomegaly , or palpable masses. No guarding. MUSCULOSKELETAL: Extremities without clubbing, cyanosis, or edema. No joint tenderness, effusion, or edema noted. No calf tenderness. Negative Homans sign bilaterally. NEUROLOGICAL: Awake and alert. Cranial nerves II through XII intact. Motor and sensory grossly within normal limits. Five out of 5 muscle strength in all muscle groups. Normal speech. Laboratory Laboratory Tests Test 04/10/17 15:10 White Blood Count 11.9 Red Blood Count 4.79 Hemoglobin 15.2 Hematocrit 45.5 Mean Corpuscular Volume 94.9 Mean Corpuscular Hemoglobin 31.7 Mean Corpuscular Hemoglobin Concent 33.4 Red Cell Distribution Width 14.6 Platelet Count 113 Mean Platelet Volume 7.4 Neutrophils (%) (Auto) 75.9 Lymphocytes (%) (Auto) 13.8 Monocytes (%) (Auto) 8.2 Eosinophils (%) (Auto) 1.5 Basophils (%) (Auto) 0.6 Neutrophils # (Auto) 9.0 Lymphocytes # (Auto) 1.6 Monocytes # (Auto) 1.0 Eosinophils # (Auto) 0.2 Basophils # (Auto) 0.1 CBC Comment DIFF FINAL Differential Comment Prothrombin Time 11.5 Prothromb Time International Ratio 1.1 Activated Partial Thromboplast Time 23.6 Blood Urea Nitrogen 28 Creatinine 1.80 Random Glucose 156 Total Protein 8.2 Albumin 3.4 Calcium Level 9.3 Magnesium Level 0.9 Alkaline Phosphatase 165 Aspartate Amino Transf (AST/SGOT) 132 Alanine Aminotransferase (ALT/SGPT) 54 Total Bilirubin 2.5 Sodium Level 133 Potassium Level 3.4 Chloride Level 94 Carbon Dioxide Level 22.6 Anion Gap 16 Estimat Glomerular Filtration Rate 38 Ammonia 48 Total Creatine Kinase 78 Troponin I LESS THAN 0.02 Ethyl Alcohol Level LESS THAN 3 Result Diagram: 04/10/17 1510 04/10/17 1510 Caprini VTE Risk Assessment Caprini VTE Risk Assessment: Mod/High Risk (score >= 2) Caprini Risk Assessment Model Point Value = 1 Point Value = 2 Point Value = 3 Point Value = 5 Age 41-60 Minor surgery BMI > 25 kg/m2 Swollen legs Varicose veins or History of unexplained or recurrent spontaneous Oral contraceptives or hormone replacement Sepsis (< 1 month) Serious lung disease, including pneumonia (< 1 month) Abnormal pulmonary function Acute myocardial infarction Congestive heart failure (< 1 month) History of inflammatory bowel disease Medical patient at bed rest Age 61-74 Arthroscopic surgery Major open surgery (> 45 min) Laparoscopic surgery (> 45 min) Malignancy Confined to bed (> 72 hours) Immobilizing plaster cast Central venous access Age >= 75 History of VTE Family history of VTE Factor V Leiden Prothrombin [id number] Lupus anticoagulant Anticardiolipin antibodies Elevated serum homocysteine Heparin-induced thrombocytopenia Other congenital or acquired thrombophilia Stroke (< 1 month) Elective arthroplasty Hip, pelvis, or leg fracture Acute spinal cord injury (< 1 month) Prophylaxis Regimen Total Risk Factor Score Risk Level Prophylaxis Regimen 0-1 Low Early ambulation 2 Moderate Order ONE of the following: *Sequential Compression Device (SCD) *Heparin 5000 units SQ BID 3-4 Higher Order ONE of the following medications: *Heparin 5000 units SQ TID *Enoxaparin/Lovenox 40 mg SQ daily (WT < 150 kg, CrCl > 30 mL/min) *Enoxaparin/Lovenox 30 mg SQ daily (WT < 150 kg, CrCl > 10-29 mL/min) *Enoxaparin/Lovenox 30 mg SQ BID (WT < 150 kg, CrCl > 30 mL/min) AND/OR *Sequential Compression Device (SCD) 5 or more Highest Order ONE of the following medications: *Heparin 5000 units SQ TID (Preferred with Epidurals) *Enoxaparin/Lovenox 40 mg SQ daily (WT < 150 kg, CrCl > 30 mL/min) *Enoxaparin/Lovenox 30 mg SQ daily (WT < 150 kg, CrCl > 10-29 mL/min) *Enoxaparin/Lovenox 30 mg SQ BID (WT < 150 kg, CrCl > 30 mL/min) AND *Sequential Compression Device (SCD) Assessment and Plan Problem List: (1) Alcohol withdrawal ICD Code: F10.239 - Alcohol dependence with withdrawal, unspecified Status: Acute Plan: [facility] protocol Librium scheduled Patient education (2) Hypomagnesemia ICD Code: E83.42 - Hypomagnesemia Status: Acute Plan: Replace electrolytes (3) Generalized weakness ICD Code: R53.1 - Weakness Status: Acute Plan: Patient also appears to have restless leg syndrome and will add Requip and check his iron studies Code Status full code Discussed Condition With patient Ericka Esquivel MD Apr 10, 2017 17:16
[2017-04-10] MEDS: chlordiazePOXIDE 25 MG CAP PO SCH (17:51)
[2017-04-10] MEDS: LACTULOSE SYRUP 20 GM/30 ML CUP PO SCH (17:51)
[2017-04-10] MEDS: SODIUM CHLOR 0.9% 1000 ML INJ 1,000 ML IV SCH (17:56)
[2017-04-10] MEDS ORDERED: ENOXAPARIN SODIUM 40 MG/0.4 ML SYRINGE SQ SCH (18:00)
[2017-04-10 18:38] LABS: PHOSPHORUS 3.8 MG/DL (2.5-4.9)
[2017-04-10 18:45] VITALS: BP 183/99; PULSE 122
[2017-04-10 19:12] LABS: BLOOD, URINE SMALL (NEG); GLUCOSE,URINE NEG (NEG); KETONE, URINE 15 mg/dL (NEG); NITRITE,URINE NEG (NEG); URINE LEUKOCYTE ESTERASE NEG (NEG)
[2017-04-10 19:15] LABS: BILIRUBIN, URINE NEG (NEG)
[2017-04-10] MEDS ORDERED: cloNIDine HCL 0.1 MG TAB PO PRN (19:15)
[2017-04-10 19:16] LABS: URINE COLOR AMBER (YELLW/STRAW)
[2017-04-10 19:17] LABS: RBC, URINE 0-3 /hpf (0-3); SQUAMOUS EPITHELIAL CELL URINE 0-5 /hpf (0-5); WBC, URINE 0-2 /hpf (0-5)
[2017-04-10 19:36] LABS: % SATURATION IRON PROFILE 55.8 % (20-50); IRON (FE) 203 MCG/DL (65-175); TOTAL IRON BINDING CAPACITY 364 MCG/DL (250-450)
[2017-04-10 20:00] VITALS: BP 148/83; PULSE 116; RESP 20; TEMP 97.5; O2SAT 95
[2017-04-10] MEDS: CARVEDILOL 12.5 MG TAB PO SCH (20:29)
[2017-04-10] MEDS: SODIUM CHLORIDE 0.9% FLUSH 10 ML FLUSH IV FLUSH SCH (20:29)
[2017-04-11] VITALS: BP 126/80; PULSE 94; RESP 20; TEMP 96.3; O2SAT 93
[2017-04-11 04:00] VITALS: BP 121/73; PULSE 86; RESP 20; TEMP 96; O2SAT 94
[2017-04-11 05:12] LABS: AUTOMATED NEUTROPHIL # 5.8 TH/MM3 (1.8-7.7); BASOPHIL % 0.6 % (0.0-2.0); EOSINOPHIL # 0.2 TH/MM3 (0-0.4); EOSINOPHIL % 2.7 % (0.0-4.0); HEMATOCRIT 38.5 % (39.0-51.0); LYMPH % 16.8 % (9.0-44.0); LYMPHOCYTE # 1.4 TH/MM3 (1.0-4.8); MEAN CELL VOLUME 94.2 FL (80.0-100.0); MEAN CORPUSCULAR HEMOGLOBIN 31.8 PG (27.0-34.0); MEAN CORPUSCULAR HGB CONC 33.8 % (32.0-36.0); MEAN PLATELET VOLUME 7.4 FL (7.0-11.0); MONOCYTE # 0.8 TH/MM3 (0-0.9); NEUT % 69.9 % (16.0-70.0); PLATELET COUNT 84 TH/MM3 (150-450); RED BLOOD COUNT 4.09 MIL/MM3 (4.50-5.90); RED CELL DISTRIBUTION WIDTH 13.7 % (11.6-17.2); WHITE BLOOD COUNT 8.2 TH/MM3 (4.0-11.0)
[2017-04-11] MEDS: SODIUM CHLOR 0.9% 1000 ML INJ 1,000 ML IV SCH ×2 (05:22→12:55)
[2017-04-11 05:32] LABS: BICARBONATE 24.8 MEQ/L (21.0-32.0); CALCIUM 8.3 MG/DL (8.5-10.1); CREATININE 0.93 MG/DL (0.60-1.30); MAGNESIUM 1.8 MG/DL (1.5-2.5)
[2017-04-11] MEDS ORDERED: MAGNESIUM OXIDE 400 MG TAB PO ONE (06:00)
[2017-04-11] MEDS ORDERED: POTASSIUM CHLORIDE 20 MEQ CONTROLLED RELEASE TAB PO ONE (06:00)
[2017-04-11 08:00] VITALS: BP 157/96; PULSE 89; RESP 12; TEMP 96.5; O2SAT 95
[2017-04-11] MEDS ORDERED: ALLOPURINOL 300 MG TAB PO SCH (09:00)
[2017-04-11] MEDS ORDERED: NIFEdipine 30 MG SUSTAINED RELEASE TAB PO SCH (09:00)
[2017-04-11] MEDS: chlordiazePOXIDE 25 MG CAP PO SCH (09:37)
[2017-04-11] MEDS: LACTULOSE SYRUP 20 GM/30 ML CUP PO SCH (09:37)
[2017-04-11] MEDS: CARVEDILOL 12.5 MG TAB PO SCH (09:37)
[2017-04-11] MEDS: SODIUM CHLORIDE 0.9% FLUSH 10 ML FLUSH IV FLUSH SCH (09:37)
[2017-04-11] MEDS ORDERED: POTA10TA2 PO (12:05)
[2017-04-11] MEDS ORDERED: B-1250TA PO (12:05)
--- NOTE | 2017-04-11 12:07 | HHI.FF ---
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 My clinical findings support the need for the requested home health care services because: Ltd mobility - disease progression I certify that my clinical findings support that this patient is homebound because: Unsteady gait/balance Ericka Delvalle MD Apr 11, 2017 12:07
--- NOTE | 2017-04-11 12:08 | HHI.DCPOC ---
Discharge Care Plan Diagnosis: (1) Hypomagnesemia (2) Generalized weakness Goals to Promote Your Health * To prevent worsening of your condition and complications * To maintain your health at the optimal level Directions to Meet Your Goals Take your medications as prescribed Follow your dietary instruction Follow activity as directed Keep your appointments as scheduled Take your immunizations and boosters as scheduled If your symptoms worsen call your PCP, if no PCP go to Urgent Care Center or Emergency Room Smoking is Dangerous to Your Health. Avoid second hand smoke Call the 24-hour hour crisis hotline for domestic abuse at Ericka Delvalle MD Apr 11, 2017 12:08
--- NOTE | 2017-04-11 12:09 | HHI.PR ---
Subjective Remarks Patient seen and evaluated for weakness, legs are stronger today. PT notes reviewed. Patient elected lites. Patient is advised to discontinue alcohol. Discharge plans are discussed with him and he is in agreement Objective Vitals Vital Signs Date Time Temp Pulse Resp B/P (MAP) Pulse Ox O2 Delivery O2 Flow Rate FiO2 04/11/17 08:00 96.5 89 12 157/96 (116) 95 04/11/17 04:00 96.0 86 20 121/73 (89) 94 04/11/17 00:00 96.3 94 20 126/80 (95) 93 04/10/17 20:00 97.5 116 20 148/83 (104) 95 04/10/17 18:45 122 183/99 (127) 04/10/17 17:23 04/10/17 16:52 98.7 114 18 174/94 (120) 98 Room Air 04/10/17 15:45 98.8 119 18 188/93 (124) 93 Room Air 04/10/17 15:28 111 16 97 Room Air 04/10/17 15:01 (115) 04/10/17 14:54 99.5 132 18 157/94 (115) 95 Room Air I/O 04/10/17 04/10/17 04/10/17 04/11/17 04/11/17 04/11/17 06:59 14:59 22:59 06:59 14:59 22:59 Intake Total 1440 ml 1365 ml Output Total 200 ml 275 ml 500 ml Balance 1240 ml 1090 ml -500 ml Intake Oral 480 ml IV Total 1440 ml 885 ml Output Urine Total 200 ml 275 ml 500 ml # Voids 1 # Bowel Movements 0 1 Result Diagram: 04/11/17 0435 04/11/17 0435 Objective Remarks GENERAL: This is a well-nourished, well-developed patient, in no apparent distress. CARDIOVASCULAR: Regular rate and rhythm without murmurs, gallops, or rubs. RESPIRATORY: Clear to auscultation. Breath sounds equal bilaterally. No wheezes , rales, or rhonchi. GASTROINTESTINAL: Abdomen soft, non-tender, nondistended. Normal active bowel sounds MUSCULOSKELETAL: Extremities without clubbing, cyanosis, or edema. NEURO: Alert & Oriented x4 to person, place, time, situation. Weak bilateral lower extremities A/P Problem List: (1) Alcohol withdrawal ICD Code: F10.239 - Alcohol dependence with withdrawal, unspecified Status: Acute Plan: [facility] protocol Librium scheduled Patient education (2) Hypomagnesemia ICD Code: E83.42 - Hypomagnesemia Status: Acute Plan: Replace electrolytes Hypokalemia replaced as well 2.9 today (3) Generalized weakness ICD Code: R53.1 - Weakness Status: Acute Plan: Patient also appears to have restless leg syndrome and will continue Requip and check his iron studies Ericka Delvalle MD Apr 11, 2017 12:09
[2017-04-11] MEDS ORDERED: ROPI1TAB72 PO (12:10)
--- NOTE | 2017-04-12 23:31 | EKG ---
Date Performed: 04/10/2017 Time Performed: 21:37:32 PTAGE: 66 years EKG: Sinus rhythm BORDERLINE LEFT AXIS DEVIATION BORDERLINE ECG PREVIOUS TRACING : 03/12/2017 11.53 DOCTOR: Chet Doyle Interpretating Date/Time 04/12/2017 23:29:44
== END 2017-04-11 14:28 | disposition home health service (06) ==
LOC: PHED 14:47 → PHEDA 16:10 → INTOOBSV 16:10 → PH3A 17:18
PROVIDERS: ADMIT Hospitalist; ATTEND Hospitalist
DX: M79.605 Pain in left leg (principal); M79.604 Pain in right leg; E83.42 Hypomagnesemia; R53.1 Weakness; I10 Essential (primary) hypertension; R26.2 Difficulty in walking, not elsewhere classified; F16.10 Hallucinogen abuse, uncomplicated; M10.9 Gout, unspecified; R94.31 Abnormal electrocardiogram [ECG] [EKG]; F10.20 Alcohol dependence, uncomplicated
CPT/HCPCS: 80048; 80053; 80307; 81001; 82140; 82550; 82607; 83540; 83550; 83735; 84100; 84484; 85025; 85610; 85730; 93005; 96365; 96366; 96372; 96375; 96376; 97162; 99285; G0378; G8987; G8988; J1650; J2060; J3411; J3475; J7030